=== PATIENT | female | born 1990 | race Caucasian/White ===

== ENCOUNTER → 2016-11-18 | Outpatient (CLI) | payer BC, MEDICAID ==
[2016-11-18 13:29] LABS: ABSOLUTE EOSINOPHILS # (AUTO) 0.3 10^3/uL (0.0-0.6); ABSOLUTE LYMPHOCYTES (AUTO) 1.9 10^3/uL (0.5-4.7); ABSOLUTE MONOCYTES (AUTO) 0.6 10^3/uL (0.1-1.4); ABSOLUTE NEUT (AUTO) 8.6 10^3/uL (1.7-8.2); BASOPHILS % (AUTO) 0.1 % (0-2); EOSINOPHILS % (AUTO) 2.5 % (0-6); HEMATOCRIT 40.1 % (36.0-47.0); HEMOGLOBIN 13.3 g/dL (12.0-15.5); HGB HCT DIFFERENCE -0.2; LYMPHOCYTES % (AUTO) 16.3 % (13-45); MEAN CORPUSCULAR HEMOGLOBIN 27.5 pg (27.0-33.4); MEAN CORPUSCULAR HGB CONC 33.2 g/dL (32.0-36.0); MEAN CORPUSCULAR VOLUME 83 fl (80-97); MONOCYTES % (AUTO) 5.5 % (3-13); RED BLOOD COUNT 4.85 10^6/uL (3.72-5.28); RED CELL DISTRIBUTION WIDTH 14.8 % (11.5-14.0); SEGMENTED NEUTROPHILS % (AUTO) 75.6 % (42-78); WHITE BLOOD COUNT 11.4 10^3/uL (4.0-10.5)
[2016-11-18 13:58] LABS: ALANINE AMINOTRANSFERASE 22 U/L (9-52); ALBUMIN 3.9 g/dL (3.5-5.0); ALKALINE PHOSPHATASE 100 U/L (38-126); ANION GAP 14 (5-19); ASPARTATE AMINO TRANSFERASE 19 U/L (14-36); BILIRUBIN,TOTAL 0.4 mg/dL (0.2-1.3); BLOOD UREA NITROGEN 16 mg/dL (7-20); CALCIUM 9.7 mg/dL (8.4-10.2); CARBON DIOXIDE 27 mmol/L (22-30); CHLORIDE 99 mmol/L (98-107); CHOLESTEROL 310.21 mg/dL (0-200); CREATININE RESULT 0.78 mg/dL (0.52-1.25); Direct HDL 66 mg/dL (>40); GLUCOSE 89 mg/dL (75-110); SODIUM 139.5 mmol/L (137-145); TOTAL PROTEIN 7.5 g/dL (6.3-8.2); TRIGLYCERIDES 197 mg/dL (<150)
[2016-11-18 14:09] LABS: DIRECT LDL 205 mg/dL (<100)
[2016-11-18 14:12] LABS: VLDL CHOLESTEROL 39.4 mg/dL (10-31)
== END ==
LOC: OD 12:11
PROVIDERS: ATTEND Nurse Practitioner Psychiatric/Mental Health
DX: F25.0 Schizoaffective disorder, bipolar type (principal); Z79.899 Other long term (current) drug therapy
CPT/HCPCS: 36415; 80053; 80061; 80156; 84443; 85025

== ENCOUNTER 2017-01-11 23:24 | Emergency (ER) | payer MEDICAID ==
[2017-01-12 01:11] LABS: ABSOLUTE EOSINOPHILS # (AUTO) 0.3 10^3/uL (0.0-0.6); ABSOLUTE LYMPHOCYTES (AUTO) 3.1 10^3/uL (0.5-4.7); ABSOLUTE MONOCYTES (AUTO) 0.7 10^3/uL (0.1-1.4); ABSOLUTE NEUT (AUTO) 7.5 10^3/uL (1.7-8.2); BASOPHILS % (AUTO) 0.2 % (0-2); EOSINOPHILS % (AUTO) 2.9 % (0-6); HEMATOCRIT 37.8 % (36.0-47.0); HEMOGLOBIN 12.6 g/dL (12.0-15.5); LYMPHOCYTES % (AUTO) 26.4 % (13-45); MEAN CORPUSCULAR HEMOGLOBIN 27.8 pg (27.0-33.4); MEAN CORPUSCULAR HGB CONC 33.4 g/dL (32.0-36.0); MEAN CORPUSCULAR VOLUME 83 fl (80-97); MONOCYTES % (AUTO) 5.7 % (3-13); RED BLOOD COUNT 4.54 10^6/uL (3.72-5.28); RED CELL DISTRIBUTION WIDTH 14.5 % (11.5-14.0); SEGMENTED NEUTROPHILS % (AUTO) 64.8 % (42-78); WHITE BLOOD COUNT 11.6 10^3/uL (4.0-10.5)
[2017-01-12 01:27] LABS: ANION GAP 10 (5-19); BLOOD UREA NITROGEN 15 mg/dL (7-20); CALCIUM 9.8 mg/dL (8.4-10.2); CARBON DIOXIDE 29 mmol/L (22-30); CHLORIDE 102 mmol/L (98-107); CREATININE RESULT 0.69 mg/dL (0.52-1.25); GLUCOSE 88 mg/dL (75-110); POTASSIUM 4.1 mmol/L (3.6-5.0); SODIUM 141.4 mmol/L (137-145)
[2017-01-12 01:32] LABS: URINE BARBITURATES SCREEN NEGATIVE; URINE METHADONE SCREEN NEGATIVE; URINE OPIATES LOW NEGATIVE; URINE PHENCYCLIDINE SCREEN NEGATIVE
[2017-01-12 03:37] LABS: APPEARANCE,URINE CLEAR; BILIRUBIN,URINE NEGATIVE (NEGATIVE); GLUCOSE, URINE NEGATIVE (NEGATIVE); KETONES,URINE NEGATIVE (NEGATIVE); LEUKOCYTE ESTERASE,URINE SMALL (NEGATIVE); NITRITE,URINE NEGATIVE (NEGATIVE); PROTEIN,URINE NEGATIVE (NEGATIVE); URINE SPECIFIC GRAVITY 1.024; UROBILINOGEN,URINE NEGATIVE mg/dL (<2.0)
--- NOTE | 2017-01-12 04:15 | ER Document Report ---
ED General - General Chief Complaint: Psych Problem Stated Complaint: PSYCH PROBLEM Notes: Patient is 26 year old female presents with complaints of wine to go back to residential. She has been living with her grandmother for last year. PERRLA today she got angry because someone told her to take her medications. She says that she takes medications; however, she was just mad because someone demanded her to take them. She has taken her medications. She initially was said that she would choke herself should he go back to grandmother's house. Now she is willing to go back. She she is followed by Dr. Gonzalez, psychiatrist. No other complaints at this time. TRAVEL OUTSIDE OF THE [place] IN LAST 30 DAYS: No - Related Data Allergies/Adverse Reactions: brompheniramine maleate [From Dimetapp] Adverse Reaction (Unknown, Verified 11/29 00:01) Hyperactivity dextromethorphan HBr [From Dimetapp] Adverse Reaction (Verified 01/12/17 00:01) Hyperactivity phenylpropanolamine HCl [From Dimetapp] Adverse Reaction (Verified 01/12/17 00: 01) Hyperactivity pseudoephedrine HCl [From Dimetapp] Adverse Reaction (Verified 01/12/17 00:01) Hyperactivity Past Medical History - Social History Smoking Status: Never Smoker Chew tobacco use (# tins/day): No Frequency of alcohol use: None Drug Abuse: None Family History: Arthritis, CAD, DM, Hyperlipidemia, Hypertension, Thyroid Disfunction Patient has suicidal ideation: No Patient has homicidal ideation: No - Past Medical History Cardiac Medical History: Reports: Hx Hypertension Pulmonary Medical History: Reports: Hx Asthma Neurological Medical History: Reports: Hx Migraine Endocrine Medical History: Reports: Hx Diabetes Mellitus Type 2, Hx Hypothyroidism Renal/ Medical History: Denies: Hx Peritoneal Dialysis GI Medical History: Reports: Hx Gastroesophageal Reflux Disease Musculoskeltal Medical History: Reports Hx Musculoskeletal Trauma Skin Medical History: Reports Hx Eczema Psychiatric Medical History: Reports: Hx Bipolar Disorder, Hx Depression, Hx Schizoaffective Disorder, Hx Schizophrenia Traumatic Medical History: Reports: Hx Fractures - left ankle,arm - Immunizations Immunizations up to date: No Hx Diphtheria, Pertussis, Tetanus Vaccination: No Review of Systems - Review of Systems Notes: My Normal Review Basic REVIEW OF SYSTEMS: CONSTITUTIONAL : Denies fever, chills, or sweats. Denies recent illness. MUSCULOSKELETAL: Denies neck or back pain or joint pain or swelling. SKIN: Denies rash or skin lesions. NEUROLOGICAL: Denies altered mental status or loss of consciousness. Denies headache. Denies weakness or paralysis or loss of use of either side. Denies problems with gait or speech. Denies sensory or motor loss. PSYCHIATRIC: Agitation ALL OTHER SYSTEMS REVIEWED AND NEGATIVE. Physical Exam - Vital signs Vitals: Temp Pulse Resp BP Pulse Ox 97.5 F 90 18 130/112 H 94 01/12/17 00:01 01/12/17 00:01 01/12/17 00:01 01/12/17 00:01 01/12/17 00:01 - Notes Notes: General Appearance: Well nourished, alert, cooperative, no acute distress, no obvious discomfort. Well-appearing. Vitals: reviewed, See vital signs table. Head: no swelling or tenderness to the head Eyes: PERRL, EOMI, Conjuctiva clear Mouth: No decreasd moisture Lungs: No wheezing, No rales, No rhonci, No accessory muscle use, good air exchange bilaterally. Heart: Normal rate, Regular rythm, No murmur, no rub Extremities: strength 5/5 in all extremities, good pulses in all extremities, no swelling or tenderness in the extremities, no edema. Skin: warm, dry, appropriate color, no rash Neuro: speech clear, oriented x 3, normal affect, responds appropriately to questions. Course - Vital Signs Vital signs: Temp Pulse Resp BP Pulse Ox 97.9 F 78 18 121/64 99 01/12/17 04:15 01/12/17 04:15 01/12/17 04:15 01/12/17 04:15 01/12/17 04:15 - Laboratory Result Diagrams: 01/12/17 00:45 01/12/17 00:45 Laboratory results interpreted by me: 01/12/17 01/12/17 01/12/17 00:45 00:45 00:45 WBC 11.6 H RDW 14.5 H Ur Leukocyte Esterase SMALL H Salicylates < 1.0 L Acetaminophen < 10 L - Transfer of Care Notes: 01/12/17 06:29 I did talk with the patient and family at length. Patient is calm and appropriate now. She is going to go back home with the grandmother. I informed her the best way for her to get into a residential would be to talk to her psychiatrist on Friday to discuss with him further options. She is agreeable to this. Patient will be discharged home. They're encouraged return to ER to have any further concerns. Dictation of this chart was performed using voice recognition software; therefore, there may be some unintended grammatical errors. Discharge - Discharge Clinical Impression: Agitation Condition: Good Disposition: HOME, SELF-CARE Additional Instructions: Please follow up with your doctor on Friday to discuss arranging for placement back in the residential if this is what you still want. Referrals: MICHAEL SCHULZ MD [Primary Care Provider] - Follow up as needed
[2017-01-12 04:24] VITALS: BP 121/64
--- NOTE | 2017-01-12 21:10 | EKG REPORT ---
SEVERITY:- NORMAL ECG - SINUS RHYTHM : Confirmed by: Yadira Au MD 12-Jan-2017 21:09:07
== END 2017-01-12 04:15 | disposition home or self-care (01) ==
LOC: ER 23:24
DX: R45.1 Restlessness and agitation (principal); I10 Essential (primary) hypertension; J45.909 Unspecified asthma, uncomplicated; E11.9 Type 2 diabetes mellitus without complications; Z79.899 Other long term (current) drug therapy
CPT/HCPCS: 36415; 80048; 80307; 81001; 84703; 85025; 93005; 93010; 99284

== ENCOUNTER → 2017-01-17 | Outpatient (CLI) | payer MEDICAID ==
[2017-01-17 11:50] LABS: ABSOLUTE EOSINOPHILS # (AUTO) 0.2 10^3/uL (0.0-0.6); ABSOLUTE LYMPHOCYTES (AUTO) 2.7 10^3/uL (0.5-4.7); ABSOLUTE MONOCYTES (AUTO) 0.6 10^3/uL (0.1-1.4); ABSOLUTE NEUT (AUTO) 6.1 10^3/uL (1.7-8.2); BASOPHILS % (AUTO) 0.3 % (0-2); EOSINOPHILS % (AUTO) 2.5 % (0-6); HEMATOCRIT 37.9 % (36.0-47.0); HEMOGLOBIN 12.7 g/dL (12.0-15.5); HGB HCT DIFFERENCE 0.2; LYMPHOCYTES % (AUTO) 28.1 % (13-45); MEAN CORPUSCULAR HGB CONC 33.6 g/dL (32.0-36.0); MEAN CORPUSCULAR VOLUME 83 fl (80-97); MONOCYTES % (AUTO) 6.1 % (3-13); RED BLOOD COUNT 4.56 10^6/uL (3.72-5.28); RED CELL DISTRIBUTION WIDTH 14.1 % (11.5-14.0); WHITE BLOOD COUNT 9.7 10^3/uL (4.0-10.5)
[2017-01-17 12:11] LABS: ALANINE AMINOTRANSFERASE 24 U/L (9-52); ALBUMIN 3.9 g/dL (3.5-5.0); ALKALINE PHOSPHATASE 98 U/L (38-126); ANION GAP 12 (5-19); ASPARTATE AMINO TRANSFERASE 17 U/L (14-36); BILIRUBIN,DIRECT 0.3 mg/dL (0.0-0.4); BILIRUBIN,TOTAL 0.4 mg/dL (0.2-1.3); BLOOD UREA NITROGEN 12 mg/dL (7-20); CALCIUM 9.2 mg/dL (8.4-10.2); CARBON DIOXIDE 29 mmol/L (22-30); CHLORIDE 100 mmol/L (98-107); CREATININE RESULT 0.64 mg/dL (0.52-1.25); GLUCOSE 82 mg/dL (75-110); POTASSIUM 4.1 mmol/L (3.6-5.0); SODIUM 140.9 mmol/L (137-145)
== END ==
LOC: OD 11:11
PROVIDERS: ATTEND Nurse Practitioner Psychiatric/Mental Health
DX: F25.0 Schizoaffective disorder, bipolar type (principal); Z79.899 Other long term (current) drug therapy
CPT/HCPCS: 36415; 80053; 80156; 85025

== ENCOUNTER 2017-01-23 23:27 | Emergency (ER) | payer MEDICAID ==
[2017-01-24 00:39] LABS: ABSOLUTE EOSINOPHILS # (AUTO) 0.2 10^3/uL (0.0-0.6); ABSOLUTE LYMPHOCYTES (AUTO) 2.8 10^3/uL (0.5-4.7); ABSOLUTE MONOCYTES (AUTO) 0.7 10^3/uL (0.1-1.4); BASOPHILS % (AUTO) 0.2 % (0-2); EOSINOPHILS % (AUTO) 1.7 % (0-6); HEMATOCRIT 40.3 % (36.0-47.0); HEMOGLOBIN 13.7 g/dL (12.0-15.5); HGB HCT DIFFERENCE 0.8; LYMPHOCYTES % (AUTO) 21.7 % (13-45); MEAN CORPUSCULAR HEMOGLOBIN 28.2 pg (27.0-33.4); MEAN CORPUSCULAR VOLUME 83 fl (80-97); MONOCYTES % (AUTO) 5.3 % (3-13); RED BLOOD COUNT 4.85 10^6/uL (3.72-5.28); RED CELL DISTRIBUTION WIDTH 14.3 % (11.5-14.0); SEGMENTED NEUTROPHILS % (AUTO) 71.1 % (42-78); WHITE BLOOD COUNT 12.7 10^3/uL (4.0-10.5)
[2017-01-24 00:46] LABS: APPEARANCE,URINE SLIGHTLY-CLOUDY; BILIRUBIN,URINE NEGATIVE (NEGATIVE); GLUCOSE, URINE NEGATIVE (NEGATIVE); KETONES,URINE NEGATIVE (NEGATIVE); LEUKOCYTE ESTERASE,URINE TRACE (NEGATIVE); NITRITE,URINE NEGATIVE (NEGATIVE); PROTEIN,URINE NEGATIVE (NEGATIVE); URINE SPECIFIC GRAVITY 1.015; UROBILINOGEN,URINE NEGATIVE mg/dL (<2.0)
[2017-01-24 00:54] LABS: ALANINE AMINOTRANSFERASE 24 U/L (9-52); ALBUMIN 4.5 g/dL (3.5-5.0); ALCOHOL < 10 mg/dL (NONE DETECTED); ALKALINE PHOSPHATASE 124 U/L (38-126); ANION GAP 13 (5-19); ASPARTATE AMINO TRANSFERASE 21 U/L (14-36); BILIRUBIN,DIRECT 0.2 mg/dL (0.0-0.4); BILIRUBIN,TOTAL 0.4 mg/dL (0.2-1.3); BLOOD UREA NITROGEN 14 mg/dL (7-20); CALCIUM 9.9 mg/dL (8.4-10.2); CARBON DIOXIDE 27 mmol/L (22-30); CHLORIDE 101 mmol/L (98-107); CREATININE RESULT 0.68 mg/dL (0.52-1.25); GLUCOSE 98 mg/dL (75-110); POTASSIUM 4.6 mmol/L (3.6-5.0); SODIUM 140.6 mmol/L (137-145); TOTAL PROTEIN 7.8 g/dL (6.3-8.2)
[2017-01-24 00:58] LABS: URINE BARBITURATES SCREEN NEGATIVE; URINE METHADONE SCREEN NEGATIVE; URINE OPIATES LOW NEGATIVE; URINE PHENCYCLIDINE SCREEN NEGATIVE
[2017-01-24] MEDS ORDERED: PERMETHRIN 1% LOTION 59 ML TP ONE ×4 (01:07→14:00)
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
[2017-01-24] MEDS ORDERED: METFORMIN HCL 500 MG TABLET PO ONE (02:00)
[2017-01-24] MEDS ORDERED: ESCITALOPRAM OXALATE PO SCH (04:00)
[2017-01-24] MEDS ORDERED: (PENDING PHARMACY ID) (Potassium Citrate [Potassium Citrate Er] 10 MEQ) PO SCH (04:00)
[2017-01-24] MEDS ORDERED: (PENDING PHARMACY ID) (Trazodone Hcl [Trazodone Hcl] 1 TAB) PO SCH (04:00)
--- NOTE | 2017-01-24 07:39 | EKG REPORT ---
SEVERITY:- NORMAL ECG - SINUS RHYTHM : Confirmed by: Jayden Michel MD 24-Jan-2017 07:37:50
[2017-01-24] MEDS ORDERED: METFORMIN HCL 500 MG TABLET PO SCH (08:00)
[2017-01-24] MEDS ORDERED: ACETAMINOPHEN 325 MG TABLET PO ONE (08:25)
[2017-01-24] MEDS ORDERED: HYDROCHLOROTHIAZIDE 25 MG TABLET PO SCH (10:00)
[2017-01-24] MEDS ORDERED: LEVOTHYROXINE SODIUM 0.1 MG TABLET PO SCH (10:00)
[2017-01-24] MEDS ORDERED: LANSOPRAZOLE 30 MG TAB.RAP.DR PO SCH (10:00)
[2017-01-24] MEDS ORDERED: BENZTROPINE MESYLATE 1 MG TABLET PO SCH (10:00)
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
[2017-01-24 12:43] VITALS: BP 113/67
[2017-01-24] MEDS ORDERED: PERMETHRIN 5% CREAM 60 GM TP PRN (13:33)
--- NOTE | 2017-01-24 13:33 | ER Document Report ---
ED Medical Screen (RME) - General Chief Complaint: Suicidal Ideation Stated Complaint: SUICIDAL IDEATION Notes: Progress: The patient is here for reported suicidal ideations however on assessment by psychiatry the patient did not have any suicidal or homicidal ideations. Patient stated goal was to go back to the correction that she was previously at. She indicates there is no other reason for her coming here today. She said it was a bad idea for her to move to her grandparents home. She says that they fight all the time. The patient has been stable in the emergency department without complaint. She is not suicidal or homicidal. She is not having any psychoses. She is comfortable and vital signs have been stable throughout. Patient will be discharged home to her guardians. Apparently the guardian family is working on a voluntary placement for her in correction. TRAVEL OUTSIDE OF THE [place] IN LAST 30 DAYS: No - Related Data Allergies/Adverse Reactions: brompheniramine maleate [From Dimetapp] Adverse Reaction (Unknown, Verified 11/29 00:01) Hyperactivity dextromethorphan HBr [From Dimetapp] Adverse Reaction (Verified 01/12/17 00:01) Hyperactivity phenylpropanolamine HCl [From Dimetapp] Adverse Reaction (Verified 01/12/17 00: 01) Hyperactivity pseudoephedrine HCl [From Dimetapp] Adverse Reaction (Verified 01/12/17 00:01) Hyperactivity Home Medications: Current Home Medications Hydrochlorothiazide 25 mg PO DAILY 01/24/17 [History] Hydroxyzine Pamoate [Vistaril 50 mg Capsule] 50 mg PO QHS 01/24/17 [History] Pantoprazole Sodium 40 mg PO BID 01/24/17 [History] Potassium Citrate [Potassium Citrate ER] 10 meq PO DAILY 01/24/17 [History] Past Medical History - Social History Frequency of alcohol use: None Drug Abuse: None - Past Medical History Cardiac Medical History: Reports: Hx Hypertension Pulmonary Medical History: Reports: Hx Asthma Neurological Medical History: Reports: Hx Migraine Endocrine Medical History: Reports: Hx Diabetes Mellitus Type 2, Hx Hypothyroidism Renal/ Medical History: Denies: Hx Peritoneal Dialysis GI Medical History: Reports: Hx Gastroesophageal Reflux Disease Musculoskeltal Medical History: Reports Hx Musculoskeletal Trauma Skin Medical History: Reports Hx Eczema Psychiatric Medical History: Reports: Hx Bipolar Disorder, Hx Depression, Hx Schizoaffective Disorder, Hx Schizophrenia Traumatic Medical History: Reports: Hx Fractures - left ankle,arm - Immunizations Immunizations up to date: No Hx Diphtheria, Pertussis, Tetanus Vaccination: No Physical Exam - Vital signs Vitals: Temp Pulse Resp BP Pulse Ox 98.3 F 93 18 130/80 H 98 01/23/17 23:35 01/23/17 23:35 01/23/17 23:35 01/23/17 23:35 01/23/17 23:35 Course - Vital Signs Vital signs: Temp Pulse Resp BP Pulse Ox 98.7 F 70 18 113/67 99 01/24/17 12:42 01/24/17 12:42 01/24/17 12:42 01/24/17 12:42 01/24/17 12:42 - Laboratory Result Diagrams: 01/24/17 00:13 01/24/17 00:13 Laboratory results interpreted by me: 01/24/17 01/24/17 01/24/17 00:13 00:13 00:13 WBC 12.7 H RDW 14.3 H Absolute Neutrophils 9.0 H Ur Leukocyte Esterase TRACE H Salicylates < 1.0 L Acetaminophen < 10 L Doctor's Discharge - Discharge Clinical Impression: Scabies Bipolar disorder, unspecified Qualifiers: Active/Remission status: remission status unspecified Qualified Code(s): F31.9 - Bipolar disorder, unspecified Condition: Good Disposition: HOME, SELF-CARE Additional Instructions: DEPRESSION: Your evaluation reveals that you have mental depression. While symptoms may be vague, they often include disturbance of sleep, fatigue, loss of appetite , and general loss of interest in life. While depression may be a side effect of drugs, or a reaction to a major change in your life, many cases have no known cause. If depression is acute, and related to a major loss in your life, you can expect it to clear completely with time. If you have been depressed a long time , are prone to repeated bouts of depression or low mood, or have been thinking of suicide, get help. Depression can be treated with anti-depressant medication and counselling. Long-term depression will often take a few weeks to clear, even with appropriate medication. Follow-up care is important. SUICIDAL IDEATION: Suicidal ideation is a common medical term for thoughts about suicide, which may be as detailed as a formulated plan, without the suicidal act itself. Although most people who undergo suicidal ideation do not commit suicide, some go on to make suicide attempts. The range of suicidal ideation varies greatly from fleeting to detailed planning, role playing, and unsuccessful attempts. While thoughts about suicide are common, most people do not carry out serious actions to commit suicide. Based upon your evaluation and discussion with you, we do not believe you are currently at risk to act upon your thoughts of suicide. You have agreed to return to the Emergency Department, at any time , if you feel inclined to act upon your suicidal thoughts. Scabies Your exam suggests the presence of scabies, which are microscopic parasites of the skin. These mites nia through the skin, causing severe itching. The mite can be spread to other persons by skin contact. All clothing, towels, and bedding should be washed in very hot water, set aside for a week, then washed again. You should apply scabies-killing lotion from the neck down, then wash it off after 12 hours. You may need medication for itching, as the itch persists for many days after the mites have been killed. All family members and close personal contacts should be examined. Repeat treatment may be necessary if the infestation is not eliminated with a single treatment. Call the doctor if you develop increasing swelling and redness, red streaks , tender lumps, fever, or drainage from a skin sore. FOLLOW-UP CARE: If you have been referred to your primary mental health provider, [facility]. Please call the physicians office for an appointment within the next two days. If you experience worsening or a significant change in your symptoms, notify the physician immediately or return to the Emergency Department at any time for re- evaluation. Referrals: [facility] [Outside] - Follow up in 3-5 days
[2017-01-24] MEDS ORDERED: HYDROXYZINE PAMOATE 50 MG CAPSULE PO SCH (22:00)
== END 2017-01-24 14:04 | disposition home or self-care (01) ==
LOC: ER 23:27
DX: R45.851 Suicidal ideations (principal); B86 Scabies; F31.9 Bipolar disorder, unspecified; I10 Essential (primary) hypertension; E11.9 Type 2 diabetes mellitus without complications; E03.9 Hypothyroidism, unspecified; K21.9 Gastro-esophageal reflux disease without esophagitis; T21.02XA Burn of unspecified degree of abdominal wall, initial encounter; X15.8XXA Contact with other hot household appliances, initial encounter; F79 Unspecified intellectual disabilities
CPT/HCPCS: 93005; 99285; 36415; 80307 ×4; 85025; 80053; 81001; 93010; J3490 ×6

== ENCOUNTER 2017-04-16 22:22 | Emergency (ER) | payer MEDICAID, OTHER ==
[2017-04-16] MEDS ORDERED: ONDANSETRON HCL INJ/PF 4 MG/2 ML SDV IV ONE (23:07)
[2017-04-16] MEDS ORDERED: LORAZEPAM INJ 2 MG/1 ML VIAL IV ONE (23:07)
[2017-04-16] MEDS ORDERED: NORMAL SALINE 1000 ML 1,000 ML IV ONE (23:07)
--- NOTE | 2017-04-16 23:08 | ER Document Report ---
ED GI/ - General Information source: Patient TRAVEL OUTSIDE OF THE [place] IN LAST 30 DAYS: No - HPI Patient complains to provider of: Abdominal pain <AVIVA MERRILL - Last Filed: 04/17/17 01:17> <HARRISON COURTNEY - Last Filed: 04/17/17 04:51> - General Chief Complaint: Anxiety Stated Complaint: POSSIBLE ANXIETY Time Seen by Provider: 04/16/17 22:42 Notes: Patient is a 26 year old female who presents to the ED with complaints of RLQ abdominal pain and a "bump on her abdomen. Patient states she has never had pain like this before. Patient states that her entire body hurts. Patient states that her abdominal pain began after eating and drinking. 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 Patient has taken 2 hydroxazene prior to arrival. Patients mother states that the patient has seizures with having CT scans but they are unsure if it caused by the contrast. No other concerns or complaints at this time. (AVIVA MERRILL) - Related Data Allergies/Adverse Reactions: brompheniramine maleate [From Dimetapp] Adverse Reaction (Unknown, Verified 11/29 00:01) Hyperactivity dextromethorphan HBr [From Dimetapp] Adverse Reaction (Verified 01/12/17 00:01) Hyperactivity phenylpropanolamine HCl [From Dimetapp] Adverse Reaction (Verified 01/12/17 00: 01) Hyperactivity pseudoephedrine HCl [From Dimetapp] Adverse Reaction (Verified 01/12/17 00:01) Hyperactivity Past Medical History - General Information source: Patient - Social History Smoking Status: Never Smoker Chew tobacco use (# tins/day): No Frequency of alcohol use: Rare Drug Abuse: None Family History: Arthritis, CAD, DM, Hyperlipidemia, Hypertension, Thyroid Disfunction Patient has suicidal ideation: No Patient has homicidal ideation: No - Past Medical History Cardiac Medical History: Reports: Hx Hypertension Pulmonary Medical History: Reports: Hx Asthma Neurological Medical History: Reports: Hx Migraine Endocrine Medical History: Reports: Hx Diabetes Mellitus Type 2, Hx Hypothyroidism Renal/ Medical History: Denies: Hx Peritoneal Dialysis GI Medical History: Reports: Hx Gastroesophageal Reflux Disease Musculoskeltal Medical History: Reports Hx Musculoskeletal Trauma Skin Medical History: Reports Hx Eczema Psychiatric Medical History: Reports: Hx Bipolar Disorder, Hx Depression, Hx Schizoaffective Disorder, Hx Schizophrenia Traumatic Medical History: Reports: Hx Fractures - left ankle,arm - Immunizations Immunizations up to date: No Hx Diphtheria, Pertussis, Tetanus Vaccination: No <GARFIELD,AVIVA - Last Filed: 04/17/17 01:17> Review of Systems - Review of Systems Constitutional: No symptoms reported EENT: No symptoms reported Cardiovascular: No symptoms reported Respiratory: No symptoms reported Gastrointestinal: See HPI, Abdominal pain Genitourinary: No symptoms reported Female Genitourinary: No symptoms reported Musculoskeletal: See HPI, Other - patient states her entire body hurts. Skin: No symptoms reported Hematologic/Lymphatic: No symptoms reported Neurological/Psychological: No symptoms reported <GARFIELDAVIVA - Last Filed: 04/17/17 01:17> Physical Exam - General General appearance: Appears well, Alert In distress: None - HEENT Head: Normocephalic, Atraumatic Eyes: Normal Extraocular movements intact: Yes Pupils: PERRL - Respiratory Respiratory status: No respiratory distress <AVIVA MERRILL - Last Filed: 04/17/17 01:17> Course - Laboratory Result Diagrams: 04/16/17 23:30 04/16/17 23:30 <AVIVA MERRILL - Last Filed: 04/17/17 01:17> - Laboratory Result Diagrams: 04/16/17 23:30 04/17/17 01:48 <HARRISON COURTNEY - Last Filed: 04/17/17 04:51> - Re-evaluation Re-evalutation: 04/17/17 01:18 Patient rechecked. Patient is sound asleep with no pain currently. (AVIVA MERRILL) 04/17/17 03:11 Patient with no acute findings on blood work or CT. No pain at this time. Patient had been given Ativan and has had no complaints since then. Stable for discharge. Follow-up with PMD. Return if any worsening or concerning symptoms. (HARRISON COURTNEY) - Vital Signs Vital signs: Temp Pulse Resp BP Pulse Ox 97.5 F 83 16 108/76 97 04/17/17 03:26 04/17/17 03:26 04/17/17 03:26 04/17/17 03:26 04/17/17 03:26 - Laboratory Laboratory results interpreted by me: 04/16/17 04/17/17 23:30 01:48 RDW 14.2 H Potassium 3.1 L Discharge <AVIVA MERRILL - Last Filed: 04/17/17 01:17> <HARRISON COURTNEY - Last Filed: 04/17/17 04:51> - Discharge Clinical Impression: Abdominal pain Qualifiers: Abdominal location: right lower quadrant Qualified Code(s): R10.31 - Right lower quadrant pain Condition: Stable Disposition: HOME, SELF-CARE Instructions: Anxiety ([facility]), Abdominal Pain ([facility]) Referrals: MAGNO BEJARANO NP [Primary Care Provider] - Follow up as needed Scribe Attestation: 04/17/17 04:51 I personally performed the services described in the documentation, reviewed and edited the documentation which was dictated to the scribe in my presence, and it accurately records my words and actions. (HARRISON COURTNEY) Scribe Documentation - Scribe Written by Guillerminaibe:: ludwig Murrieta, 04/16/2017, [id number] acting as scribe for :: Zuri <AVIVA MERRILL - Last Filed: 04/17/17 01:17>
[2017-04-16 23:49] LABS: ABSOLUTE BASOPHILS # (AUTO) 0.1 10^3/uL (0.0-0.2); ABSOLUTE EOSINOPHILS # (AUTO) 0.2 10^3/uL (0.0-0.6); ABSOLUTE LYMPHOCYTES (AUTO) 3.7 10^3/uL (0.5-4.7); ABSOLUTE MONOCYTES (AUTO) 0.8 10^3/uL (0.1-1.4); ABSOLUTE NEUT (AUTO) 5.4 10^3/uL (1.7-8.2); BASOPHILS % (AUTO) 0.6 % (0-2); EOSINOPHILS % (AUTO) 2.4 % (0-6); HEMATOCRIT 40.7 % (36.0-47.0); HEMOGLOBIN 13.3 g/dL (12.0-15.5); HGB HCT DIFFERENCE -0.8; LYMPHOCYTES % (AUTO) 36.6 % (13-45); MEAN CORPUSCULAR HEMOGLOBIN 27.7 pg (27.0-33.4); MEAN CORPUSCULAR HGB CONC 32.7 g/dL (32.0-36.0); MEAN CORPUSCULAR VOLUME 85 fl (80-97); MONOCYTES % (AUTO) 7.4 % (3-13); RED CELL DISTRIBUTION WIDTH 14.2 % (11.5-14.0); WHITE BLOOD COUNT 10.1 10^3/uL (4.0-10.5)
--- NOTE | 2017-04-17 00:20 | RADIOLOGY REPORT (SQ) ---
EXAM DESCRIPTION: CT ABD/PELVIS NO ORAL OR IV COMPLETED DATE/TIME: 04/17/2017 12:03 am REASON FOR STUDY: r abd pain, nuasea COMPARISON: 2.18.12 TECHNIQUE: CT scan of the abdomen and pelvis performed without intravenous or oral contrast. Images reviewed with lung, soft tissue, and bone windows. Reconstructed coronal and sagittal MPR images revi ewed. All images stored on PACS. All CT scanners at this facility use dose modulation, iterative reconstruction, and/or weight based d osing when appropriate to reduce radiation dose to as low as reasonably achievable (ALARA). [facility]: Dose Right [facility]: CareDose [facility]: Dose Right [facility]: Teradose 4D [facility]: Smart Solar3D RADIATION DOSE: Up-to-date CT equipment and radiation dose reduction techniques were employed. CTDIv ol: 26.2 mGy. DLP: 1610 mGy-cm.mGy. LIMITATIONS: Mild motion -streak artifact. FINDINGS: LOWER CHEST: No significant findings. No nodules or infiltrates. NON-CONTRASTED LIVER, SPLEEN, ADRENALS: Evaluation limited by lack of IV contrast. No identified sign ificant masses. PANCREAS: Moderate fat replaced pancreatic head. GALLBLADDER: No identified stones by CT criteria. No inflammatory changes to suggest cholecystitis. RIGHT KIDNEY AND URETER: No suspicious masses. Assessment limited by lack of IV contrast. No signif icant calcifications. No hydronephrosis or hydroureter. LEFT KIDNEY AND URETER: No suspicious masses. Assessment limited by lack of IV contrast. No signifi cant calcifications. No hydronephrosis or hydroureter. AORTA AND RETROPERITONEUM: No aneurysm. No retroperitoneal masses or adenopathy. BOWEL AND PERITONEAL CAVITY: No obvious masses or inflammatory changes. No free fluid. APPENDIX: No evidence of appendicitis. PELVIS, BLADDER, AND ABDOMINAL WALL:No abnormal masses. No free fluid. Bladder normal. BONES: No significant findings. OTHER: No other significant finding. IMPRESSION: No acute findings. TECHNICAL DOCUMENTATION: JOB ID: [id number] Quality ID # [id number]: Final reports with documentation of one or more dose reduction techniques (e.g., Au tomated exposure control, adjustment of the mA and/or kV according to patient size, use of iterative reconstruction technique) 2010 [employer] All Rights Reserved
[2017-04-17 02:13] LABS: ALANINE AMINOTRANSFERASE 26 U/L (9-52); ALBUMIN 3.7 g/dL (3.5-5.0); ALKALINE PHOSPHATASE 95 U/L (38-126); ANION GAP 11 (5-19); ASPARTATE AMINO TRANSFERASE 18 U/L (14-36); BILIRUBIN,DIRECT 0.3 mg/dL (0.0-0.4); BILIRUBIN,TOTAL 0.5 mg/dL (0.2-1.3); BLOOD UREA NITROGEN 14 mg/dL (7-20); CALCIUM 8.9 mg/dL (8.4-10.2); CARBON DIOXIDE 24 mmol/L (22-30); CHLORIDE 103 mmol/L (98-107); CREATININE RESULT 0.71 mg/dL (0.52-1.25); GLUCOSE 103 mg/dL (75-110); POTASSIUM 3.1 mmol/L (3.6-5.0); SODIUM 137.9 mmol/L (137-145); TOTAL PROTEIN 6.8 g/dL (6.3-8.2)
[2017-04-17 03:27] VITALS: BP 108/76
== END 2017-04-17 03:27 | disposition home or self-care (01) ==
LOC: ER 22:22
DX: R10.31 Right lower quadrant pain (principal); F41.9 Anxiety disorder, unspecified
CPT/HCPCS: 99284; 96361; 96374; 96375; 36415; 85025; 80053; 74176; J2060; J2405; J7030

== ENCOUNTER 2017-04-18 16:34 | Emergency (ER) | payer MEDICAID ==
[2017-04-18] MEDS ORDERED: NORMAL SALINE 1000 ML 1,000 ML IV ONE (16:40)
[2017-04-18] MEDS ORDERED: ONDANSETRON HCL INJ/PF 4 MG/2 ML SDV IV ONE (16:40)
--- NOTE | 2017-04-18 16:42 | ER Document Report ---
ED General - General Chief Complaint: Abdominal Pain Stated Complaint: ABDOMINAL PAIN Time Seen by Provider: 04/18/17 16:39 Mode of Arrival: Medic Information source: Patient Notes: Pt is a 26 year old schizophrenic patient who presents to the ER via EMS today for abdominal pain. She has been evaluated here two days ago and went to [facility] yesterday and was told she was constipated, they gave her dulcolax. Mom states the pain is still there, but has rotated to the right lower quadrant from the right upper quadrant since yesterday. Patient states she has dealt with this "for years." Her last bowel movement was yesterday and was "hard with a puff of air." She denies n/v/diarrhea. TRAVEL OUTSIDE OF THE [place] IN LAST 30 DAYS: No - Related Data Allergies/Adverse Reactions: brompheniramine maleate [From Dimetapp] Adverse Reaction (Unknown, Verified 11/29 00:01) Hyperactivity dextromethorphan HBr [From Dimetapp] Adverse Reaction (Verified 01/12/17 00:01) Hyperactivity phenylpropanolamine HCl [From Dimetapp] Adverse Reaction (Verified 01/12/17 00: 01) Hyperactivity pseudoephedrine HCl [From Dimetapp] Adverse Reaction (Verified 01/12/17 00:01) Hyperactivity Past Medical History - General Information source: Patient - Social History Smoking Status: Unknown if Ever Smoked Family History: Arthritis, CAD, DM, Hyperlipidemia, Hypertension, Thyroid Disfunction - Past Medical History Cardiac Medical History: Reports: Hx Hypertension Pulmonary Medical History: Reports: Hx Asthma Neurological Medical History: Reports: Hx Migraine Endocrine Medical History: Reports: Hx Diabetes Mellitus Type 2, Hx Hypothyroidism Renal/ Medical History: Denies: Hx Peritoneal Dialysis GI Medical History: Reports: Hx Gastroesophageal Reflux Disease Musculoskeltal Medical History: Reports Hx Musculoskeletal Trauma Skin Medical History: Reports Hx Eczema Psychiatric Medical History: Reports: Hx Bipolar Disorder, Hx Depression, Hx Schizoaffective Disorder, Hx Schizophrenia Traumatic Medical History: Reports: Hx Fractures - left ankle,arm - Immunizations Immunizations up to date: No Hx Diphtheria, Pertussis, Tetanus Vaccination: No Review of Systems - Review of Systems Constitutional: No symptoms reported EENT: No symptoms reported Cardiovascular: No symptoms reported Respiratory: No symptoms reported Gastrointestinal: See HPI Genitourinary: No symptoms reported Female Genitourinary: No symptoms reported Musculoskeletal: No symptoms reported Skin: No symptoms reported Hematologic/Lymphatic: No symptoms reported Neurological/Psychological: No symptoms reported Physical Exam - Vital signs Vitals: Temp Pulse Resp BP Pulse Ox 97.5 F 85 18 114/97 H 100 04/18/17 16:44 04/18/17 16:44 04/18/17 16:44 04/18/17 16:44 04/18/17 16:44 - Notes Notes: PHYSICAL EXAMINATION: GENERAL: morbidly obese, in no acute distress. HEAD: Atraumatic, normocephalic. EYES: Pupils equal round and reactive to light, extraocular movements intact, sclera anicteric, conjunctiva are normal. NECK: Normal range of motion, supple without lymphadenopathy LUNGS: CTAB and equal. No wheezes rales or rhonchi. HEART: Regular rate and rhythm without murmurs ABDOMEN: Soft, mild diffuse tenderness. No guarding, no rebound BACK: no vertebral tenderness, normal ROM GI/: no CVA tenderness EXTREMITIES: Normal range of motion, no pitting edema. No cyanosis. NEUROLOGICAL: Cranial nerves grossly intact. Normal sensory/motor exams. PSYCH: Normal mood, normal affect. SKIN: Warm, Dry, normal turgor, no rashes or lesions noted Course - Vital Signs Vital signs: Temp Pulse Resp BP Pulse Ox 97.5 F 85 18 114/97 H 100 04/18/17 16:44 04/18/17 16:44 04/18/17 16:44 04/18/17 16:44 04/18/17 16:44 - Laboratory Result Diagrams: 04/18/17 17:09 04/18/17 17:09 Laboratory results interpreted by me: 04/18/17 04/18/17 16:47 17:09 RDW 14.1 H Ur Leukocyte Esterase MODERATE H Discharge - Discharge Clinical Impression: Constipation Qualifiers: Constipation type: unspecified constipation type Qualified Code(s): K59.00 - Constipation, unspecified Condition: Stable Disposition: HOME, SELF-CARE Additional Instructions: Return immediately for any new or worsening symptoms. Follow up with primary care provider, call tomorrow to make followup appointment. Prescriptions: Polyethylene Glycol 3350 [Miralax] 527 gm PO BID #1 powder Sennosides [Senna] 8.6 mg PO BID #10 tablet
[2017-04-18] MEDS ORDERED: LORAZEPAM INJ 2 MG/1 ML VIAL IV ONE (16:56)
[2017-04-18 17:11] LABS: APPEARANCE,URINE CLOUDY; BILIRUBIN,URINE NEGATIVE (NEGATIVE); GLUCOSE, URINE NEGATIVE (NEGATIVE); KETONES,URINE NEGATIVE (NEGATIVE); LEUKOCYTE ESTERASE,URINE MODERATE (NEGATIVE); NITRITE,URINE NEGATIVE (NEGATIVE); PROTEIN,URINE NEGATIVE (NEGATIVE); URINE SPECIFIC GRAVITY 1.031; UROBILINOGEN,URINE NEGATIVE mg/dL (<2.0)
[2017-04-18 17:24] LABS: ABSOLUTE EOSINOPHILS # (AUTO) 0.3 10^3/uL (0.0-0.6); ABSOLUTE LYMPHOCYTES (AUTO) 2.6 10^3/uL (0.5-4.7); ABSOLUTE MONOCYTES (AUTO) 0.6 10^3/uL (0.1-1.4); ABSOLUTE NEUT (AUTO) 6.2 10^3/uL (1.7-8.2); BASOPHILS % (AUTO) 0.4 % (0-2); EOSINOPHILS % (AUTO) 2.7 % (0-6); HEMATOCRIT 40.8 % (36.0-47.0); HEMOGLOBIN 13.2 g/dL (12.0-15.5); HGB HCT DIFFERENCE -1.2; MEAN CORPUSCULAR HEMOGLOBIN 27.8 pg (27.0-33.4); MEAN CORPUSCULAR HGB CONC 32.4 g/dL (32.0-36.0); MEAN CORPUSCULAR VOLUME 86 fl (80-97); MONOCYTES % (AUTO) 6.7 % (3-13); RED BLOOD COUNT 4.75 10^6/uL (3.72-5.28); RED CELL DISTRIBUTION WIDTH 14.1 % (11.5-14.0); SEGMENTED NEUTROPHILS % (AUTO) 63.2 % (42-78); WHITE BLOOD COUNT 9.7 10^3/uL (4.0-10.5)
[2017-04-18 17:29] LABS: URINE OPIATES LOW NEGATIVE; URINE PHENCYCLIDINE SCREEN NEGATIVE
[2017-04-18 17:34] LABS: URINE BARBITURATES SCREEN NEGATIVE
[2017-04-18 17:35] LABS: URINE METHADONE SCREEN NEGATIVE
--- NOTE | 2017-04-18 17:35 | RADIOLOGY REPORT (SQ) ---
EXAM DESCRIPTION: KUB/ABDOMEN (SINGLE VIEW) COMPLETED DATE/TIME: 04/18/2017 5:22 pm REASON FOR STUDY: abd pain, constipation? COMPARISON: CT from 04/16/2017 NUMBER OF VIEWS: One view. TECHNIQUE: Supine radiographic image of the abdomen acquired. LIMITATIONS: None. FINDINGS: BOWEL GAS PATTERN: Normal bowel gas pattern. No dilated loops. Stable degree of fecal ret ention CALCIFICATIONS: No suspicious calcifications. SOFT TISSUES: No gross mass or suggestion of organomegaly. HARDWARE: None in the abdomen. BONES: No acute fracture. No worrisome bone lesions. OTHER: No other significant finding. IMPRESSION: NO RADIOGRAPHIC EVIDENCE FOR ACUTE ABDOMINAL DISEASE. STABLE DEGREE OF FECAL RETENTION WHEN COMPARED TO CT FROM 04/16/2017. TECHNICAL DOCUMENTATION: JOB ID: [id number] [employer]- All Rights Reserved
[2017-04-18] MEDS ORDERED: SENNOSIDES/DOCUSATE 8.6-50 MG 1 EACH TABLET PO ONE (17:38)
[2017-04-18 17:46] LABS: ALANINE AMINOTRANSFERASE 23 U/L (9-52); ALBUMIN 4.2 g/dL (3.5-5.0); ALKALINE PHOSPHATASE 92 U/L (38-126); ANION GAP 14 (5-19); ASPARTATE AMINO TRANSFERASE 21 U/L (14-36); BILIRUBIN,DIRECT 0.4 mg/dL (0.0-0.4); BILIRUBIN,TOTAL 0.4 mg/dL (0.2-1.3); BLOOD UREA NITROGEN 17 mg/dL (7-20); CARBON DIOXIDE 27 mmol/L (22-30); CHLORIDE 101 mmol/L (98-107); CREATININE RESULT 0.74 mg/dL (0.52-1.25); GLUCOSE 91 mg/dL (75-110); LIPASE 147.3 U/L (23-300); POTASSIUM 3.8 mmol/L (3.6-5.0); SODIUM 141.9 mmol/L (137-145)
[2017-04-18] MEDS ORDERED: POLYETHYLENE GLYCOL 3350 POWDER 17 GM/1 PACKET PO ONE (17:48)
[2017-04-18 18:56] VITALS: BP 120/75
== END 2017-04-18 19:28 | disposition home or self-care (01) ==
LOC: ER 16:34
DX: K59.00 Constipation, unspecified (principal); R10.9 Unspecified abdominal pain; E66.01 Morbid (severe) obesity due to excess calories; I10 Essential (primary) hypertension; E11.9 Type 2 diabetes mellitus without complications; E03.9 Hypothyroidism, unspecified
CPT/HCPCS: 36415; 99284; 96374; 96375; 83690; 85025; 80053; 81001; 80307; 74000; J3490; J2060; J2405; J7030

== ENCOUNTER 2017-05-02 21:19 | Emergency (ER) | payer BC, OTHER, MEDICAID ==
[2017-05-03] MEDS ORDERED: ACETAMINOPHEN 325 MG TABLET PO ONE (01:44)
[2017-05-03] MEDS ORDERED: ACETAMINOPHEN 325 MG TABLET ONE (01:49)
--- NOTE | 2017-05-03 02:27 | ER Document Report ---
ED General - General Chief Complaint: Anxiety Stated Complaint: ANXIETY Time Seen by Provider: 05/03/17 01:32 Information source: Patient - nurses spoke with mother earlier TRAVEL OUTSIDE OF THE [place] IN LAST 30 DAYS: No - HPI Onset: Just prior to arrival Onset/Duration: Gone Quality of pain: No pain Associated symptoms: None - Related Data Allergies/Adverse Reactions: brompheniramine maleate [From Dimetapp] Adverse Reaction (Unknown, Verified 11/29 00:01) Hyperactivity dextromethorphan HBr [From Dimetapp] Adverse Reaction (Verified 01/12/17 00:01) Hyperactivity phenylpropanolamine HCl [From Dimetapp] Adverse Reaction (Verified 01/12/17 00: 01) Hyperactivity pseudoephedrine HCl [From Dimetapp] Adverse Reaction (Verified 01/12/17 00:01) Hyperactivity Past Medical History - Social History Smoking Status: Never Smoker Chew tobacco use (# tins/day): No Frequency of alcohol use: None Drug Abuse: None Lives with: Family Family History: Arthritis, CAD, DM, Hyperlipidemia, Hypertension, Thyroid Disfunction Patient has suicidal ideation: No Patient has homicidal ideation: No - Past Medical History Cardiac Medical History: Reports: Hx Hypertension Pulmonary Medical History: Reports: Hx Asthma Neurological Medical History: Reports: Hx Migraine Endocrine Medical History: Reports: Hx Diabetes Mellitus Type 2, Hx Hypothyroidism Renal/ Medical History: Denies: Hx Peritoneal Dialysis GI Medical History: Reports: Hx Gastroesophageal Reflux Disease Musculoskeltal Medical History: Reports Hx Musculoskeletal Trauma Skin Medical History: Reports Hx Eczema Psychiatric Medical History: Reports: Hx Bipolar Disorder, Hx Depression, Hx Schizoaffective Disorder, Hx Schizophrenia Traumatic Medical History: Reports: Hx Fractures - left ankle,arm Surgical Hx: Negative - Immunizations Immunizations up to date: No Hx Diphtheria, Pertussis, Tetanus Vaccination: No Review of Systems - Review of Systems Constitutional: No symptoms reported EENT: No symptoms reported Cardiovascular: No symptoms reported Respiratory: No symptoms reported Gastrointestinal: No symptoms reported Genitourinary: No symptoms reported Musculoskeletal: No symptoms reported Skin: No symptoms reported Neurological/Psychological: No symptoms reported, Anxiety. denies: Confusion, Homicidal ideation - no suicidal ideation. history anxiety none currently Physical Exam - Vital signs Vitals: Pulse Resp BP Pulse Ox 68 22 H 122/78 100 05/03/17 00:30 05/03/17 00:30 05/03/17 00:30 05/03/17 00:30 - General General appearance: Appears well, Alert Notes: patient with constant movement of limbs while talking which she states is due to her medications she takes - HEENT Head: Normocephalic, Atraumatic Eyes: Normal Pupils: PERRL - Respiratory Respiratory status: No respiratory distress Chest status: Nontender Breath sounds: Normal Chest palpation: Normal - Cardiovascular Rhythm: Regular Heart sounds: Normal auscultation Murmur: No Course - Re-evaluation Re-evalutation: 05/03/17 10:46 With a history anxiety presents with anxiety. It is resolved by the time I had seen her she got into an argument with her grandfather. Patient is awake alert she has some akathisia from her medications. She is of sound mind and judgment denies being suicidal homicidal. Denies any medical complaints. He is in no distress and stable vital. Upon my plan to discharge her she stated she did not want to go home she said her grandfather make fun of her chest like staying with her mother and she like to go to a halfway. Earlier mom had come in and talked with 1 of the nurses and says he did not want to bring her home in 1 to send her to a halfway. At this point she wanted to stay here to be transferred to a halfway which I told her is not feasible that the lawn does not work that way that we had to make sure that there was legal transformation with your psychiatric team in terms of your mother being her guardian. She was discharged to home discussed outpatient follow-up for placement if so desired and discussed reasons for ED return to - Vital Signs Vital signs: Temp Pulse Resp BP Pulse Ox 68 22 H 122/78 100 05/03/17 00:30 05/03/17 00:30 05/03/17 00:30 05/03/17 00:30 Discharge - Discharge Clinical Impression: anxiety with history same Condition: Stable Disposition: HOME, SELF-CARE Instructions: Anxiety ([facility]) Additional Instructions: Anxiety The physician feels that some of your health problems are being caused by anxiety. Anxiety affects your health in many ways. Anxiety alone can cause palpitations, sweats, chest pains, abdominal pains, shortness of breath, and headaches. It contributes to ulcer disease, high blood pressure, irritable bowel syndrome, and has been shown to cause flare-ups of many other diseases. Anxiety is not a simple disorder to treat. If the anxiety is due to recent life stresses, you may simply need time to "work through" the changes. If the anxiety is due to an underlying unhappiness with yourself or due to psychiatric disturbance, professional help will be needed. Your physician can refer you for further help if needed. Anti-anxiety medication is occasionally given if the stress is acute or if you are having trouble sleeping. Chronic or frequent use of these medications is not a good idea because the body becomes reliant on it, preventing you from dealing with life's normal stresses. Referrals: MICHAEL SCHULZ MD [Primary Care Provider] - Follow up in 3-5 days (in 2- 3 days to discuss placement into a halfway if that is the desire. return to er sooner for increasing worsening or new symptoms)
[2017-05-03 02:57] VITALS: BP 122/78
== END 2017-05-03 02:56 | disposition home or self-care (01) ==
LOC: ER 21:19
DX: F41.9 Anxiety disorder, unspecified (principal); I10 Essential (primary) hypertension; E11.9 Type 2 diabetes mellitus without complications; E03.9 Hypothyroidism, unspecified; K21.9 Gastro-esophageal reflux disease without esophagitis
CPT/HCPCS: 99283

== ENCOUNTER 2017-05-31 22:49 | Emergency (ER) | payer BC, MEDICAID, OTHER ==
[2017-05-31] MEDS ORDERED: ACETAMINOPHEN 325 MG TABLET PO ONE (23:20)
--- NOTE | 2017-05-31 23:25 | ER Document Report ---
ED General - General Chief Complaint: Other Stated Complaint: HEADACHE Time Seen by Provider: 05/31/17 23:09 Notes: Patient is a 26-year-old female who presents with complaints of back pain and headache. Also an initial chief complaint on the chart it says that she wanted [facility] in a [facility]. She says her current guardians are her grandparents and she lives with her grandparents. She actually tells me that she is in the process of getting back into [facility] and that she has developed paperwork on Friday and will go there. She is okay with going back home to her grandparents house. She also has a rash on her hands and arms. She has had scabies in the past. She is unsure if as but she has again. She says her headache is gradual in onset and recurring is been ongoing for most her life. This is unchanged. No recent trauma or injuries. No focal weakness or numbness. Her back pain is in her upper back and she says she has had since she is a kid and is unchanged with no new injuries or trauma. She also complains that she chipped her toenail on something in the house. The very edge of the toenail broke off but the rest of the toenails been intact. She has no pain with walking. No other complaints at this time. TRAVEL OUTSIDE OF THE [place] IN LAST 30 DAYS: No - Related Data Allergies/Adverse Reactions: brompheniramine maleate [From Dimetapp] Adverse Reaction (Unknown, Verified 11/29 00:01) Hyperactivity dextromethorphan HBr [From Dimetapp] Adverse Reaction (Verified 01/12/17 00:01) Hyperactivity phenylpropanolamine HCl [From Dimetapp] Adverse Reaction (Verified 01/12/17 00: 01) Hyperactivity pseudoephedrine HCl [From Dimetapp] Adverse Reaction (Verified 01/12/17 00:01) Hyperactivity Past Medical History - Social History Smoking Status: Never Smoker Frequency of alcohol use: None Drug Abuse: None Family History: Arthritis, CAD, DM, Hyperlipidemia, Hypertension, Thyroid Disfunction Patient has suicidal ideation: No Patient has homicidal ideation: No - Past Medical History Cardiac Medical History: Reports: Hx Hypertension Pulmonary Medical History: Reports: Hx Asthma Neurological Medical History: Reports: Hx Migraine Endocrine Medical History: Reports: Hx Diabetes Mellitus Type 2, Hx Hypothyroidism Renal/ Medical History: Denies: Hx Peritoneal Dialysis GI Medical History: Reports: Hx Gastroesophageal Reflux Disease Musculoskeltal Medical History: Reports Hx Musculoskeletal Trauma Skin Medical History: Reports Hx Eczema Psychiatric Medical History: Reports: Hx Bipolar Disorder, Hx Depression, Hx Schizoaffective Disorder, Hx Schizophrenia Traumatic Medical History: Reports: Hx Fractures - left ankle,arm - Immunizations Immunizations up to date: No Hx Diphtheria, Pertussis, Tetanus Vaccination: No Review of Systems - Review of Systems Notes: My Normal Review Basic REVIEW OF SYSTEMS: CONSTITUTIONAL : Denies fever, chills, or sweats. Denies recent illness. EENT: Denies eye, ear, throat, or mouth pain or symptoms. Denies nasal or sinus congestion. RESPIRATORY: Denies cough, cold, or chest congestion. Denies shortness of breath, difficulty breathing, or wheezing. GASTROINTESTINAL: Denies abdominal pain. Denies nausea, vomiting, or diarrhea. Denies constipation. Last BM: gular periods. LMP: MUSCULOSKELETAL: Upper back pain SKIN: Rash on hands and arms. NEUROLOGICAL: Denies altered mental status or loss of consciousness. Intermittent headache. Denies weakness or paralysis or loss of use of either side. Denies problems with gait or speech. Denies sensory or motor loss. ALL OTHER SYSTEMS REVIEWED AND NEGATIVE. Physical Exam - Vital signs Vitals: Temp Pulse Resp BP Pulse Ox 97.9 F 99 16 132/99 H 98 05/31/17 22:59 05/31/17 22:59 05/31/17 22:59 05/31/17 22:59 05/31/17 22:59 - Notes Notes: General Appearance: Well nourished, alert, cooperative, no acute distress, no obvious discomfort. Vitals: reviewed, See vital signs table. Head: no swelling or tenderness to the head Eyes: PERRL, EOMI, Conjuctiva clearre Neck: Supple, no neck tendernes, Back: Very mild thoracic paraspinal musculature tenderness to palpation. No pain with range of motion or movement. Lungs: No wheezing, No rales, No rhonci, No accessory muscle use, good air exchange bilaterally. Heart: Normal rate, Regular rythm, No murmur, no rub Extremities: strength 5/5 in all extremities, good pulses in all extremities, no swelling or tenderness in the extremities, no edema. Skin: Patient has multiple small scabs and bite house that started on her hands. Some are near the web spaces. And may go up her arms. She has a few on torso as well. Neuro: speech clear, oriented x 3, normal affect, responds appropriately to questions. Cranial nerves II through XII are intact. Distal sensation intact. Course - Re-evaluation Re-evalutation: 05/31/17 23:43 Patient is well-appearing. Her rashes consistent with the that of scabies or possible bedbugs. I will place her on Elimite cream. Her headache back pain are chronic and she does not appear to be in any pain whatsoever. I will give her a small dose of Tylenol. No further workup needed at this time. Patient looks well and does feel safe for discharge home. Will not actually have her leave the ER until her guardian her family come to pick her up. Patient encouraged to continue to speak with her counselor or feel her paper for her [facility] assignment on Friday as she is already said that she is going to do. Patient encouraged to return to ER if she has worsening of her symptoms. Patient agrees with plan and will be discharged home. Dictation of this chart was performed using voice recognition software; therefore, there may be some unintended grammatical errors. - Vital Signs Vital signs: Temp Pulse Resp BP Pulse Ox 97.9 F 99 16 132/99 H 98 05/31/17 22:59 05/31/17 22:59 05/31/17 22:59 05/31/17 22:59 05/31/17 22:59 Discharge - Discharge Clinical Impression: Scabies Headache Qualifiers: Headache type: unspecified Headache chronicity pattern: chronic headache Intractability: not intractable Qualified Code(s): R51 - Headache Condition: Good Disposition: HOME, SELF-CARE Additional Instructions: Scabies Your exam suggests the presence of scabies, which are microscopic parasites of the skin. These mites nia through the skin, causing severe itching. The mite can be spread to other persons by skin contact. All clothing, towels, and bedding should be washed in very hot water, set aside for a week, then washed again. You should apply scabies-killing lotion from the neck down, then wash it off after 12 hours. You may need medication for itching, as the itch persists for many days after the mites have been killed. All family members and close personal contacts should be examined. Repeat treatment may be necessary if the infestation is not eliminated with a single treatment. Call the doctor if you develop increasing swelling and redness, red streaks , tender lumps, fever, or drainage from a skin sore. PLease return to the ER immediately if you have vomiting, fevers, or feel that your are worse. Please change all the sheets on your bed and wash them in hot water and have your bed treated by an line walker as your bug bites are either related to scabies or bed bugs. Prescriptions: Permethrin [Elimite] 60 gm TP ONCE #1 cream..g.
[2017-06-01 00:38] VITALS: BP 109/63
== END 2017-06-01 00:20 | disposition home or self-care (01) ==
LOC: ER 22:49
DX: R51 Headache (principal); B86 Scabies
CPT/HCPCS: 99283

== ENCOUNTER 2017-07-22 22:41 | Emergency (ER) | payer OTHER, MEDICAID ==
[2017-07-23] MEDS ORDERED: ACETAMINOPHEN 325 MG TABLET PO ONE (00:24)
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
[2017-07-23 00:54] VITALS: BP 130/68
== END 2017-07-23 00:32 ==
LOC: ER 22:41
DX: R68.84 Jaw pain (principal); Y04.0XXA Assault by unarmed brawl or fight, initial encounter
CPT/HCPCS: 99284

== ENCOUNTER 2017-08-04 02:51 | Emergency (ER) | payer BC, MEDICAID ==
[2017-08-04 03:06] VITALS: BP 104/83
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
[2017-08-04 04:57] LABS: APPEARANCE,URINE CLEAR; BILIRUBIN,URINE NEGATIVE (NEGATIVE); GLUCOSE, URINE NEGATIVE (NEGATIVE); KETONES,URINE NEGATIVE (NEGATIVE); LEUKOCYTE ESTERASE,URINE NEGATIVE (NEGATIVE); NITRITE,URINE NEGATIVE (NEGATIVE); PROTEIN,URINE NEGATIVE (NEGATIVE); URINE SPECIFIC GRAVITY 1.023; UROBILINOGEN,URINE NEGATIVE mg/dL (<2.0)
== END 2017-08-04 06:00 | disposition home or self-care (01) ==
LOC: ER 02:51
DX: R10.9 Unspecified abdominal pain (principal); R21 Rash and other nonspecific skin eruption; M79.674 Pain in right toe(s); M54.9 Dorsalgia, unspecified; I10 Essential (primary) hypertension; E11.9 Type 2 diabetes mellitus without complications; E03.9 Hypothyroidism, unspecified
CPT/HCPCS: 81001; 81025; 99283

== ENCOUNTER 2017-12-11 16:46 | Emergency (ER) | payer BC, MEDICAID ==
[2017-12-11 17:02] VITALS: BP 116/73
--- NOTE | 2017-12-11 18:03 | ER Document Report ---
ED General - General Chief Complaint: Abdominal Pain Stated Complaint: ABDOMINAL PAIN Time Seen by Provider: 12/11/17 17:30 Mode of Arrival: Ambulatory Information source: Patient Notes: 27-year-old female presents with complaints of nausea vomiting morning sickness. Patient believes she may be Patient notes she is intentionally ruining condoms to get herself by her boyfriend TRAVEL OUTSIDE OF THE [place] IN LAST 30 DAYS: No - HPI Onset: Just prior to arrival Onset/Duration: Sudden Quality of pain: Cramping Severity: Mild Pain Level: Denies Associated symptoms: Nausea, Vomiting Exacerbated by: Denies Relieved by: Denies Similar symptoms previously: No Recently seen / treated by doctor: No - Related Data Allergies/Adverse Reactions: brompheniramine maleate [From Dimetapp] Adverse Reaction (Unknown, Verified 10/30 16:53) Hyperactivity dextromethorphan HBr [From Dimetapp] Adverse Reaction (Verified 12/11/17 16:53) Hyperactivity phenylpropanolamine HCl [From Dimetapp] Adverse Reaction (Verified 12/11/17 16: 53) Hyperactivity pseudoephedrine HCl [From Dimetapp] Adverse Reaction (Verified 12/11/17 16:53) Hyperactivity Past Medical History - Social History Smoking Status: Never Smoker Cigarette use (# per day): No Chew tobacco use (# tins/day): No Smoking Education Provided: No Frequency of alcohol use: None Drug Abuse: None Family History: Arthritis, CAD, DM, Hyperlipidemia, Hypertension, Thyroid Disfunction Patient has suicidal ideation: No Patient has homicidal ideation: No - Past Medical History Cardiac Medical History: Reports: Hx Hypertension Pulmonary Medical History: Reports: Hx Asthma Neurological Medical History: Reports: Hx Migraine Endocrine Medical History: Reports: Hx Diabetes Mellitus Type 2, Hx Hypothyroidism Renal/ Medical History: Denies: Hx Peritoneal Dialysis GI Medical History: Reports: Hx Gastroesophageal Reflux Disease Musculoskeltal Medical History: Reports Hx Musculoskeletal Trauma Skin Medical History: Reports Hx Eczema Psychiatric Medical History: Reports: Hx Bipolar Disorder, Hx Depression, Hx Schizoaffective Disorder, Hx Schizophrenia Traumatic Medical History: Reports: Hx Fractures - left ankle,arm - Immunizations Immunizations up to date: No Hx Diphtheria, Pertussis, Tetanus Vaccination: No Review of Systems - Review of Systems Notes: REVIEW OF SYSTEMS: CONSTITUTIONAL : Denies fever, chills, or sweats. Denies recent illness. EENT: Denies eye, ear, throat, or mouth pain or symptoms. Denies nasal or sinus congestion or discharge. Denies throat, tongue, or mouth swelling or difficulty swallowing. CARDIOVASCULAR: Denies chest pain. Denies palpitations or racing or irregular heart beat. Denies ankle edema. RESPIRATORY: Denies cough, cold, or chest congestion. Denies shortness of breath, difficulty breathing, or wheezing. GASTROINTESTINAL: Admits to nausea GENITOURINARY: Denies difficulty urinating, painful urination, burning, frequency, blood in urine, or discharge. FEMALE GENITOURINARY: Denies vaginal bleeding, heavy or abnormal periods, irregular periods. Denies vaginal discharge or odor. MUSCULOSKELETAL: Denies back or neck pain or stiffness. Denies joint pain or swelling. SKIN: Denies rash, lesions or sores. HEMATOLOGIC : Denies easy bruising or bleeding. LYMPHATIC: Denies swollen, enlarged glands. NEUROLOGICAL: Denies confusion or altered mental status. Denies passing out or loss of consciousness. Denies dizziness or lightheadedness. Denies headache. Denies weakness or paralysis or loss of use of either side. Denies problems with gait or speech. Denies sensory loss, numbness, or tingling. Denies seizures. PSYCHIATRIC: Denies anxiety or stress. Denies depression, suicidal ideation, or homicidal ideation. ALL OTHER SYSTEMS REVIEWED AND NEGATIVE. PHYSICAL EXAMINATION: GENERAL: Obese female HEAD: Atraumatic, normocephalic. EYES: Pupils equal round and reactive to light, extraocular movements intact, conjunctiva are normal. ENT: Nares patent, oropharynx clear without exudates. Moist mucous membranes. NECK: Normal range of motion, supple without lymphadenopathy LUNGS: Breath sounds clear to auscultation bilaterally and equal. No wheezes rales or rhonchi. HEART: Regular rate and rhythm without murmurs ABDOMEN: Soft, nontender, nondistended abdomen. No guarding, no rebound. No masses appreciated. Female : deferred Musculoskeletal: Normal range of motion, no pitting or edema. No cyanosis. NEUROLOGICAL: Cranial nerves grossly intact. Normal speech, normal gait. Normal sensory, motor exams PSYCH: Normal mood, normal affect. SKIN: Warm, Dry, normal turgor, no rashes or lesions noted. Dictation was performed using [employer] recognition software Physical Exam - Vital signs Vitals: Temp Pulse Resp BP Pulse Ox 98.4 F 94 18 116/73 99 12/11/17 16:59 12/11/17 16:59 12/11/17 16:59 12/11/17 16:59 12/11/17 16:59 Course - Re-evaluation Re-evalutation: 12/11/17 18:02 pt gustavo she is , notes she is putting holes in condoms pt is otherwise well appearing, eating oreos Pt now is standing up walking around asking for osmeone to push her around in a wheelchair 12/11/17 18:32 i explained to patient should get agreement from boyfriend before having a child or find someone else patient states that she will just try harder next time She is not at this time I will discharge her home After performing a Medical Screening Examination, I estimate there is LOW risk for ACUTE APPENDICITIS, BOWEL OBSTRUCTION, ACUTE CHOLECYSTITIS, PERFORATED DIVERTICULITIS, INCARCERATED HERNIA, PANCREATITIS, PELVIC INFLAMMATORY DISEASE, PERFORATED ULCER, ECTOPIC , or TUBO-OVARIAN ABSCESS, thus I consider the discharge disposition reasonable. Also, there is no evidence or peritonitis , sepsis, or toxicity. I have reevaluated this patient multiple times and no significant life threatening changes are noted. The patient and I have discussed the diagnosis and risks, and we agree with discharging home with close follow-up with the understanding that symptoms and presentations can change. We also discussed returning to the Emergency Department immediately if new or worsening symptoms occur. We have discussed the symptoms which are most concerning (e.g., bloody stool, fever, changing or worsening pain, vomiting) that necessitate immediate return. - Vital Signs Vital signs: Temp Pulse Resp BP Pulse Ox 98.4 F 94 18 116/73 99 12/11/17 16:59 12/11/17 16:59 12/11/17 16:59 12/11/17 16:59 12/11/17 16:59 Discharge - Discharge Clinical Impression: Abdominal pain Qualifiers: Abdominal location: generalized Qualified Code(s): R10.84 - Generalized abdominal pain Nausea & vomiting Qualifiers: Vomiting type: unspecified Vomiting Intractability: non-intractable Qualified Code(s): R11.2 - Nausea with vomiting, unspecified Condition: Stable Disposition: HOME, SELF-CARE Instructions: Abdominal Pain ([facility]) Additional Instructions: Follow up with your physician tomorrow for further care or return to the ED IMMEDIATELY if symptoms worsen or new concerns occur. If you cannot afford to follow up with your primary care physician a list of low cost clinics have been provided at the end of your discharge papers as well.
[2017-12-11 18:05] LABS: APPEARANCE,URINE CLEAR; BILIRUBIN,URINE NEGATIVE (NEGATIVE); COLOR,URINE YELLOW; GLUCOSE, URINE NEGATIVE (NEGATIVE); KETONES,URINE NEGATIVE (NEGATIVE); LEUKOCYTE ESTERASE,URINE NEGATIVE (NEGATIVE); NITRITE,URINE NEGATIVE (NEGATIVE); PROTEIN,URINE NEGATIVE (NEGATIVE); URINE SPECIFIC GRAVITY 1.018; UROBILINOGEN,URINE NEGATIVE mg/dL (<2.0)
== END 2017-12-11 18:40 | disposition home or self-care (01) ==
LOC: ER 16:46
DX: R10.84 Generalized abdominal pain (principal); R11.2 Nausea with vomiting, unspecified; I10 Essential (primary) hypertension; J45.909 Unspecified asthma, uncomplicated; E11.9 Type 2 diabetes mellitus without complications; Z87.19 Personal history of other diseases of the digestive system
CPT/HCPCS: 81001; 81025; 99284

== ENCOUNTER 2017-12-26 20:26 | Emergency (ER) | payer BC, MEDICAID ==
[2017-12-26 20:34] VITALS: BP 126/79
[2017-12-26] MEDS ORDERED: ACETAMINOPHEN 325 MG TABLET PO ONE (21:21)
--- NOTE | 2017-12-26 21:24 | ER Document Report ---
ED Extremity Problem, Lower - General Chief Complaint: Foot Pain Stated Complaint: RIGHT FOOT PAIN Time Seen by Provider: 12/26/17 21:00 Mode of Arrival: Medic Information source: Patient Notes: 27-year-old female presents to ED for complaint of right foot pain started about 6:00. She states she went with a walk with a friend and when she got back she noticed that there was a bruise to this toe. She states her pain in her toe is been going on for years and years but she noticed a bruise and then when she was looking at the bruised the pain got much worse. Patient is bipolar living in a retirement. TRAVEL OUTSIDE OF THE [place] IN LAST 30 DAYS: No - HPI Patient complains to provider of: Pain, Swelling Location: Great Toe Occurred: This afternoon - About 6:00 PM Where: Other Onset/Duration: Gradual Quality of pain: Achy, Sharp Severity: Moderate Pain Level: 4 Context: Other - Not remember injuring it Recent injury: No Associated symptoms: Painful ambulation Exacerbated by: Movement, Walking Relieved by: Nothing - Related Data Allergies/Adverse Reactions: brompheniramine maleate [From Dimetapp] Adverse Reaction (Unknown, Verified 10/30 16:53) Hyperactivity dextromethorphan HBr [From Dimetapp] Adverse Reaction (Verified 12/11/17 16:53) Hyperactivity phenylpropanolamine HCl [From Dimetapp] Adverse Reaction (Verified 12/11/17 16: 53) Hyperactivity pseudoephedrine HCl [From Dimetapp] Adverse Reaction (Verified 12/11/17 16:53) Hyperactivity Past Medical History - General Information source: Patient - Social History Smoking Status: Never Smoker Cigarette use (# per day): No Chew tobacco use (# tins/day): No Smoking Education Provided: No Frequency of alcohol use: None - Date she drank alcohol today but none since 5 she was 15 before this Drug Abuse: None Lives with: Other - shelter Family History: Arthritis, CAD, DM, Hyperlipidemia, Hypertension, Thyroid Disfunction. denies: COPD, CVA, Malignancy - Past Medical History Cardiac Medical History: Reports: Hx Hypertension Pulmonary Medical History: Reports: Hx Asthma EENT Medical History: Reports: None Neurological Medical History: Reports: Hx Migraine Endocrine Medical History: Reports: Hx Diabetes Mellitus Type 2, Hx Hypothyroidism Renal/ Medical History: Reports: None Malignancy Medical History: Reports: None GI Medical History: Reports: Hx Gastroesophageal Reflux Disease Musculoskeltal Medical History: Reports Hx Musculoskeletal Trauma Skin Medical History: Reports Hx Eczema Psychiatric Medical History: Reports: Hx Bipolar Disorder, Hx Depression, Hx Schizoaffective Disorder, Hx Schizophrenia Traumatic Medical History: Reports: Hx Fractures - left ankle,arm Infectious Medical History: Reports: None Surgical Hx: Negative - Immunizations Immunizations up to date: No Hx Diphtheria, Pertussis, Tetanus Vaccination: No Review of Systems - Review of Systems Constitutional: No symptoms reported EENT: No symptoms reported Cardiovascular: No symptoms reported Respiratory: No symptoms reported Gastrointestinal: No symptoms reported Genitourinary: No symptoms reported Female Genitourinary: No symptoms reported Musculoskeletal: Other - Pain in right great toe Skin: No symptoms reported Hematologic/Lymphatic: No symptoms reported Neurological/Psychological: No symptoms reported Physical Exam - Vital signs Vitals: Temp Pulse Resp BP Pulse Ox 97.6 F 107 H 16 126/79 H 99 12/26/17 20:32 12/26/17 20:32 12/26/17 20:32 12/26/17 20:32 12/26/17 20:32 Interpretation: Normal - General General appearance: Appears well, Alert - HEENT Head: Normocephalic, Atraumatic Eyes: Normal Pupils: PERRL - Respiratory Respiratory status: No respiratory distress Chest status: Nontender Breath sounds: Normal Chest palpation: Normal - Cardiovascular Rhythm: Regular Heart sounds: Normal auscultation Murmur: No - Abdominal Inspection: Normal Distension: No distension Bowel sounds: Normal Tenderness: Nontender Organomegaly: No organomegaly - Back Back: Normal, Nontender - Extremities General upper extremity: Normal inspection, Nontender, Normal color, Normal ROM , Normal temperature General lower extremity: Normal color, Normal ROM, Normal temperature, Normal weight bearing. No: Wilian's sign Foot: Tender - Tenderness with some mild discoloration to the right great toe - Neurological Neuro grossly intact: Yes Cognition: Normal Orientation: AAOx4 [place] Coma Scale Eye Opening: Spontaneous Ariel Coma Scale Verbal: Oriented [place] Coma Scale Motor: Obeys Commands [place] Coma Scale Total: 15 Speech: Normal Motor strength normal: LUE, RUE, LLE, RLE Sensory: Normal - Psychological Associated symptoms: Normal affect, Normal mood - Skin Skin Temperature: Warm Skin Moisture: Dry Skin Color: Normal Course - Re-evaluation Re-evalutation: 12/26/17 23:05 X-rays discussed with patient. Patient was medicated with Tylenol. Patient was given exercises for foot also other treatments for her plantar fasciitis and heel spurs. Patient to follow-up with her primary doctor and either a chemical instrumentation officer and or a orthopedic. - Vital Signs Vital signs: Temp Pulse Resp BP Pulse Ox 97.6 F 107 H 16 126/79 H 99 12/26/17 20:32 12/26/17 20:32 12/26/17 20:32 12/26/17 20:32 12/26/17 20:32 - Diagnostic Test Radiology reviewed: Image reviewed, Reports reviewed Discharge - Discharge Clinical Impression: Pain of right great toe Heel spur Qualifiers: Laterality: right Qualified Code(s): M77.31 - Calcaneal spur, right foot Condition: Stable Disposition: HOME, SELF-CARE Instructions: Acetaminophen, Epsom Salt Soaks ([facility]), Exercises for the Foot Muscles ([facility]), Family Physicians / Practices, Plantar Fasciitis or Heel Spur ( [facility]) Forms: Elevated Blood Pressure
--- NOTE | 2017-12-26 22:12 | RADIOLOGY REPORT (SQ) ---
EXAM DESCRIPTION: FOOT RIGHT COMPLETE COMPLETED DATE/TIME: 12/26/2017 10:04 pm REASON FOR STUDY: Pain with a bruise COMPARISON: 08/13/2017 NUMBER OF VIEWS: Three views. TECHNIQUE: AP, lateral and oblique radiographic images acquired of the right foot. LIMITATIONS: None. FINDINGS: MINERALIZATION: Normal. BONES: No acute fracture or dislocation. No worrisome bone lesions. Mild plantar calcaneal spurring . JOINTS: No effusions. SOFT TISSUES: No soft tissue swelling. No foreign body. OTHER: No other significant finding. IMPRESSION: CALCANEAL SPURRING. NO RADIOGRAPHIC EVIDENCE OF ACUTE INJURY. TECHNICAL DOCUMENTATION: JOB ID: [id number] [employer]- All Rights Reserved Reading location - IP/workstation name: [email or web address]
== END 2017-12-26 23:05 | disposition home or self-care (01) ==
LOC: ER 20:26
DX: M77.31 Calcaneal spur, right foot (principal); M79.674 Pain in right toe(s); M79.671 Pain in right foot; F31.9 Bipolar disorder, unspecified; I10 Essential (primary) hypertension; J45.909 Unspecified asthma, uncomplicated; E11.9 Type 2 diabetes mellitus without complications; X58.XXXA Exposure to other specified factors, initial encounter; Y93.01 Activity, walking, marching and hiking
CPT/HCPCS: 99283

== ENCOUNTER 2018-02-16 09:47 | Emergency (ER) | payer BC, MEDICAID ==
[2018-02-16 09:56] VITALS: BP 109/50
--- NOTE | 2018-02-16 10:07 | ER Document Report ---
ED Extremity Problem, Lower - General Chief Complaint: Knee Pain Stated Complaint: RIGHT KNEE PAIN Time Seen by Provider: 02/16/18 09:57 Mode of Arrival: Ambulatory Information source: Patient TRAVEL OUTSIDE OF THE [place] IN LAST 30 DAYS: No - HPI Patient complains to provider of: Pain Notes: Patient is here with complaints of right knee and right wrist pain. The patient states that she has a history of arthritis and chronic pain in her wrist and her knee. She denies any recent falls or injuries. She denies any redness. She denies any swelling. She denies any numbness, tingling, weakness. Pain is worse with movement, better with rest. She denies any chest pain or shortness of breath. No nausea, vomiting, diarrhea. No rash. She denies any other complaints at this time. - Related Data Allergies/Adverse Reactions: brompheniramine maleate [From Dimetapp] Adverse Reaction (Unknown, Verified 04/29 10:02) Hyperactivity dextromethorphan HBr [From Dimetapp] Adverse Reaction (Verified 02/16/18 10:02) Hyperactivity phenylpropanolamine HCl [From Dimetapp] Adverse Reaction (Verified 02/16/18 10: 02) Hyperactivity pseudoephedrine HCl [From Dimetapp] Adverse Reaction (Verified 02/16/18 10:02) Hyperactivity Past Medical History - Social History Smoking Status: Never Smoker Chew tobacco use (# tins/day): No Frequency of alcohol use: Rare Drug Abuse: None Family History: Arthritis, CAD, DM, Hyperlipidemia, Hypertension, Thyroid Disfunction. denies: COPD, CVA, Malignancy Patient has suicidal ideation: No Patient has homicidal ideation: No - Past Medical History Cardiac Medical History: Reports: Hx Hypertension Pulmonary Medical History: Reports: Hx Asthma Neurological Medical History: Reports: Hx Migraine Endocrine Medical History: Reports: Hx Diabetes Mellitus Type 2, Hx Hypothyroidism Renal/ Medical History: Denies: Hx Peritoneal Dialysis GI Medical History: Reports: Hx Gastroesophageal Reflux Disease Musculoskeltal Medical History: Reports Hx Musculoskeletal Trauma Skin Medical History: Reports Hx Eczema Psychiatric Medical History: Reports: Hx Bipolar Disorder, Hx Depression, Hx Schizoaffective Disorder, Hx Schizophrenia Traumatic Medical History: Reports: Hx Fractures - left ankle,arm - Immunizations Immunizations up to date: No Hx Diphtheria, Pertussis, Tetanus Vaccination: No Review of Systems - Review of Systems -: Yes All other systems reviewed and negative Physical Exam - Vital signs Vitals: Temp Pulse Resp BP Pulse Ox 97.8 F 84 18 109/50 L 97 02/16/18 09:54 02/16/18 09:54 02/16/18 09:54 02/16/18 09:54 02/16/18 09:54 - Notes Notes: GENERAL: alert, cooperative, nontoxic, no distress. HEAD: normocephalic, atraumatic EYES: conjunctiva pink without discharge, no external redness or swelling. EARS: no external swelling, no external redness NOSE: atraumatic, no external swelling MOUTH/THROAT: mucous membranes moist and pink NECK: soft, supple, full range of motion, no meningismus. CHEST: no distress, lungs clear and equal throughout. No wheezing, rales, rhonchi. CARDIAC: regular rate and rhythm, no murmur, normal capillary refill, normal pulses. BACK: full range of motion, no CVA tenderness. EXTREMITIES: full range of motion of all extremities. No redness, no swelling. Mild tenderness to palpation of the right wrist and right knee. No ligament instability. Pulses normal. Normal cap refill and sensation. NEURO: alert and oriented 3, no focal deficits, full range of motion of all extremities. PYSCH: appropriate mood, affect. Patient is cooperative. SKIN: pink, warm, dry, no rash. Course - Re-evaluation Re-evalutation: 02/16/18 10:08 Patient is nontoxic appearing with stable vitals. Here with complaints of right knee and wrist pain. She states that she has arthritis in both of these joints and that this is a chronic pain. She has had no recent or new injuries. There is no redness, swelling, signs of infection. She is afebrile. She has no signs of injury or deformity. Patient had an Stephane wrap applied to her knee and her wrist for comfort. She will be discharged home with [facility]. Instructed to follow-up if not better in 1 week, sooner for worsening pain, fever, redness, numbness, tingling, weakness, any further concerns. The patient's emergency department workup and current diagnosis were explained to the patient and or family. Follow-up instructions were provided. Medications if prescribed were discussed. Instructions for when to return to the emergency department including specific worrisome symptoms were discussed with the patient and/or family. - Vital Signs Vital signs: Temp Pulse Resp BP Pulse Ox 97.8 F 84 18 109/50 L 97 02/16/18 09:54 02/16/18 09:54 02/16/18 09:54 02/16/18 09:54 02/16/18 09:54 Procedures - Immobilization Right wrist, right knee Pre-Proc Neuro Vasc Exam: Normal Immobilizer type: Stephane wrap Performed by: PCT Post-Proc Neuro Vasc Exam: Normal Alignment checked and good: Yes Discharge - Discharge Clinical Impression: Chronic pain Qualifiers: Chronic pain type: other chronic pain Qualified Code(s): G89.29 - Other chronic pain Condition: Stable Disposition: HOME, SELF-CARE Instructions: Arthritis ([facility]), Ice & Elevation ([facility]) Additional Instructions: Wear Stephane wrap as needed for pain. Rest, ice, elevate. Follow-up with your doctor if not better in the next week, sooner for worsening pain, fever, numbness, tingling, weakness, redness, any further concerns. Prescriptions: Naproxen [Naprosyn] 500 mg PO BID #20 tablet Referrals: [facility] [Provider Group] - Follow up as needed
== END 2018-02-16 10:14 | disposition home or self-care (01) ==
LOC: ER 09:47
DX: G89.29 Other chronic pain (principal); M25.561 Pain in right knee; M25.531 Pain in right wrist; M17.0 Bilateral primary osteoarthritis of knee; I10 Essential (primary) hypertension; J45.909 Unspecified asthma, uncomplicated; E11.9 Type 2 diabetes mellitus without complications
CPT/HCPCS: 99283

== ENCOUNTER 2018-02-25 10:38 | Emergency (ER) | payer BC, MEDICAID ==
[2018-02-25 11:00] VITALS: BP 114/77
--- NOTE | 2018-02-25 11:38 | ER Document Report ---
ED General - General Chief Complaint: Probable Seizure Stated Complaint: POSSIBLE SEIZURE Time Seen by Provider: 02/25/18 11:31 Mode of Arrival: Ambulatory Information source: Patient, Legal Guardian Notes: 27-year-old female presents from the dentist office with the complaint of hand shaking secondary to anxiety. Patient states that during her dental procedure she was gripping the side of her chair very tightly and began shaking which she reports is her normal reaction when she is anxious. Patient remained conscious throughout the entire event. She does live in a [place] and her legal guardian denies any seizure history or reported seizure activity at the dentist office. She was only administered lidocaine during her procedure. She remained awake during the handshaking and asked the dentist to stop the procedure. She has no physical complaints at this time. She is alert and oriented 4. She denies any drug use, changes in medications. TRAVEL OUTSIDE OF THE [place] IN LAST 30 DAYS: No - HPI Onset: Just prior to arrival Onset/Duration: Sudden Quality of pain: No pain Associated symptoms: None Exacerbated by: Denies Relieved by: Denies Similar symptoms previously: Yes Recently seen / treated by doctor: No - Related Data Allergies/Adverse Reactions: brompheniramine maleate [From Dimetapp] Adverse Reaction (Unknown, Verified 10:45) Hyperactivity dextromethorphan HBr [From Dimetapp] Adverse Reaction (Verified 02/25/18 10:45) Hyperactivity phenylpropanolamine HCl [From Dimetapp] Adverse Reaction (Verified 02/25/18 10: 45) Hyperactivity pseudoephedrine HCl [From Dimetapp] Adverse Reaction (Verified 02/25/18 10:45) Hyperactivity Past Medical History - General Information source: Patient, [facility] Records - Social History Smoking Status: Former Smoker Chew tobacco use (# tins/day): No Frequency of alcohol use: None Drug Abuse: None Lives with: Other - custodial Family History: Arthritis, CAD, DM, Hyperlipidemia, Hypertension, Thyroid Disfunction. denies: COPD, CVA, Malignancy Patient has suicidal ideation: No Patient has homicidal ideation: No - Past Medical History Cardiac Medical History: Reports: Hx Hypertension Pulmonary Medical History: Reports: Hx Asthma Neurological Medical History: Reports: Hx Migraine Endocrine Medical History: Reports: Hx Diabetes Mellitus Type 2, Hx Hypothyroidism Renal/ Medical History: Denies: Hx Peritoneal Dialysis GI Medical History: Reports: Hx Gastroesophageal Reflux Disease Musculoskeltal Medical History: Reports Hx Musculoskeletal Trauma Skin Medical History: Reports Hx Eczema Psychiatric Medical History: Reports: Hx Bipolar Disorder, Hx Depression, Hx Schizoaffective Disorder, Hx Schizophrenia Traumatic Medical History: Reports: Hx Fractures - left ankle,arm - Immunizations Immunizations up to date: No Hx Diphtheria, Pertussis, Tetanus Vaccination: No Review of Systems - Review of Systems Notes: REVIEW OF SYSTEMS: CONSTITUTIONAL : Denies fever, chills, or sweats. Denies recent illness. Denies weight loss, recent hospitalizations. EENT: Denies visula changes, eye pain. Denies nasal or sinus congestion or discharge. Denies sore throat, oral lesions, difficulty swallowing. CARDIOVASCULAR: Denies chest pain. Denies palpitations or racing or irregular heart beat. Denies lower extremity edema. RESPIRATORY: Denies cough, cold, or chest congestion. Denies shortness of breath, difficulty breathing, or wheezing. GASTROINTESTINAL: Denies abdominal pain or distention. Denies nausea, vomiting , or diarrhea. Denies blood in vomitus, stools, or per rectum. Denies black, tarry stools. Denies constipation. GENITOURINARY: Denies difficulty urinating, painful urination, burning, frequency, blood in urine, or vaginal discharge. MUSCULOSKELETAL: Denies back or neck pain or stiffness. Denies joint pain or swelling. SKIN: Denies rash, lesions or sores. HEMATOLOGIC : Denies easy bruising or bleeding. LYMPHATIC: Denies swollen, enlarged glands. NEUROLOGICAL: Denies confusion or altered mental status. Denies passing out or loss of consciousness. Denies dizziness or lightheadedness. Denies headache. Denies weakness or paralysis or loss of use of either side. Denies problems with gait or speech. Denies sensory loss, numbness, or tingling. Denies seizures. PSYCHIATRIC: Denies anxiety or stress. Denies depression, suicidal ideation, or homicidal ideation. Physical Exam - Vital signs Vitals: Temp Pulse Resp BP Pulse Ox 98.0 F 92 16 114/77 99 02/25/18 10:59 02/25/18 10:59 02/25/18 10:59 02/25/18 10:59 02/25/18 10:59 Interpretation: Normal. No: Hypertensive, Hypoxic, Febrile Notes: PHYSICAL EXAMINATION: GENERAL: Well-appearing, well-nourished and in no acute distress. HEAD: Atraumatic, normocephalic. EYES: Pupils equal round and reactive to light, extraocular movements intact, conjunctiva are normal. ENT: Nares patent, oropharynx clear without exudates. Moist mucous membranes. NECK: Normal range of motion, supple without lymphadenopathy LUNGS: Breath sounds clear to auscultation bilaterally and equal. No wheezes rales or rhonchi. HEART: Regular rate and rhythm without murmurs ABDOMEN: Soft, nontender, nondistended abdomen. No guarding, no rebound. No masses appreciated. Female : deferred Musculoskeletal: Normal range of motion, no pitting or edema. No cyanosis. NEUROLOGICAL: Cranial nerves grossly intact. Normal speech, normal gait. Normal sensory, motor exams PSYCH: Normal mood, normal affect. SKIN: Warm, Dry, normal turgor, no rashes or lesions noted. Course - Re-evaluation Re-evalutation: 02/25/18 11:36 19-year-old female with a history of schizophrenia, anxiety presents from the dentist office after having a typical anxiety attack per the patient. She did ask the dentist to stop the procedure which he did. Patient was seen by myself upon arrival. Vital signs were reviewed. Patient is afebrile, normotensive and not hypoxic. Patient does not appear toxic or dehydrated. They are in no acute distress. Previous medical records and nursing notes reviewed. Patient with normal neuro exam patient provided the opportunity to ask questions, and express concerns. Discharge instructions discussed. Patient is agreeable with discharge home. Return indications explained and discussed with the patient who displays understanding. Patient encouraged to return to the emergency department immediately with any concerns. 02/25/18 11:37 02/25/18 17:30 - Vital Signs Vital signs: Temp Pulse Resp BP Pulse Ox 98.0 F 92 16 114/77 99 02/25/18 10:59 02/25/18 10:59 02/25/18 10:59 02/25/18 10:59 02/25/18 10:59 - Diagnostic Test Radiology reviewed: Image reviewed Discharge - Discharge Clinical Impression: Anxiety reaction Condition: Good Disposition: HOME, SELF-CARE Instructions: Anxiety ([facility]) Additional Instructions: Follow up with your physician tomorrow for further care or return to the ED IMMEDIATELY if symptoms worsen or new concerns occur. If you cannot afford to follow up with your primary care physician a list of low cost clinics have been provided at the end of your discharge papers as well.
== END 2018-02-25 13:26 | disposition home or self-care (01) ==
LOC: ER 10:38
DX: F41.9 Anxiety disorder, unspecified (principal); Z87.891 Personal history of nicotine dependence; I10 Essential (primary) hypertension; J45.909 Unspecified asthma, uncomplicated; E11.9 Type 2 diabetes mellitus without complications
CPT/HCPCS: 82962; 99283

== ENCOUNTER 2018-03-04 14:14 | Emergency (ER) | payer BC, MEDICAID ==
[2018-03-04 14:27] VITALS: BP 123/71
--- NOTE | 2018-03-04 15:28 | ER Document Report ---
ED Extremity Problem, Lower - General Chief Complaint: Ankle Pain Stated Complaint: ABDOMINAL PAIN, ANKLE PAIN Time Seen by Provider: 03/04/18 15:16 Mode of Arrival: Ambulatory Information source: Patient Notes: 27-year-old female presented to ED for complaint of pain to her right ankle for several days. She states that [facility] when she almost fell injuring her right ankle. She states is painful with any movement or walking on her ankle. She also complains of lumps and bumps in her stomach that she is seeing the doctor multiple 4 and they have told her that there is nothing but "fat lumps "in her abdomen. No rubs noted at this time no redness no warmth no signs or symptoms of any kind of abscess or inflammation to the abdomen. TRAVEL OUTSIDE OF THE [place] IN LAST 30 DAYS: No - HPI Patient complains to provider of: Injury, Pain, Swelling Location: Ankle Occurred: Other - Several days ago Where: Public place Onset/Duration: Intermittent Quality of pain: Achy, Throbbing Severity: Moderate Pain Level: 4 Context: Other - States she was walking across the room and felt like she was going to fall due to pain in her knee causing her to injure her ankle Recent injury: No Associated symptoms: Painful ambulation Exacerbated by: Hanging down, Movement, Walking Relieved by: Nothing - Related Data Allergies/Adverse Reactions: brompheniramine maleate [From Dimetapp] Adverse Reaction (Unknown, Verified 14:16) Hyperactivity dextromethorphan HBr [From Dimetapp] Adverse Reaction (Verified 03/04/18 14:16) Hyperactivity phenylpropanolamine HCl [From Dimetapp] Adverse Reaction (Verified 03/04/18 14: 16) Hyperactivity pseudoephedrine HCl [From Dimetapp] Adverse Reaction (Verified 03/04/18 14:16) Hyperactivity Past Medical History - General Information source: Patient - Social History Smoking Status: Former Smoker Cigarette use (# per day): No Chew tobacco use (# tins/day): No Smoking Education Provided: No Frequency of alcohol use: Rare Drug Abuse: None Lives with: Other - retirement Family History: Arthritis, CAD, DM, Hyperlipidemia, Hypertension, Thyroid Disfunction. denies: COPD, CVA, Malignancy Patient has suicidal ideation: No Patient has homicidal ideation: No - Past Medical History Cardiac Medical History: Reports: Hx Hypertension Pulmonary Medical History: Reports: Hx Asthma EENT Medical History: Reports: None Neurological Medical History: Reports: Hx Migraine Endocrine Medical History: Reports: Hx Diabetes Mellitus Type 2, Hx Hypothyroidism Renal/ Medical History: Reports: None GI Medical History: Reports: Hx Gastroesophageal Reflux Disease Musculoskeltal Medical History: Reports Hx Musculoskeletal Trauma Skin Medical History: Reports Hx Eczema Psychiatric Medical History: Reports: Hx Bipolar Disorder, Hx Depression, Hx Schizoaffective Disorder, Hx Schizophrenia Traumatic Medical History: Reports: Hx Fractures - left ankle,arm Infectious Medical History: Reports: None Surgical Hx: Negative Past Surgical History: Reports: None - Immunizations Immunizations up to date: No Hx Diphtheria, Pertussis, Tetanus Vaccination: No Review of Systems - Review of Systems Constitutional: No symptoms reported EENT: No symptoms reported Cardiovascular: No symptoms reported Respiratory: No symptoms reported Gastrointestinal: No symptoms reported Genitourinary: No symptoms reported Female Genitourinary: No symptoms reported Musculoskeletal: Other - Pain right ankle Skin: No symptoms reported Hematologic/Lymphatic: No symptoms reported Neurological/Psychological: No symptoms reported -: Yes All other systems reviewed and negative Physical Exam - Vital signs Vitals: Temp Pulse Resp BP Pulse Ox 97.7 F 97 18 123/71 99 03/04/18 14:23 03/04/18 14:23 03/04/18 14:23 03/04/18 14:23 03/04/18 14:23 Interpretation: Normal - General General appearance: Appears well, Alert - HEENT Head: Normocephalic, Atraumatic Eyes: Normal Pupils: PERRL - Respiratory Respiratory status: No respiratory distress Chest status: Nontender Breath sounds: Normal Chest palpation: Normal - Cardiovascular Rhythm: Regular Heart sounds: Normal auscultation Murmur: No - Abdominal Inspection: Normal Distension: No distension Bowel sounds: Normal Tenderness: Nontender Organomegaly: No organomegaly - Back Back: Normal, Nontender - Extremities General upper extremity: Normal inspection, Nontender, Normal color, Normal ROM , Normal temperature General lower extremity: Normal inspection, Normal color, Normal temperature, Normal weight bearing. No: Wilian's sign Ankle: Tender, Limited ROM - Due to pain, Unable to bear weight. No: Abrasion, Deformity, Ecchymosis, Edema, Instability, Laceration, Positive Chavarria's test Foot: Tender, Metatarsal compress. pain. No: Abrasion, Deformity, Ecchymosis, Edema, Instability, Laceration, Nail injury, Navicular tenderness, No evidence of FB, Puncture wound, Tender 5th metatarsal - Neurological Neuro grossly intact: Yes Cognition: Normal Orientation: AAOx4 [place] Coma Scale Eye Opening: Spontaneous Ariel Coma Scale Verbal: Oriented Ariel Coma Scale Motor: Obeys Commands [place] Coma Scale Total: 15 Speech: Normal Motor strength normal: LUE, RUE, LLE, RLE Sensory: Normal - Psychological Associated symptoms: Normal affect, Normal mood - Skin Skin Temperature: Warm Skin Moisture: Dry Skin Color: Normal Course - Re-evaluation Re-evalutation: 03/04/18 21:17 X-ray with discussed with patient and written report given to patient to take to the long-term. Patient was treated with an Stephane wrap and given crutches. Patient will be in the waiting room for her ride to come from the long-term. Written instructions were sent with patient to the long-term. The patient is nontoxic appearing with stable vitals. They are afebrile. Ankle exam shows no deformities with no obvious ligament instability. There is a normal pulse and sensation distally. There is no redness or signs of infection. X-rays show no acute fracture per the radiologist. Patient will be placed in an Stephane wrap for comfort. Crutches will be offered and given if requested. Patient will be instructed to follow-up with not better in 1 week, sooner for increasing pain, fever, redness, numbness, tingling, weakness, any further concerns. Patient will be instructed to rest, ice, elevate their ankle. - Vital Signs Vital signs: Temp Pulse Resp BP Pulse Ox 97.7 F 97 18 123/71 99 03/04/18 14:23 03/04/18 14:23 03/04/18 14:23 03/04/18 14:23 03/04/18 14:23 - Diagnostic Test Radiology reviewed: Image reviewed, Reports reviewed Discharge - Discharge Clinical Impression: Right ankle pain Qualifiers: Chronicity: acute Qualified Code(s): M25.571 - Pain in right ankle and joints of right foot Condition: Stable Disposition: HOME, SELF-CARE Additional Instructions: You were here for ankle pain to the right ankle. You state you do not really know of any injury you were walking across the floor and almost fell when the pain started. I have placed an Stephane wrap on your ankle at this time. There is no signs or symptoms of any bony injury according to the x-ray. I will give you the name and number of an orthopedic and you will need to call and schedule a follow-up appointment if you continue to have pain in your ankle STEPHANE WRAP: A compression dressing (stephane wrap) has been placed. This helps hold the area still. It limits swelling and internal bleeding. The wrap should be comfortably snug -- not tight. You should feel a sense of pressure, but not severe pain under the wrap. Unless the physician tells you otherwise, you can adjust the wrap for comfort. If the wrap causes symptoms suggesting it's too tight -- uncomfortable pressure, swelling or discoloration beyond the wrap, numbness, or severe pain - - you must loosen the wrap. If these symptoms don't resolve promptly, return for re-evaluation. ICE & ELEVATION: Apply ice packs frequently against the painful area. Many different schedules are recommended, such as "20 minutes on, 20 minutes off" or "one hour ice, two hours rest." If you need to work, you may need to go longer between ice treatments. You should plan to have the area ice packed AT LEAST one- fourth of the time. The ice should be applied over the wrap, tape, or splint, or over a layer of cloth -- not directly against the skin. Some ice bags have a built-in cloth and can be put directly on the skin. Your injured part should be elevated as much as possible over the next 48 hours. Try to keep the injury above the level of the heart. Avoid use of the injured area. Elevation and rest will decrease the swelling. USE OF [id number]-[id number]-JNIKHCE IBUPROFEN: Ibuprofen (Advil, Nuprin, Medipren, Motrin IB) is a medication for fever and pain control. In addition, it has anti- inflammatory effects which may be beneficial, especially in the treatment of injuries. It's best to take ibuprofen with food. Persons with ulcer disease or allergy to aspirin should notify their physician of this before taking ibuprofen. Ibuprofen can be given every four to six hours, for a total of four doses daily. Age Pain or fever dose Antiinflammatory dose 6-8 yr 200 mg (1 tab) 200 mg (1 tab) 9-11 yr 200 mg (1 tab) 200-400 mg (1-2 tab) 11-14 yr 200-400 mg (1-2 tab) 400 mg (2 tab) 15-adult 400 mg (2 tab) 600 mg (3 tab) USE OF CRUTCHES: The doctor has recommended that you not bear weight at this time. You will need to use crutches. Adjust the crutches so the tops come to about two inches under the armpit while you are standing upright. Use your hands -- not your armpits -- to support your weight. To get into a chair, support yourself with one crutch on the injured side. Hold the chair with the other hand, then lower yourself while putting all your weight on the good leg. Going up stairs is `good leg up, step up, then bring up crutches and bad leg.' Down stairs is `bad leg and crutches down, then bring good leg down.' If you develop numbness or swelling in an arm or hand, you are using the crutches incorrectly. Return if you are having any problems with the crutches. FOLLOW-UP CARE: If you have been referred to a physician for follow-up care, call the physician s office for an appointment as you were instructed or within the next two days. If you experience worsening or a significant change in your symptoms, notify the physician immediately or return to the Emergency Department at any time for re-evaluation. Referrals: KASH MYERS MD [ACTIVE STAFF] - Follow up as needed
--- NOTE | 2018-03-04 16:13 | RADIOLOGY REPORT (SQ) ---
EXAM DESCRIPTION: ANKLE RIGHT COMPLETE COMPLETED DATE/TIME: 03/04/2018 4:05 pm REASON FOR STUDY: pain started when almost fell COMPARISON: None. NUMBER OF VIEWS: Three views. TECHNIQUE: AP, lateral, and oblique radiographic images acquired of the right ankle. LIMITATIONS: None. FINDINGS: MINERALIZATION: Normal. BONES: No acute fracture or dislocation. No worrisome bone lesions. JOINTS: No effusions. SOFT TISSUES: No soft tissue swelling. No foreign body. OTHER: No other significant finding. IMPRESSION: NEGATIVE STUDY OF THE RIGHT ANKLE. NO RADIOGRAPHIC EVIDENCE OF ACUTE INJURY. TECHNICAL DOCUMENTATION: JOB ID: [id number] [employer]- All Rights Reserved Reading location - IP/workstation name: [email or web address]
== END 2018-03-04 16:48 | disposition home or self-care (01) ==
LOC: ER 14:14
DX: M25.571 Pain in right ankle and joints of right foot (principal); M79.89 Other specified soft tissue disorders; R10.9 Unspecified abdominal pain; W19.XXXA Unspecified fall, initial encounter; Z87.891 Personal history of nicotine dependence; I10 Essential (primary) hypertension; J45.909 Unspecified asthma, uncomplicated; E11.9 Type 2 diabetes mellitus without complications
CPT/HCPCS: 99283

== ENCOUNTER 2018-04-20 20:05 | Emergency (ER) | payer BC, MEDICAID ==
--- NOTE | 2018-04-20 21:29 | ER Document Report ---
ED Medical Screen (RME) - General Chief Complaint: Abdominal Pain Stated Complaint: ABDOMINAL PAIN Time Seen by Provider: 04/20/18 21:13 TRAVEL OUTSIDE OF THE [place] IN LAST 30 DAYS: No - HPI Notes: 04/20/18 21:34 Patient is a 27-year-old female with a history of type 2 diabetes, hypertension , anxiety, hypothyroidism who presents to the ED complaining of epigastric pain , nausea/vomiting 4 that began after dinner this evening. Patient states that she ate burgers and ice cream thereafter. Patient states that she still has a dull pain in her epigastrium, but has improved since initial onset. Patient states that she has been using her medicines as directed. Her last episode of vomiting was when she was with EMS. Patient states that she is otherwise been urinating normally and having normal bowel movements. She has not had any vaginal bleeding, odor, or discharge. Pain does not radiate. Denies any headache, fever, URI, sore throat, chest pain, palpitations, syncope, cough, shortness of breath, wheeze, dyspnea, diarrhea, urinary retention, dysuria, hematuria, back pain, loss of control of bowel or bladder, numbness/tingling, muscle paralysis/weakness, or rash. I have treated and performed a rapid initial assessment of this patient. A comprehensive ED assessment and evaluation of the patient, analysis of test results and completion of medical decision making process will be conducted by additional ED providers. PHYSICAL EXAMINATION: GENERAL: Well-appearing, well-nourished and in no acute distress. A&Ox4. Answers questions appropriately. LUNGS: Breath sounds clear to auscultation bilaterally and equal. No wheezes rales or rhonchi. HEART: Regular rate and rhythm without murmurs, rubs, gallops. ABDOMEN: Soft, nondistended abdomen. No guarding, no rebound. No masses appreciated. Normal bowel sounds present. No CVA tenderness bilaterally. + mild epigastric tenderness (cannot elicit thorough abd exam w/o table, however). Extremities: No cyanosis, clubbing, or edema b/l. NEUROLOGICAL: Normal speech, normal gait. PSYCH: Normal mood, normal affect. - Related Data Allergies/Adverse Reactions: brompheniramine maleate [From Dimetapp] Adverse Reaction (Unknown, Verified 14:16) Hyperactivity dextromethorphan HBr [From Dimetapp] Adverse Reaction (Verified 03/04/18 14:16) Hyperactivity phenylpropanolamine HCl [From Dimetapp] Adverse Reaction (Verified 03/04/18 14: 16) Hyperactivity pseudoephedrine HCl [From Dimetapp] Adverse Reaction (Verified 03/04/18 14:16) Hyperactivity Past Medical History - Past Medical History Cardiac Medical History: Reports: Hx Hypertension Pulmonary Medical History: Reports: Hx Asthma Neurological Medical History: Reports: Hx Migraine Endocrine Medical History: Reports: Hx Diabetes Mellitus Type 2, Hx Hypothyroidism Renal/ Medical History: Denies: Hx Peritoneal Dialysis GI Medical History: Reports: Hx Gastroesophageal Reflux Disease Musculoskeltal Medical History: Reports Hx Musculoskeletal Trauma Skin Medical History: Reports Hx Eczema Psychiatric Medical History: Reports: Hx Bipolar Disorder, Hx Depression, Hx Schizoaffective Disorder, Hx Schizophrenia Traumatic Medical History: Reports: Hx Fractures - left ankle,arm - Immunizations Immunizations up to date: No Hx Diphtheria, Pertussis, Tetanus Vaccination: No Physical Exam - Vital signs Vitals: Temp Pulse Resp BP Pulse Ox 97.9 F 94 18 109/69 100 04/20/18 20:46 04/20/18 20:46 04/20/18 20:46 04/20/18 20:46 04/20/18 20:46 Course - Vital Signs Vital signs: Temp Pulse Resp BP Pulse Ox 97.9 F 94 18 109/69 100 04/20/18 20:46 04/20/18 20:46 04/20/18 20:46 04/20/18 20:46 04/20/18 20:46
[2018-04-20] MEDS ORDERED: ONDANSETRON 4 MG TAB.RAPDIS PO ONE (21:36)
[2018-04-20 21:39] LABS: ABSOLUTE BASOPHILS # (AUTO) 0.1 10^3/uL (0.0-0.2); ABSOLUTE EOSINOPHILS # (AUTO) 0.2 10^3/uL (0.0-0.6); ABSOLUTE LYMPHOCYTES (AUTO) 3.5 10^3/uL (0.5-4.7); BASOPHILS % (AUTO) 0.3 % (0-2); EOSINOPHILS % (AUTO) 1.2 % (0-6); HEMATOCRIT 39.2 % (36.0-47.0); LYMPHOCYTES % (AUTO) 22.1 % (13-45); MEAN CORPUSCULAR HGB CONC 33.3 g/dL (32.0-36.0); MEAN CORPUSCULAR VOLUME 81 fl (80-97); MONOCYTES % (AUTO) 6.3 % (3-13); PLATELET COUNT 353 10^3/uL (150-450); RED BLOOD COUNT 4.82 10^6/uL (3.72-5.28); RED CELL DISTRIBUTION WIDTH 15.2 % (11.5-14.0); SEGMENTED NEUTROPHILS % (AUTO) 70.1 % (42-78); TOTAL CELLS COUNTED % (AUTO) 100 %; WHITE BLOOD COUNT 15.7 10^3/uL (4.0-10.5)
[2018-04-20 21:46] LABS: APPEARANCE,URINE SLIGHTLY-CLOUDY; BILIRUBIN,URINE NEGATIVE (NEGATIVE); COLOR,URINE YELLOW; GLUCOSE, URINE NEGATIVE (NEGATIVE); KETONES,URINE NEGATIVE (NEGATIVE); LEUKOCYTE ESTERASE,URINE NEGATIVE (NEGATIVE); NITRITE,URINE NEGATIVE (NEGATIVE); PROTEIN,URINE NEGATIVE (NEGATIVE); URINE SPECIFIC GRAVITY 1.021; UROBILINOGEN,URINE NEGATIVE mg/dL (<2.0)
[2018-04-20 21:50] LABS: ALANINE AMINOTRANSFERASE 21 U/L (9-52); ALBUMIN 4.3 g/dL (3.5-5.0); ALKALINE PHOSPHATASE 106 U/L (38-126); ANION GAP 11 (5-19); ASPARTATE AMINO TRANSFERASE 19 U/L (14-36); BILIRUBIN,DIRECT 0.3 mg/dL (0.0-0.4); BILIRUBIN,TOTAL 0.3 mg/dL (0.2-1.3); BLOOD UREA NITROGEN 16 mg/dL (7-20); CALCIUM 9.2 mg/dL (8.4-10.2); CARBON DIOXIDE 28 mmol/L (22-30); CHLORIDE 104 mmol/L (98-107); GLUCOSE 80 mg/dL (75-110); LIPASE 193.5 U/L (23-300); POTASSIUM 4.2 mmol/L (3.6-5.0); SODIUM 142.9 mmol/L (137-145); TOTAL PROTEIN 7.7 g/dL (6.3-8.2)
--- NOTE | 2018-04-20 22:04 | RADIOLOGY REPORT (SQ) ---
EXAM DESCRIPTION: CHEST 2 VIEWS COMPLETED DATE/TIME: 04/20/2018 9:54 pm REASON FOR STUDY: epigastric pain COMPARISON: 10/12/2012 EXAM PARAMETERS: NUMBER OF VIEWS: two views TECHNIQUE: Digital Frontal and Lateral radiographic views of the chest acquired. RADIATION DOSE: NA LIMITATIONS: none FINDINGS: LUNGS AND PLEURA: No opacities, masses or pneumothorax. No pleural effusion. MEDIASTINUM AND HILAR STRUCTURES: No masses or contour abnormalities. HEART AND VASCULAR STRUCTURES: Heart normal size. No evidence for failure. BONES: No acute findings. HARDWARE: None in the chest. OTHER: No other significant finding. IMPRESSION: NO ACUTE RADIOGRAPHIC FINDING IN THE CHEST. TECHNICAL DOCUMENTATION: JOB ID: [id number] [employer] All Rights Reserved Reading location - IP/workstation name: [email or web address]
[2018-04-20] MEDS ORDERED: METOCLOPRAMIDE HCL ORAL SOLN 10 MG/10 ML UDCUP PO ONE (23:03)
[2018-04-20] MEDS ORDERED: MAG HYDROX/AL HYDROX/SIMETH SUSP 30 ML UDCUP PO ONE (23:03)
[2018-04-20] MEDS ORDERED: FAMOTIDINE 20 MG TABLET PO ONE (23:03)
[2018-04-20] MEDS ORDERED: LIDOCAINE 2% VISCOUS SOLN 20 ML UDCUP PO ONE (23:03)
--- NOTE | 2018-04-21 00:27 | ER Document Report ---
ED General - General Chief Complaint: Abdominal Pain Stated Complaint: ABDOMINAL PAIN Time Seen by Provider: 04/20/18 21:13 Notes: Patient is a 27 year old female with a past medical history of morbid obesity, diabetes, hypertension, hypothyroidism who presents with epigastric abdominal pain with associated nausea but denies vomiting to me although she did note vomiting in triage. Patient is initially sleeping very soundly and requires vigorous stimulation to wake when I do wake her she states that she feels fine and denies any complaints. Apparently earlier today after eating hamburgers and ice cream she developed epigastric abdominal pain but notes that that has since resolved. She is uncertain of whether or not she has had similar symptoms in the past. Nothing improves or worsens her symptoms when they were present. She denies any difficulty tolerating water here in the emergency department. She denies any dysuria, ongoing abdominal pain, shortness of breath , cough, fever or vaginal bleeding. TRAVEL OUTSIDE OF THE [place] IN LAST 30 DAYS: No - Related Data Allergies/Adverse Reactions: brompheniramine maleate [From Dimetapp] Adverse Reaction (Unknown, Verified 14:16) Hyperactivity dextromethorphan HBr [From Dimetapp] Adverse Reaction (Verified 03/04/18 14:16) Hyperactivity phenylpropanolamine HCl [From Dimetapp] Adverse Reaction (Verified 03/04/18 14: 16) Hyperactivity pseudoephedrine HCl [From Dimetapp] Adverse Reaction (Verified 03/04/18 14:16) Hyperactivity Past Medical History - General Information source: Patient - Social History Smoking Status: Never Smoker Frequency of alcohol use: None Drug Abuse: None Lives with: Other - Home Family History: Arthritis, CAD, DM, Hyperlipidemia, Hypertension, Thyroid Disfunction. denies: COPD, CVA, Malignancy - Past Medical History Cardiac Medical History: Reports: Hx Hypertension Pulmonary Medical History: Reports: Hx Asthma Neurological Medical History: Reports: Hx Migraine Endocrine Medical History: Reports: Hx Diabetes Mellitus Type 2, Hx Hypothyroidism Renal/ Medical History: Denies: Hx Peritoneal Dialysis GI Medical History: Reports: Hx Gastroesophageal Reflux Disease Musculoskeltal Medical History: Reports Hx Musculoskeletal Trauma Skin Medical History: Reports Hx Eczema Psychiatric Medical History: Reports: Hx Bipolar Disorder, Hx Depression, Hx Schizoaffective Disorder, Hx Schizophrenia Traumatic Medical History: Reports: Hx Fractures - left ankle,arm - Immunizations Immunizations up to date: No Hx Diphtheria, Pertussis, Tetanus Vaccination: No Review of Systems - Review of Systems Notes: Constitutional: Negative for fever. HENT: Negative for sore throat. Eyes: Negative for visual changes. Cardiovascular: Negative for chest pain. Respiratory: Negative for shortness of breath. Gastrointestinal: Positive for abdominal pain now resolved Genitourinary: Negative for dysuria. Musculoskeletal: Negative for back pain. Skin: Negative for rash. Neurological: Negative for headaches, weakness or numbness. 10 point ROS negative except as marked above and in HPI. Physical Exam - Vital signs Vitals: Temp Pulse Resp BP Pulse Ox 97.9 F 94 18 109/69 100 04/20/18 20:46 04/20/18 20:46 04/20/18 20:46 04/20/18 20:46 04/20/18 20:46 Interpretation: Normal Notes: PHYSICAL EXAMINATION: GENERAL: Well-appearing, well-nourished and in no acute distress. HEAD: Atraumatic, normocephalic. EYES: Pupils equal round and reactive to light, extraocular movements intact, sclera anicteric, conjunctiva are normal. ENT: nares patent, oropharynx clear without exudates. Moist mucous membranes. NECK: Normal range of motion, supple without lymphadenopathy LUNGS: Breath sounds clear to auscultation bilaterally and equal. No wheezes rales or rhonchi. HEART: Regular rate and rhythm without murmurs ABDOMEN: Soft, morbidly obese abdomen, nontender, normoactive bowel sounds. No guarding, no rebound. No masses appreciated. EXTREMITIES: Normal range of motion, no pitting or edema. No cyanosis. NEUROLOGICAL: No focal neurological deficits. Moves all extremities spontaneously and on command. PSYCH: Normal mood, normal affect. SKIN: Warm, Dry, normal turgor, no rashes or lesions noted. Course - Re-evaluation Re-evalutation: 04/21/18 00:26 Patient presents with epigastric abdominal pain with associated reflux symptoms most consistent with likely gastritis. Patient has no focal abdominal tenderness on examination. Lipase is normal. No LFT changes. Based on history and exam, I do not suspect ACS, pulmonary embolus, SBO, mesenteric ischemia, acute pancreatitis, biliary pathology, or an abdominal aortic dissection. Patient has had improvement of symptoms here with a GI cocktail. At this time will discharge with return precautions and follow-up recommendations. Verbal discharge instructions given a the bedside and opportunity for questions given. Medication warnings reviewed. Patient is in agreement with this plan and has verbalized understanding of return precautions and the need for primary care follow-up in the next 24-72 hours. - Vital Signs Vital signs: Temp Pulse Resp BP Pulse Ox 97.9 F 88 16 115/88 H 99 04/20/18 20:46 04/21/18 00:24 04/21/18 00:24 04/21/18 00:24 04/21/18 00:24 - Laboratory Result Diagrams: 04/20/18 20:50 04/20/18 20:50 Laboratory results interpreted by me: 04/20/18 20:50 WBC 15.7 H RDW 15.2 H Absolute Neutrophils 11.0 H Discharge - Discharge Clinical Impression: Upper abdominal pain, Nausea Condition: Good Disposition: HOME, SELF-CARE Additional Instructions: Your symptoms appear to be most consistent with stomach or upper intestinal irritation. Please begin taking famotidine 40 mg in the morning and 40 mg at night. This medicine can be purchased directly [id number]. You may also take medicine such as Pepto-Bismol or Tums to assist with your pain. Please return to emergency department immediately if you have worsening of your pain, shortness of breath, vomiting, become unable to exert yourself due to pain or difficulty breathing, you pass out, or have any pain that radiates into your arms, jaw, or back. Please also return if you have any additional symptoms that are concerning to you. As we have discussed, the most important thing is lifestyle changes. You need to avoid smoking, sodas, tea, coffee, alcohol, spicy foods, and acidic foods such as citrus fruits, tomato based products, berries, and most fruit juices.
[2018-04-21 00:39] VITALS: BP 115/88
== END 2018-04-21 01:15 | disposition home or self-care (01) ==
LOC: ER 20:05
DX: R10.10 Upper abdominal pain, unspecified (principal); R11.0 Nausea; R10.13 Epigastric pain; E66.01 Morbid (severe) obesity due to excess calories; E11.9 Type 2 diabetes mellitus without complications; I10 Essential (primary) hypertension; J45.909 Unspecified asthma, uncomplicated
CPT/HCPCS: 99284; 36415; 82962; 83690; 84703; 85025; 80053; 81001; 71046; S0119; J3490

== ENCOUNTER 2018-05-06 12:47 | Emergency (ER) | payer BC, MEDICAID ==
[2018-05-06 12:53] VITALS: BP 137/87
[2018-05-06] MEDS ORDERED: DIPHENHYDRAMINE HCL 50 MG CAPSULE PO ONE (13:08)
--- NOTE | 2018-05-06 13:14 | ER Document Report ---
HPI - HPI Patient complains to provider of: Ant bite Pain Level: 3 Context: Patient is a 27-year-old female presenting to the emergency department complaining of a red ant bite to her right little toe at 9:00 this morning. Complains of swelling to the bite and her throat feels a little swollen. Patient denies any swelling to her lips or tongue. No shortness of breath. No previous allergic reactions Associated Symptoms: None Exacerbated by: Denies Relieved by: Denies - ROS Systems Reviewed and Negative: Yes All other systems reviewed and negative - REPRODUCTIVE Reproductive: DENIES: : Past Medical History - General Information source: Patient - Social History Smoking Status: Never Smoker Frequency of alcohol use: None Drug Abuse: None Lives with: Family Family History: Arthritis, CAD, DM, Hyperlipidemia, Hypertension, Thyroid Disfunction. denies: COPD, CVA, Malignancy - Past Medical History Cardiac Medical History: Reports: Hx Hypertension Pulmonary Medical History: Reports: Hx Asthma Neurological Medical History: Reports: Hx Migraine Endocrine Medical History: Reports: Hx Diabetes Mellitus Type 2, Hx Hypothyroidism Renal/ Medical History: Denies: Hx Peritoneal Dialysis GI Medical History: Reports: Hx Gastroesophageal Reflux Disease Musculoskeletal Medical History: Reports Hx Musculoskeletal Trauma Skin Medical History: Reports Hx Eczema Psychiatric Medical History: Reports: Hx Bipolar Disorder, Hx Depression, Hx Schizoaffective Disorder, Hx Schizophrenia Traumatic Medical History: Reports: Hx Fractures - left ankle,arm - Immunizations Immunizations up to date: No Hx Diphtheria, Pertussis, Tetanus Vaccination: No Vertical Provider Document - CONSTITUTIONAL Agree With Documented VS: Yes Exam Limitations: No Limitations General Appearance: WD/WN, No Apparent Distress, Obese - INFECTION CONTROL TRAVEL OUTSIDE OF THE [place] IN LAST 30 DAYS: No - HEENT HEENT: Atraumatic, Normal ENT Exam, PERRLA. negative: Pharyngeal Erythema Notes: No angioedema, no airway compromise - NECK Neck: Normal Inspection, Supple - RESPIRATORY Respiratory: Breath Sounds Normal, No Respiratory Distress - CARDIOVASCULAR Cardiovascular: Regular Rate, Regular Rhythm - NEURO Level of Consciousness: Awake, Alert, Appropriate - DERM Integumentary: Warm, Dry, Rash - Focal tender, erythematous area to right lateral little toe. No pustule or vesicle, no lymphangitis Course - Re-evaluation Re-evalutation: 05/06/18 13:13 History and physical are consistent with a local reaction to an insect bite. There are no signs of anaphylactic reaction, no airway compromise, no angioedema , no shortness of breath. Home care, primary care follow-up and ED return precautions were discussed. Patient is agreeable with plan is stable for discharge - Vital Signs Vital signs: Temp Pulse Resp BP Pulse Ox 98.1 F 94 14 137/87 H 98 05/06/18 12:53 05/06/18 12:53 05/06/18 12:53 05/06/18 12:53 05/06/18 12:53 Discharge - Discharge Clinical Impression: Toe pain Qualifiers: Laterality: right Qualified Code(s): M79.674 - Pain in right toe(s) Insect bite Qualifiers: Encounter type: initial encounter Qualified Code(s): W57.XXXA - Bitten or stung by nonvenomous insect and other nonvenomous arthropods, initial encounter Disposition: HOME, SELF-CARE Instructions: Use of Diphenhydramine, Topical Steroid Cream or Ointment ([facility]), Ice & Elevation ([facility]) Additional Instructions: There are no signs of anaphylactic reaction today you may take 50 mg of Benadryl every 6 hours Apply [id number] 1% hydrocortisone cream to the ant bite Apply ice to the ant bite Follow-up with primary care as needed
== END 2018-05-06 13:18 | disposition home or self-care (01) ==
LOC: ER 12:47
DX: T63.421A Toxic effect of venom of ants, accidental (unintentional), initial encounter (principal); M79.674 Pain in right toe(s); I10 Essential (primary) hypertension; E11.9 Type 2 diabetes mellitus without complications; J45.909 Unspecified asthma, uncomplicated
CPT/HCPCS: 99281

== ENCOUNTER 2018-05-18 09:09 | Emergency (ER) | payer BC, MEDICAID ==
[2018-05-18 09:23] VITALS: BP 131/56
--- NOTE | 2018-05-18 09:27 | ER Document Report ---
HPI - HPI Patient complains to provider of: Right fifth toe injury [place]set: [place] Onset/Duration: Sudden Pain Level: 3 Context: 27-year-old female turned her right 5th toe under and notes bruise swollen and she cannot move it. Associated Symptoms: None Exacerbated by: Movement, Walking Relieved by: Denies Similar symptoms previously: No Recently seen / treated by doctor: No - ROS ROS below otherwise negative: Yes Systems Reviewed and Negative: Yes All other systems reviewed and negative Past Medical History - General Information source: Patient - Social History Smoking Status: Unknown if Ever Smoked Frequency of alcohol use: None Drug Abuse: None Lives with: Family Family History: Arthritis, CAD, DM, Hyperlipidemia, Hypertension, Thyroid Disfunction - Past Medical History Cardiac Medical History: Reports: Hx Hypertension Pulmonary Medical History: Reports: Hx Asthma Neurological Medical History: Reports: Hx Migraine Endocrine Medical History: Reports: Hx Diabetes Mellitus Type 2, Hx Hypothyroidism Renal/ Medical History: Denies: Hx Peritoneal Dialysis GI Medical History: Reports: Hx Gastroesophageal Reflux Disease Musculoskeletal Medical History: Reports Hx Musculoskeletal Trauma Skin Medical History: Reports Hx Eczema Psychiatric Medical History: Reports: Hx Bipolar Disorder, Hx Depression, Hx Schizoaffective Disorder, Hx Schizophrenia Traumatic Medical History: Reports: Hx Fractures - left ankle,arm - Immunizations Immunizations up to date: No Hx Diphtheria, Pertussis, Tetanus Vaccination: No Vertical Provider Document - CONSTITUTIONAL Agree With Documented VS: Yes Exam Limitations: No Limitations General Appearance: No Apparent Distress Notes: Morbidly obese - INFECTION CONTROL TRAVEL OUTSIDE OF THE [place] IN LAST 30 DAYS: No - MUSCULOSKELETAL/EXTREMETIES Musculoskeletal/Extremeties: MAEW, Tender, Edema, Eccymosis Notes: Bruising to the right fifth toe - NEURO Level of Consciousness: Alert Motor/Sensory: No Motor Deficit, No Sensory Deficit - DERM Integumentary: No Rash Course - Re-evaluation Re-evalutation: 05/18/18 10:43 prelim x-ray report is negative. Patient will call me back for the final. She states she cannot take Motrin so recommended that she take Tylenol for pain - Vital Signs Vital signs: Temp Pulse Resp BP Pulse Ox 97.8 F 88 16 131/56 H 98 05/18/18 09:16 05/18/18 09:16 05/18/18 09:16 05/18/18 09:16 08/06/18 09:16 Procedures - Immobilization Right Toe Time completed: 10:35 Pre-Proc Neuro Vasc Exam: Normal Immobilizer type: Post-op shoe, Other - Barry tape Performed by: PCT Post-Proc Neuro Vasc Exam: Normal Alignment checked and good: Yes Discharge - Discharge Clinical Impression: Toe contusion Condition: Good Disposition: HOME, SELF-CARE Instructions: Barry Taping (toes) ([facility]), Stubbed Toe ([facility]) Additional Instructions: See the installation helper for follow-up Barry tape the toes and use the postop shoe for a week Tylenol up to 4000 mg a day for pain Return to the emergency room any concerns Referrals: LILLI RICHEY DPM [ACTIVE STAFF] - Follow up as needed ZAIN ROSS DPM [ACTIVE STAFF] - Follow up as needed
--- NOTE | 2018-05-18 10:48 | RADIOLOGY REPORT (SQ) ---
EXAM DESCRIPTION: TOE RIGHT COMPLETED DATE/TIME: 05/18/2018 9:55 am REASON FOR STUDY: injury COMPARISON: None. NUMBER OF VIEWS: Two views TECHNIQUE: AP and lateral images acquired of the right fifth toe. LIMITATIONS: None. FINDINGS: MINERALIZATION: Normal. BONES: No acute fracture or dislocation. No worrisome bone lesions. JOINTS: No effusions. SOFT TISSUES: No soft tissue swelling. No foreign body. OTHER: No other significant finding. IMPRESSION: NEGATIVE STUDY OF THE RIGHT TOE. NO RADIOGRAPHIC EVIDENCE OF ACUTE INJURY. COMMENT: SITE OF TRAUMA/COMPLAINT MARKED/STAMP COMPLETED: Yes TECHNICAL DOCUMENTATION: JOB ID: [id number] [employer] All Rights Reserved Reading location - IP/workstation name: [email or web address]
== END 2018-05-18 10:43 | disposition home or self-care (01) ==
LOC: ER 09:09
DX: S90.121A Contusion of right lesser toe(s) without damage to nail, initial encounter (principal); X58.XXXA Exposure to other specified factors, initial encounter; I10 Essential (primary) hypertension; E11.9 Type 2 diabetes mellitus without complications; E03.9 Hypothyroidism, unspecified
CPT/HCPCS: 99283

== ENCOUNTER 2018-06-03 17:41 | Emergency (ER) | payer BC, MEDICAID ==
[2018-06-03] MEDS ORDERED: RINGERS SOLUTION,LACTATED 1,000 ML IV ONE (18:38)
[2018-06-03] MEDS ORDERED: ONDANSETRON 4 MG TAB.RAPDIS PO ONE (18:38)
--- NOTE | 2018-06-03 18:38 | ER Document Report ---
ED Medical Screen (RME) - General Chief Complaint: Chest Pain > 30 Stated Complaint: NAUSEA/CHEST PAIN Time Seen by Provider: 06/03/18 18:37 Mode of Arrival: Ambulatory Information source: Patient Notes: 27-year-old female with a history of bipolar affective disorder and schizophrenia, hypothyroidism who presents to the emergency room with nausea, vomiting, diarrhea, chest and abdominal pain for 2 days. Patient's other complaint is that she has a slanted bone in her big right toe and it has been bothering her. Patient denies any blood in the vomitus or the diarrhea. TRAVEL OUTSIDE OF THE [place] IN LAST 30 DAYS: No - Related Data Allergies/Adverse Reactions: brompheniramine maleate [From Dimetapp] Adverse Reaction (Unknown, Verified 17:46) Hyperactivity dextromethorphan HBr [From Dimetapp] Adverse Reaction (Verified 06/03/18 17:46) Hyperactivity phenylpropanolamine HCl [From Dimetapp] Adverse Reaction (Verified 06/03/18 17: 46) Hyperactivity pseudoephedrine HCl [From [employer]etapp] Adverse Reaction (Verified 06/03/18 17:46) Hyperactivity Past Medical History - Social History Chew tobacco use (# tins/day): No Frequency of alcohol use: None Drug Abuse: None - Past Medical History Cardiac Medical History: Reports: Hx Hypertension Pulmonary Medical History: Reports: Hx Asthma Neurological Medical History: Reports: Hx Migraine Endocrine Medical History: Reports: Hx Diabetes Mellitus Type 2, Hx Hypothyroidism Renal/ Medical History: Denies: Hx Peritoneal Dialysis GI Medical History: Reports: Hx Gastroesophageal Reflux Disease Musculoskeltal Medical History: Reports Hx Musculoskeletal Trauma Skin Medical History: Reports Hx Eczema Psychiatric Medical History: Reports: Hx Bipolar Disorder, Hx Depression, Hx Schizoaffective Disorder, Hx Schizophrenia Traumatic Medical History: Reports: Hx Fractures - left ankle,arm - Immunizations Immunizations up to date: No Hx Diphtheria, Pertussis, Tetanus Vaccination: No Physical Exam - Vital signs Vitals: Temp Pulse BP Pulse Ox 98.1 F 105 H 131/67 H 96 06/03/18 17:53 06/03/18 17:53 06/03/18 17:53 06/03/18 17:53 Course - Vital Signs Vital signs: Temp Pulse Resp BP Pulse Ox 98.1 F 105 H 131/67 H 96 06/03/18 17:53 06/03/18 17:53 06/03/18 17:53 06/03/18 17:53 Doctor's Discharge - Discharge Referrals: BULMARO COX [Primary Care Provider] - Follow up as needed
[2018-06-03] MEDS ORDERED: FAMOTIDINE INJ/PF 20 MG/2 ML SDV IV ONE (19:04)
[2018-06-03] MEDS ORDERED: KETOROLAC TROMETHAMINE INJ/PF 30 MG/1 ML SDV IV ONE (19:04)
--- NOTE | 2018-06-03 19:06 | ER Document Report ---
ED General - General Chief Complaint: Chest Pain > 30 Stated Complaint: NAUSEA/CHEST PAIN Time Seen by Provider: 06/03/18 18:37 Mode of Arrival: Ambulatory Information source: Patient, [facility] Records Notes: 27-year-old female with bipolar disorder, schizophrenia, hypothyroidism, migraine headaches, hypertension, type 2 diabetes presents with multiple complaints including chest pain, abdominal pain, nausea, vomiting, diarrhea. Patient states that her chest and abdominal pain started yesterday. She describes it as a generalized stabbing intermittent pain that does not radiate. Patient states that she has had multiple episodes of nonbloody diarrhea since yesterday as well. Patient does admit to one episode of vomiting. She denies sick contacts, fever, chills, shortness of breath. Patient denies dysuria, vaginal discharge. She states that she does not menstruate normally. She is currently sexually active but denies any vaginal discharge. TRAVEL OUTSIDE OF THE [place] IN LAST 30 DAYS: No - HPI Onset: Yesterday Onset/Duration: Gradual, Intermittent Quality of pain: Stabbing Severity: Mild Associated symptoms: Chest pain, Diarrhea, Nausea, Vomiting Exacerbated by: Food Relieved by: Denies Similar symptoms previously: Yes Recently seen / treated by doctor: No - Related Data Allergies/Adverse Reactions: brompheniramine maleate [From Dimetapp] Adverse Reaction (Unknown, Verified 17:46) Hyperactivity dextromethorphan HBr [From Dimetapp] Adverse Reaction (Verified 06/03/18 17:46) Hyperactivity phenylpropanolamine HCl [From Dimetapp] Adverse Reaction (Verified 06/03/18 17: 46) Hyperactivity pseudoephedrine HCl [From Dimetapp] Adverse Reaction (Verified 06/03/18 17:46) Hyperactivity Past Medical History - General Information source: Patient, [facility] Records - Social History Smoking Status: Never Smoker Chew tobacco use (# tins/day): No Frequency of alcohol use: None Drug Abuse: None Lives with: Family Family History: Arthritis, CAD, DM, Hyperlipidemia, Hypertension, Thyroid Disfunction Patient has suicidal ideation: No Patient has homicidal ideation: No - Past Medical History Cardiac Medical History: Reports: Hx Hypertension Pulmonary Medical History: Reports: Hx Asthma Neurological Medical History: Reports: Hx Migraine Endocrine Medical History: Reports: Hx Diabetes Mellitus Type 2, Hx Hypothyroidism Renal/ Medical History: Denies: Hx Peritoneal Dialysis GI Medical History: Reports: Hx Gastroesophageal Reflux Disease Musculoskeletal Medical History: Reports Hx Musculoskeletal Trauma Skin Medical History: Reports Hx Eczema Psychiatric Medical History: Reports: Hx Bipolar Disorder, Hx Depression, Hx Schizoaffective Disorder, Hx Schizophrenia Traumatic Medical History: Reports: Hx Fractures - left ankle,arm - Immunizations Immunizations up to date: No Hx Diphtheria, Pertussis, Tetanus Vaccination: No Review of Systems - Review of Systems Notes: REVIEW OF SYSTEMS: CONSTITUTIONAL : Denies fever, chills, or sweats. Denies recent illness. Denies weight loss, recent hospitalizations. EENT: Denies visual changes, eye pain. Denies nasal or sinus congestion or discharge. Denies sore throat, oral lesions, difficulty swallowing. CARDIOVASCULAR: Denies palpitations. Denies lower extremity edema. RESPIRATORY: Denies cough, cold, or chest congestion. Denies shortness of breath, wheezing. GASTROINTESTINAL: Denies abdominal distention. Denies blood in vomitus, stools , or per rectum. Denies black, tarry stools. Denies constipation. GENITOURINARY: Denies difficulty urinating, painful urination, frequency, blood in urine, or vaginal discharge. MUSCULOSKELETAL: Denies back or neck pain or stiffness. Denies joint pain or swelling. SKIN: Denies rash, lesions or sores. HEMATOLOGIC : Denies easy bruising or bleeding. LYMPHATIC: Denies swollen glands. NEUROLOGICAL: Denies confusion or altered mental status. Denies passing out or loss of consciousness. Denies dizziness or lightheadedness. Denies headache. Denies weakness or paralysis. Denies problems difficulty with ambulation, slurred speech. Denies sensory loss, numbness, or tingling. Denies seizures. PSYCHIATRIC: Denies anxiety or stress. Denies depression, suicidal ideation, or homicidal ideation. Denies visual or auditory hallucinations. Physical Exam - Vital signs Vitals: Temp Pulse BP Pulse Ox 98.1 F 105 H 131/67 H 96 06/03/18 17:53 06/03/18 17:53 06/03/18 17:53 06/03/18 17:53 - Notes Notes: PHYSICAL EXAMINATION: GENERAL: Well-appearing, well-nourished and in no acute distress. HEAD: Atraumatic, normocephalic. EYES: Pupils equal round and reactive to light, extraocular movements intact, conjunctiva are normal. ENT: Nares patent, oropharynx clear without exudates. Moist mucous membranes. NECK: Normal range of motion, supple without lymphadenopathy LUNGS: Breath sounds clear to auscultation bilaterally and equal. No wheezes rales or rhonchi. HEART: Regular rate and rhythm without murmurs ABDOMEN: Soft, nontender, nondistended abdomen. No guarding, no rebound. No masses appreciated. Female : deferred Musculoskeletal: Normal range of motion, no pitting or edema. No cyanosis. NEUROLOGICAL: Cranial nerves grossly intact. Normal speech, normal gait. Normal sensory, motor exams PSYCH: Normal mood, normal affect. SKIN: Warm, Dry, normal turgor, no rashes or lesions noted. Course - Re-evaluation Re-evalutation: Laboratory 06/03/18 06/03/18 06/03/18 18:50 18:50 18:50 WBC 11.2 H RBC 4.75 Hgb 12.5 Hct 37.9 MCV 80 MCH 26.4 L MCHC 33.1 RDW 15.9 H Plt Count 293 Seg Neutrophils % 63.5 Lymphocytes % 27.1 Monocytes % 7.0 Eosinophils % 1.9 Basophils % 0.5 Absolute Neutrophils 7.1 Absolute Lymphocytes 3.0 Absolute Monocytes 0.8 Absolute Eosinophils 0.2 Absolute Basophils 0.1 Sodium 140.9 Potassium 3.9 Chloride 104 Carbon Dioxide 22 Anion Gap 15 BUN 13 Creatinine 0.77 Est GFR ( Amer) > 60 Est GFR (Non-Af Amer) > 60 Glucose 87 Calcium 9.4 Total Bilirubin 0.3 Direct Bilirubin 0.3 Neonat Total Bilirubin Not Reportable Neonat Direct Bilirubin Not Reportable Neonat Indirect Bili Not Reportable AST 21 ALT 22 Alkaline Phosphatase 95 Troponin I < 0.012 Total Protein 7.5 Albumin 3.9 Lipase 168.6 Beta HCG, Quant < 2.39 Total Beta HCG NEGATIVE Urine Color Urine Appearance Urine pH Ur Specific [place] Urine Protein Urine Glucose (UA) Urine Ketones Urine Blood Urine Nitrite Urine Bilirubin Urine Urobilinogen Ur Leukocyte Esterase Urine WBC (Auto) Urine RBC (Auto) Squamous Epi Cells Auto Urine Mucus (Auto) Urine Ascorbic Acid 06/03/18 19:05 WBC RBC Hgb Hct MCV MCH MCHC RDW Plt Count Seg Neutrophils % Lymphocytes % Monocytes % Eosinophils % Basophils % Absolute Neutrophils Absolute Lymphocytes Absolute Monocytes Absolute Eosinophils Absolute Basophils Sodium Potassium Chloride Carbon Dioxide Anion Gap BUN Creatinine Est GFR ( Amer) Est GFR (Non-Af Amer) Glucose Calcium Total Bilirubin Direct Bilirubin Neonat Total Bilirubin Neonat Direct Bilirubin Neonat Indirect Bili AST ALT Alkaline Phosphatase Troponin I Total Protein Albumin Lipase Beta HCG, Quant Total Beta HCG Urine Color YELLOW Urine Appearance CLEAR Urine pH 5.0 Ur Specific [place] 1.020 Urine Protein NEGATIVE Urine Glucose (UA) NEGATIVE Urine Ketones NEGATIVE Urine Blood NEGATIVE Urine Nitrite NEGATIVE Urine Bilirubin NEGATIVE Urine Urobilinogen NEGATIVE Ur Leukocyte Esterase TRACE H Urine WBC (Auto) 3 Urine RBC (Auto) 1 Squamous Epi Cells Auto 3 Urine Mucus (Auto) RARE Urine Ascorbic Acid NEGATIVE 06/04/18 20:42 27-year-old female with bipolar disorder, schizophrenia, hypothyroidism, migraine headaches, hypertension, type 2 diabetes presents with multiple complaints including chest pain, abdominal pain, nausea, vomiting, diarrhea. Patient states that her chest and abdominal pain started yesterday. She describes it as a generalized stabbing intermittent pain that does not radiate. Patient states that she has had multiple episodes of nonbloody diarrhea since yesterday as well. Patient does admit to one episode of vomiting. Patient was seen by myself upon arrival. Vital signs were reviewed. Patient is afebrile, normotensive and not hypoxic. Patient does not appear toxic or dehydrated. They are in no acute distress. Previous medical records and nursing notes reviewed. Patient has a completely normal physical exam. She is talking with her manager social. Laboratory testing including being sleepy enzymes, urinalysis are within normal limits. Patient did receive IV fluids and Zofran during her ED course. I did discuss the normal findings with the patient and her manager social who both are declining any home-going medications. Patient provided the opportunity to ask questions, and express concerns. Discharge instructions discussed. Patient is agreeable with discharge home. Return indications explained and discussed with the patient who displays understanding. Patient encouraged to return to the emergency department immediately with any concerns. - Vital Signs Vital signs: Temp Pulse Resp BP Pulse Ox 97.5 F 86 16 110/66 98 06/03/18 20:10 06/03/18 21:30 06/03/18 21:30 06/03/18 21:30 06/03/18 21:30 - Laboratory Result Diagrams: 06/03/18 18:50 06/03/18 18:50 Laboratory results interpreted by me: 06/03/18 06/03/18 18:50 19:05 WBC 11.2 H MCH 26.4 L RDW 15.9 H Ur Leukocyte Esterase TRACE H - Diagnostic Test Radiology reviewed: Image reviewed, Reports reviewed - EKG Interpretation by Me EKG shows normal: Sinus rhythm Rate: Normal Rhythm: NSR When compared to previous EKG there are: Previous EKG unavailable Discharge - Discharge Clinical Impression: Viral illness, Nausea vomiting and diarrhea Abdominal pain Qualifiers: Abdominal location: generalized Qualified Code(s): R10.84 - Generalized abdominal pain Chest pain Qualifiers: Chest pain type: unspecified Qualified Code(s): R07.9 - Chest pain, unspecified Condition: Good Disposition: HOME, SELF-CARE Instructions: Abdominal Pain ([facility]), Antinausea Medication ([facility]), Diarrhea, Nonspecific ([facility]), Intravenous (IV) Fluids ([facility]), Viral Syndrome ([facility]), Vomiting ([facility]) Additional Instructions: Follow up with your physician tomorrow for further care or return to the ED IMMEDIATELY if symptoms worsen or new concerns occur. If you cannot afford to follow up with your primary care physician a list of low cost clinics have been provided at the end of your discharge papers as well. Referrals: BULMARO COX [NO LOCAL MD] - Follow up as needed
[2018-06-03 19:08] LABS: ABSOLUTE BASOPHILS # (AUTO) 0.1 10^3/uL (0.0-0.2); ABSOLUTE EOSINOPHILS # (AUTO) 0.2 10^3/uL (0.0-0.6); ABSOLUTE MONOCYTES (AUTO) 0.8 10^3/uL (0.1-1.4); ABSOLUTE NEUT (AUTO) 7.1 10^3/uL (1.7-8.2); BASOPHILS % (AUTO) 0.5 % (0-2); EOSINOPHILS % (AUTO) 1.9 % (0-6); HEMATOCRIT 37.9 % (36.0-47.0); HEMOGLOBIN 12.5 g/dL (12.0-15.5); LYMPHOCYTES % (AUTO) 27.1 % (13-45); MEAN CORPUSCULAR HEMOGLOBIN 26.4 pg (27.0-33.4); MEAN CORPUSCULAR HGB CONC 33.1 g/dL (32.0-36.0); MEAN CORPUSCULAR VOLUME 80 fl (80-97); PLATELET COUNT 293 10^3/uL (150-450); RED BLOOD COUNT 4.75 10^6/uL (3.72-5.28); RED CELL DISTRIBUTION WIDTH 15.9 % (11.5-14.0); SEGMENTED NEUTROPHILS % (AUTO) 63.5 % (42-78); TOTAL CELLS COUNTED % (AUTO) 100 %; WHITE BLOOD COUNT 11.2 10^3/uL (4.0-10.5)
--- NOTE | 2018-06-03 19:32 | RADIOLOGY REPORT (SQ) ---
EXAM DESCRIPTION: CHEST SINGLE VIEW COMPLETED DATE/TIME: 06/03/2018 7:15 pm REASON FOR STUDY: chest pain COMPARISON: 04/20/2018 EXAM PARAMETERS: NUMBER OF VIEWS: One view. TECHNIQUE: Single frontal radiographic view of the chest acquired. RADIATION DOSE: NA LIMITATIONS: None. FINDINGS: LUNGS AND PLEURA: No opacities, masses or pneumothorax. No pleural effusion. MEDIASTINUM AND HILAR STRUCTURES: No masses. Contour normal. HEART AND VASCULAR STRUCTURES: Heart normal in size. Normal vasculature. BONES: No acute findings. HARDWARE: None in the chest. OTHER: No other significant finding. IMPRESSION: NO ACUTE RADIOGRAPHIC FINDING IN THE CHEST. TECHNICAL DOCUMENTATION: JOB ID: [id number] [employer]- All Rights Reserved Reading location - IP/workstation name: [email or web address]
[2018-06-03 19:34] LABS: APPEARANCE,URINE CLEAR; BILIRUBIN,URINE NEGATIVE (NEGATIVE); COLOR,URINE YELLOW; GLUCOSE, URINE NEGATIVE (NEGATIVE); KETONES,URINE NEGATIVE (NEGATIVE); LEUKOCYTE ESTERASE,URINE TRACE (NEGATIVE); NITRITE,URINE NEGATIVE (NEGATIVE); PROTEIN,URINE NEGATIVE (NEGATIVE); UROBILINOGEN,URINE NEGATIVE mg/dL (<2.0)
[2018-06-03 19:35] LABS: ALANINE AMINOTRANSFERASE 22 U/L (9-52); ALBUMIN 3.9 g/dL (3.5-5.0); ALKALINE PHOSPHATASE 95 U/L (38-126); ANION GAP 15 (5-19); ASPARTATE AMINO TRANSFERASE 21 U/L (14-36); BILIRUBIN,DIRECT 0.3 mg/dL (0.0-0.4); BILIRUBIN,TOTAL 0.3 mg/dL (0.2-1.3); BLOOD UREA NITROGEN 13 mg/dL (7-20); CALCIUM 9.4 mg/dL (8.4-10.2); CARBON DIOXIDE 22 mmol/L (22-30); CHLORIDE 104 mmol/L (98-107); GLUCOSE 87 mg/dL (75-110); LIPASE 168.6 U/L (23-300); POTASSIUM 3.9 mmol/L (3.6-5.0); SODIUM 140.9 mmol/L (137-145); TOTAL PROTEIN 7.5 g/dL (6.3-8.2)
[2018-06-03 21:32] VITALS: BP 110/66
--- NOTE | 2018-06-03 22:12 | EKG REPORT ---
SEVERITY:- ABNORMAL ECG - SINUS RHYTHM NONSPECIFIC REPOL ABNORMALITY, INFERIOR LEADS : Confirmed by: Modesta Rivera 03-Jun-2018 22:11:31
== END 2018-06-03 21:32 | disposition home or self-care (01) ==
LOC: ER 17:41
DX: R07.9 Chest pain, unspecified (principal); R11.2 Nausea with vomiting, unspecified; R10.84 Generalized abdominal pain; B34.9 Viral infection, unspecified; R19.7 Diarrhea, unspecified
CPT/HCPCS: 93005; 99285; 96361; 96374; 96375; 36415; 82962; 84702; 83690; 85025; 80053; 81001; 84484; 71045; 93010; S0119; J1885; J7120; S0028

== ENCOUNTER 2018-06-16 20:38 | Emergency (ER) | payer BC, MEDICAID ==
[2018-06-16 21:13] VITALS: BP 122/80
[2018-06-17] MEDS ORDERED: KETOROLAC TROMETHAMINE 60 MG/2 ML SDV IM ONE (01:09)
--- NOTE | 2018-06-17 01:56 | RADIOLOGY REPORT (SQ) ---
EXAM DESCRIPTION: XR THORACIC SPINE 2 VIEWS COMPLETED DATE/TME: 06/17/2018 01:09 CLINICAL HISTORY: 27 years, Female, upper back pain COMPARISON: None. NUMBER OF VIEWS: Two TECHNIQUE: AP and lateral views of the thoracic spine LIMITATIONS: Motion artifact. FINDINGS: Motion artifact limits the evaluation particularly of the lateral projection. The upper thoracic spine is not well seen. There is normal alignment and lordosis. No acute fracture is noted. No displacement of the paraspinous stripe. IMPRESSION: No acute fracture is noted. The upper thoracic spine is poorly seen in the lateral view 2010 [employer]- All Rights Reserved
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
== END 2018-06-17 01:35 | disposition home or self-care (01) ==
LOC: ER 20:38
DX: M54.89 Other dorsalgia (principal); I10 Essential (primary) hypertension; J45.909 Unspecified asthma, uncomplicated; E11.9 Type 2 diabetes mellitus without complications
CPT/HCPCS: 72070; 99283

== ENCOUNTER 2018-08-07 22:34 | Emergency (ER) | payer BC ==
[2018-08-08 00:57] LABS: A TYPE INFLUENZA AG NEGATIVE (NEGATIVE); B INFLUENZA AG NEGATIVE (NEGATIVE)
[2018-08-08] MEDS ORDERED: ACETAMINOPHEN 325 MG TABLET PO ONE (01:05)
--- NOTE | 2018-08-08 01:08 | ER Document Report ---
ED General - General Chief Complaint: Congestion Stated Complaint: CHEST PAIN Time Seen by Provider: 08/08/18 00:55 Notes: Patient is a 27-year-old female who presents with complaint of body aches throughout. She is also had some cough and nasal congestion. Her throat has been little bit sore. She has not checked her temp at home. She came in by ambulance. They did do an EKG which did not show any ischemic changes, ST segment elevation, or ST segment depression. No vomiting. Nausea. No diarrhea. No other complaints at this time. TRAVEL OUTSIDE OF THE [place] IN LAST 30 DAYS: No - Related Data Allergies/Adverse Reactions: lemon Allergy (Verified 08/08/18 00:08) brompheniramine maleate [From Dimetapp] Adverse Reaction (Unknown, Verified 00:07) Hyperactivity dextromethorphan HBr [From Dimetapp] Adverse Reaction (Verified 08/08/18 00:07) Hyperactivity phenylpropanolamine HCl [From Dimetapp] Adverse Reaction (Verified 08/08/18 00: 07) Hyperactivity pseudoephedrine HCl [From Dimetapp] Adverse Reaction (Verified 08/08/18 00:07) Hyperactivity Past Medical History - Social History Smoking Status: Former Smoker Frequency of alcohol use: None Drug Abuse: None Family History: Arthritis, CAD, DM, Hyperlipidemia, Hypertension, Thyroid Disfunction Patient has suicidal ideation: No Patient has homicidal ideation: No - Past Medical History Cardiac Medical History: Reports: Hx Hypertension Pulmonary Medical History: Reports: Hx Asthma Neurological Medical History: Reports: Hx Migraine Endocrine Medical History: Reports: Hx Diabetes Mellitus Type 2, Hx Hypothyroidism Renal/ Medical History: Denies: Hx Peritoneal Dialysis GI Medical History: Reports: Hx Gastroesophageal Reflux Disease Musculoskeletal Medical History: Reports Hx Musculoskeletal Trauma Skin Medical History: Reports Hx Eczema Psychiatric Medical History: Reports: Hx Bipolar Disorder, Hx Depression, Hx Schizoaffective Disorder, Hx Schizophrenia Traumatic Medical History: Reports: Hx Fractures - left ankle,arm - Immunizations Immunizations up to date: No Hx Diphtheria, Pertussis, Tetanus Vaccination: No Review of Systems - Review of Systems Notes: My Normal Review Basic REVIEW OF SYSTEMS: CONSTITUTIONAL : Denies fever, chills, or sweats. EENT: Nasal congestion. sore throat CARDIOVASCULAR: Denies chest pain. RESPIRATORY: Denies cough, cold, or chest congestion. Denies shortness of breath, difficulty breathing, or wheezing. GASTROINTESTINAL: Some nausea. No vomiting. No diarrhea. GENITOURINARY: Denies difficulty urinating, painful urination, burning, frequency, or blood in urine. FEMALE GENITOURINARY: Denies vaginal bleeding, abnormal or irregular periods. LMP: MUSCULOSKELETAL: body aches SKIN: Denies rash or skin lesions. NEUROLOGICAL: Denies altered mental status or loss of consciousness. Denies headache. Denies weakness or paralysis or loss of use of either side. Denies problems with gait or speech. Denies sensory or motor loss. ALL OTHER SYSTEMS REVIEWED AND NEGATIVE. Physical Exam - Vital signs Vitals: Temp Pulse Resp BP Pulse Ox 97.9 F 98 22 H 106/62 98 08/07/18 22:51 08/07/18 22:51 08/07/18 22:51 08/07/18 22:51 08/07/18 22:51 - Notes Notes: General Appearance: Well nourished, alert, cooperative, no acute distress, no obvious discomfort. Well-appearing. Vitals: reviewed, See vital signs table. Head: no swelling or tenderness to the head Eyes: PERRL, EOMI, Conjuctiva clear Ears: Normal-appearing tympanic membranes bilaterally. Mouth: No decreasd moisture Throat: Very mild pharyngeal erythema without exudates and no tonsillar enlargement. Normal voice. Neck: Supple, no neck tenderness, Lungs: No wheezing, No rales, No rhonci, No accessory muscle use, good air exchange bilaterally. Heart: Normal rate, Regular rythm, No murmur, no rub Abdomen: Normal BS, soft, No rigidity, No abdominal tenderness, No guarding, no rebound, Extremities: strength 5/5 in all extremities, good pulses in all extremities, no swelling or tenderness in the extremities, no edema. Skin: warm, dry, appropriate color, no rash Neuro: speech clear, oriented x 3, normal affect, responds appropriately to questions. Course - Re-evaluation Re-evalutation: 08/08/18 01:26 Patient looks well. She is in no distress. She says she has had a lot of runny nose congestion; however, she is not really congested on exam. She has just very minimal erythema to her pharynx. She has no stridor. No difficulty breathing. No hoarseness of voice. She has been having some body aches. I did give her some Tylenol. She did have a flu swab that was ordered in triage. This is negative. I feel she is safe to be discharged home. I strongly encouraged her return to ER if she has difficulty breathing, fevers, or worsening of her symptoms. Patient agrees with plan will be discharged home. Dictation of this chart was performed using voice recognition software; therefore, there may be some unintended grammatical errors. - Vital Signs Vital signs: Temp Pulse Resp BP Pulse Ox 97.9 F 98 22 H 106/62 98 08/07/18 22:51 08/07/18 22:51 08/07/18 22:51 08/07/18 22:51 08/07/18 22:51 Discharge - Discharge Clinical Impression: Generalized body aches URI (upper respiratory infection) Qualifiers: URI type: unspecified URI Qualified Code(s): J06.9 - Acute upper respiratory infection, unspecified Condition: Good Disposition: HOME, SELF-CARE Additional Instructions: Please return to the ER immediately if you develop fevers, difficulty breathing , or feel that you are worsening. Please take Tylenol for your bodyaches. Referrals: MICHAEL SCHULZ MD [Primary Care Provider] - 08/10/18
[2018-08-08 01:37] VITALS: BP 109/57
== END 2018-08-08 01:36 | disposition home or self-care (01) ==
LOC: ER 22:34
DX: M79.10 Myalgia, unspecified site (principal); J06.9 Acute upper respiratory infection, unspecified; R07.9 Chest pain, unspecified; R09.81 Nasal congestion; I10 Essential (primary) hypertension; E11.9 Type 2 diabetes mellitus without complications; E03.9 Hypothyroidism, unspecified
CPT/HCPCS: 87804; 99284

== ENCOUNTER 2018-09-20 11:14 | Emergency (ER) | payer BC ==
[2018-09-20] MEDS ORDERED: BENZONATATE 100 MG CAPSULE PO ONE (11:41)
--- NOTE | 2018-09-20 11:45 | ER Document Report ---
HPI - HPI Patient complains to provider of: cough Time Seen by Provider: 09/20/18 11:32 Pain Level: 5 Context: Patient is a 19-year-old female presenting to the emergency department complaining of cough and congestion for the last 2 days. Patient is denying any fever. States she had one episode of posttussive vomiting this morning. States she coughed so hard this morning that she noticed a dark brown color sputum upon her coughing. Patient states she thought it was blood which is what presents her to the emergency room. Patient denies any shortness of breath, chest pain, nausea, diarrhea. Past medical history: Diabetes, hypertension, depression, hypothyroid Medications: Metformin, HCTZ, hydroxyzine, GERD, pantoprazole, paroxetine, Topamax, Synthroid, montelukast Allergies: Robitussin, lemon - CONSTITUTIONAL Constitutional: DENIES: Fever, Chills - EENT EENT: DENIES: Sore Throat, Ear Pain, Eye problems - NEURO Neurology: DENIES: Headache, Weakness, Vision blurred, Dizzinesss / Vertigo - RESPIRATORY Respiratory: REPORTS: Coughing - patient reports coughing up blood - GASTROINTESTINAL Gastrointestinal: DENIES: Abdominal Pain, Black / Bloody Stools - URINARY Urinary: DENIES: Dysuria, Urgency, Frequency - REPRODUCTIVE Reproductive: DENIES: :, Postmenopausal, Abnormal bleeding / discharge - MUSCULOSKELETAL Musculoskeletal: DENIES: Extremity pain Past Medical History - General Information source: Patient - Social History Smoking Status: Unknown if Ever Smoked Family History: Arthritis, CAD, DM, Hyperlipidemia, Hypertension, Thyroid Disfunction Patient has suicidal ideation: No Patient has homicidal ideation: No - Past Medical History Cardiac Medical History: Reports: Hx Hypertension Pulmonary Medical History: Reports: Hx Asthma Neurological Medical History: Reports: Hx Migraine Endocrine Medical History: Reports: Hx Diabetes Mellitus Type 2, Hx Hypothyroidism Renal/ Medical History: Denies: Hx Peritoneal Dialysis GI Medical History: Reports: Hx Gastroesophageal Reflux Disease Musculoskeletal Medical History: Reports Hx Musculoskeletal Trauma Skin Medical History: Reports Hx Eczema Psychiatric Medical History: Reports: Hx Bipolar Disorder, Hx Depression, Hx Schizoaffective Disorder, Hx Schizophrenia Traumatic Medical History: Reports: Hx Fractures - left ankle,arm - Immunizations Immunizations up to date: No Hx Diphtheria, Pertussis, Tetanus Vaccination: No Vertical Provider Document - CONSTITUTIONAL Agree With Documented VS: Yes Notes: GENERAL: Alert, interacts well. No acute distress. HEAD: Normocephalic, atraumatic. No frontal or maxillary sinus tenderness EYES: Pupils equal, round, and reactive to light. Extraocular movements intact. ENT: Oral mucosa moist, tongue midline. Nares patent , TM's intact nonerythematous, nonbulging. Pharynx within normal limits, no palatal petechiae or exudate noted tonsils +1 bilaterally NECK: Full range of motion. Supple. Trachea midline. No lymphadenopathy appreciated LUNGS: Clear to auscultation bilaterally, no wheezes, rales, or rhonchi. No respiratory distress. HEART: Regular rate and rhythm. No murmur ABDOMEN: Obese soft, non-tender. Non-distended. Bowel sounds present in all 4 quadrants. EXTREMITIES: Moves all 4 extremities spontaneously. No edema, normal radial and dorsalis pedis pulses bilaterally. No cyanosis. BACK: no cervical, thoracic, lumbar midline tenderness. No saddle anesthesia, normal distal neurovascular exam. NEUROLOGICAL: Alert and oriented x3. Normal speech. cranial nerves II through XII grossly intact PSYCH: Normal affect, normal mood. SKIN: Warm, dry, normal turgor. No rashes or lesions noted. - INFECTION CONTROL TRAVEL OUTSIDE OF THE [place] IN LAST 30 DAYS: No Course - Re-evaluation Re-evalutation: 09/20/18 11:44 Prior to finishing patient's HPI as I was writing down her medication list patient states "what kind of food you got here." I discussed with patient that the cafeteria was open if she would like to buy some food. Patient states she does not have any money and the last time she was here we gave her same regimen she is hungry. Discussed with her we be happy to give her crackers and water but unfortunately we cannot give her a food tray at this time. 09/20/18 12:31 Chest x-ray was negative for pneumonia, pneumothorax, rib fractures. Discussed with patient symptomatic relief of upper respiratory infection at home. Patient is afebrile non-tachycardic, stable for discharge. - Vital Signs Vital signs: Temp Pulse Resp BP Pulse Ox 97.9 F 100 18 133/77 H 98 09/20/18 11:30 09/20/18 11:30 09/20/18 11:30 09/20/18 11:30 09/20/18 11:30 Discharge - Discharge Clinical Impression: Upper respiratory infection Qualifiers: URI type: unspecified viral URI Qualified Code(s): J06.9 - Acute upper respiratory infection, unspecified Condition: Stable Disposition: HOME, SELF-CARE Instructions: Upper Respiratory Illness ([facility]), Viral Syndrome ([facility]) Prescriptions: Benzonatate [Tessalon Perles 100 mg Capsule] 100 mg PO Q8HP PRN #40 capsule PRN Reason: Mometasone Furoate [Nasonex] 1 spray NS Q12 #1 spray.pump Referrals: MICHAEL SCHULZ MD [Primary Care Provider] - Follow up as needed
--- NOTE | 2018-09-20 12:23 | RADIOLOGY REPORT (SQ) ---
EXAM DESCRIPTION: CHEST 2 VIEWS COMPLETED DATE/TIME: 09/20/2018 11:59 am REASON FOR STUDY: cough COMPARISON: 04/20/2018 EXAM PARAMETERS: NUMBER OF VIEWS: two views TECHNIQUE: Digital Frontal and Lateral radiographic views of the chest acquired. RADIATION DOSE: NA LIMITATIONS: none FINDINGS: LUNGS AND PLEURA: No opacities, masses or pneumothorax. No pleural effusion. MEDIASTINUM AND HILAR STRUCTURES: No masses or contour abnormalities. HEART AND VASCULAR STRUCTURES: Heart normal size. No evidence for failure. BONES: No acute findings. HARDWARE: None in the chest. OTHER: No other significant finding. IMPRESSION: NO ACUTE RADIOGRAPHIC FINDING IN THE CHEST. TECHNICAL DOCUMENTATION: JOB ID: [id number] [employer]- All Rights Reserved Reading location - IP/workstation name: [email or web address]
[2018-09-20 12:46] VITALS: BP 114/64
== END 2018-09-20 12:46 | disposition home or self-care (01) ==
LOC: ER 11:14
DX: J06.9 Acute upper respiratory infection, unspecified (principal); R05 Cough; R09.81 Nasal congestion; R11.10 Vomiting, unspecified; E11.9 Type 2 diabetes mellitus without complications; I10 Essential (primary) hypertension; Z79.899 Other long term (current) drug therapy; J45.909 Unspecified asthma, uncomplicated
CPT/HCPCS: 71046; 99283

== ENCOUNTER 2018-10-09 11:42 | Emergency (ER) | payer BC, MEDICAID ==
--- NOTE | 2018-10-09 12:31 | ER Document Report ---
ED Medical Screen (RME) - General Chief Complaint: Chest Pain Stated Complaint: CHEST PAIN Time Seen by Provider: 10/09/18 12:22 Notes: Patient is complaining of anterior chest pains, just slightly to the right of the breast bone about the mid level of the chest. She says occasionally goes through into the back. It has been going on for a year, and she is told her primary care, but has not had any resolution of the problem. She says the pain is been intermittent over this past year It is lasting longer today and that is why she is here in the emergency department. She has very little cough and no phlegm. She is a little bit short of breath. Recalls no unusual activity or injury. Denies any abdominal pains. Has not had any fevers. Patient lives in a [facility]. History of bipolar disorder and depression. She is a dgg-tvpncab-mgcqrvqeg diabetic. Hypertension. Hypothyroid. Does not smoke. TRAVEL OUTSIDE OF THE [place] IN LAST 30 DAYS: No - Related Data Allergies/Adverse Reactions: lemon Allergy (Verified 10/09/18 11:46) brompheniramine maleate [From Dimetapp] Adverse Reaction (Unknown, Verified 10/09/18 11:46) Hyperactivity dextromethorphan HBr [From Dimetapp] Adverse Reaction (Verified 10/09/18 11:46) Hyperactivity phenylpropanolamine HCl [From Dimetapp] Adverse Reaction (Verified 10/09/18 11:46) Hyperactivity pseudoephedrine HCl [From Dimetapp] Adverse Reaction (Verified 10/09/18 11:46) Hyperactivity Past Medical History - Social History Cigarette use (# per day): No Chew tobacco use (# tins/day): No Frequency of alcohol use: None Drug Abuse: None Family history: Reviewed & Not Pertinent - Past Medical History Cardiac Medical History: Reports: Hx Hypertension Pulmonary Medical History: Reports: Hx Asthma Neurological Medical History: Reports: Hx Migraine Endocrine Medical History: Reports: Hx Diabetes Mellitus Type 2, Hx Hypothyroidism GI Medical History: Reports: Hx Gastroesophageal Reflux Disease Musculoskeltal Medical History: Reports Hx Musculoskeletal Trauma Skin Medical History: Reports Hx Eczema Psychiatric Medical History: Reports: Hx Bipolar Disorder, Hx Depression, Hx Schizoaffective Disorder, Hx Schizophrenia Traumatic Medical History: Reports: Hx Fractures - left ankle,arm - Immunizations Immunizations up to date: No Hx Diphtheria, Pertussis, Tetanus Vaccination: No Review of Systems - Review of Systems Notes: REVIEW OF SYSTEMS: CONSTITUTIONAL : Denies fever. EENT: Denies eye, ear, nose or mouth or throat pain or other symptoms. CARDIOVASCULAR: See HPI. RESPIRATORY: See HPI. GASTROINTESTINAL: Denies abdominal pain or nausea, vomiting, or diarrhea. GENITOURINARY: Denies difficulty or painful urinating, urinary frequency, blood in urine. MUSCULOSKELETAL: Denies back or neck pain. Denies joint pain or swelling. SKIN: Denies rash or skin lesions. NEUROLOGICAL: Denies LOC or altered mental status. Denies headache. Denies sensory loss or motor deficits. Patient seems somewhat slow mentally and she does live in a [facility]. ALL OTHER SYSTEMS REVIEWED AND NEGATIVE. Physical Exam - Vital signs Vitals: Temp Pulse Resp BP Pulse Ox 97.7 F 104 H 18 132/81 H 98 10/09/18 11:55 10/09/18 11:55 10/09/18 11:55 10/09/18 11:55 10/09/18 11:55 Interpretation: Normal Notes: PHYSICAL EXAMINATION: GENERAL: Well-appearing, in no acute distress. Vital signs are all essentially normal. HEAD: Atraumatic, normocephalic. EYES: Pupils equal round and reactive to light, extraocular movements intact. ENT: oropharynx clear without exudates. Moist mucous membranes. NECK: Normal range of motion, supple. LUNGS: Breath sounds clear and equal bilaterally. Patient indicates is painful for me to press with the stethoscope in the region between her upper breasts. HEART: Regular rate and rhythm without murmurs. ABDOMEN: Soft, nontender. No guarding or rebound. No masses. BACK: No tenderness throughout entire back. EXTREMITIES: Normal range of motion without pain. Negative Homans bilaterally. NEUROLOGICAL: Normal speech, normal gait. Normal sensory, motor, and reflex exams. Awake, alert, and oriented x3. Cranial nerves normal. PSYCH: Normal mood, normal affect. SKIN: Warm, dry, no rashes. Course - Re-evaluation Re-evalutation: 10/09/18 21:01 Patient's entire workup is essentially normal. - Vital Signs Vital signs: Temp Pulse Resp BP Pulse Ox 97.7 F 96 18 116/64 99 10/09/18 11:55 10/09/18 14:33 10/09/18 14:33 10/09/18 14:33 10/09/18 14:33 - Laboratory Result Diagrams: 10/09/18 12:59 10/09/18 12:59 Laboratory results interpreted by me: 10/09/18 12:59 MCH 26.8 L RDW 15.3 H - Diagnostic Test Radiology results interpreted by me: 10/09/18 21:02 Chest x-ray is normal. - EKG Interpretation by Me EKG shows normal: Sinus rhythm Rate: Tachycardia - Rate of 101. Rhythm: NSR Doctor's Discharge - Discharge Clinical Impression: Chest wall pain, Non-cardiac chest pain Condition: Stable Disposition: HOME, SELF-CARE Additional Instructions: CHEST PAIN OF UNCLEAR CAUSE: The exact cause of your chest pain isn't clear. Fortunately, there is no evidence of a dangerous medical condition. Further testing may be required to find the source of the pain. Most often, we find that this pain is coming from the chest wall -- the muscles or rib joints in the chest. But chest pain can come from the lung and lung lining, the esophagus, the heart valves or heart lining, and even the stomach or gallbladder. Rest. Eat lightly until the pain is gone. We may prescribe medicine for pain and inflammation. You should call the physician immediately if the pain radiates to the shoulder, jaw or arms; if you start to run a fever or develop a cough; or if you develop shortness of breath, or other new or alarming symptoms. NORMAL EXAM AND WORKUP: At this time, your examination and workup show no significant abnormality. No significant abnormal physical findings were noted. All laboratory, EKG, and imaging (x-ray, CT scans, ultrasound) studies that were ordered show no significant abnormality. Although your examination and all studies that were ordered showed no significant abnormal finding, there are no examinations and no studies that are 100% accurate. There is always the possibility that some abnormality could exist and not be detected with physical examination or within the limits and capabilities of laboratory and other studies. You should return or follow up as you were instructed on your visit today for further evaluation if your symptoms do not resolve. CHEST WALL PAIN: Your chest pain may be coming from the chest wall. This is often caused by straining the muscles or joints in the chest during physical activity, direct trauma, coughing, or vigorous vomiting. Persons with arthritis are especially prone to this type of pain, due to inflammation of the cartilage joints near the breast bone. Occasionally, no cause can be found. Rest from strenuous physical activity. This kind of chest pain is usually made worse by movement of the chest. Depending on the symptoms, we may prescribe medicine for pain, muscle relaxation, and antiinflammatory effects. If the pain is new, and seems to be due to muscle strain, cold packs can help. Otherwise, apply gentle warmth to the painful area for 15 minutes every hour or two. You should call contact the doctor immediately if things change. Further evaluation is needed if you develop a fever or cough, if the nature of the pain changes, or if you become short of breath. USE OF ACETAMINOPHEN (Tylenol): Acetaminophen may be taken for pain relief or fever control. It's much safer than aspirin, offering a wider range of "safe" dosages. It is safe during . Some brand names are Tylenol, Panadol, Datril, Anacin 3, Tempra, and Liquiprin. Acetaminophen can be repeated every four hours. The following are maximum recommended dosages: WEIGHT Dose Drops Elixir Chewable(80mg) (LBS.) drprs=droppers tsp=teaspoon >89 pounds or adults 650 mg to 900 mg Acetaminophen can be repeated every four hours. Maximum dose not to exceed 4000 mg a day. These maximum recommended dosages are slightly higher than the dosages written on the product container, but these dosages are very safe and below the toxic dosage for acetaminophen. FOLLOW-UP CARE: If you have been referred to a physician for follow-up care, call the physicians office for an appointment as you were instructed or within the next two days. If you experience worsening or a significant change in your symptoms, notify the physician immediately or return to the Emergency Department at any time for re-evaluation. Referrals: MICHAEL SCHULZ MD [Primary Care Provider] - Follow up as needed
--- NOTE | 2018-10-09 13:07 | RADIOLOGY REPORT (SQ) ---
EXAM DESCRIPTION: CHEST 2 VIEWS COMPLETED DATE/TIME: 10/09/2018 12:51 pm REASON FOR STUDY: Chest pain COMPARISON: None. EXAM PARAMETERS: NUMBER OF VIEWS: two views TECHNIQUE: Digital Frontal and Lateral radiographic views of the chest acquired. RADIATION DOSE: NA LIMITATIONS: none FINDINGS: LUNGS AND PLEURA: No opacities, masses or pneumothorax. No pleural effusion. MEDIASTINUM AND HILAR STRUCTURES: No masses or contour abnormalities. HEART AND VASCULAR STRUCTURES: Heart normal size. No evidence for failure. BONES: No acute findings. HARDWARE: None in the chest. OTHER: No other significant finding. IMPRESSION: NO ACUTE RADIOGRAPHIC FINDING IN THE CHEST. TECHNICAL DOCUMENTATION: JOB ID: [id number] [employer]- All Rights Reserved Reading location - IP/workstation name: [email or web address]
[2018-10-09 13:18] LABS: ABSOLUTE EOSINOPHILS # (AUTO) 0.3 10^3/uL (0.0-0.6); ABSOLUTE LYMPHOCYTES (AUTO) 2.5 10^3/uL (0.5-4.7); ABSOLUTE MONOCYTES (AUTO) 0.7 10^3/uL (0.1-1.4); ABSOLUTE NEUT (AUTO) 5.9 10^3/uL (1.7-8.2); BASOPHILS % (AUTO) 0.4 % (0-2); EOSINOPHILS % (AUTO) 2.9 % (0-6); HEMATOCRIT 39.7 % (36.0-47.0); HEMOGLOBIN 13.4 g/dL (12.0-15.5); LYMPHOCYTES % (AUTO) 26.7 % (13-45); MEAN CORPUSCULAR HEMOGLOBIN 26.8 pg (27.0-33.4); MEAN CORPUSCULAR HGB CONC 33.7 g/dL (32.0-36.0); MEAN CORPUSCULAR VOLUME 80 fl (80-97); MONOCYTES % (AUTO) 7.4 % (3-13); PLATELET COUNT 319 10^3/uL (150-450); RED CELL DISTRIBUTION WIDTH 15.3 % (11.5-14.0); SEGMENTED NEUTROPHILS % (AUTO) 62.6 % (42-78); TOTAL CELLS COUNTED % (AUTO) 100 %; WHITE BLOOD COUNT 9.4 10^3/uL (4.0-10.5)
[2018-10-09 13:29] LABS: ALANINE AMINOTRANSFERASE 12 U/L (9-52); ALBUMIN 4.1 g/dL (3.5-5.0); ALKALINE PHOSPHATASE 98 U/L (38-126); ANION GAP 10 (5-19); ASPARTATE AMINO TRANSFERASE 21 U/L (14-36); BILIRUBIN,DIRECT 0.2 mg/dL (0.0-0.4); BILIRUBIN,TOTAL 0.3 mg/dL (0.2-1.3); BLOOD UREA NITROGEN 15 mg/dL (7-20); CALCIUM 9.8 mg/dL (8.4-10.2); CARBON DIOXIDE 25 mmol/L (22-30); CHLORIDE 105 mmol/L (98-107); GLUCOSE 90 mg/dL (75-110); POTASSIUM 3.8 mmol/L (3.6-5.0); SODIUM 139.8 mmol/L (137-145); TOTAL PROTEIN 7.5 g/dL (6.3-8.2)
[2018-10-09 13:56] LABS: CREATINE KINASE MB 0.33 ng/mL (<4.55)
[2018-10-09 13:57] LABS: TROPONIN I < 0.012 ng/mL
[2018-10-09 14:37] VITALS: BP 116/64
[2018-10-09] MEDS ORDERED: ACETAMINOPHEN 325 MG TABLET PO ONE (14:44)
--- NOTE | 2018-10-09 14:54 | EKG REPORT ---
SEVERITY:- OTHERWISE NORMAL ECG - SINUS TACHYCARDIA : Confirmed by: Modesta Rivera 09-Oct-2018 14:53:52
== END 2018-10-09 14:37 | disposition home or self-care (01) ==
LOC: ER 11:42
DX: R07.89 Other chest pain (principal); I10 Essential (primary) hypertension; E11.9 Type 2 diabetes mellitus without complications; E03.9 Hypothyroidism, unspecified
CPT/HCPCS: 93005; 99285; 36415; 82553; 85025; 80053; 84484; 71046; 93010; J3490

== ENCOUNTER 2018-10-15 18:54 | Emergency (ER) | payer MEDICAID ==
[2018-10-15 20:46] LABS: ABSOLUTE BASOPHILS # (AUTO) 0.1 10^3/uL (0.0-0.2); ABSOLUTE EOSINOPHILS # (AUTO) 0.3 10^3/uL (0.0-0.6); ABSOLUTE LYMPHOCYTES (AUTO) 3.2 10^3/uL (0.5-4.7); ABSOLUTE MONOCYTES (AUTO) 0.8 10^3/uL (0.1-1.4); ABSOLUTE NEUT (AUTO) 7.4 10^3/uL (1.7-8.2); BASOPHILS % (AUTO) 0.5 % (0-2); EOSINOPHILS % (AUTO) 2.2 % (0-6); HEMATOCRIT 37.5 % (36.0-47.0); HEMOGLOBIN 12.7 g/dL (12.0-15.5); LYMPHOCYTES % (AUTO) 27.1 % (13-45); MEAN CORPUSCULAR HEMOGLOBIN 26.3 pg (27.0-33.4); MEAN CORPUSCULAR HGB CONC 33.8 g/dL (32.0-36.0); MEAN CORPUSCULAR VOLUME 78 fl (80-97); MONOCYTES % (AUTO) 6.9 % (3-13); PLATELET COUNT 277 10^3/uL (150-450); RED BLOOD COUNT 4.81 10^6/uL (3.72-5.28); RED CELL DISTRIBUTION WIDTH 14.8 % (11.5-14.0); SEGMENTED NEUTROPHILS % (AUTO) 63.3 % (42-78); TOTAL CELLS COUNTED % (AUTO) 100 %; WHITE BLOOD COUNT 11.7 10^3/uL (4.0-10.5)
[2018-10-15 20:58] LABS: ALANINE AMINOTRANSFERASE 12 U/L (9-52); ALBUMIN 3.9 g/dL (3.5-5.0); ALKALINE PHOSPHATASE 115 U/L (38-126); ANION GAP 10 (5-19); ASPARTATE AMINO TRANSFERASE 19 U/L (14-36); BILIRUBIN,DIRECT 0.2 mg/dL (0.0-0.4); BILIRUBIN,TOTAL 0.2 mg/dL (0.2-1.3); BLOOD UREA NITROGEN 12 mg/dL (7-20); CALCIUM 9.2 mg/dL (8.4-10.2); CARBON DIOXIDE 27 mmol/L (22-30); CHLORIDE 98 mmol/L (98-107); GLUCOSE 100 mg/dL (75-110); POTASSIUM 3.4 mmol/L (3.6-5.0); SODIUM 134.5 mmol/L (137-145); TOTAL PROTEIN 7.2 g/dL (6.3-8.2)
[2018-10-15 21:00] LABS: ACETAMINOPHEN < 10 ug/mL (10-30); ALCOHOL < 10 mg/dL (NONE DETECTED); SALICYLATE < 1.0 mg/dL (2.0-20.0)
--- NOTE | 2018-10-15 21:10 | ER Document Report ---
ED General - General Chief Complaint: Psych Problem Stated Complaint: PSYCH EVAL Time Seen by Provider: 10/15/18 20:06 Notes: Patient is a 28-year-old female with a past medical history of multiple psychiatric comorbidities, presents with complaints of wanting to harm psychiatric workers at her psychiatric providers clinic. Patient relates a rambling history regarding what she felt was an attempt to take away her care worker at the facility today prompting her to become very agitated. States that when she returned to her prison she began screaming, pushing over chairs and apparently requested to come to the hospital. She states "I want to commit myself". She is very specific about what hospital she would like to go to. She denies any specific intent to kill anybody but does state that she wants to hurt the people at the facility. She denies having any clear ability to do so at this time. She denies any suicidal ideation. States that she has been taking all medications as prescribed. Denies any acute medical concerns. TRAVEL OUTSIDE OF THE [place] IN LAST 30 DAYS: No - Related Data Allergies/Adverse Reactions: lemon Allergy (Verified 10/15/18 18:55) brompheniramine maleate [From Dimetapp] Adverse Reaction (Unknown, Verified 10/15/18 18:55) Hyperactivity dextromethorphan HBr [From Dimetapp] Adverse Reaction (Verified 10/15/18 18:55) Hyperactivity phenylpropanolamine HCl [From Dimetapp] Adverse Reaction (Verified 10/15/18 18:55) Hyperactivity pseudoephedrine HCl [From Dimetapp] Adverse Reaction (Verified 10/15/18 18:55) Hyperactivity Past Medical History - General Information source: Patient - Social History Smoking Status: Never Smoker Frequency of alcohol use: None Drug Abuse: None Lives with: Other - care home Family History: Arthritis, CAD, DM, Hyperlipidemia, Hypertension, Thyroid Disfunction Patient has suicidal ideation: No Patient has homicidal ideation: Yes - Past Medical History Cardiac Medical History: Reports: Hx Hypertension Pulmonary Medical History: Reports: Hx Asthma Neurological Medical History: Reports: Hx Migraine Endocrine Medical History: Reports: Hx Diabetes Mellitus Type 2, Hx Hypothyroidism Renal/ Medical History: Denies: Hx Peritoneal Dialysis GI Medical History: Reports: Hx Gastroesophageal Reflux Disease Musculoskeletal Medical History: Reports Hx Musculoskeletal Trauma Skin Medical History: Reports Hx Eczema Psychiatric Medical History: Reports: Hx Bipolar Disorder, Hx Depression, Hx Schizoaffective Disorder, Hx Schizophrenia Traumatic Medical History: Reports: Hx Fractures - left ankle,arm - Immunizations Immunizations up to date: No Hx Diphtheria, Pertussis, Tetanus Vaccination: No Review of Systems - Review of Systems Notes: Constitutional: Negative for fever. HENT: Negative for sore throat. Eyes: Negative for visual changes. Cardiovascular: Negative for chest pain. Respiratory: Negative for shortness of breath. Gastrointestinal: Negative for abdominal pain, vomiting or diarrhea. Genitourinary: Negative for dysuria. Musculoskeletal: Negative for back pain. Skin: Negative for rash. Neurological: Negative for headaches, weakness or numbness. 10 point ROS negative except as marked above and in HPI. Physical Exam - Vital signs Vitals: Temp Pulse Resp BP Pulse Ox 98.1 F 99 18 125/92 H 99 10/15/18 19:08 10/15/18 19:08 10/15/18 19:08 10/15/18 19:08 10/15/18 19:08 Interpretation: Normal Notes: PHYSICAL EXAMINATION: GENERAL: Well-appearing, well-nourished and in no acute distress. HEAD: Atraumatic, normocephalic. EYES: Pupils equal round and reactive to light, extraocular movements intact, sclera anicteric, conjunctiva are normal. ENT: nares patent, oropharynx clear without exudates. Moist mucous membranes. NECK: Normal range of motion, supple without lymphadenopathy LUNGS: Breath sounds clear to auscultation bilaterally and equal. No wheezes rales or rhonchi. HEART: Regular rate and rhythm without murmurs ABDOMEN: Soft, nontender, normoactive bowel sounds. No guarding, no rebound. No masses appreciated. EXTREMITIES: Normal range of motion, no pitting or edema. No cyanosis. NEUROLOGICAL: No focal neurological deficits. Moves all extremities spontan eously and on command. PSYCH: Normal mood, normal affect. SKIN: Warm, Dry, normal turgor, no rashes or lesions noted. Course - Re-evaluation Re-evalutation: 10/15/18 21:08 Patient presents with thoughts of wanting to harm individuals at her psychiatric facility, states that she had a crisis earlier today, is telling me the various things that she did to express her anger. The patient denies specific plans, means or intentions to harm these individuals. She seems to very much so want to be hospitalized, concern for possible component of secondary gain as the patient is calm, cooperative, no acute concerned that she is actively intending to harm anybody at this point. She would like to remain here in the emergency department and discussed with behavioral health services in the morning. She is specifically requesting hospitalization at [place]. Medical screening exam and labs otherwise unremarkable. She is cleared for evaluation and disposition by behavioral health in the morning. - Vital Signs Vital signs: Temp Pulse Resp BP Pulse Ox 98.1 F 99 18 125/92 H 99 10/15/18 19:08 10/15/18 19:08 10/15/18 19:08 10/15/18 19:08 10/15/18 19:08 - Laboratory Result Diagrams: 10/15/18 20:25 10/15/18 20:25 Laboratory results interpreted by me: 10/15/18 10/15/18 10/15/18 20:25 20:25 21:00 WBC 11.7 H MCV 78 L MCH 26.3 L RDW 14.8 H Sodium 134.5 L Potassium 3.4 L Urine Protein 30 H Urine Urobilinogen 4.0 H Ur Leukocyte Esterase SMALL H Salicylates < 1.0 L Acetaminophen < 10 L Discharge - Discharge Clinical Impression: Homicidal ideations, Agitation Referrals: MICHAEL SCHULZ MD [Primary Care Provider] - Follow up as needed
[2018-10-15 21:28] LABS: APPEARANCE,URINE SLIGHTLY-CLOUDY; BILIRUBIN,URINE NEGATIVE (NEGATIVE); COLOR,URINE YELLOW; GLUCOSE, URINE NEGATIVE (NEGATIVE); KETONES,URINE NEGATIVE (NEGATIVE); LEUKOCYTE ESTERASE,URINE SMALL (NEGATIVE); NITRITE,URINE NEGATIVE (NEGATIVE); PROTEIN,URINE 30 mg/dL (NEGATIVE); URINE SPECIFIC GRAVITY 1.025
[2018-10-15 21:43] LABS: URINE AMPHETAMINES SCREEN NEGATIVE; URINE BARBITURATES SCREEN NEGATIVE; URINE BENZODIAZEPINES SCREEN NEGATIVE; URINE COCAINE SCREEN NEGATIVE; URINE MARIJUANA (THC) SCREEN NEGATIVE; URINE METHADONE SCREEN NEGATIVE; URINE PHENCYCLIDINE SCREEN NEGATIVE
--- NOTE | 2018-10-16 10:27 | ER Document Report ---
Doctor's Note Notes: 10/16/18 10:24 Rounds: Patient being evaluated for agitation and homicidal ideation. I just saw this patient here in this emergency department a week ago for some other complaint. She is here very frequently with a variety of complaints. Lab studies are all essentially normal except for a white count of 11,700 and a pot assium of 3.4. Vital signs are all essentially normal. Patient appears to be medically stable for transfer or discharge. Tami Moreno MD
[2018-10-16 14:23] VITALS: BP 136/86
--- NOTE | 2018-10-18 12:44 | EKG REPORT ---
SEVERITY:- BORDERLINE ECG - SINUS RHYTHM BORDERLINE T ABNORMALITIES, ANT-LAT LEADS BASELINE ARTIFACT : Confirmed by: Yadira Au MD 18-Oct-2018 12:43:59
== END 2018-10-16 14:23 | disposition home or self-care (01) ==
LOC: ER 18:54
DX: R45.850 Homicidal ideations (principal); R45.1 Restlessness and agitation; I10 Essential (primary) hypertension; E11.9 Type 2 diabetes mellitus without complications; E03.9 Hypothyroidism, unspecified
CPT/HCPCS: 36415; 80053; 80307; 81001; 84703; 85025; 93005; 93010; 99284

== ENCOUNTER 2018-11-04 11:13 | Emergency (ER) | payer MEDICAID ==
--- NOTE | 2018-11-04 11:35 | ER Document Report ---
ED Medical Screen (RME) - General Chief Complaint: Abdominal Pain Stated Complaint: ABDOMINAL PAIN Time Seen by Provider: 11/04/18 11:29 Primary Care Provider: MICHAEL SCHULZ MD [Primary Care Provider] - Follow up as needed Notes: 28-year-old female patient complains of 2-3 or more day history of epigastric abdominal pain with nausea. Saw her primary care provider yesterday who "wanted to get an ultrasound". She denies prior gallbladder ultrasound, however one was done here almost 8 years ago. I have greeted and performed a rapid initial assessment of this patient. A comprehensive ED assessment and evaluation of the patient, analysis of test results and completion of the medical decision making process will be conducted by additional ED providers. TRAVEL OUTSIDE OF THE [place] IN LAST 30 DAYS: No - Related Data Allergies/Adverse Reactions: lemon Allergy (Verified 11/04/18 11:14) brompheniramine maleate [From Dimetapp] Adverse Reaction (Unknown, Verified 11/04/18 11:14) Hyperactivity dextromethorphan HBr [From Dimetapp] Adverse Reaction (Verified 11/04/18 11:14) Hyperactivity phenylpropanolamine HCl [From Dimetapp] Adverse Reaction (Verified 11/04/18 11:14) Hyperactivity pseudoephedrine HCl [From Dimetapp] Adverse Reaction (Verified 11/04/18 11:14) Hyperactivity Past Medical History - Social History Family history: Reviewed & Not Pertinent - Past Medical History Cardiac Medical History: Reports: Hx Hypertension Pulmonary Medical History: Reports: Hx Asthma Neurological Medical History: Reports: Hx Migraine Endocrine Medical History: Reports: Hx Diabetes Mellitus Type 2, Hx Hypothyroidism Renal/ Medical History: Denies: Hx Peritoneal Dialysis GI Medical History: Reports: Hx Gastroesophageal Reflux Disease Musculoskeltal Medical History: Reports Hx Musculoskeletal Trauma Skin Medical History: Reports Hx Eczema Psychiatric Medical History: Reports: Hx Bipolar Disorder, Hx Depression, Hx Schizoaffective Disorder, Hx Schizophrenia Traumatic Medical History: Reports: Hx Fractures - left ankle,arm - Immunizations Immunizations up to date: No Hx Diphtheria, Pertussis, Tetanus Vaccination: No Physical Exam - Vital signs Vitals: Temp Pulse Resp BP Pulse Ox 97.5 F 85 18 132/86 H 96 11/04/18 11:18 11/04/18 11:18 11/04/18 11:18 11/04/18 11:18 11/04/18 11:18 Course - Vital Signs Vital signs: Temp Pulse Resp BP Pulse Ox 97.5 F 85 18 132/86 H 96 11/04/18 11:18 11/04/18 11:18 11/04/18 11:18 11/04/18 11:18 11/04/18 11:18 Doctor's Discharge - Discharge Referrals: MICHAEL SCHULZ MD [Primary Care Provider] - Follow up as needed
[2018-11-04 12:03] LABS: ABSOLUTE EOSINOPHILS # (AUTO) 0.2 10^3/uL (0.0-0.6); ABSOLUTE LYMPHOCYTES (AUTO) 2.3 10^3/uL (0.5-4.7); ABSOLUTE MONOCYTES (AUTO) 0.5 10^3/uL (0.1-1.4); ABSOLUTE NEUT (AUTO) 5.7 10^3/uL (1.7-8.2); BASOPHILS % (AUTO) 0.4 % (0-2); EOSINOPHILS % (AUTO) 2.5 % (0-6); HEMATOCRIT 38.2 % (36.0-47.0); HEMOGLOBIN 12.7 g/dL (12.0-15.5); LYMPHOCYTES % (AUTO) 26.5 % (13-45); MEAN CORPUSCULAR HEMOGLOBIN 26.2 pg (27.0-33.4); MEAN CORPUSCULAR HGB CONC 33.3 g/dL (32.0-36.0); MEAN CORPUSCULAR VOLUME 79 fl (80-97); MONOCYTES % (AUTO) 5.6 % (3-13); PLATELET COUNT 321 10^3/uL (150-450); RED BLOOD COUNT 4.85 10^6/uL (3.72-5.28); RED CELL DISTRIBUTION WIDTH 14.7 % (11.5-14.0); TOTAL CELLS COUNTED % (AUTO) 100 %; WHITE BLOOD COUNT 8.8 10^3/uL (4.0-10.5)
[2018-11-04 12:12] LABS: APPEARANCE,URINE SLIGHTLY-CLOUDY; BILIRUBIN,URINE NEGATIVE (NEGATIVE); COLOR,URINE YELLOW; GLUCOSE, URINE NEGATIVE (NEGATIVE); KETONES,URINE NEGATIVE (NEGATIVE); LEUKOCYTE ESTERASE,URINE MODERATE (NEGATIVE); NITRITE,URINE NEGATIVE (NEGATIVE); PROTEIN,URINE NEGATIVE (NEGATIVE); URINE SPECIFIC GRAVITY 1.025; UROBILINOGEN,URINE NEGATIVE mg/dL (<2.0)
[2018-11-04 12:20] LABS: ALANINE AMINOTRANSFERASE 16 U/L (9-52); ALBUMIN 4.3 g/dL (3.5-5.0); ALKALINE PHOSPHATASE 97 U/L (38-126); ANION GAP 8 (5-19); ASPARTATE AMINO TRANSFERASE 24 U/L (14-36); BILIRUBIN,DIRECT 0.3 mg/dL (0.0-0.4); BILIRUBIN,TOTAL 0.3 mg/dL (0.2-1.3); BLOOD UREA NITROGEN 14 mg/dL (7-20); CALCIUM 9.5 mg/dL (8.4-10.2); CARBON DIOXIDE 30 mmol/L (22-30); CHLORIDE 100 mmol/L (98-107); GLUCOSE 93 mg/dL (75-110); LIPASE 92.7 U/L (23-300); POTASSIUM 4.3 mmol/L (3.6-5.0); SODIUM 138.3 mmol/L (137-145); TOTAL PROTEIN 7.4 g/dL (6.3-8.2)
[2018-11-04] MEDS ORDERED: LIDOCAINE 2% VISCOUS SOLN 20 ML UDCUP PO ONE (12:57)
[2018-11-04] MEDS ORDERED: METOCLOPRAMIDE HCL ORAL SOLN 10 MG/10 ML UDCUP PO ONE (12:57)
[2018-11-04] MEDS ORDERED: MAG HYDROX/AL HYDROX/SIMETH SUSP 30 ML UDCUP PO ONE (12:57)
--- NOTE | 2018-11-04 13:25 | RADIOLOGY REPORT (SQ) ---
EXAM DESCRIPTION: U/S ABDOMEN LIMITED W/O DOP COMPLETED DATE/TIME: 11/04/2018 1:02 pm REASON FOR STUDY: Epigastric abdominal pain COMPARISON: 04/12/2011. TECHNIQUE: Dynamic and static grayscale images acquired of the abdomen and recorded on PACS. Additio nal selected color Doppler and spectral images recorded. Note: Exam does not meet criteria for a complete doppler/duplex scan LIMITATIONS: Study limited due to acoustical interference from fat or from air in the bowel. FINDINGS: PANCREAS: Secured. LIVER: The visualized. Echotexture is coarse with increased echogenicity consistent with fatty infil tration. LIVER VASCULATURE: Normal directional flow of the main portal vein and hepatic veins. GALLBLADDER: No stones. Normal wall thickness. No pericholecystic fluid. ULTRASOUND-DETECTED HANEY'S SIGN: Negative. INTRAHEPATIC DUCTS AND COMMON DUCT: CBD and intrahepatic ducts normal caliber. No filling defects. INFERIOR VENA CAVA: Normal flow. AORTA: No aneurysm. The distal abdominal aorta is obscured. RIGHT KIDNEY: Normal size. Normal echogenicity. No solid or suspicious masses. No hydronephrosis. No calcifications. PERITONEAL AND PLEURAL SPACES: No ascites or effusions. OTHER: No other significant finding. IMPRESSION: LIMITED STUDY. FATTY INFILTRATION OF THE LIVER. NO OTHER SIGNIFICANT FINDING IN THE VIS UALIZED ABDOMEN. TECHNICAL DOCUMENTATION: JOB ID: [id number] [employer]- All Rights Reserved Reading location - IP/workstation name: [email or web address]
--- NOTE | 2018-11-04 13:25 | ER Document Report ---
ED General - General Chief Complaint: Abdominal Pain Stated Complaint: ABDOMINAL PAIN Time Seen by Provider: 11/04/18 11:29 Primary Care Provider: MICHAEL SCHULZ MD [Primary Care Provider] - Follow up as needed TRAVEL OUTSIDE OF THE [place] IN LAST 30 DAYS: No - HPI Notes: Patient is a 28-year-old female with a history of mental health disorders who presents to the emergency department complaining of mid to upper abdominal pain over the last 2-3 weeks. Patient states that the pain is sometimes intermittent, but usually constant and is described as an ache. The pain does not radiate. Patient is unaware of food increases or worsens her symptoms. Patient states that she is still able to urinate without any difficulties. She has bowel movements every 1-2 days, and states that they are hard and small. She has not had any vaginal discharge, odor, or bleeding. She has no other concerns or complaints at this time. She was seen by her primary care doctor recently who suggested maybe getting an ultrasound of her gallbladder to further evaluate. Denies any headache, fever, neck pain, URI, sore throat, chest pain, palpitations, syncope, cough, shortness of breath, wheeze, dyspnea, nausea/vomiting/diarrhea, urinary retention, dysuria, hematuria, back pain, or rash. - Related Data Allergies/Adverse Reactions: lemon Allergy (Verified 11/04/18 11:14) brompheniramine maleate [From Dimetapp] Adverse Reaction (Unknown, Verified 11/04/18 11:14) Hyperactivity dextromethorphan HBr [From Dimetapp] Adverse Reaction (Verified 11/04/18 11:14) Hyperactivity phenylpropanolamine HCl [From Dimetapp] Adverse Reaction (Verified 11/04/18 11:14) Hyperactivity pseudoephedrine HCl [From Dimetapp] Adverse Reaction (Verified 11/04/18 11:14) Hyperactivity Past Medical History - Social History Smoking Status: Former Smoker Family History: Arthritis, CAD, DM, Hyperlipidemia, Hypertension, Thyroid Disfunction Patient has suicidal ideation: No Patient has homicidal ideation: No - Past Medical History Cardiac Medical History: Reports: Hx Hypertension Pulmonary Medical History: Reports: Hx Asthma Neurological Medical History: Reports: Hx Migraine Endocrine Medical History: Reports: Hx Diabetes Mellitus Type 2, Hx Hypothyroidism Renal/ Medical History: Denies: Hx Peritoneal Dialysis GI Medical History: Reports: Hx Gastroesophageal Reflux Disease Musculoskeletal Medical History: Reports Hx Musculoskeletal Trauma Skin Medical History: Reports Hx Eczema Psychiatric Medical History: Reports: Hx Bipolar Disorder, Hx Depression, Hx Schizoaffective Disorder, Hx Schizophrenia Traumatic Medical History: Reports: Hx Fractures - left ankle,arm - Immunizations Immunizations up to date: No Hx Diphtheria, Pertussis, Tetanus Vaccination: No Review of Systems - Review of Systems -: Yes All other systems reviewed and negative Physical Exam - Vital signs Vitals: Temp Pulse Resp BP Pulse Ox 97.5 F 85 18 132/86 H 96 11/04/18 11:18 11/04/18 11:18 11/04/18 11:18 11/04/18 11:18 11/04/18 11:18 - Notes Notes: PHYSICAL EXAMINATION: GENERAL: Well-appearing, well-nourished and in no acute distress. HEAD: Atraumatic, normocephalic. EYES: Pupils equal round and reactive to light, extraocular movements intact, sclera anicteric, conjunctiva are normal. ENT: Nares patent and without discharge. oropharynx clear without exudates. No tonsilar hypertrophy or erythema. Moist mucous membranes. NECK: Normal range of motion, supple without lymphadenopathy LUNGS: Breath sounds clear to auscultation bilaterally and equal. No wheezes rales or rhonchi. HEART: Regular rate and rhythm without murmurs, rubs, gallops. ABDOMEN: Soft, nondistended abdomen. No guarding, no rebound. No masses appreciated. Normal bowel sounds present. No CVA tenderness bilaterally. generalized mild tenderness. magallon neg. No tenderness at [place]. Musculoskeletal: FROM to passive/active. Strength 5+/5. Extremities: No cyanosis, clubbing, or edema b/l. Peripheral pulses 2+. Capillary refill less than 3 seconds. NEUROLOGICAL: Normal speech, normal gait. PSYCH: Normal mood, normal affect. SKIN: Warm, Dry, normal turgor, no rashes or lesions noted. Course - Re-evaluation Re-evalutation: 11/04/18 13:42 Patient is an afebrile, well-hydrated, 28-year-old female who presents emergency department with generalized-mid abdominal pain, patient unspecified, and constipation. I do suspect that her constipation could be playing a role in her symptoms. Vitals are acceptable without significant tachycardia, tachypnea, or hypoxia. PE is otherwise unremarkable. Patient is nontoxic-appearing and is tolerating p.o. without difficulty. CBC, CMP, lipase, urinalysis, hCG, right upper quadrant ultrasound was also unremarkable for acute pathology. See KUB x- ray. No further labs or imaging warranted at this time. Low suspicion/risk for acute appendicitis, bowel obstruction, acute cholecystitis, acute cholangitis, perforated diverticulitis, incarcerated hernia, pancreatitis, perforated ulcer, peritonitis, sepsis, pelvic inflammatory disease, ectopic , tubo- ovarian abscess, ovarian torsion, or other systemic emergent condition at this time. Patient is aware that her condition can change from initial presentation and she needs to monitor symptoms closely and seek medical attention if any acute changes. I will send her home with a prescription for magnesium citrate. Conservative measures otherwise for symptoms. Recheck with your PCM in 3-5 days. Consider consult with a croze cutter. Return to the ED with any worsening/concerning symptoms otherwise as reviewed in discharge. Patient is in agreement. - Vital Signs Vital signs: Temp Pulse Resp BP Pulse Ox 97.5 F 85 18 132/86 H 96 11/04/18 11:18 11/04/18 11:18 11/04/18 11:18 11/04/18 11:18 11/04/18 11:18 - Laboratory Result Diagrams: 11/04/18 11:44 11/04/18 11:44 Laboratory results interpreted by me: 11/04/18 11/04/18 11:44 11:44 MCV 79 L MCH 26.2 L RDW 14.7 H Ur Leukocyte Esterase MODERATE H Discharge - Discharge Clinical Impression: Abdominal pain Qualifiers: Abdominal location: generalized Qualified Code(s): R10.84 - Generalized abdominal pain Constipation Qualifiers: Constipation type: unspecified constipation type Qualified Code(s): K59.00 - Constipation, unspecified Condition: Stable Disposition: HOME, SELF-CARE Instructions: Abdominal Pain ([facility]), Constipation ([facility]) Additional Instructions: Maintain adequate fluid and food intake Healthy diet/exercise Magnesium Citrate as directed tylenol if needed Monitor for any worsening symptoms Make sure you are staying hydrated enough to urinate and have normal BM's Recheck with your PCM in 3-5 days Consider consult with Gastroenterology for ongoing/worsening symptoms Return to the ED with any worsening symptoms and/or development of fever, headache, chest pain, palpitations, syncope, shortness of breath, trouble breathing, abdominal pain, n/v/d, blood in stool/urine, weakness, or other worsening symptoms that are concerning to you. Prescriptions: Magnesium Citrate [Citrate of Magnesia 296 ml Bottle] 296 ml PO ONCE PRN #1 bottle PRN Reason: Forms: Elevated Blood Pressure Referrals: MICHAEL SCHULZ MD [Primary Care Provider] - Follow up as needed ELIZABETH MCCRACKEN MD [ACTIVE STAFF] - Follow up as needed
--- NOTE | 2018-11-04 13:45 | RADIOLOGY REPORT (SQ) ---
EXAM DESCRIPTION: KUB/ABDOMEN (SINGLE VIEW) COMPLETED DATE/TIME: 11/04/2018 1:29 pm REASON FOR STUDY: abd pain, possible constipation COMPARISON: 04/18/2017. NUMBER OF VIEWS: One view. TECHNIQUE: Supine radiographic image of the abdomen acquired. LIMITATIONS: None. FINDINGS: BOWEL GAS PATTERN: Normal bowel gas pattern. No dilated loops. Prominent stool in the asc ending and transverse colon CALCIFICATIONS: No suspicious calcifications. SOFT TISSUES: No gross mass or suggestion of organomegaly. HARDWARE: None in the abdomen. BONES: No acute fracture. No worrisome bone lesions. OTHER: No other significant finding. IMPRESSION: NO RADIOGRAPHIC EVIDENCE FOR ACUTE ABDOMINAL DISEASE. PROMINENT STOOL IN THE ASCENDING AND TRANSVERSE COLON, POSSIBLE CONSTIPATION. TECHNICAL DOCUMENTATION: JOB ID: [id number] [employer]- All Rights Reserved Reading location - IP/workstation name: [email or web address]
[2018-11-04 14:28] VITALS: BP 110/55
== END 2018-11-04 14:28 | disposition home or self-care (01) ==
LOC: ER 11:13
DX: K59.00 Constipation, unspecified (principal); I10 Essential (primary) hypertension; J45.909 Unspecified asthma, uncomplicated; E11.9 Type 2 diabetes mellitus without complications; Z91.018 Allergy to other foods; Z87.891 Personal history of nicotine dependence
CPT/HCPCS: 99284; 36415; 83690; 84703; 85025; 80053; 81001; 74018; 76705; J3490 ×3

== ENCOUNTER 2018-11-15 21:22 | Emergency (ER) | payer MEDICAID ==
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
[2018-11-15 22:29] LABS: APPEARANCE,URINE SLIGHTLY-CLOUDY; BILIRUBIN,URINE NEGATIVE (NEGATIVE); COLOR,URINE YELLOW; GLUCOSE, URINE NEGATIVE (NEGATIVE); KETONES,URINE NEGATIVE (NEGATIVE); LEUKOCYTE ESTERASE,URINE SMALL (NEGATIVE); NITRITE,URINE NEGATIVE (NEGATIVE); PROTEIN,URINE NEGATIVE (NEGATIVE); URINE SPECIFIC GRAVITY 1.017; UROBILINOGEN,URINE NEGATIVE mg/dL (<2.0)
[2018-11-15 22:44] LABS: URINE AMPHETAMINES SCREEN NEGATIVE; URINE BARBITURATES SCREEN NEGATIVE; URINE BENZODIAZEPINES SCREEN NEGATIVE; URINE COCAINE SCREEN NEGATIVE; URINE MARIJUANA (THC) SCREEN NEGATIVE; URINE METHADONE SCREEN NEGATIVE; URINE PHENCYCLIDINE SCREEN NEGATIVE
[2018-11-15 22:57] LABS: ABSOLUTE BASOPHILS # (AUTO) 0.1 10^3/uL (0.0-0.2); ABSOLUTE EOSINOPHILS # (AUTO) 0.3 10^3/uL (0.0-0.6); ABSOLUTE LYMPHOCYTES (AUTO) 3.6 10^3/uL (0.5-4.7); ABSOLUTE MONOCYTES (AUTO) 0.8 10^3/uL (0.1-1.4); ABSOLUTE NEUT (AUTO) 6.2 10^3/uL (1.7-8.2); BASOPHILS % (AUTO) 0.7 % (0-2); EOSINOPHILS % (AUTO) 2.9 % (0-6); HEMATOCRIT 35.3 % (36.0-47.0); HEMOGLOBIN 11.7 g/dL (12.0-15.5); LYMPHOCYTES % (AUTO) 32.5 % (13-45); MEAN CORPUSCULAR HEMOGLOBIN 26.3 pg (27.0-33.4); MEAN CORPUSCULAR HGB CONC 33.2 g/dL (32.0-36.0); MEAN CORPUSCULAR VOLUME 79 fl (80-97); MONOCYTES % (AUTO) 7.2 % (3-13); PLATELET COUNT 277 10^3/uL (150-450); RED BLOOD COUNT 4.46 10^6/uL (3.72-5.28); RED CELL DISTRIBUTION WIDTH 15.1 % (11.5-14.0); SEGMENTED NEUTROPHILS % (AUTO) 56.7 % (42-78); TOTAL CELLS COUNTED % (AUTO) 100 %
[2018-11-15 23:13] LABS: ACETAMINOPHEN < 10 ug/mL (10-30); ALANINE AMINOTRANSFERASE 22 U/L (9-52); ALBUMIN 3.6 g/dL (3.5-5.0); ALCOHOL < 10 mg/dL (NONE DETECTED); ALKALINE PHOSPHATASE 77 U/L (38-126); ANION GAP 8 (5-19); ASPARTATE AMINO TRANSFERASE 16 U/L (14-36); BILIRUBIN,DIRECT 0.1 mg/dL (0.0-0.4); BILIRUBIN,TOTAL 0.2 mg/dL (0.2-1.3); BLOOD UREA NITROGEN 12 mg/dL (7-20); CALCIUM 9.2 mg/dL (8.4-10.2); CARBON DIOXIDE 27 mmol/L (22-30); CHLORIDE 105 mmol/L (98-107); GLUCOSE 96 mg/dL (75-110); SALICYLATE < 1.0 mg/dL (2.0-20.0); SODIUM 139.7 mmol/L (137-145); TOTAL PROTEIN 6.2 g/dL (6.3-8.2)
--- NOTE | 2018-11-16 06:11 | EKG REPORT ---
SEVERITY:- NORMAL ECG - SINUS RHYTHM : Confirmed by: Jayden Michel MD 16-Nov-2018 06:11:27
--- NOTE | 2018-11-16 09:27 | PSYCHOLOGICAL NOTE ---
Psych Note - Psych Note Date seen by psych provider: 11/16/18 Time seen by psych provider: 15:00 Psych Note: Reason for consult: [facility] Contact Permissions: Mr. Mrs. Kay, legal guardians [phone], Bonnie Harmon [phone], Patient is a 28 yo female presenting to the ED voluntarily by EMS from her [facility] with complaints of SOB and "seeing things". Chart review shows that patient has is diagnosed with IDD and bipolar disorder and has an extensive hx of presenting to the ED with medical and mental health complaints e.g. 13x in 2018. Patient was seen for psychiatric concerns in 06/2016 and 01/2017 for SI after having conflict with her grandfather and legal guardian, Mr. Kay and requested to go to [facility]. Patient today reports she is "mad at Ms. Nicole because she didn't believe me". She can't remember about what reporting "memory loss". She denies currently being angry and HI, denies SI, and denies AV/H which chart note documents that she was complaining of seeing green blolbs. Patient does not appear to be in any distress from internal stimuli or perceptual disturbances as she is eating breakfast and engaging in the evaluation calmly and cooperatively and making good eye contact. She discloses that she knows Ms. Nicole cares about her and is ready to talk with her. Mr. Kay reports of patient "when she gets upset with somebody she goes to the hospital". If patient is calm and ready to return to the [facility], she may. He cautions that patient quickly builds tolerance to her medications (within 6-8 months) and to check with Ms. Nicole about her behaviors and medication. Patient can become aggressive and paranoid, per report. Bonnie Harmon explains that patient ate chili yesterday and immediately afterwards wanted buttery popcorn. She was cautioned that this combination causes her to get chest congestion. Patient ate the popcorn and developed congestion and difficulty breathing so called 911. Ms. Nicole intercepted prior to patient calling EMS questioning the necessity of the call. She reports patient was not upset with her when she left with EMS. Regarding medications, patient had adjustments made in October, was seen by her doctor last Friday with plan to adjust her medications this week. Patient is alert and oriented to person, place, and circumstance. She was unable to say what day it was so was informed. Mood is "better/just okay" and patient denies being angry. She has mood congruent affect. Patient denies SI, HI, and AV/H, does not appear to be responding to internal stimuli aeb had good eye contact and concentration and answers were appropriate, and no delusions were noted. Conversational speech was WNL for rate, tone, and prosody. Eye contact was well maintained. Thought processes were linear, organized, and rational. Intellectual abilities were estimated within the below average range. Attention/concentration was WNL while, insight, judgment, and impulse control were poor. 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 Chicas are as follows: No medication recommendations at this time. Patient is psychiatrically clear from acute psychiatric services as there is no risk of harm to self or others aeb patient denies SI, HI, and AV/H, does not appear to be responding to internal stimuli, and no delusions were noted. Patient is a 28 yo female with IDD and Bipolar Disorder who chronically presents to the ED (13x in 2018) with medical or mental health complaints when there are interpersonal conflicts in her life. Yesterday, she ate popcorn after chili which is known to congest her, called 911 for SOB, and then became angry at her [facility] lending [facility] when confronted. Behavioral health spoke with Mr. Jimenez gomes, legal guardian, and Bonnie Harmon, [facility] lending officer and plan is for patient to return to [facility] today. Patient received psychoeducation about purpose and goal of psychiatric hospitalization which she requested and verbalized agreement with the plan to return to [facility] and has no complaints or concerns at this time. Patient is recommended to follow up with her regularly scheduled psychiatric appointment at [facility] this week. Consulted Dr. Pugh in the care and treatment of this patient and ED physician who is in agreement with disposition and recommendation. You have been evaluated and assessed at [facility] Emergency Department by both the medical and behavioral health teams after presenting for and are now deemed appropriate for discharge. While in the ED, you received an initial medical screening, lab work, EKG, medications, direct staff observation, clinical evaluation, physician assessment, and outpatient resources. You were cleared from both services and record review revealed a history of You are encouraged to develop coping skills Resources were provided to you for when these situations arise. You are also encouraged to to follow up with your outpatient mental health provider and maintain compliance with your prescribed medication.
[2018-11-16 09:41] VITALS: BP 112/78
== END 2018-11-16 09:45 | disposition home or self-care (01) ==
LOC: ER 21:22
DX: R44.1 Visual hallucinations (principal); R06.00 Dyspnea, unspecified; R06.02 Shortness of breath
CPT/HCPCS: 36415; 80053; 80307; 81001; 84703; 85025; 93005; 93010; 99285

== ENCOUNTER 2018-12-02 16:01 | Emergency (ER) | payer MEDICAID ==
[2018-12-02 16:15] VITALS: BP 125/72
[2018-12-02] MEDS ORDERED: KETOROLAC TROMETHAMINE 60 MG/2 ML SDV IM ONE (18:59)
--- NOTE | 2018-12-02 19:01 | ER Document Report ---
ED General - General Chief Complaint: Pain All Over Stated Complaint: BODY ACHES Time Seen by Provider: 12/02/18 18:55 Primary Care Provider: MICHAEL CSHULZ MD [Primary Care Provider] - Follow up tomorrow Mode of Arrival: Ambulatory Information source: Patient, [facility] Records Notes: 28-year-old female with hypertension, migraine headaches, type 2 diabetes, schiz ophrenia [facility] from her [facility] with complaint of "my whole body hurts". Patient states that she has pain in every part of her body. She states that it is stabbing sharp pain. Patient denies headache, visual changes, nausea, vomiting, ear pain, sore throat, cough, shortness of breath, pain with urination, increased urinary frequency, diarrhea, hematuria, recent illness. Patient is well-known to the department and has been seen multiple times for similar symptoms. TRAVEL OUTSIDE OF THE [place] IN LAST 30 DAYS: No - HPI Onset: This morning Onset/Duration: Sudden Quality of pain: Stabbing Associated symptoms: Body/muscle aches. denies: Chest pain, Chills, Nonproductive cough, Productive cough, Diarrhea, Earache, Fever, Headache, Hurts to breath, Nausea, Vomiting, Rhinnorhea, Shortness of breath, Sweating, Weakness Exacerbated by: Denies Relieved by: Denies Similar symptoms previously: Yes Recently seen / treated by doctor: Yes - Related Data Allergies/Adverse Reactions: lemon Allergy (Verified 12/02/18 16:04) brompheniramine maleate [From Dimetapp] Adverse Reaction (Unknown, Verified 12/02/18 16:04) Hyperactivity dextromethorphan HBr [From Dimetapp] Adverse Reaction (Verified 12/02/18 16:04) Hyperactivity phenylpropanolamine HCl [From Dimetapp] Adverse Reaction (Verified 12/02/18 16:04) Hyperactivity pseudoephedrine HCl [From Dimetapp] Adverse Reaction (Verified 12/02/18 16:04) Hyperactivity Past Medical History - General Information source: Patient, [facility] Records - Social History Smoking Status: Never Smoker Frequency of alcohol use: None Drug Abuse: None Lives with: Other - assisted Family History: Arthritis, CAD, DM, Hyperlipidemia, Hypertension, Thyroid Disfunction - Past Medical History Cardiac Medical History: Reports: Hx Hypertension Pulmonary Medical History: Reports: Hx Asthma Neurological Medical History: Reports: Hx Migraine Endocrine Medical History: Reports: Hx Diabetes Mellitus Type 2, Hx Hypothyroidism Renal/ Medical History: Denies: Hx Peritoneal Dialysis GI Medical History: Reports: Hx Gastroesophageal Reflux Disease Musculoskeletal Medical History: Reports Hx Musculoskeletal Trauma Skin Medical History: Reports Hx Eczema Psychiatric Medical History: Reports: Hx Bipolar Disorder, Hx Depression, Hx Schizoaffective Disorder, Hx Schizophrenia Traumatic Medical History: Reports: Hx Fractures - left ankle,arm - Immunizations Immunizations up to date: No Hx Diphtheria, Pertussis, Tetanus Vaccination: No Review of Systems - Review of Systems Constitutional: denies: Fever, Weakness, Recent illness EENT: denies: Eye discharge, Sinus pressure Cardiovascular: denies: Chest pain, Lightheaded Respiratory: denies: Cough, Short of breath Gastrointestinal: denies: Diarrhea, Nausea, Vomiting, Poor appetite, Poor fluid intake Genitourinary: denies: Dysuria Female Genitourinary: No symptoms reported Musculoskeletal: Muscle pain Skin: denies: Rash Hematologic/Lymphatic: No symptoms reported Neurological/Psychological: denies: Headaches -: Yes All other systems reviewed and negative Physical Exam - Vital signs Vitals: Temp Pulse Resp BP Pulse Ox 98.0 F 90 16 125/72 96 12/02/18 16:14 12/02/18 16:14 12/02/18 16:14 12/02/18 16:14 12/02/18 16:14 - Notes Notes: PHYSICAL EXAMINATION: GENERAL: Well-appearing, well-nourished and in no acute distress. HEAD: Atraumatic, normocephalic. EYES: Pupils equal round and reactive to light, extraocular movements intact, conjunctiva are normal. ENT: Nares patent, oropharynx clear without exudates. Moist mucous membranes. NECK: Normal range of motion, supple without lymphadenopathy LUNGS: Breath sounds clear to auscultation bilaterally and equal. No wheezes rales or rhonchi. HEART: Regular rate and rhythm without murmurs ABDOMEN: Soft, nontender, nondistended abdomen. No guarding, no rebound. No masses appreciated. Female : deferred Musculoskeletal: Normal range of motion, no pitting or edema. No cyanosis. NEUROLOGICAL: Cranial nerves grossly intact. Normal speech, normal gait. Normal sensory, motor exams PSYCH: Normal mood, normal affect. SKIN: Warm, Dry, normal turgor, no rashes or lesions noted. Course - Re-evaluation Re-evalutation: 12/02/18 20:00 Laboratory 12/02/18 12/02/18 12/02/18 19:02 19:20 19:22 POC Glucose 81 Urine Color YELLOW Urine Appearance SLIGHTLY-CLOUDY Urine pH 5.0 Ur Specific [place] 1.009 Urine Protein NEGATIVE Urine Glucose (UA) NEGATIVE Urine Ketones NEGATIVE Urine Blood NEGATIVE Urine Nitrite NEGATIVE Urine Bilirubin NEGATIVE Urine Urobilinogen NEGATIVE Ur Leukocyte Esterase TRACE H Urine WBC (Auto) 7 Urine RBC (Auto) 1 Urine Bacteria (Auto) TRACE Squamous Epi Cells Auto 4 Urine Mucus (Auto) RARE Urine Ascorbic Acid NEGATIVE Urine HCG, Qual NEGATIVE Influenza A (Rapid) NEGATIVE Influenza B (Rapid) NEGATIVE Temp Pulse Resp BP Pulse Ox 98.0 F 90 16 125/72 96 12/02/18 16:14 12/02/18 16:14 12/02/18 16:14 12/02/18 16:14 12/02/18 16:14 12/02/18 20:01 28-year-old female with hypertension, migraine headaches, type 2 diabetes, schizophrenia presents from her [facility] with complaint of "my whole body hurts". Patient states that she has pain in every part of her body. She states that it is stabbing sharp pain. Patient denies headache, visual changes, nausea, vomiting, ear pain, sore throat, cough, shortness of breath, pain with urination, increased urinary frequency, diarrhea, hematuria, recent illness. Vital signs reviewed and within normal limits. Patient does not appear toxic or dehydrated. She is in no acute distress. Patient was given Toradol for her body aches. Influenza testing is negative. Urinalysis does not show evidence of infection. HCG negative. Patient did report improvement of her pain after receiving Toradol. Patient was evaluated and treated as appropriate for the patient's presenting symptoms and complaint, with consideration of any critical or life threatening conditions that may be associated with their obtained history and exam as noted above. All results were discussed with patient . Patient provided the opportunity to ask questions, and express concerns. Patient was educated on treatments based on their presumed diagnosis as noted above. At this time we will discharge the patient with return precautions and follow-up recommendations. Verbal discharge instructions given a the bedside. Medication warnings reviewed. Patient is in agreement with this plan and has verbalized understanding of return precautions. After careful consideration I feel that that patient can be safely discharged from the emergency department, they were advised to followup with a primary care physician in 2-3 days. Dictation on this chart was performed using voice recognition software and may result in unintended grammatical, spelling, syntax or errors. - Vital Signs Vital signs: Temp Pulse Resp BP Pulse Ox 98.0 F 90 16 125/72 96 12/02/18 16:14 12/02/18 16:14 12/02/18 16:14 12/02/18 16:14 12/02/18 16:14 - Laboratory Laboratory results interpreted by me: 12/02/18 19:02 Ur Leukocyte Esterase TRACE H Discharge - Discharge Clinical Impression: Generalized body aches Condition: Good Disposition: HOME, SELF-CARE Instructions: Myalagia (Muscle Pain) ([facility]) Additional Instructions: Your flu testing was negative. You do not have the flu. You have no evidence of a urinary tract infection. Your sugar was within normal limits. Your vital signs are normal. Please take Tylenol and Motrin as needed for pain. Prescriptions: Ibuprofen [Motrin 600 Mg Tablet] 600 mg PO TID #15 tablet Referrals: MICHAEL SCHULZ MD [Primary Care Provider] - Follow up tomorrow
[2018-12-02 19:32] LABS: APPEARANCE,URINE SLIGHTLY-CLOUDY; BILIRUBIN,URINE NEGATIVE (NEGATIVE); COLOR,URINE YELLOW; GLUCOSE, URINE NEGATIVE (NEGATIVE); KETONES,URINE NEGATIVE (NEGATIVE); LEUKOCYTE ESTERASE,URINE TRACE (NEGATIVE); NITRITE,URINE NEGATIVE (NEGATIVE); PROTEIN,URINE NEGATIVE (NEGATIVE); URINE SPECIFIC GRAVITY 1.009; UROBILINOGEN,URINE NEGATIVE mg/dL (<2.0)
[2018-12-02 19:52] LABS: A TYPE INFLUENZA AG NEGATIVE (NEGATIVE); B INFLUENZA AG NEGATIVE (NEGATIVE)
== END 2018-12-02 20:38 | disposition home or self-care (01) ==
LOC: ER 16:01
DX: M79.10 Myalgia, unspecified site (principal); I10 Essential (primary) hypertension; J45.909 Unspecified asthma, uncomplicated; E11.9 Type 2 diabetes mellitus without complications; Z91.018 Allergy to other foods
CPT/HCPCS: 99283; 96372; 82962; 81025; 81001; 87804; J1885

== ENCOUNTER 2018-12-22 15:46 | Emergency (ER) | payer MEDICAID ==
[2018-12-22 16:00] VITALS: BP 120/79
[2018-12-22] MEDS ORDERED: ONDANSETRON 4 MG TAB.RAPDIS PO ONE (17:22)
[2018-12-22] MEDS ORDERED: IBUPROFEN 600 MG TABLET PO ONE (17:22)
--- NOTE | 2018-12-22 17:25 | ER Document Report ---
ED General - General Chief Complaint: Abdominal Pain Stated Complaint: ABDOMINAL PAIN, HEADACHE,NAUSEA Time Seen by Provider: 12/22/18 17:21 Primary Care Provider: MICHAEL SCHULZ MD [Primary Care Provider] - Follow up as needed Mode of Arrival: Wheelchair Information source: Patient Notes: 28-year-old female with bipolar disorder, schizophrenia who is well-known to the department presents with complaint of nausea and seeing a bug on her arm. Patient states that when she came home from her provider she was very upset and became nauseated because the provider was mean to her. She states that she saw a bug crawling on her skin and believes that it crawled into her skin. Patient denies any fever, chills, chest pain, shortness of breath, abdominal pain. Patient denies suicidal ideation, homicidal ideation, visual and auditory hallucinations. Patient also reports that she struck her head on a car door. She denies loss of consciousness but is complaining of a mild aching headache. TRAVEL OUTSIDE OF THE [place] IN LAST 30 DAYS: No - HPI Onset: Other Onset/Duration: Intermittent Quality of pain: Achy Severity: Mild Associated symptoms: Nausea. denies: Chest pain, Diarrhea, Fever, Vomiting, Shortness of breath, Weakness Exacerbated by: Denies Relieved by: Denies Similar symptoms previously: Yes Recently seen / treated by doctor: Yes - Related Data Allergies/Adverse Reactions: lemon Allergy (Verified 12/22/18 17:12) brompheniramine maleate [From Dimetapp] Adverse Reaction (Unknown, Verified 12/22/18 17:12) Hyperactivity dextromethorphan HBr [From Dimetapp] Adverse Reaction (Verified 12/22/18 17:12) Hyperactivity phenylpropanolamine HCl [From Dimetapp] Adverse Reaction (Verified 12/22/18 17:12) Hyperactivity pseudoephedrine HCl [From Dimetapp] Adverse Reaction (Verified 12/22/18 17:12) Hyperactivity Past Medical History - General Information source: Patient, [facility] Records - Social History Smoking Status: Never Smoker Frequency of alcohol use: None Drug Abuse: None Lives with: Other - correction Family History: Arthritis, CAD, DM, Hyperlipidemia, Hypertension, Thyroid Disfunction - Past Medical History Cardiac Medical History: Reports: Hx Hypertension Pulmonary Medical History: Reports: Hx Asthma Neurological Medical History: Reports: Hx Migraine Endocrine Medical History: Reports: Hx Diabetes Mellitus Type 2, Hx Hypothyroidism Renal/ Medical History: Denies: Hx Peritoneal Dialysis GI Medical History: Reports: Hx Gastroesophageal Reflux Disease Musculoskeletal Medical History: Reports Hx Musculoskeletal Trauma Skin Medical History: Reports Hx Eczema Psychiatric Medical History: Reports: Hx Bipolar Disorder, Hx Depression, Hx Schizoaffective Disorder, Hx Schizophrenia Traumatic Medical History: Reports: Hx Fractures - left ankle,arm - Immunizations Immunizations up to date: No Hx Diphtheria, Pertussis, Tetanus Vaccination: No Review of Systems - Review of Systems Constitutional: denies: Weakness, Recent illness EENT: denies: Blurred vision Cardiovascular: denies: Chest pain, Palpitations, Dizziness, Lightheaded Respiratory: denies: Cough, Short of breath Gastrointestinal: Nausea. denies: Abdominal pain, Vomiting Genitourinary: denies: Dysuria Female Genitourinary: No symptoms reported Musculoskeletal: denies: Back pain, Muscle stiffness Skin: denies: Rash Hematologic/Lymphatic: No symptoms reported Neurological/Psychological: Headaches. denies: Confusion, Hallucinations, Weakness, Lost consciousness, Suicidal ideation -: Yes All other systems reviewed and negative Physical Exam - Vital signs Vitals: Temp Pulse Resp BP Pulse Ox 98.2 F 97 16 120/79 98 12/22/18 15:56 12/22/18 15:56 12/22/18 15:56 12/22/18 15:56 12/22/18 15:56 - Notes Notes: PHYSICAL EXAMINATION: GENERAL: Well-appearing, well-nourished and in no acute distress. HEAD: Atraumatic, normocephalic. EYES: Pupils equal round and reactive to light, extraocular movements intact, conjunctiva are normal. ENT: Nares patent, oropharynx clear without exudates. Moist mucous membranes. NECK: Normal range of motion, supple without lymphadenopathy LUNGS: Breath sounds clear to auscultation bilaterally and equal. No wheezes rales or rhonchi. HEART: Regular rate and rhythm without murmurs ABDOMEN: Soft, nontender, nondistended abdomen. No guarding, no rebound. No masses appreciated. Female : deferred Musculoskeletal: Normal range of motion, no pitting or edema. No cyanosis. NEUROLOGICAL: Cranial nerves grossly intact. Normal speech, normal gait. Normal sensory, motor exams PSYCH: Normal mood, normal affect. SKIN: Warm, Dry, normal turgor, no rashes or lesions noted. Course - Re-evaluation Re-evalutation: Temp Pulse Resp BP Pulse Ox 98.2 F 97 16 120/79 98 12/22/18 15:56 12/22/18 15:56 12/22/18 15:56 12/22/18 15:56 12/22/18 15:56 12/22/18 18:22 28-year-old female with bipolar disorder, schizophrenia who is well-known to the department presents with complaint of nausea and seeing a bug on her arm. Patient states that when she came home from her provider she was very upset and became nauseated because the provider was mean to her. She states that she saw a bug crawling on her skin and believes that it crawled into her skin. Patient denies any fever, chills, chest pain, shortness of breath, abdominal pain. Patient denies suicidal ideation, homicidal ideation, visual and auditory hallucinations. Patient also reports that she struck her head on a car door. She denies loss of consciousness but is complaining of a mild aching headache. Vital signs reviewed and within normal limits. Patient has no obvious head trauma, rash. Patient is alert and oriented x4, comfortable in appearance, has had no active vomiting during her ED course. Patient was given Motrin and Zofran and discharged home in stable condition. Prior to reevaluation patient is requesting to charge home. Patient was discharged home in stable condition. Dictation on this chart was performed using voice recognition software and may result in unintended grammatical, spelling, syntax or errors. 12/25/18 19:06 - Vital Signs Vital signs: Temp Pulse Resp BP Pulse Ox 98.2 F 97 16 120/79 98 12/22/18 15:56 12/22/18 15:56 12/22/18 15:56 12/22/18 15:56 12/22/18 15:56 Discharge - Discharge Clinical Impression: Nausea, Reported bug on skin Head contusion Qualifiers: Encounter type: initial encounter Contusion of head detail: unspecified part of head Qualified Code(s): S00.93XA - Contusion of unspecified part of head, initial encounter Condition: Good Disposition: HOME, SELF-CARE Instructions: Head Injury Precautions ([facility]), Nausea or Vomiting, Nonspecific ([facility]) Referrals: MICHAEL SCHULZ MD [Primary Care Provider] - Follow up as needed
== END 2018-12-22 19:02 | disposition home or self-care (01) ==
LOC: ER 15:46
DX: R11.0 Nausea (principal); S00.93XA Contusion of unspecified part of head, initial encounter; R51 Headache; W22.8XXA Striking against or struck by other objects, initial encounter; I10 Essential (primary) hypertension; J45.909 Unspecified asthma, uncomplicated; E11.9 Type 2 diabetes mellitus without complications; Z91.018 Allergy to other foods
CPT/HCPCS: 99283; S0119; J3490

== ENCOUNTER 2018-12-30 09:01 | Emergency (ER) | payer MEDICAID ==
[2018-12-30 10:02] LABS: APPEARANCE,URINE CLOUDY; BILIRUBIN,URINE NEGATIVE (NEGATIVE); COLOR,URINE YELLOW; GLUCOSE, URINE NEGATIVE (NEGATIVE); KETONES,URINE NEGATIVE (NEGATIVE); LEUKOCYTE ESTERASE,URINE NEGATIVE (NEGATIVE); NITRITE,URINE NEGATIVE (NEGATIVE); PROTEIN,URINE NEGATIVE (NEGATIVE); URINE SPECIFIC GRAVITY 1.027; UROBILINOGEN,URINE NEGATIVE mg/dL (<2.0)
--- NOTE | 2018-12-30 10:50 | ER Document Report ---
ED General - General Chief Complaint: Abdominal Pain Stated Complaint: ABDOMINAL PAIN Time Seen by Provider: 12/30/18 09:32 Primary Care Provider: MICHAEL SCHULZ MD [Primary Care Provider] - Follow up as needed TRAVEL OUTSIDE OF THE [place] IN LAST 30 DAYS: No - HPI Notes: Patient presents emergency department for evaluation of abdominal pain. She states she has had this lower abdominal pain nightly for 1 year. She denies any fevers or chills. No nausea or vomiting. No dysuria or hematuria. No vaginal discharge. No external genital lesions. She states the pain comes back every night. She feels a pressure on the skin of her abdomen as well with it. Patient also states that she feels as if she is thirsty all the time and cannot get enough to drink. - Related Data Allergies/Adverse Reactions: lemon Allergy (Verified 12/30/18 09:03) brompheniramine maleate [From Dimetapp] Adverse Reaction (Unknown, Verified 12/12 09:03) Hyperactivity dextromethorphan HBr [From Dimetapp] Adverse Reaction (Verified 12/30/18 09:03) Hyperactivity phenylpropanolamine HCl [From Dimetapp] Adverse Reaction (Verified 12/30/18 09 :03) Hyperactivity pseudoephedrine HCl [From Dimetapp] Adverse Reaction (Verified 12/30/18 09:03) Hyperactivity Past Medical History - General Information source: Patient - Social History Smoking Status: Never Smoker Family History: Arthritis, CAD, DM, Hyperlipidemia, Hypertension, Thyroid Disfunction Patient has suicidal ideation: No Patient has homicidal ideation: No - Past Medical History Cardiac Medical History: Reports: Hx Hypertension Pulmonary Medical History: Reports: Hx Asthma Neurological Medical History: Reports: Hx Migraine Endocrine Medical History: Reports: Hx Diabetes Mellitus Type 2, Hx Hypothyroidism Renal/ Medical History: Denies: Hx Peritoneal Dialysis GI Medical History: Reports: Hx Gastroesophageal Reflux Disease Musculoskeletal Medical History: Reports Hx Musculoskeletal Trauma Skin Medical History: Reports Hx Eczema Psychiatric Medical History: Reports: Hx Bipolar Disorder, Hx Depression, Hx Schizoaffective Disorder, Hx Schizophrenia Traumatic Medical History: Reports: Hx Fractures - left ankle,arm - Immunizations Immunizations up to date: No Hx Diphtheria, Pertussis, Tetanus Vaccination: No Review of Systems - Review of Systems Constitutional: No symptoms reported EENT: No symptoms reported Cardiovascular: No symptoms reported Respiratory: No symptoms reported Gastrointestinal: See HPI Genitourinary: No symptoms reported Female Genitourinary: No symptoms reported Musculoskeletal: No symptoms reported Skin: No symptoms reported Neurological/Psychological: No symptoms reported Physical Exam - Vital signs Vitals: Temp Pulse Resp BP Pulse Ox 98.4 F 101 H 20 135/85 H 98 12/30/18 09:08 12/30/18 09:08 12/30/18 09:08 12/30/18 09:08 12/30/18 09:08 - Notes Notes: Vital signs reviewed, please refer to chart. Patient is an obese white female, appears her stated age, no acute distress. Normocephalic, atraumatic. Pupils equal round, reactive to light. Neck is supple without meningismus. Heart is regular rate and rhythm. Lungs are clear to auscultation bilaterally. Abdomen is soft, nontender, normoactive bowel sounds throughout. She has striae over the upper and lower abdomen. Extremities without cyanosis, clubbing. Peripheral pulses are equal. Skin is warm and dry. Patient is awake, alert, neurological exam is nonfocal. Course - Re-evaluation Re-evalutation: 12/30/18 10:49 Patient presents emergency department for evaluation of abdominal pain. She has had this pain intermittently for over a year. Her exam here is entirely unremarkable. Due to her polydipsia I did order a [id number] glucose which is found to be within normal limits. Urinalysis revealed no signs of bleeding or infection. I strongly encourage the patient to follow-up with her primary care physician regarding this ongoing issue. Certainly it could require further testing, beyond what I am capable of here in the emergency department. The patient actually asked to be discharged, states she is hungry. This is reassuring as well. She is to return to the ED with worsening or new concerning symptoms. - Vital Signs Vital signs: Temp Pulse Resp BP Pulse Ox 98.4 F 101 H 20 135/85 H 98 12/30/18 09:08 12/30/18 09:08 12/30/18 09:08 12/30/18 09:08 12/30/18 09:08 Discharge - Discharge Clinical Impression: Lower abdominal pain Condition: Stable Disposition: HOME, SELF-CARE Instructions: Abdominal Pain ([facility]) Additional Instructions: Follow-up with your doctor in 1-2 weeks and seek out further evaluation of this abdominal pain. Return to the emergency department with worsening or new concerning symptoms of any sort. Referrals: MICHAEL SCHULZ MD [Primary Care Provider] - Follow up as needed
[2018-12-30 10:59] VITALS: BP 132/88
== END 2018-12-30 10:57 | disposition home or self-care (01) ==
LOC: ER 09:01
DX: R10.30 Lower abdominal pain, unspecified (principal); E11.9 Type 2 diabetes mellitus without complications; R63.1 Polydipsia; E66.9 Obesity, unspecified; I10 Essential (primary) hypertension; J45.909 Unspecified asthma, uncomplicated; Z91.018 Allergy to other foods
CPT/HCPCS: 81001; 81025; 82962; 99284

== ENCOUNTER 2019-01-19 10:33 | Emergency (ER) | payer MEDICAID ==
--- NOTE | 2019-01-19 10:55 | ER Document Report ---
ED Medical Screen (RME) - General Chief Complaint: Abdominal Pain Stated Complaint: ABDOMINAL PAIN Time Seen by Provider: 01/19/19 10:51 Primary Care Provider: MICHAEL SCHULZ MD [Primary Care Provider] - Follow up as needed Mode of Arrival: Ambulatory Information source: Patient Notes: Patient presents emergency department with complaints of abdominal pain for the past 2 years. Reports hurting more this morning. Reports vomiting this morning.. Reports history of diarrhea. Patient has large abdomen, difficult to assess in pit. I have greeted and performed a rapid initial assessment of this patient. A comprehensive ED assessment and evaluation of the patient, analysis of test results and completion of the medical decision making process will be conducted by additional ED providers. TRAVEL OUTSIDE OF THE [place] IN LAST 30 DAYS: No - Related Data Allergies/Adverse Reactions: lemon Allergy (Verified 01/19/19 10:39) brompheniramine maleate [From Dimetapp] Adverse Reaction (Unknown, Verified 01/19/19 10:39) Hyperactivity dextromethorphan HBr [From Dimetapp] Adverse Reaction (Verified 01/19/19 10:39) Hyperactivity phenylpropanolamine HCl [From Dimetapp] Adverse Reaction (Verified 01/19/19 10:39) Hyperactivity pseudoephedrine HCl [From Dimetapp] Adverse Reaction (Verified 01/19/19 10:39) Hyperactivity Past Medical History - Social History Chew tobacco use (# tins/day): No Frequency of alcohol use: None Drug Abuse: None Family history: Reviewed & Not Pertinent - Past Medical History Cardiac Medical History: Reports: Hx Hypertension Pulmonary Medical History: Reports: Hx Asthma Neurological Medical History: Reports: Hx Migraine Endocrine Medical History: Reports: Hx Diabetes Mellitus Type 2, Hx Hypothyroidism Renal/ Medical History: Denies: Hx Peritoneal Dialysis GI Medical History: Reports: Hx Gastroesophageal Reflux Disease Musculoskeltal Medical History: Reports Hx Musculoskeletal Trauma Skin Medical History: Reports Hx Eczema Psychiatric Medical History: Reports: Hx Bipolar Disorder, Hx Depression, Hx Schizoaffective Disorder, Hx Schizophrenia Traumatic Medical History: Reports: Hx Fractures - left ankle,arm - Immunizations Immunizations up to date: No Hx Diphtheria, Pertussis, Tetanus Vaccination: No Physical Exam - Vital signs Vitals: Temp Pulse Resp BP Pulse Ox 97.9 F 107 H 20 133/73 H 97 01/19/19 10:47 01/19/19 10:47 01/19/19 10:47 01/19/19 10:47 01/19/19 10:47 Course - Vital Signs Vital signs: Temp Pulse Resp BP Pulse Ox 97.9 F 107 H 20 133/73 H 97 01/19/19 10:47 01/19/19 10:47 01/19/19 10:47 01/19/19 10:47 01/19/19 10:47 Doctor's Discharge - Discharge Referrals: MICHAEL SCHULZ MD [Primary Care Provider] - Follow up as needed
[2019-01-19 11:15] LABS: ABSOLUTE EOSINOPHILS # (AUTO) 0.2 10^3/uL (0.0-0.6); ABSOLUTE LYMPHOCYTES (AUTO) 2.1 10^3/uL (0.5-4.7); ABSOLUTE MONOCYTES (AUTO) 0.4 10^3/uL (0.1-1.4); ABSOLUTE NEUT (AUTO) 5.7 10^3/uL (1.7-8.2); BASOPHILS % (AUTO) 0.4 % (0-2); EOSINOPHILS % (AUTO) 2.5 % (0-6); HEMATOCRIT 37.5 % (36.0-47.0); HEMOGLOBIN 12.4 g/dL (12.0-15.5); LYMPHOCYTES % (AUTO) 24.9 % (13-45); MEAN CORPUSCULAR HEMOGLOBIN 26.3 pg (27.0-33.4); MEAN CORPUSCULAR VOLUME 80 fl (80-97); MONOCYTES % (AUTO) 4.9 % (3-13); PLATELET COUNT 299 10^3/uL (150-450); RED CELL DISTRIBUTION WIDTH 15.3 % (11.5-14.0); SEGMENTED NEUTROPHILS % (AUTO) 67.3 % (42-78); TOTAL CELLS COUNTED % (AUTO) 100 %; WHITE BLOOD COUNT 8.5 10^3/uL (4.0-10.5)
[2019-01-19 11:33] LABS: ALANINE AMINOTRANSFERASE 16 U/L (9-52); ALBUMIN 3.7 g/dL (3.5-5.0); ALKALINE PHOSPHATASE 85 U/L (38-126); ANION GAP 10 (5-19); ASPARTATE AMINO TRANSFERASE 20 U/L (14-36); BILIRUBIN,DIRECT 0.4 mg/dL (0.0-0.4); BILIRUBIN,TOTAL 0.4 mg/dL (0.2-1.3); BLOOD UREA NITROGEN 11 mg/dL (7-20); CALCIUM 9.6 mg/dL (8.4-10.2); CARBON DIOXIDE 27 mmol/L (22-30); CHLORIDE 101 mmol/L (98-107); GLUCOSE 143 mg/dL (75-110); SODIUM 138.3 mmol/L (137-145); TOTAL PROTEIN 6.9 g/dL (6.3-8.2)
--- NOTE | 2019-01-19 11:38 | ER Document Report ---
ED General - General Chief Complaint: Abdominal Pain Stated Complaint: ABDOMINAL PAIN Time Seen by Provider: 01/19/19 10:51 Primary Care Provider: MICHAEL SCHULZ MD [Primary Care Provider] - Follow up in 3-5 days Mode of Arrival: Ambulatory Notes: Patient is a 28-year-old female that presents to the emergency department for chief complaint of abdominal pain. Patient reports having generalized abdominal pain on and off for the past year. She states that the cramping pain, describes it as across most of her abdomen. Not one side or the other or upper or lower. It can come and go at different points. She denies having any vomiting, but states she has had some nausea. She has not discussed this with any other physicians. Although she does have a primary care doctor. She denies having any chest pain, shortness of breath, difficulty breathing, fevers, chills, night sweats, dysuria or hematuria. She is not sure if she is . Past Medical History: Bipolar disorder, diabetes, hypothyroidism Past Surgical History: Tympanostomy tubes Social History: Denies tobacco, alcohol or drug use. Family History: Reviewed and noncontributory for presenting illness Allergies: Reviewed, see documented allergy list. REVIEW OF SYSTEMS: Other than noted above, the 12 point review of systems was reviewed with the patient and were negative, all pertinent findings are included in the HPI. PHYSICAL EXAMINATION: Vital signs reviewed, nursing noted reviewed. GENERAL: Morbidly obese female, no acute distress HEAD: Atraumatic, normocephalic. EYES: Eyes appear normal, extraocular movements intact, sclera anicteric, conjunctiva are normal. ENT: nares patent, oropharynx clear without exudates. Moist mucous membranes. NECK: Normal range of motion, supple without lymphadenopathy LUNGS: Breath sounds clear to auscultation bilaterally and equal. No wheezes rales or rhonchi. HEART: Regular rate and rhythm without murmurs ABDOMEN: Soft, mild diffuse tenderness to palpation to the abdomen, normoactive bowel sounds. No rebound, guarding, or rigidity. No masses appreciated. EXTREMITIES: Nontender, good range of motion, no pitting or edema. NEUROLOGICAL: No focal neurological deficits. Moves all extremities spontaneously Motor and sensory grossly intact on exam. PSYCH: Normal mood, normal affect. SKIN: Warm, Dry, normal turgor, no rashes or lesions noted on exposed skin TRAVEL OUTSIDE OF THE [place] IN LAST 30 DAYS: No - Related Data Allergies/Adverse Reactions: lemon Allergy (Verified 01/19/19 10:39) brompheniramine maleate [From Dimetapp] Adverse Reaction (Unknown, Verified 01/19/19 10:39) Hyperactivity dextromethorphan HBr [From Dimetapp] Adverse Reaction (Verified 01/19/19 10:39) Hyperactivity phenylpropanolamine HCl [From Dimetapp] Adverse Reaction (Verified 01/19/19 10:3 9) Hyperactivity pseudoephedrine HCl [From Dimetapp] Adverse Reaction (Verified 01/19/19 10:39) Hyperactivity Past Medical History - General Information source: Patient - Social History Smoking Status: Never Smoker Chew tobacco use (# tins/day): No Frequency of alcohol use: None Drug Abuse: None Family History: Arthritis, CAD, DM, Hyperlipidemia, Hypertension, Thyroid Disfunction Patient has suicidal ideation: No Patient has homicidal ideation: No - Past Medical History Cardiac Medical History: Reports: Hx Hypertension Pulmonary Medical History: Reports: Hx Asthma Neurological Medical History: Reports: Hx Migraine Endocrine Medical History: Reports: Hx Diabetes Mellitus Type 2, Hx Hypothyroidism Renal/ Medical History: Denies: Hx Peritoneal Dialysis GI Medical History: Reports: Hx Gastroesophageal Reflux Disease Musculoskeletal Medical History: Reports Hx Musculoskeletal Trauma Skin Medical History: Reports Hx Eczema Psychiatric Medical History: Reports: Hx Bipolar Disorder, Hx Depression, Hx Schizoaffective Disorder, Hx Schizophrenia Traumatic Medical History: Reports: Hx Fractures - left ankle,arm - Immunizations Immunizations up to date: No Hx Diphtheria, Pertussis, Tetanus Vaccination: No Physical Exam - Vital signs Vitals: Temp Pulse Resp BP Pulse Ox 97.9 F 107 H 20 133/73 H 97 01/19/19 10:47 01/19/19 10:47 01/19/19 10:47 01/19/19 10:47 01/19/19 10:47 Course - Re-evaluation Re-evalutation: Patient seen and examined vital signs reviewed. Laboratory data and/or imaging were ordered as appropriate for the patient's presenting symptoms and complaint, with consideration of any critical or life threatening conditions that may be associated with their obtained history and exam as noted above. Patient was treated with IM Bentyl Results were reviewed when available and demonstrated unremarkable blood work, KUB demonstrated moderate stool burden, after I reviewed it, but no obstructive pattern, negative hCG testing. The patient was re-evaluated and was improved and stable Evaluation was most consistent with nonspecific abdominal pain, likely constipation related, advised senna and Colace, as the patient already has MiraLAX at home which I advised using as well, and she is also given a prescription for Bentyl. Results were discussed with the patient at this point, after careful consideration I feel that that patient can be discharged from the emergency department, the patient was educated treatments and reasons to return to the emergency department based on their presumed diagnosis as noted above, they were advised to followup with a primary care physician in 2-3 days. Patient was agreeable to plan of care. *Note is created using voice recognition software and may contain spelling, syntax or grammatical errors. Laboratory 01/19/19 01/19/19 01/19/19 10:30 10:30 10:30 WBC 8.5 RBC 4.70 Hgb 12.4 Hct 37.5 MCV 80 MCH 26.3 L MCHC 33.0 RDW 15.3 H Plt Count 299 Seg Neutrophils % 67.3 Lymphocytes % 24.9 Monocytes % 4.9 Eosinophils % 2.5 Basophils % 0.4 Absolute Neutrophils 5.7 Absolute Lymphocytes 2.1 Absolute Monocytes 0.4 Absolute Eosinophils 0.2 Absolute Basophils 0.0 Sodium 138.3 Potassium 4.0 Chloride 101 Carbon Dioxide 27 Anion Gap 10 BUN 11 Creatinine 0.65 Est GFR ( Amer) > 60 Est GFR (Non-Af Amer) > 60 Glucose 143 H Calcium 9.6 Total Bilirubin 0.4 Direct Bilirubin 0.4 Neonat Total Bilirubin Not Reportable Neonat Direct Bilirubin Not Reportable Neonat Indirect Bili Not Reportable AST 20 ALT 16 Alkaline Phosphatase 85 Total Protein 6.9 Albumin 3.7 Lipase Urine Color YELLOW Urine Appearance SLIGHTLY-CLOUDY Urine pH 5.0 Ur Specific [place] 1.018 Urine Protein NEGATIVE Urine Glucose (UA) NEGATIVE Urine Ketones NEGATIVE Urine Blood NEGATIVE Urine Nitrite NEGATIVE Urine Bilirubin NEGATIVE Urine Urobilinogen NEGATIVE Ur Leukocyte Esterase TRACE H Urine WBC (Auto) 2 Urine RBC (Auto) 0 Urine Bacteria (Auto) TRACE Squamous Epi Cells Auto 3 Urine Mucus (Auto) RARE Urine Ascorbic Acid NEGATIVE Urine HCG, Qual NEGATIVE 01/19/19 10:30 WBC RBC Hgb Hct MCV MCH MCHC RDW Plt Count Seg Neutrophils % Lymphocytes % Monocytes % Eosinophils % Basophils % Absolute Neutrophils Absolute Lymphocytes Absolute Monocytes Absolute Eosinophils Absolute Basophils Sodium Potassium Chloride Carbon Dioxide Anion Gap BUN Creatinine Est GFR ( Amer) Est GFR (Non-Af Amer) Glucose Calcium Total Bilirubin Direct Bilirubin Neonat Total Bilirubin Neonat Direct Bilirubin Neonat Indirect Bili AST ALT Alkaline Phosphatase Total Protein Albumin Lipase 86.7 Urine Color Urine Appearance Urine pH Ur Specific [place] Urine Protein Urine Glucose (UA) Urine Ketones Urine Blood Urine Nitrite Urine Bilirubin Urine Urobilinogen Ur Leukocyte Esterase Urine WBC (Auto) Urine RBC (Auto) Urine Bacteria (Auto) Squamous Epi Cells Auto Urine Mucus (Auto) Urine Ascorbic Acid Urine HCG, Qual KUB X-Ray 01/19/19 12:26 IMPRESSION: NO RADIOGRAPHIC EVIDENCE FOR ACUTE ABDOMINAL DISEASE. - Vital Signs Vital signs: Temp Pulse Resp BP Pulse Ox 97.7 F 94 20 146/78 H 98 01/19/19 13:24 01/19/19 13:24 01/19/19 13:24 01/19/19 13:24 01/19/19 13:24 - Laboratory Result Diagrams: 01/19/19 10:30 01/19/19 10:30 Laboratory results interpreted by me: 01/19/19 01/19/19 01/19/19 10:30 10:30 10:30 MCH 26.3 L RDW 15.3 H Glucose 143 H Ur Leukocyte Esterase TRACE H Discharge - Discharge Clinical Impression: Abdominal pain Qualifiers: Abdominal location: generalized Qualified Code(s): R10.84 - Generalized abdominal pain Constipation Qualifiers: Constipation type: unspecified constipation type Qualified Code(s): K59.00 - Constipation, unspecified Condition: Stable Disposition: HOME, SELF-CARE Instructions: Abdominal Pain ([facility]), Constipation ([facility]) Additional Instructions: Please return to the emergency department if you have any worsening, or concern of your symptoms. Please return to the emergency department if you develop chest pain, difficulty breathing, severe abdominal pain, or ongoing vomiting. Please follow-up with your primary care physician in 2-3 days and any other recommended physicians. If prescribed, take all medications as directed. If you have any questions or concerns do not hesitate to return the emergency department for evaluation. Prescriptions: Dicyclomine HCl [Bentyl 20 mg Tablet] 20 mg PO Q6H PRN #30 tablet PRN Reason: Abdominal Cramping Sennosides/Docusate 8.6-50 mg [Senna Plus Tablet] 1 tab PO BID #30 tab Referrals: MICHAEL SCHULZ MD [Primary Care Provider] - Follow up in 3-5 days
[2019-01-19 11:42] LABS: APPEARANCE,URINE SLIGHTLY-CLOUDY; BILIRUBIN,URINE NEGATIVE (NEGATIVE); COLOR,URINE YELLOW; GLUCOSE, URINE NEGATIVE (NEGATIVE); KETONES,URINE NEGATIVE (NEGATIVE); LEUKOCYTE ESTERASE,URINE TRACE (NEGATIVE); NITRITE,URINE NEGATIVE (NEGATIVE); PROTEIN,URINE NEGATIVE (NEGATIVE); URINE SPECIFIC GRAVITY 1.018; UROBILINOGEN,URINE NEGATIVE mg/dL (<2.0)
[2019-01-19] MEDS ORDERED: DICYCLOMINE HCL INJ 20 MG/2 ML AMPULE IM ONE (12:27)
--- NOTE | 2019-01-19 13:08 | RADIOLOGY REPORT (SQ) ---
EXAM DESCRIPTION: KUB/ABDOMEN (SINGLE VIEW) COMPLETED DATE/TIME: 01/19/2019 1:00 pm REASON FOR STUDY: abdominal pain COMPARISON: 11/04/2018 NUMBER OF VIEWS: One view. TECHNIQUE: Supine radiographic image of the abdomen acquired. LIMITATIONS: None. FINDINGS: BOWEL GAS PATTERN: Normal bowel gas pattern. No dilated loops. CALCIFICATIONS: No suspicious calcifications. SOFT TISSUES: No gross mass or suggestion of organomegaly. HARDWARE: None in the abdomen. BONES: No acute fracture. No worrisome bone lesions. OTHER: No other significant finding. IMPRESSION: NO RADIOGRAPHIC EVIDENCE FOR ACUTE ABDOMINAL DISEASE. TECHNICAL DOCUMENTATION: JOB ID: [id number] [employer]- All Rights Reserved Reading location - IP/workstation name: [email or web address]
[2019-01-19 13:28] VITALS: BP 146/78
== END 2019-01-19 13:28 | disposition home or self-care (01) ==
LOC: ER 10:33
DX: R10.84 Generalized abdominal pain (principal); K59.00 Constipation, unspecified; I10 Essential (primary) hypertension; E11.9 Type 2 diabetes mellitus without complications; E03.9 Hypothyroidism, unspecified; K21.9 Gastro-esophageal reflux disease without esophagitis
CPT/HCPCS: 99284; 96372; 36415; 83690; 85025; 81025; 80053; 81001; 74018; J0500

== ENCOUNTER 2019-03-12 15:00 | Emergency (ER) | payer MEDICAID ==
--- NOTE | 2019-03-12 17:17 | RADIOLOGY REPORT (SQ) ---
EXAM DESCRIPTION: TOE RIGHT COMPLETED DATE/TIME: 03/12/2019 5:06 pm REASON FOR STUDY: right toe pain COMPARISON: None. NUMBER OF VIEWS: Three views. TECHNIQUE: AP, lateral, and oblique images acquired of the right first toe. LIMITATIONS: None. FINDINGS: MINERALIZATION: Normal. BONES: No acute fracture or dislocation. No worrisome bone lesions. JOINTS: No effusions. SOFT TISSUES: No soft tissue swelling. No foreign body. OTHER: No other significant finding. IMPRESSION: 1. No acute osseous findings. COMMENT: SITE OF TRAUMA/COMPLAINT MARKED/STAMP COMPLETED: YES. TECHNICAL DOCUMENTATION: JOB ID: [id number] [employer]- All Rights Reserved Reading location - IP/workstation name: [email or web address]
--- NOTE | 2019-03-12 17:44 | ER Document Report ---
HPI - HPI Time Seen by Provider: 03/12/19 16:11 Pain Level: 1 Context: Patient is a 28-year-old female who presents emergency department with complaints of right great toe pain. She states that [place] the [place] and she had stepped and had rolled her right great toe under her foot. She states that she went to the foot doctor and she is supposed to have surgery. Patient does have a dental health history. She is currently taking her regular medications. She states that she took some acetaminophen prior to coming here to the emergency department. She is able to move her toe. Patient states that the physiologist diagnosed her with a fracture and she is supposed to have surgery. - ROS Systems Reviewed and Negative: Yes All other systems reviewed and negative - REPRODUCTIVE Reproductive: DENIES: : - MUSCULOSKELETAL Musculoskeletal: REPORTS: Extremity pain - right big toe - DERM Skin Color: Normal Skin Problems: None Past Medical History - General Information source: Patient - Social History Smoking Status: Unknown if Ever Smoked Family History: Arthritis, CAD, DM, Hyperlipidemia, Hypertension, Thyroid Disfunction Patient has suicidal ideation: No Patient has homicidal ideation: No - Past Medical History Cardiac Medical History: Reports: Hx Hypertension Pulmonary Medical History: Reports: Hx Asthma Neurological Medical History: Reports: Hx Migraine Endocrine Medical History: Reports: Hx Diabetes Mellitus Type 2, Hx Hypothyroidism Renal/ Medical History: Denies: Hx Peritoneal Dialysis GI Medical History: Reports: Hx Gastroesophageal Reflux Disease Musculoskeletal Medical History: Reports Hx Musculoskeletal Trauma Skin Medical History: Reports Hx Eczema Psychiatric Medical History: Reports: Hx Bipolar Disorder, Hx Depression, Hx Schizoaffective Disorder, Hx Schizophrenia Traumatic Medical History: Reports: Hx Fractures - left ankle,arm - Immunizations Immunizations up to date: No Hx Diphtheria, Pertussis, Tetanus Vaccination: No Vertical Provider Document - CONSTITUTIONAL Agree With Documented VS: Yes Exam Limitations: No Limitations General Appearance: No Apparent Distress - INFECTION CONTROL TRAVEL OUTSIDE OF THE [place] IN LAST 30 DAYS: No - HEENT HEENT: Atraumatic, Normocephalic, PERRLA - NECK Neck: Normal Inspection - RESPIRATORY Respiratory: Breath Sounds Normal, No Respiratory Distress - CARDIOVASCULAR Cardiovascular: Regular Rate, Regular Rhythm Pulses: Normal: Radial, Posterior tibial, Dorsalis pedis - MUSCULOSKELETAL/EXTREMETIES Musculoskeletal/Extremeties: FROM, Tender - Right great toe, No Edema. negative: Eccymosis - NEURO Level of Consciousness: Awake, Alert, Appropriate - DERM Integumentary: Warm, Dry, No Rash Course - Re-evaluation Re-evalutation: 03/12/19 17:48 Patient's toe x-ray is negative for any acute fracture at this time. I have a very low suspicion for tenosynovitis. Her foot and toe are not red, nor is there cellulitis noted. I suspect the patient may have toe pain related to her mental health issues. She states that she has not used crutches and has been walking on her foot. She will be provided crutches here in the emergency department to keep off it and she will follow-up with podiatry. She is in agreement with this plan. Verbal discharge instructions were given to the patient. They verbalized understanding. They are stable for discharge. 03/12/19 18:14 Unfortunately the patient does not meet the weight requirement for crutches and she will be written a prescription for a walker at this time. She will continue to follow-up with orthopedics and primary care provider. - Vital Signs Vital signs: Temp Pulse Resp BP Pulse Ox 97.7 F 117 H 16 128/80 H 99 03/12/19 15:14 03/12/19 15:14 03/12/19 15:14 03/12/19 15:14 03/12/19 15:14 Discharge - Discharge Clinical Impression: Pain of right great toe Condition: Stable Disposition: HOME, SELF-CARE Additional Instructions: You are seen today in the emergency department for right great toe pain. Your x-ray shows that there is no fracture at this time. You have been provided crutches. Please use the crutches to keep you off your foot. You are also being provided a postop boot. Make sure you wear to protect your foot. Please do not wear sandals, as you may hit your toe on hard objects. Please follow-up with podiatry or your primary care provider in regards to this visit. Referrals: MICHAEL SCHULZ MD [Primary Care Provider] - Follow up as needed LANE RICHEY MD [NO LOCAL MD] - Follow up as needed
[2019-03-12 18:42] VITALS: BP 129/89
== END 2019-03-12 18:42 | disposition home or self-care (01) ==
LOC: ER 15:00
DX: M79.674 Pain in right toe(s) (principal); I10 Essential (primary) hypertension; J45.909 Unspecified asthma, uncomplicated; E11.9 Type 2 diabetes mellitus without complications
CPT/HCPCS: 99283

== ENCOUNTER 2019-03-15 15:41 | Emergency (ER) | payer MEDICAID ==
--- NOTE | 2019-03-15 15:59 | ER Document Report ---
ED Medical Screen (RME) - General Chief Complaint: Psych Problem Stated Complaint: PSYCH EVAL Time Seen by Provider: 03/15/19 15:58 Primary Care Provider: MICHAEL SCHULZ MD [Primary Care Provider] - Follow up as needed Mode of Arrival: Ambulatory Information source: Patient Notes: Patient presents today with complaints that she feels like hitting somebody. P kodi reports history of bipolar schizophrenia really not taking her medications. Also reports she really has not seen a mental health worker in over a year. She reports she has just reached her limits today. Lives in a half-way in [place] and wants to go to [facility]. Denies homicidal suicidal ideations. Patient is calm answers all questions appropriately. I have greeted and performed a rapid initial assessment of this patient. A comprehensive ED assessment and evaluation of the patient, analysis of test results and completion of the medical decision making process will be conducted by additional ED providers. Dictation of this chart was performed using voice recognition software; therefore, there may be some unintended grammatical errors. TRAVEL OUTSIDE OF THE [place] IN LAST 30 DAYS: No - Related Data Allergies/Adverse Reactions: lemon Allergy (Verified 03/15/19 15:42) brompheniramine maleate [From Dimetapp] Adverse Reaction (Unknown, Verified 03/15/19 15:42) Hyperactivity dextromethorphan HBr [From Dimetapp] Adverse Reaction (Verified 03/15/19 15:42) Hyperactivity phenylpropanolamine HCl [From Dimetapp] Adverse Reaction (Verified 03/15/19 15:42) Hyperactivity pseudoephedrine HCl [From Dimetapp] Adverse Reaction (Verified 03/15/19 15:42) Hyperactivity Past Medical History - Social History Family history: Reviewed & Not Pertinent - Past Medical History Cardiac Medical History: Reports: Hx Hypertension Pulmonary Medical History: Reports: Hx Asthma Neurological Medical History: Reports: Hx Migraine Endocrine Medical History: Reports: Hx Diabetes Mellitus Type 2, Hx Hypothyroidism Renal/ Medical History: Denies: Hx Peritoneal Dialysis GI Medical History: Reports: Hx Gastroesophageal Reflux Disease Musculoskeltal Medical History: Reports Hx Musculoskeletal Trauma Skin Medical History: Reports Hx Eczema Psychiatric Medical History: Reports: Hx Bipolar Disorder, Hx Depression, Hx Schizoaffective Disorder, Hx Schizophrenia Traumatic Medical History: Reports: Hx Fractures - left ankle,arm - Immunizations Immunizations up to date: No Hx Diphtheria, Pertussis, Tetanus Vaccination: No Physical Exam - Vital signs Vitals: Temp Pulse Resp BP Pulse Ox 97.7 F 101 H 16 134/71 H 97 03/15/19 15:50 03/15/19 15:50 03/15/19 15:50 03/15/19 15:50 03/15/19 15:50 Course - Vital Signs Vital signs: Temp Pulse Resp BP Pulse Ox 97.7 F 101 H 16 134/71 H 97 03/15/19 15:50 03/15/19 15:50 03/15/19 15:50 03/15/19 15:50 03/15/19 15:50 Doctor's Discharge - Discharge Referrals: MICHAEL SCHULZ MD [Primary Care Provider] - Follow up as needed
[2019-03-15 16:50] LABS: ABSOLUTE BASOPHILS # (AUTO) 0.1 10^3/uL (0.0-0.2); ABSOLUTE EOSINOPHILS # (AUTO) 0.2 10^3/uL (0.0-0.6); ABSOLUTE LYMPHOCYTES (AUTO) 2.6 10^3/uL (0.5-4.7); ABSOLUTE MONOCYTES (AUTO) 0.6 10^3/uL (0.1-1.4); ABSOLUTE NEUT (AUTO) 7.7 10^3/uL (1.7-8.2); BASOPHILS % (AUTO) 0.8 % (0-2); EOSINOPHILS % (AUTO) 2.2 % (0-6); HEMATOCRIT 37.9 % (36.0-47.0); HEMOGLOBIN 12.2 g/dL (12.0-15.5); LYMPHOCYTES % (AUTO) 23.4 % (13-45); MEAN CORPUSCULAR HEMOGLOBIN 25.5 pg (27.0-33.4); MEAN CORPUSCULAR HGB CONC 32.3 g/dL (32.0-36.0); MEAN CORPUSCULAR VOLUME 79 fl (80-97); MONOCYTES % (AUTO) 5.6 % (3-13); PLATELET COUNT 314 10^3/uL (150-450); RED BLOOD COUNT 4.79 10^6/uL (3.72-5.28); RED CELL DISTRIBUTION WIDTH 15.5 % (11.5-14.0); TOTAL CELLS COUNTED % (AUTO) 100 %; WHITE BLOOD COUNT 11.3 10^3/uL (4.0-10.5)
[2019-03-15 17:09] LABS: ALANINE AMINOTRANSFERASE 21 U/L (9-52); ALBUMIN 4.1 g/dL (3.5-5.0); ALKALINE PHOSPHATASE 100 U/L (38-126); ANION GAP 11 (5-19); ASPARTATE AMINO TRANSFERASE 26 U/L (14-36); BILIRUBIN,DIRECT 0.2 mg/dL (0.0-0.4); BILIRUBIN,TOTAL 0.3 mg/dL (0.2-1.3); BLOOD UREA NITROGEN 14 mg/dL (7-20); CALCIUM 9.5 mg/dL (8.4-10.2); CARBON DIOXIDE 30 mmol/L (22-30); CHLORIDE 98 mmol/L (98-107); GLUCOSE 99 mg/dL (75-110); POTASSIUM 4.2 mmol/L (3.6-5.0); SODIUM 138.9 mmol/L (137-145); TOTAL PROTEIN 7.4 g/dL (6.3-8.2)
[2019-03-15 17:16] LABS: ACETAMINOPHEN < 10 ug/mL (10-30); ALCOHOL < 10 mg/dL (NONE DETECTED); SALICYLATE < 1.0 mg/dL (2.0-20.0)
[2019-03-15 17:19] LABS: APPEARANCE,URINE SLIGHTLY-CLOUDY; BILIRUBIN,URINE NEGATIVE (NEGATIVE); COLOR,URINE YELLOW; GLUCOSE, URINE NEGATIVE (NEGATIVE); KETONES,URINE NEGATIVE (NEGATIVE); LEUKOCYTE ESTERASE,URINE NEGATIVE (NEGATIVE); NITRITE,URINE NEGATIVE (NEGATIVE); PROTEIN,URINE NEGATIVE (NEGATIVE); URINE SPECIFIC GRAVITY 1.014; UROBILINOGEN,URINE NEGATIVE mg/dL (<2.0)
[2019-03-15 17:32] LABS: URINE AMPHETAMINES SCREEN NEGATIVE; URINE BARBITURATES SCREEN NEGATIVE; URINE BENZODIAZEPINES SCREEN NEGATIVE; URINE COCAINE SCREEN NEGATIVE; URINE MARIJUANA (THC) SCREEN NEGATIVE; URINE METHADONE SCREEN NEGATIVE; URINE PHENCYCLIDINE SCREEN NEGATIVE
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
--- NOTE | 2019-03-15 19:26 | EKG REPORT ---
SEVERITY:- NORMAL ECG - SINUS RHYTHM : Confirmed by: Jayden Michel MD 15-Mar-2019 19:25:04
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
[2019-03-16 11:19] VITALS: BP 139/66
== END 2019-03-16 12:00 | disposition home or self-care (01) ==
LOC: ER 15:41
DX: F31.9 Bipolar disorder, unspecified (principal); R45.4 Irritability and anger; I10 Essential (primary) hypertension; J45.909 Unspecified asthma, uncomplicated; Z91.018 Allergy to other foods; Z87.891 Personal history of nicotine dependence
CPT/HCPCS: 36415; 80053; 80307; 81001; 84703; 85025; 93005; 93010; 99285

== ENCOUNTER 2019-03-25 15:34 | Emergency (ER) | payer MEDICAID, OTHER ==
[2019-03-25] MEDS ORDERED: NORMAL SALINE 1000 ML 1,000 ML IV ONE (15:59)
--- NOTE | 2019-03-25 16:01 | ER Document Report ---
ED Medical Screen (RME) - General Chief Complaint: Vaginal Pain Stated Complaint: BLADDER PAIN Time Seen by Provider: 03/25/19 15:59 Primary Care Provider: MICHAEL SCHULZ MD [Primary Care Provider] - Follow up as needed Mode of Arrival: Ambulatory Information source: Patient Notes: 28-year-old female presented to ED for complaint of pelvic cramping vaginal pain abdominal cramping and having to "push to urinate of her bladder "for the last 2 days. She states she was having some vaginal bleeding but that stopped earlier today. She states she has a history of diabetes type 2 and EMS picked her up from the [facility] eating a cake shake. Patient is alert oriented respirations regular and unlabored speaking in full sentences. She does have a pulse of 115-117. I have greeted and performed a rapid initial assessment of this patient. A comprehensive ED assessment and evaluation of the patient, analysis of test results and completion of medical decision making process will be conducted by an additional ED providers. Dictation of this chart was performed using voice recognition software; therefore, there may be some unintended grammatical errors. TRAVEL OUTSIDE OF THE [place] IN LAST 30 DAYS: No - Related Data Allergies/Adverse Reactions: lemon Allergy (Verified 03/25/19 15:36) brompheniramine maleate [From Dimetapp] Adverse Reaction (Unknown, Verified 03/25/19 15:36) Hyperactivity dextromethorphan HBr [From Dimetapp] Adverse Reaction (Verified 03/25/19 15:36) Hyperactivity phenylpropanolamine HCl [From Dimetapp] Adverse Reaction (Verified 03/25/19 15:36) Hyperactivity pseudoephedrine HCl [From Dimetapp] Adverse Reaction (Verified 03/25/19 15:36) Hyperactivity Past Medical History - Social History Frequency of alcohol use: None Drug Abuse: None Family history: Reviewed & Not Pertinent - Past Medical History Cardiac Medical History: Reports: Hx Hypertension Pulmonary Medical History: Reports: Hx Asthma Neurological Medical History: Reports: Hx Migraine Endocrine Medical History: Reports: Hx Diabetes Mellitus Type 2, Hx Hypothyro idism Renal/ Medical History: Denies: Hx Peritoneal Dialysis GI Medical History: Reports: Hx Gastroesophageal Reflux Disease Musculoskeltal Medical History: Reports Hx Musculoskeletal Trauma Skin Medical History: Reports Hx Eczema Psychiatric Medical History: Reports: Hx Bipolar Disorder, Hx Depression, Hx Schizoaffective Disorder, Hx Schizophrenia Traumatic Medical History: Reports: Hx Fractures - left ankle,arm - Immunizations Immunizations up to date: No Hx Diphtheria, Pertussis, Tetanus Vaccination: No Physical Exam - Vital signs Vitals: Temp Pulse Resp BP Pulse Ox 97.5 F 115 H 16 136/72 H 97 03/25/19 15:38 03/25/19 15:38 03/25/19 15:38 03/25/19 15:38 03/25/19 15:38 Course - Vital Signs Vital signs: Temp Pulse Resp BP Pulse Ox 97.5 F 115 H 16 136/72 H 97 03/25/19 15:38 03/25/19 15:38 03/25/19 15:38 03/25/19 15:38 03/25/19 15:38 Doctor's Discharge - Discharge Referrals: MICHAEL SCHULZ MD [Primary Care Provider] - Follow up as needed
[2019-03-25 16:26] LABS: ABSOLUTE BASOPHILS # (AUTO) 0.1 10^3/uL (0.0-0.2); ABSOLUTE EOSINOPHILS # (AUTO) 0.3 10^3/uL (0.0-0.6); ABSOLUTE LYMPHOCYTES (AUTO) 2.6 10^3/uL (0.5-4.7); ABSOLUTE MONOCYTES (AUTO) 0.7 10^3/uL (0.1-1.4); BASOPHILS % (AUTO) 0.6 % (0-2); EOSINOPHILS % (AUTO) 2.5 % (0-6); HEMATOCRIT 38.7 % (36.0-47.0); HEMOGLOBIN 12.7 g/dL (12.0-15.5); LYMPHOCYTES % (AUTO) 22.5 % (13-45); MEAN CORPUSCULAR HEMOGLOBIN 25.8 pg (27.0-33.4); MEAN CORPUSCULAR HGB CONC 32.9 g/dL (32.0-36.0); MEAN CORPUSCULAR VOLUME 78 fl (80-97); MONOCYTES % (AUTO) 6.1 % (3-13); PLATELET COUNT 300 10^3/uL (150-450); RED BLOOD COUNT 4.94 10^6/uL (3.72-5.28); RED CELL DISTRIBUTION WIDTH 15.4 % (11.5-14.0); SEGMENTED NEUTROPHILS % (AUTO) 68.3 % (42-78); TOTAL CELLS COUNTED % (AUTO) 100 %; WHITE BLOOD COUNT 11.7 10^3/uL (4.0-10.5)
[2019-03-25 16:32] LABS: APPEARANCE,URINE SLIGHTLY-CLOUDY; BILIRUBIN,URINE NEGATIVE (NEGATIVE); COLOR,URINE YELLOW; GLUCOSE, URINE NEGATIVE (NEGATIVE); KETONES,URINE NEGATIVE (NEGATIVE); LEUKOCYTE ESTERASE,URINE NEGATIVE (NEGATIVE); NITRITE,URINE NEGATIVE (NEGATIVE); PROTEIN,URINE NEGATIVE (NEGATIVE); URINE SPECIFIC GRAVITY 1.029; UROBILINOGEN,URINE NEGATIVE mg/dL (<2.0)
[2019-03-25 16:43] LABS: ALANINE AMINOTRANSFERASE 23 U/L (9-52); ALBUMIN 4.2 g/dL (3.5-5.0); ALKALINE PHOSPHATASE 99 U/L (38-126); ANION GAP 10 (5-19); ASPARTATE AMINO TRANSFERASE 25 U/L (14-36); BILIRUBIN,DIRECT 0.2 mg/dL (0.0-0.4); BILIRUBIN,TOTAL 0.2 mg/dL (0.2-1.3); BLOOD UREA NITROGEN 16 mg/dL (7-20); CALCIUM 9.7 mg/dL (8.4-10.2); CARBON DIOXIDE 30 mmol/L (22-30); CHLORIDE 99 mmol/L (98-107); GLUCOSE 130 mg/dL (75-110); POTASSIUM 4.1 mmol/L (3.6-5.0); SODIUM 139.2 mmol/L (137-145); TOTAL PROTEIN 7.7 g/dL (6.3-8.2)
[2019-03-25 16:49] LABS: URINE AMPHETAMINES SCREEN NEGATIVE; URINE BARBITURATES SCREEN NEGATIVE; URINE BENZODIAZEPINES SCREEN NEGATIVE; URINE COCAINE SCREEN NEGATIVE; URINE MARIJUANA (THC) SCREEN NEGATIVE; URINE METHADONE SCREEN NEGATIVE; URINE PHENCYCLIDINE SCREEN NEGATIVE
--- NOTE | 2019-03-25 18:16 | ER Document Report ---
ED GI/ - General Chief Complaint: Vaginal Pain Stated Complaint: BLADDER PAIN Time Seen by Provider: 03/25/19 15:59 Primary Care Provider: MICHAEL SCHULZ MD [Primary Care Provider] - Follow up as needed Mode of Arrival: Ambulatory Information source: Patient Notes: Patient presents complaining of lower pelvic cramping with spotting for the past 2 days. Patient complains of difficulty voiding although has been able to void twice today without problems. Patient does complain of sore throat as well. TRAVEL OUTSIDE OF THE [place] IN LAST 30 DAYS: No - HPI Patient complains to provider of: Vaginal bleeding, Other - Vaginal spotting Timing/Duration: Gradual Quality of pain: Cramping Pain Level: 2 Location: Pelvis, Vaginal Vaginal bleeding (Compared to normal period): Spotting Associated symptoms: Urinary hesitancy. denies: Nausea, Vomiting Exacerbated by: Denies Relieved by: Denies Similar symptoms previously: No Recently seen / treated by doctor: No - Related Data Allergies/Adverse Reactions: lemon Allergy (Verified 03/25/19 15:36) brompheniramine maleate [From Dimetapp] Adverse Reaction (Unknown, Verified 03/25/19 15:36) Hyperactivity dextromethorphan HBr [From Dimetapp] Adverse Reaction (Verified 03/25/19 15:36) Hyperactivity phenylpropanolamine HCl [From Dimetapp] Adverse Reaction (Verified 03/25/19 15:36) Hyperactivity pseudoephedrine HCl [From Dimetapp] Adverse Reaction (Verified 03/25/19 15:36) Hyperactivity Past Medical History - General Information source: Patient - Social History Smoking Status: Never Smoker Frequency of alcohol use: None Drug Abuse: None Occupation: None Lives with: Other - [facility] Family History: Arthritis, CAD, DM, Hyperlipidemia, Hypertension, Thyroid Disfunction Patient has suicidal ideation: No Patient has homicidal ideation: No - Past Medical History Cardiac Medical History: Reports: Hx Hypertension Pulmonary Medical History: Reports: Hx Asthma Neurological Medical History: Reports: Hx Migraine Endocrine Medical History: Reports: Hx Diabetes Mellitus Type 2, Hx Hypothyroidism Renal/ Medical History: Denies: Hx Peritoneal Dialysis GI Medical History: Reports: Hx Gastroesophageal Reflux Disease Musculoskeletal Medical History: Reports Hx Musculoskeletal Trauma Skin Medical History: Reports Hx Eczema Psychiatric Medical History: Reports: Hx Bipolar Disorder, Hx Depression, Hx Schizoaffective Disorder, Hx Schizophrenia Traumatic Medical History: Reports: Hx Fractures - left ankle,arm Surgical Hx: Negative - Immunizations Immunizations up to date: No Hx Diphtheria, Pertussis, Tetanus Vaccination: No Review of Systems - Review of Systems Constitutional: No symptoms reported. denies: Fever EENT: Throat pain Cardiovascular: No symptoms reported. denies: Chest pain Respiratory: No symptoms reported. denies: Cough, Short of breath Gastrointestinal: Abdominal pain. denies: Vomiting Genitourinary: Other Female Genitourinary: No symptoms reported Musculoskeletal: No symptoms reported Skin: No symptoms reported Hematologic/Lymphatic: No symptoms reported Neurological/Psychological: No symptoms reported Physical Exam - Vital signs Vitals: Temp Pulse Resp BP Pulse Ox 97.5 F 115 H 16 136/72 H 97 03/25/19 15:38 03/25/19 15:38 03/25/19 15:38 03/25/19 15:38 03/25/19 15:38 - General General appearance: Appears well, Alert In distress: None - HEENT Head: Normocephalic, Atraumatic Eyes: Normal Conjunctiva: Normal Extraocular movements intact: Yes Nasal: Normal Mouth/Lips: Normal Mucous membranes: Dry Pharynx: Normal. No: Erythema, Peritonsillar abscess, Tonsillar hypertrophy Neck: Normal, Supple. No: Lymphadenopathy, Meningismus - Respiratory Respiratory status: No respiratory distress Chest status: Nontender Breath sounds: Normal. No: Rales, Rhonchi, Stridor, Wheezing Chest palpation: Normal - Cardiovascular Rhythm: Tachycardia Heart sounds: S1 appreciated, S2 appreciated Murmur: No - Abdominal Inspection: Morbidly Obese Distension: No distension Bowel sounds: Normal Tenderness: Nontender - Back Back: Normal, Nontender - Extremities General upper extremity: Normal inspection, Normal strength General lower extremity: Normal inspection, Normal strength - Neurological Neuro grossly intact: Yes Cognition: Normal Ariel Coma Scale Eye Opening: Spontaneous Ariel Coma Scale Verbal: Oriented [place] Coma Scale Motor: Obeys Commands Ariel Coma Scale Total: 15 - Psychological Associated symptoms: Normal affect, Normal mood - Skin Skin Temperature: Warm Skin Moisture: Dry Skin Color: Normal Course - Re-evaluation Re-evalutation: 03/25/19 18:16 Patient states she has had difficulty voiding although was able to void without problems while here in the emergency department. Patient states that she has had some spotting as well. Patient offered pelvic examination, but declines. Patient prefers to self swab at this time. 03/25/19 20:08 Patient's wet prep positive for yeast as well as BV. We will treat symptomatically at this time. Patient has been able to void here without difficulty. No concern for UTI at this time. - Vital Signs Vital signs: Temp Pulse Resp BP Pulse Ox 97.7 F 98 20 130/70 H 99 03/25/19 20:25 03/25/19 20:25 03/25/19 20:25 03/25/19 20:25 03/25/19 20:25 - Laboratory Result Diagrams: 03/25/19 16:12 03/25/19 16:12 Laboratory results interpreted by me: 03/25/19 03/25/19 03/25/19 16:12 16:12 16:12 WBC 11.7 H MCV 78 L MCH 25.8 L RDW 15.4 H Glucose 130 H Urine Ascorbic Acid 20 H 03/25/19 20:08 Labs- Entire Visit 03/25/19 03/25/19 03/25/19 16:12 16:12 16:12 WBC 11.7 H RBC 4.94 Hgb 12.7 Hct 38.7 MCV 78 L MCH 25.8 L MCHC 32.9 RDW 15.4 H Plt Count 300 Seg Neutrophils % 68.3 Lymphocytes % 22.5 Monocytes % 6.1 Eosinophils % 2.5 Basophils % 0.6 Absolute Neutrophils 8.0 Absolute Lymphocytes 2.6 Absolute Monocytes 0.7 Absolute Eosinophils 0.3 Absolute Basophils 0.1 Sodium 139.2 Potassium 4.1 Chloride 99 Carbon Dioxide 30 Anion Gap 10 BUN 16 Creatinine 0.66 Est GFR ( Amer) > 60 Est GFR (Non-Af Amer) > 60 Glucose 130 H Calcium 9.7 Total Bilirubin 0.2 Direct Bilirubin 0.2 Neonat Total Bilirubin Not Reportable Neonat Direct Bilirubin Not Reportable Neonat Indirect Bili Not Reportable AST 25 ALT 23 Alkaline Phosphatase 99 Total Protein 7.7 Albumin 4.2 Serum HCG, Qual NEGATIVE Urine Color Urine Appearance Urine pH Ur Specific [place] Urine Protein Urine Glucose (UA) Urine Ketones Urine Blood Urine Nitrite Urine Bilirubin Urine Urobilinogen Ur Leukocyte Esterase Urine WBC (Auto) Urine RBC (Auto) Urine Bacteria (Auto) Squamous Epi Cells Auto Urine Mucus (Auto) Urine Ascorbic Acid Epi Cells (Wet Prep) Bacteria (Wet Prep) Trichomonas (Wet Prep) Vaginal WBC Vaginal Yeast Urine Opiates Screen Urine Methadone Screen Ur Barbiturates Screen Ur Phencyclidine Scrn Ur Amphetamines Screen U Benzodiazepines Scrn Urine Cocaine Screen U Marijuana (THC) Screen Group A Strep Rapid 03/25/19 03/25/19 03/25/19 16:12 16:12 18:40 WBC RBC Hgb Hct MCV MCH MCHC RDW Plt Count Seg Neutrophils % Lymphocytes % Monocytes % Eosinophils % Basophils % Absolute Neutrophils Absolute Lymphocytes Absolute Monocytes Absolute Eosinophils Absolute Basophils Sodium Potassium Chloride Carbon Dioxide Anion Gap BUN Creatinine Est GFR ( Amer) Est GFR (Non-Af Amer) Glucose Calcium Total Bilirubin Direct Bilirubin Neonat Total Bilirubin Neonat Direct Bilirubin Neonat Indirect Bili AST ALT Alkaline Phosphatase Total Protein Albumin Serum HCG, Qual Urine Color YELLOW Urine Appearance SLIGHTLY-CLOUDY Urine pH 5.0 Ur Specific [place] 1.029 Urine Protein NEGATIVE Urine Glucose (UA) NEGATIVE Urine Ketones NEGATIVE Urine Blood NEGATIVE Urine Nitrite NEGATIVE Urine Bilirubin NEGATIVE Urine Urobilinogen NEGATIVE Ur Leukocyte Esterase NEGATIVE Urine WBC (Auto) 1 Urine RBC (Auto) 1 Urine Bacteria (Auto) TRACE Squamous Epi Cells Auto 5 Urine Mucus (Auto) FEW Urine Ascorbic Acid 20 H Epi Cells (Wet Prep) Bacteria (Wet Prep) Trichomonas (Wet Prep) Vaginal WBC Vaginal Yeast Urine Opiates Screen NEGATIVE Urine Methadone Screen NEGATIVE Ur Barbiturates Screen NEGATIVE Ur Phencyclidine Scrn NEGATIVE Ur Amphetamines Screen NEGATIVE U Benzodiazepines Scrn NEGATIVE Urine Cocaine Screen NEGATIVE U Marijuana (THC) Screen NEGATIVE Group A Strep Rapid NEGATIVE 03/25/19 18:40 WBC RBC Hgb Hct MCV MCH MCHC RDW Plt Count Seg Neutrophils % Lymphocytes % Monocytes % Eosinophils % Basophils % Absolute Neutrophils Absolute Lymphocytes Absolute Monocytes Absolute Eosinophils Absolute Basophils Sodium Potassium Chloride Carbon Dioxide Anion Gap BUN Creatinine Est GFR ( Amer) Est GFR (Non-Af Amer) Glucose Calcium Total Bilirubin Direct Bilirubin Neonat Total Bilirubin Neonat Direct Bilirubin Neonat Indirect Bili AST ALT Alkaline Phosphatase Total Protein Albumin Serum HCG, Qual Urine Color Urine Appearance Urine pH Ur Specific [place] Urine Protein Urine Glucose (UA) Urine Ketones Urine Blood Urine Nitrite Urine Bilirubin Urine Urobilinogen Ur Leukocyte Esterase Urine WBC (Auto) Urine RBC (Auto) Urine Bacteria (Auto) Squamous Epi Cells Auto Urine Mucus (Auto) Urine Ascorbic Acid Epi Cells (Wet Prep) 3+ EPITHELIALS SEEN Bacteria (Wet Prep) 4+ BACTERIA SEEN Trichomonas (Wet Prep) NO TRICHOMONAS SEEN Vaginal WBC 1+ WBCS SEEN Vaginal Yeast YEAST SEEN Urine Opiates Screen Urine Methadone Screen Ur Barbiturates Screen Ur Phencyclidine Scrn Ur Amphetamines Screen U Benzodiazepines Scrn Urine Cocaine Screen U Marijuana (THC) Screen Group A Strep Rapid Discharge - Discharge Clinical Impression: Yeast vaginitis, Bacterial vaginosis Condition: Stable Disposition: HOME, SELF-CARE Instructions: Metronidazole ([facility]), Vaginal Yeast Infection ([facility]), Vaginosis, Bacterial ([facility]) Additional Instructions: Return immediately for any new or worsening symptoms Followup with your primary care provider, call tomorrow to make a followup appointment Prescriptions: Metronidazole [Flagyl 500 mg Tablet] 500 mg PO BID #14 tablet Referrals: MICHAEL SCHULZ MD [Primary Care Provider] - Follow up as needed
[2019-03-25 19:05] LABS: BACTERIA (WET MOUNT) 4+ BACTERIA SEEN; EPITHELIALS (WET MOUNT) 3+ EPITHELIALS SEEN; T.VAGINALIS (WET MOUNT) NO TRICHOMONAS SEEN; WBCS (WET MOUNT) 1+ WBCS SEEN; YEAST (WET MOUNT) YEAST SEEN
[2019-03-25] MEDS ORDERED: FLUCONAZOLE 100 MG TABLET PO ONE (20:08)
[2019-03-25] MEDS ORDERED: CEFTRIAXONE INJ 250 MG VIAL IV ONE (20:12)
[2019-03-25] MEDS ORDERED: AZITHROMYCIN 250 MG TABLET PO ONE (20:12)
[2019-03-25 20:29] VITALS: BP 130/70
[2019-03-25 20:52] LABS: CHLAM PCR NOT DETECTED (NOT DETECT); GON PCR NOT DETECTED (NOT DETECT)
== END 2019-03-25 20:30 | disposition home or self-care (01) ==
LOC: ER 15:34
DX: N76.0 Acute vaginitis (principal); B96.89 Other specified bacterial agents as the cause of diseases classified elsewhere; B37.3 Candidiasis of vulva and vagina; R10.2 Pelvic and perineal pain; R33.9 Retention of urine, unspecified; J02.9 Acute pharyngitis, unspecified; I10 Essential (primary) hypertension; J45.909 Unspecified asthma, uncomplicated; E11.9 Type 2 diabetes mellitus without complications
CPT/HCPCS: 99283; 36415; 87070; 87086; 87210; 87880; 84703; 85025; 80053; 81001; 80307; 87491; 87591; Q0144; J7030; J0696; J3490

== ENCOUNTER 2019-04-08 15:39 | Emergency (ER) | payer MEDICAID ==
--- NOTE | 2019-04-08 18:17 | ER Document Report ---
ED GI/ - General Chief Complaint: Diarrhea Stated Complaint: DIARRHEA Time Seen by Provider: 04/08/19 18:11 Primary Care Provider: MICHAEL SCHULZ MD [Primary Care Provider] - Follow up as needed Mode of Arrival: Ambulatory Information source: Patient Notes: 28-year-old female presented to ED for complaint of worms in her poop. 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 Patient is alert oriented respirations regular and unlabored walking with a even steady gait. She is in no acute distress. TRAVEL OUTSIDE OF THE [place] IN LAST 30 DAYS: No - HPI Patient complains to provider of: Diarrhea, Other Onset: This morning Timing/Duration: Intermittent Quality of pain: No pain Severity at maximum: Mild Severity in ED: None Pain Level: Denies Vaginal bleeding (Compared to normal period): None Associated symptoms: Diarrhea, Other Exacerbated by: Denies Relieved by: Denies Similar symptoms previously: Yes Recently seen / treated by doctor: No - Related Data Allergies/Adverse Reactions: lemon Allergy (Verified 04/08/19 15:41) brompheniramine maleate [From Dimetapp] Adverse Reaction (Unknown, Verified 04/08/19 15:41) Hyperactivity dextromethorphan HBr [From Dimetapp] Adverse Reaction (Verified 04/08/19 15:41) Hyperactivity phenylpropanolamine HCl [From Dimetapp] Adverse Reaction (Verified 04/08/19 15:41) Hyperactivity pseudoephedrine HCl [From Dimetapp] Adverse Reaction (Verified 04/08/19 15:41) Hyperactivity Past Medical History - General Information source: Patient - Social History Smoking Status: Never Smoker Chew tobacco use (# tins/day): No Frequency of alcohol use: None Drug Abuse: None Lives with: Other - long term Family History: Arthritis, CAD, DM, Hyperlipidemia, Hypertension, Thyroid Disfunction Patient has suicidal ideation: No Patient has homicidal ideation: No - Past Medical History Cardiac Medical History: Reports: Hx Hypertension Pulmonary Medical History: Reports: Hx Asthma EENT Medical History: Reports: None Neurological Medical History: Reports: Hx Migraine Endocrine Medical History: Reports: Hx Diabetes Mellitus Type 2, Hx Hypo thyroidism Renal/ Medical History: Reports: None Malignancy Medical History: Reports: None GI Medical History: Reports: Hx Gastroesophageal Reflux Disease Musculoskeletal Medical History: Reports Hx Musculoskeletal Trauma Skin Medical History: Reports Hx Eczema Psychiatric Medical History: Reports: Hx Bipolar Disorder, Hx Depression, Hx Schizoaffective Disorder, Hx Schizophrenia Traumatic Medical History: Reports: Hx Fractures - left ankle,arm Surgical Hx: Negative Past Surgical History: Reports: None - Immunizations Immunizations up to date: No Hx Diphtheria, Pertussis, Tetanus Vaccination: No Review of Systems - Review of Systems Constitutional: No symptoms reported EENT: No symptoms reported Cardiovascular: No symptoms reported Respiratory: No symptoms reported Gastrointestinal: Diarrhea, Other - Pinworms Genitourinary: No symptoms reported Female Genitourinary: No symptoms reported Musculoskeletal: No symptoms reported Skin: No symptoms reported Hematologic/Lymphatic: No symptoms reported Neurological/Psychological: No symptoms reported Physical Exam - Vital signs Vitals: Temp Pulse Resp BP Pulse Ox 98.2 F 107 H 16 138/79 H 97 04/08/19 15:54 04/08/19 15:54 04/08/19 15:54 04/08/19 15:54 04/08/19 15:54 Interpretation: Normal - General General appearance: Appears well, Alert - HEENT Head: Normocephalic, Atraumatic Eyes: Normal Pupils: PERRL - Respiratory Respiratory status: No respiratory distress Chest status: Nontender Breath sounds: Normal Chest palpation: Normal - Cardiovascular Rhythm: Regular Heart sounds: Normal auscultation Murmur: No - Abdominal Inspection: Normal Distension: No distension Bowel sounds: Normal Tenderness: Nontender. No: Tender Organomegaly: No organomegaly - Back Back: Normal, Nontender - Extremities General upper extremity: Normal inspection, Nontender, Normal color, Normal ROM, Normal temperature General lower extremity: Normal inspection, Nontender, Normal color, Normal ROM, Normal temperature, Normal weight bearing. No: Wilian's sign - Neurological Neuro grossly intact: Yes Cognition: Normal Orientation: AAOx4 [place] Coma Scale Eye Opening: Spontaneous Ariel Coma Scale Verbal: Oriented Ariel Coma Scale Motor: Obeys Commands Ariel Coma Scale Total: 15 Speech: Normal Motor strength normal: LUE, RUE, LLE, RLE Sensory: Normal - Psychological Associated symptoms: Normal affect, Normal mood - Skin Skin Temperature: Warm Skin Moisture: Dry Skin Color: Normal Location of irregularity: Extremities - Very tiny small open scratch to the left great toe the patient had any clean apply bacitracin and a Band-Aid. There is no signs of infection she hit her toe on something. Course - Re-evaluation Re-evalutation: 04/08/19 19:57 Patient has had no stools since she has been in the emergency room. Her urine was negative for any types of infection. Since she states she did see worms in her stool I have given her a prescription for the mebendazole for pinworms. She has been given instructions concerning treatment for diarrhea increase fluid in take and to follow-up with her primary doctor. Patient was able to verbalize understanding and agreement with treatment plan and patient was discharged home. - Vital Signs Vital signs: Temp Pulse Resp BP Pulse Ox 98.2 F 107 H 16 138/79 H 97 04/08/19 15:54 04/08/19 15:54 04/08/19 15:54 04/08/19 15:54 04/08/19 15:54 - Laboratory Laboratory results interpreted by me: 04/08/19 18:32 Ur Leukocyte Esterase TRACE H Discharge - Discharge Clinical Impression: Pinworms Diarrhea Qualifiers: Diarrhea type: unspecified type Qualified Code(s): R19.7 - Diarrhea, unspecified Condition: Stable Disposition: HOME, SELF-CARE Instructions: Intestinal Parasites - Pinworms ([facility]) Additional Instructions: Diarrhea Diarrhea means frequent, watery stools. There are many causes. Any problem that keeps the intestinal tract from absorbing water from the stool can lead to diarrhea. A sudden new diarrhea problem is usually caused by a virus, food sensitivity, toxic bacteria, or drugs. In this case, we expect the problem to go away soon. Testing is done only if you seem seriously ill from the diarrhea. If you have chronic diarrhea, or diarrhea that keeps coming back, we need to find out why. Chronic diarrhea can be due to inflammation of the bowels such as Crohn's disease or ulcerative colitis, food sensitivity such as intolerance to lactose or wheat protein, irritable bowel syndrome, and other problems. If your diarrhea is a significant problem but it's not clear why you have it, we'll refer you to a specialist for further testing. During an episode of diarrhea, drink small amounts (two to six ounces) of clear liquids (soft drinks, sport drinks, herb teas, broth, etc). Take fluids frequently to prevent dehydration. It's usually not a problem to take mild anti- diarrhea medication such as Kaopectate or Pepto-Bismol. As the diarrhea eases, advance to small amounts of bland food (mashed potato, toast) for 24 hours. Call the physician if blood appears in your vomit or stool, if vomiting lasts longer than 24 hours, if the abdominal pain worsens or becomes localized to one area, if you develop high fever, or if you become lightheaded and weak. FOLLOW-UP CARE: If you have been referred to a physician for follow-up care, call the physicians office for an appointment as you were instructed or within the next two days. If you experience worsening or a significant change in your symptoms, notify the physician immediately or return to the Emergency Department at any time for re-evaluation. Prescriptions: Mebendazole [Emverm] 100 mg PO ONCE PRN #1 tab.chew PRN Reason: Forms: Elevated Blood Pressure Referrals: MICHAEL SCHULZ MD [Primary Care Provider] - Follow up in 3-5 days
[2019-04-08 19:02] LABS: APPEARANCE,URINE CLOUDY; BILIRUBIN,URINE NEGATIVE (NEGATIVE); COLOR,URINE YELLOW; GLUCOSE, URINE NEGATIVE (NEGATIVE); KETONES,URINE NEGATIVE (NEGATIVE); LEUKOCYTE ESTERASE,URINE TRACE (NEGATIVE); NITRITE,URINE NEGATIVE (NEGATIVE); PROTEIN,URINE NEGATIVE (NEGATIVE); URINE SPECIFIC GRAVITY 1.025; UROBILINOGEN,URINE NEGATIVE mg/dL (<2.0)
[2019-04-08 20:24] VITALS: BP 124/82
== END 2019-04-08 19:59 | disposition home or self-care (01) ==
LOC: ER 15:39
DX: B80 Enterobiasis (principal); R19.7 Diarrhea, unspecified; S90.412A Abrasion, left great toe, initial encounter; X58.XXXA Exposure to other specified factors, initial encounter; I10 Essential (primary) hypertension; J45.909 Unspecified asthma, uncomplicated; E11.9 Type 2 diabetes mellitus without complications; Z91.018 Allergy to other foods
CPT/HCPCS: 81001; 81025; 99284

== ENCOUNTER 2019-04-12 09:30 | Emergency (ER) | payer MEDICAID ==
[2019-04-12] MEDS ORDERED: IBUPROFEN 800 MG TABLET PO ONE (09:59)
--- NOTE | 2019-04-12 10:33 | ER Document Report ---
HPI - HPI Patient complains to provider of: left foot ankle pain Time Seen by Provider: 04/12/19 09:55 Onset: Yesterday Pain Level: 3 Context: Patient presents emergency department with left foot pain. Reports she tripped over a laundry basket last night. She complains of pain with walking. No past medical history of injury to the foot. Associated Symptoms: None Exacerbated by: Movement Relieved by: Denies Similar symptoms previously: No Recently seen / treated by doctor: No - REPRODUCTIVE Reproductive: DENIES: : - MUSCULOSKELETAL Musculoskeletal: REPORTS: Extremity pain - left foot Past Medical History - General Information source: Patient Last Menstrual Period: na - Social History Smoking Status: Never Smoker Cigarette use (# per day): No Frequency of alcohol use: None Drug Abuse: None Lives with: Other - [facility] Family History: Arthritis, CAD, DM, Hyperlipidemia, Hypertension, Thyroid Disfunction Patient has suicidal ideation: No Patient has homicidal ideation: No - Past Medical History Cardiac Medical History: Reports: Hx Hypertension Pulmonary Medical History: Reports: Hx Asthma Neurological Medical History: Reports: Hx Migraine Endocrine Medical History: Reports: Hx Diabetes Mellitus Type 2, Hx Hypothyroidism Renal/ Medical History: Denies: Hx Peritoneal Dialysis GI Medical History: Reports: Hx Gastroesophageal Reflux Disease Musculoskeletal Medical History: Reports Hx Musculoskeletal Trauma Skin Medical History: Reports Hx Eczema Psychiatric Medical History: Reports: Hx Bipolar Disorder, Hx Depression, Hx Schizoaffective Disorder, Hx Schizophrenia Traumatic Medical History: Reports: Hx Fractures - left ankle,arm - Immunizations Immunizations up to date: No Hx Diphtheria, Pertussis, Tetanus Vaccination: No Vertical Provider Document - CONSTITUTIONAL Agree With Documented VS: Yes Exam Limitations: No Limitations General Appearance: WD/WN - INFECTION CONTROL TRAVEL OUTSIDE OF THE [place] IN LAST 30 DAYS: No - HEENT HEENT: Atraumatic - NECK Neck: Supple - RESPIRATORY Respiratory: No Respiratory Distress - MUSCULOSKELETAL/EXTREMETIES Musculoskeletal/Extremeties: MAEW, FROM, Tender - Complains of left lateral foot pain no obvious deformity no swelling no erythema no warmth good cap refill good pedal pulse - NEURO Level of Consciousness: Awake, Alert - DERM Integumentary: Warm, Dry Adult Front & Back Diagram: 1 - Patient complains of pain with palpation Course - Re-evaluation Re-evalutation: 04/12/19 14:09 And has fractured fifth metatarsal. She was given a copy of the picture of the x-ray. She was also instructed on splint x-ray crutches and importance of follow-up with orthopedics. She verbalized understanding. Dictation of this chart was performed using voice recognition software; therefore, there may be some unintended grammatical errors. - Vital Signs Vital signs: Temp Pulse Resp BP Pulse Ox 98.0 F 103 H 16 125/77 98 04/12/19 09:38 04/12/19 09:38 04/12/19 09:38 04/12/19 09:38 04/12/19 09:38 - Diagnostic Test Radiology reviewed: Image reviewed, Reports reviewed - EXAM DESCRIPTION: FOOT LEFT COMPLETE COMPLETED DATE/TIME: 04/12/2019 10:25 am REASON FOR STUDY: tripped, pain COMPARISON: None. NUMBER OF VIEWS: Three views. TECHNIQUE: AP, lateral and oblique radiographic images acquired of the left foot. LIMITATIONS: None. FINDINGS: MINERALIZATION: Normal. BONES: Nondisplaced oblique fracture of the 5th metatarsal diaphysis. JOINTS: No effusions. SOFT TISSUES: No soft tissue swelling. No foreign body. OTHER: No other significant finding. IMPRESSION: 5th metatarsal fracture. Procedures - Immobilization Left Foot Immobilizer type: Posterior ankle Performed by: PCT Post-Proc Neuro Vasc Exam: Unchanged from pre-exam Discharge - Discharge Clinical Impression: Left foot pain Fracture of 5th metatarsal Qualifiers: Encounter type: initial encounter Fracture type: closed Fracture alignment: nondisplaced Laterality: left Qualified Code(s): S92.355A - Nondisplaced fracture of fifth metatarsal bone, left foot, initial encounter for closed fracture Condition: Stable Disposition: HOME, SELF-CARE Instructions: Stephane Wrap ([facility]), Foot Fracture ([facility]), Use of [id number] Ibuprofen ([facility]), Ice & Elevation ([facility]) Additional Instructions: *You have been evaluated for an foot injury. Fifth metatarsal fracture *Rest/Ice/Elevate your foot *Maintain the splint *Use your crutches *Follow up with orthopedics within one week *Take ibuprofen as indicated for pain *Return to ED for worsening condition, changes, needs Referrals: MICHAEL SCHULZ MD [Primary Care Provider] - Follow up in 3-5 days [facility] [Provider Group] - Follow up in 3-5 days
--- NOTE | 2019-04-12 10:39 | RADIOLOGY REPORT (SQ) ---
EXAM DESCRIPTION: FOOT LEFT COMPLETE COMPLETED DATE/TIME: 04/12/2019 10:25 am REASON FOR STUDY: tripped, pain COMPARISON: None. NUMBER OF VIEWS: Three views. TECHNIQUE: AP, lateral and oblique radiographic images acquired of the left foot. LIMITATIONS: None. FINDINGS: MINERALIZATION: Normal. BONES: Nondisplaced oblique fracture of the 5th metatarsal diaphysis. JOINTS: No effusions. SOFT TISSUES: No soft tissue swelling. No foreign body. OTHER: No other significant finding. IMPRESSION: 5th metatarsal fracture. TECHNICAL DOCUMENTATION: JOB ID: [id number] [employer]- All Rights Reserved Reading location - IP/workstation name: [email or web address]
[2019-04-12 11:15] VITALS: BP 119/78
== END 2019-04-12 11:10 | disposition home or self-care (01) ==
LOC: ER 09:30
DX: S92.355A Nondisplaced fracture of fifth metatarsal bone, left foot, initial encounter for closed fracture (principal); M25.572 Pain in left ankle and joints of left foot; W01.0XXA Fall on same level from slipping, tripping and stumbling without subsequent striking against object, initial encounter; I10 Essential (primary) hypertension
CPT/HCPCS: 99283; 73630; 29515; J3490

== ENCOUNTER 2019-05-24 18:46 | Emergency (ER) | payer MEDICAID ==
[2019-05-24] MEDS ORDERED: IBUPROFEN 800 MG TABLET PO ONE (22:09)
--- NOTE | 2019-05-24 22:15 | ER Document Report ---
ED Extremity Problem, Lower - General Chief Complaint: Toe Injury Stated Complaint: TOE PAIN Time Seen by Provider: 05/24/19 21:55 Primary Care Provider: MICHAEL SCHULZ MD [Primary Care Provider] - Follow up as needed Mode of Arrival: Wheelchair Information source: Patient Notes: 28-year-old female presented to ED for continued pain to her right foot. She st ates she injured her foot in April and came to the emergency room had an x-ray. The x-ray did showed a 5th metatarsal fracture at that time.. She states she followed up with podiatry and they told her she may need surgery. She was supposed to return to the doctor with her grandmother as she lives in a intermediate. She states she has not followed up with the medical appliance maker but she tripped today and is reinjured this foot. She came to the emergency room because the pain was worse now than it was before. Patient is alert oriented respirations regular and unlabored speaking in full sentences. TRAVEL OUTSIDE OF THE [place] IN LAST 30 DAYS: No - HPI Location: Foot - Left Occurred: Other - Reinjured this afternoon Where: Indoors - Lives in a intermediate Onset/Duration: Persistent Quality of pain: Sharp Severity: Severe Pain Level: 5 Context: Other - trippped Recent injury: Yes Associated symptoms: Painful ambulation Exacerbated by: Movement, Walking Relieved by: Elevation, Ice - Related Data Allergies/Adverse Reactions: lemon Allergy (Verified 04/12/19 10:10) brompheniramine maleate [From Dimetapp] Adverse Reaction (Unknown, Verified 04/12/19 10:10) Hyperactivity dextromethorphan HBr [From Dimetapp] Adverse Reaction (Verified 04/12/19 10:10) Hyperactivity phenylpropanolamine HCl [From Dimetapp] Adverse Reaction (Verified 04/12/19 10:10) Hyperactivity pseudoephedrine HCl [From Dimetapp] Adverse Reaction (Verified 04/12/19 10:10) Hyperactivity Past Medical History - General Information source: Patient - Social History Smoking Status: Never Smoker Chew tobacco use (# tins/day): No Frequency of alcohol use: None Drug Abuse: None Lives with: Other - intermediate Family History: Arthritis, CAD, DM, Hyperlipidemia, Hypertension, Thyroid Disfunction Patient has suicidal ideation: No Patient has homicidal ideation: No - Past Medical History Cardiac Medical History: Reports: Hx Hypertension Pulmonary Medical History: Reports: Hx Asthma EENT Medical History: Reports: None Neurological Medical History: Reports: Hx Migraine Endocrine Medical History: Reports: Hx Diabetes Mellitus Type 2, Hx Hypothyroidism Renal/ Medical History: Reports: None Malignancy Medical History: Reports: None GI Medical History: Reports: Hx Gastroesophageal Reflux Disease Musculoskeletal Medical History: Reports Hx Musculoskeletal Trauma Skin Medical History: Reports Hx Eczema Psychiatric Medical History: Reports: Hx Bipolar Disorder, Hx Depression, Hx Schizoaffective Disorder, Hx Schizophrenia Traumatic Medical History: Reports: Hx Fractures - left ankle,arm Infectious Medical History: Reports: None - Immunizations Immunizations up to date: No Hx Diphtheria, Pertussis, Tetanus Vaccination: No Review of Systems - Review of Systems Constitutional: No symptoms reported EENT: No symptoms reported Cardiovascular: No symptoms reported Respiratory: No symptoms reported Gastrointestinal: No symptoms reported Genitourinary: No symptoms reported Female Genitourinary: No symptoms reported Musculoskeletal: Other - Right great toe pain x-ray he wheelchair in the room Skin: No symptoms reported Hematologic/Lymphatic: No symptoms reported Neurological/Psychological: No symptoms reported -: Yes All other systems reviewed and negative - The toe pain Physical Exam - Vital signs Vitals: Temp Pulse Resp BP Pulse Ox 97.7 F 111 H 20 131/78 H 98 05/24/19 19:51 05/24/19 19:51 05/24/19 19:51 05/24/19 19:51 05/24/19 19:51 Interpretation: Normal - General General appearance: Appears well, Alert - HEENT Head: Normocephalic, Atraumatic Eyes: Normal Pupils: PERRL - Respiratory Respiratory status: No respiratory distress Chest status: Nontender Breath sounds: Normal Chest palpation: Normal - Cardiovascular Rhythm: Regular Heart sounds: Normal auscultation Murmur: No - Abdominal Inspection: Normal Distension: No distension Bowel sounds: Normal Tenderness: Nontender Organomegaly: No organomegaly - Back Back: Normal, Nontender - Extremities General upper extremity: Normal inspection, Nontender, Normal color, Normal ROM, Normal temperature General lower extremity: Normal color, Normal ROM, Normal temperature, Normal weight bearing. No: Wilian's sign Foot: Tender - right great toe - Neurological Neuro grossly intact: Yes Cognition: Normal Orientation: AAOx4 [place] Coma Scale Eye Opening: Spontaneous [place] Coma Scale Verbal: Oriented Ariel Coma Scale Motor: Obeys Commands Ariel Coma Scale Total: 15 Speech: Normal Motor strength normal: LUE, RUE, LLE, RLE Sensory: Normal - Psychological Associated symptoms: Normal affect, Normal mood - Skin Skin Temperature: Warm Skin Moisture: Dry Skin Color: Normal Course - Vital Signs Vital signs: Temp Pulse Resp BP Pulse Ox 97.7 F 86 18 121/89 H 98 05/25/19 02:03 05/25/19 02:03 05/25/19 02:03 05/25/19 02:03 05/25/19 02:03 - Diagnostic Test Radiology reviewed: Image reviewed, Reports reviewed Discharge - Discharge Clinical Impression: Contusion of right great toe without damage to nail Qualifiers: Encounter type: initial encounter Qualified Code(s): S90.111A - Contusion of right great toe without damage to nail, initial encounter Condition: Stable Disposition: HOME, SELF-CARE Additional Instructions: CONTUSION: Your injury has resulted in a contusion -- a crushing of the deep tissues. No injury to important structures was detected during the physician's exam. Contusions vary in the amount of pain they cause, and in the length of time required for healing. Typically, the area will become bruised, and will remain painful to touch for two or three weeks. However, most patients are back to working and playing within a few days. After the initial period of rest and cold-packs, your symptoms (together with the doctor's recommendations) will determine how rapidly you can get back t o full activity. Usually this means "do what feels okay, but don't do things that hurt." If re-examination was recommended, it's important to follow up as instructed. Call the doctor or return any time if pain increases, if swelling becomes severe, if you develop numbness or weakness in an injured extremity, or if any other alarming symptoms occur. USE OF TYLENOL (ACETAMINOPHEN): Acetaminophen may be taken for pain relief or fever control. It's much safer than aspirin, offering a wider range of "safe" dosages. It is safe during . Some brand names are Tylenol, Panadol, Datril, Anacin 3, Tempra, and Liquiprin. Acetaminophen can be repeated every four hours. The following are maximum recommended dosages: WEIGHT Dose Drops Elixir Chewable(80mg) (LBS.) drprs=droppers tsp=teaspoon 6 40 mg 0.4 ml (1/2) 6-11 80 mg 0.8 ml (full) tsp 1 tab 12-16 120 mg 1 1/2 drprs 3/4 tsp 1 1/2 tabs 17-23 160 mg 2 drprs 1 tsp 2 tabs 24-30 240 mg 3 drprs 1 1/2 tsp 3 tabs 30-35 320 mg 2 tsp 4 tabs 36-41 360 mg 2 1/4 tsp 4 1/2 tabs 42-47 400 mg 2 1/2 tsp 5 tabs 48-53 480 mg 3 tsp 6 tabs 54-59 520 mg 3 1/4 tsp 6 1/2 tabs 60-64 560 mg 3 1/2 tsp 7 tabs 65-70 600 mg 3 3/4 tsp 7 1/2 tabs 71-76 640 mg 4 tsp 8 tabs 77-82 720 mg 4 1/2 tsp 9 tabs 83-88 800 mg 5 tsp 10 tabs >89 pounds or adults 650 mg to 900 mg Acetaminophen can be repeated every four hours. Maximum dose not to exceed 4000 mg a day. These maximum recommended dosages are slightly higher than the dosages written on the product container, but these dosages are very safe and below the toxic dosage for acetaminophen. ICE & ELEVATION: Apply ice packs frequently against the painful area. Many different schedules are recommended, such as "20 minutes on, 20 minutes off" or "one hour ice, two hours rest." If you need to work, you may need to go longer between ice treatments. You should plan to have the area ice packed AT LEAST one-fourth of the time. The ice should be applied over the wrap, tape, or splint, or over a layer of cloth -- not directly against the skin. Some ice bags have a built-in cloth and can be put directly on the skin. Your injured part should be elevated as much as possible over the next 48 hours. Try to keep the injury above the level of the heart. Avoid use of the injured area. Elevation and rest will decrease the swelling. USE OF [id number] IBUPROFEN: Ibuprofen (Advil, Nuprin, Medipren, Motrin IB) is a medication for fever and pain control. In addition, it has anti- inflammatory effects which may be beneficial, especially in the treatment of injuries. It's best to take ibuprofen with food. Persons with ulcer disease or allergy to aspirin should notify their physician of this before taking ibuprofen. Ibuprofen can be given every four to six hours, for a total of four doses daily. Age Pain or fever dose Antiinflammatory dose 6-8 yr 200 mg (1 tab) 200 mg (1 tab) 9-11 yr 200 mg (1 tab) 200-400 mg (1-2 tab) 11-14 yr 200-400 mg (1-2 tab) 400 mg (2 tab) 15-adult 400 mg (2 tab) 600 mg (3 tab) FOLLOW-UP CARE: If you have been referred to a physician for follow-up care, call the physicians office for an appointment as you were instructed or within the next two days. If you experience worsening or a significant change in your symptoms, notify the physician immediately or return to the Emergency Department at any time for re-evaluation. Forms: Elevated Blood Pressure Referrals: MICHAEL SCHULZ MD [Primary Care Provider] - Follow up as needed
--- NOTE | 2019-05-24 23:12 | RADIOLOGY REPORT (SQ) ---
EXAM DESCRIPTION: XR RIGHT TOES 2 OR MORE VIEWS COMPLETED DATE/TME: 05/24/2019 22:13 CLINICAL HISTORY: 28 years, Female, pain to right great toe following trauma COMPARISON: None. NUMBER OF VIEWS: TECHNIQUE: LIMITATIONS: None. FINDINGS: No fracture or dislocation. Mineralization of bone appears normal. IMPRESSION: No fracture or dislocation. copyright 2010 [employer]- All Rights Reserved
[2019-05-25 02:05] VITALS: BP 121/89
== END 2019-05-25 02:10 | disposition home or self-care (01) ==
LOC: ER 18:46
DX: S90.111A Contusion of right great toe without damage to nail, initial encounter (principal); M79.671 Pain in right foot; W18.40XA Slipping, tripping and stumbling without falling, unspecified, initial encounter; I10 Essential (primary) hypertension; J45.909 Unspecified asthma, uncomplicated; E11.9 Type 2 diabetes mellitus without complications; Z87.81 Personal history of (healed) traumatic fracture
CPT/HCPCS: 73660; J3490; 99283

== ENCOUNTER 2019-06-09 18:38 | Emergency (ER) | payer MEDICAID ==
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
[2019-06-09 19:55] LABS: APPEARANCE,URINE CLOUDY; BILIRUBIN,URINE NEGATIVE (NEGATIVE); COLOR,URINE AMBER; GLUCOSE, URINE NEGATIVE (NEGATIVE); KETONES,URINE NEGATIVE (NEGATIVE); LEUKOCYTE ESTERASE,URINE SMALL (NEGATIVE); NITRITE,URINE NEGATIVE (NEGATIVE); PROTEIN,URINE 100 mg/dL (NEGATIVE); URINE SPECIFIC GRAVITY 1.028; UROBILINOGEN,URINE NEGATIVE mg/dL (<2.0)
[2019-06-09 20:14] LABS: URINE AMPHETAMINES SCREEN NEGATIVE; URINE BARBITURATES SCREEN NEGATIVE; URINE BENZODIAZEPINES SCREEN NEGATIVE; URINE COCAINE SCREEN NEGATIVE; URINE MARIJUANA (THC) SCREEN NEGATIVE; URINE METHADONE SCREEN NEGATIVE; URINE PHENCYCLIDINE SCREEN NEGATIVE
[2019-06-09 20:16] LABS: ABSOLUTE EOSINOPHILS # (AUTO) 0.2 10^3/uL (0.0-0.6); ABSOLUTE MONOCYTES (AUTO) 0.7 10^3/uL (0.1-1.4); ABSOLUTE NEUT (AUTO) 6.8 10^3/uL (1.7-8.2); BASOPHILS % (AUTO) 0.4 % (0-2); EOSINOPHILS % (AUTO) 1.9 % (0-6); HEMATOCRIT 36.4 % (36.0-47.0); HEMOGLOBIN 12.2 g/dL (12.0-15.5); LYMPHOCYTES % (AUTO) 28.2 % (13-45); MEAN CORPUSCULAR HEMOGLOBIN 26.5 pg (27.0-33.4); MEAN CORPUSCULAR HGB CONC 33.7 g/dL (32.0-36.0); MEAN CORPUSCULAR VOLUME 79 fl (80-97); MONOCYTES % (AUTO) 6.2 % (3-13); PLATELET COUNT 282 10^3/uL (150-450); RED BLOOD COUNT 4.62 10^6/uL (3.72-5.28); RED CELL DISTRIBUTION WIDTH 15.6 % (11.5-14.0); SEGMENTED NEUTROPHILS % (AUTO) 63.3 % (42-78); TOTAL CELLS COUNTED % (AUTO) 100 %; WHITE BLOOD COUNT 10.7 10^3/uL (4.0-10.5)
[2019-06-09 20:42] LABS: ALBUMIN 3.9 g/dL (3.5-5.0); ALKALINE PHOSPHATASE 83 U/L (38-126); ANION GAP 10 (5-19); ASPARTATE AMINO TRANSFERASE 25 U/L (14-36); BILIRUBIN,DIRECT 0.2 mg/dL (0.0-0.4); BILIRUBIN,TOTAL 0.3 mg/dL (0.2-1.3); BLOOD UREA NITROGEN 14 mg/dL (7-20); CALCIUM 9.3 mg/dL (8.4-10.2); CARBON DIOXIDE 29 mmol/L (22-30); CHLORIDE 99 mmol/L (98-107); GLUCOSE 88 mg/dL (75-110); POTASSIUM 3.7 mmol/L (3.6-5.0); TOTAL PROTEIN 6.9 g/dL (6.3-8.2)
[2019-06-09 20:44] LABS: ACETAMINOPHEN < 10 ug/mL (10-30); ALCOHOL < 10 mg/dL (NONE DETECTED); SALICYLATE < 1.0 mg/dL (2.0-20.0)
--- NOTE | 2019-06-10 07:30 | EKG REPORT ---
SEVERITY:- NORMAL ECG - SINUS RHYTHM : Confirmed by: Jayden Michel MD 10-Jun-2019 07:29:19
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
--- NOTE | 2019-06-10 15:53 | ER Document Report ---
Doctor's Note Notes: 06/10/19 15:50 Rounds: Chart reviewed and patient interviewed. Patient is well-known to this physician in this facility. She is known to be of developmental delay. Also has bipolar disorder. She is sleeping when I entered the room. Did awaken enough to say she felt fine. Vital signs are all essentially normal. Lab s tudies were essentially normal. Patient appears to be medically stable for transfer or discharge. Carlton Moreno MD
[2019-06-10 16:16] VITALS: BP 135/86
== END 2019-06-10 16:16 | disposition home or self-care (01) ==
LOC: ER 18:38
DX: R45.851 Suicidal ideations (principal); F41.9 Anxiety disorder, unspecified; R45.4 Irritability and anger; R62.50 Unspecified lack of expected normal physiological development in childhood; Z79.899 Other long term (current) drug therapy; F31.9 Bipolar disorder, unspecified; I10 Essential (primary) hypertension; J45.909 Unspecified asthma, uncomplicated; E11.9 Type 2 diabetes mellitus without complications
CPT/HCPCS: 36415; 80053; 80307; 81001; 85025; 93005; 93010; 99285

== ENCOUNTER 2019-06-23 09:32 | Emergency (ER) | payer MEDICAID ==
--- NOTE | 2019-06-23 11:00 | ER Document Report ---
ED Medical Screen (RME) - General Chief Complaint: Abdominal Pain Stated Complaint: STOMACH PAIN,FOOT PAIN Time Seen by Provider: 06/23/19 10:54 Mode of Arrival: Ambulatory Information source: Patient Notes: 28-year-old female presents emergency department with complaints of abdominal pain after she eats a big meal for the past 3 months. She also complains of vaginal bleeding for the past 6 weeks since she had sex and she is worried she is . Complains of nausea denies vomiting diarrhea. I have greeted and performed a rapid initial assessment of this patient. A comprehensive ED assessment and evaluation of the patient, analysis of test results and completion of the medical decision making process will be conducted by additional ED providers. Dictation of this chart was performed using voice recognition software; therefore, there may be some unintended grammatical errors. TRAVEL OUTSIDE OF THE [place] IN LAST 30 DAYS: No - Related Data Allergies/Adverse Reactions: lemon Allergy (Verified 06/23/19 09:39) brompheniramine maleate [From Dimetapp] Adverse Reaction (Unknown, Verified 06/23/19 09:39) Hyperactivity dextromethorphan HBr [From Dimetapp] Adverse Reaction (Verified 06/23/19 09:39) Hyperactivity phenylpropanolamine HCl [From Dimetapp] Adverse Reaction (Verified 06/23/19 09:39) Hyperactivity pseudoephedrine HCl [From Dimetapp] Adverse Reaction (Verified 06/23/19 09:39) Hyperactivity Past Medical History - Social History Family history: Reviewed & Not Pertinent - Past Medical History Cardiac Medical History: Reports: Hx Hypertension Pulmonary Medical History: Reports: Hx Asthma Neurological Medical History: Reports: Hx Migraine Endocrine Medical History: Reports: Hx Diabetes Mellitus Type 2, Hx Hypo thyroidism Renal/ Medical History: Denies: Hx Peritoneal Dialysis GI Medical History: Reports: Hx Gastroesophageal Reflux Disease Musculoskeltal Medical History: Reports Hx Musculoskeletal Trauma Skin Medical History: Reports Hx Eczema Psychiatric Medical History: Reports: Hx Bipolar Disorder, Hx Depression, Hx Schizoaffective Disorder, Hx Schizophrenia Traumatic Medical History: Reports: Hx Fractures - left ankle,arm - Immunizations Immunizations up to date: No Hx Diphtheria, Pertussis, Tetanus Vaccination: No Physical Exam - Vital signs Vitals: Temp Pulse Resp BP Pulse Ox 97.7 F 90 18 142/83 H 96 06/23/19 09:40 06/23/19 09:40 06/23/19 09:40 06/23/19 09:40 06/23/19 09:40 Course - Vital Signs Vital signs: Temp Pulse Resp BP Pulse Ox 97.7 F 90 18 142/83 H 96 06/23/19 09:40 06/23/19 09:40 06/23/19 09:40 06/23/19 09:40 06/23/19 09:40 - Laboratory Result Diagrams: 06/23/19 10:49 06/23/19 10:49
[2019-06-23 11:02] LABS: ABSOLUTE EOSINOPHILS # (AUTO) 0.2 10^3/uL (0.0-0.6); ABSOLUTE LYMPHOCYTES (AUTO) 1.9 10^3/uL (0.5-4.7); ABSOLUTE MONOCYTES (AUTO) 0.6 10^3/uL (0.1-1.4); ABSOLUTE NEUT (AUTO) 7.4 10^3/uL (1.7-8.2); BASOPHILS % (AUTO) 0.2 % (0-2); EOSINOPHILS % (AUTO) 1.9 % (0-6); HEMATOCRIT 37.5 % (36.0-47.0); HEMOGLOBIN 12.5 g/dL (12.0-15.5); MEAN CORPUSCULAR HEMOGLOBIN 26.3 pg (27.0-33.4); MEAN CORPUSCULAR HGB CONC 33.4 g/dL (32.0-36.0); MEAN CORPUSCULAR VOLUME 79 fl (80-97); MONOCYTES % (AUTO) 5.6 % (3-13); PLATELET COUNT 288 10^3/uL (150-450); RED BLOOD COUNT 4.75 10^6/uL (3.72-5.28); RED CELL DISTRIBUTION WIDTH 15.7 % (11.5-14.0); SEGMENTED NEUTROPHILS % (AUTO) 73.3 % (42-78); TOTAL CELLS COUNTED % (AUTO) 100 %; WHITE BLOOD COUNT 10.1 10^3/uL (4.0-10.5)
[2019-06-23 11:25] LABS: ALBUMIN 3.9 g/dL (3.5-5.0); ALKALINE PHOSPHATASE 99 U/L (38-126); ANION GAP 8 (5-19); ASPARTATE AMINO TRANSFERASE 27 U/L (14-36); BILIRUBIN,DIRECT 0.2 mg/dL (0.0-0.4); BILIRUBIN,TOTAL 0.3 mg/dL (0.2-1.3); BLOOD UREA NITROGEN 14 mg/dL (7-20); CALCIUM 9.4 mg/dL (8.4-10.2); CARBON DIOXIDE 31 mmol/L (22-30); CHLORIDE 99 mmol/L (98-107); GLUCOSE 105 mg/dL (75-110); POTASSIUM 3.5 mmol/L (3.6-5.0)
[2019-06-23 11:37] LABS: APPEARANCE,URINE CLOUDY; BILIRUBIN,URINE NEGATIVE (NEGATIVE); COLOR,URINE YELLOW; GLUCOSE, URINE NEGATIVE (NEGATIVE); KETONES,URINE NEGATIVE (NEGATIVE); LEUKOCYTE ESTERASE,URINE MODERATE (NEGATIVE); NITRITE,URINE NEGATIVE (NEGATIVE); PROTEIN,URINE 30 mg/dL (NEGATIVE); URINE SPECIFIC GRAVITY 1.019; UROBILINOGEN,URINE NEGATIVE mg/dL (<2.0)
--- NOTE | 2019-06-23 13:08 | ER Document Report ---
ED General - General Chief Complaint: Abdominal Pain Stated Complaint: STOMACH PAIN,FOOT PAIN Time Seen by Provider: 06/23/19 10:54 Mode of Arrival: Ambulatory Notes: MICK NOTE: 28-year-old female presents emergency department with complaints of abdominal pain after she eats a big meal for the past 3 months. She also complains of vaginal bleeding for the past 6 weeks since she had sex and she is worried she is . Complains of nausea denies vomiting diarrhea. My HPI: Upon initial assessment by myself patient is sleeping soundly, easily arousable with verbal stimuli. Patient states she no longer has any abdominal pain. Patient is wishing to be discharged from the hospital. States she has an appointment with [facility] on the of this month in regards to her vaginal bleeding. I have offered the patient a pelvic exam and she wishes to decline. Patient voices no vaginal discharge prior to the bleeding. States she has gone through 1 pad a day over the last few weeks. Patient's denying any dysuria or previous vaginal discharge. Patient states she does live at a half-way she is on sure of what medication she takes on a daily basis. Patient is in the emergency department by herself. Patient is conscious alert and oriented x4 in no acute distress. TRAVEL OUTSIDE OF THE [place] IN LAST 30 DAYS: No - Related Data Allergies/Adverse Reactions: lemon Allergy (Verified 06/23/19 09:39) brompheniramine maleate [From Dimetapp] Adverse Reaction (Unknown, Verified 06/23/19 09:39) Hyperactivity dextromethorphan HBr [From Dimetapp] Adverse Reaction (Verified 06/23/19 09:39) Hyperactivity phenylpropanolamine HCl [From Dimetapp] Adverse Reaction (Verified 06/23/19 09:39) Hyperactivity pseudoephedrine HCl [From Dimetapp] Adverse Reaction (Verified 06/23/19 09:39) Hyperactivity Past Medical History - General Information source: Patient - Social History Smoking Status: Unknown if Ever Smoked Family History: Arthritis, CAD, DM, Hyperlipidemia, Hypertension, Thyroid Disfunction Patient has suicidal ideation: No Patient has homicidal ideation: No - Past Medical History Cardiac Medical History: Reports: Hx Hypertension Pulmonary Medical History: Reports: Hx Asthma Neurological Medical History: Reports: Hx Migraine Endocrine Medical History: Reports: Hx Diabetes Mellitus Type 2, Hx Hypothyroidism Renal/ Medical History: Denies: Hx Peritoneal Dialysis GI Medical History: Reports: Hx Gastroesophageal Reflux Disease Musculoskeletal Medical History: Reports Hx Musculoskeletal Trauma Skin Medical History: Reports Hx Eczema Psychiatric Medical History: Reports: Hx Bipolar Disorder, Hx Depression, Hx Schizoaffective Disorder, Hx Schizophrenia Traumatic Medical History: Reports: Hx Fractures - left ankle,arm - Immunizations Immunizations up to date: No Hx Diphtheria, Pertussis, Tetanus Vaccination: No Review of Systems - Review of Systems Constitutional: denies: Fever EENT: No symptoms reported Cardiovascular: No symptoms reported Respiratory: No symptoms reported Gastrointestinal: See HPI Genitourinary: See HPI Female Genitourinary: See HPI Musculoskeletal: No symptoms reported Skin: No symptoms reported Hematologic/Lymphatic: No symptoms reported Neurological/Psychological: No symptoms reported Physical Exam - Vital signs Vitals: Temp Pulse Resp BP Pulse Ox 97.7 F 90 18 142/83 H 96 06/23/19 09:40 06/23/19 09:40 06/23/19 09:40 06/23/19 09:40 06/23/19 09:40 - Notes Notes: GENERAL: Alert, interacts well. No acute distress. HEAD: Normocephalic, atraumatic. EYES: Pupils equal, round, and reactive to light. Extraocular movements intact. ENT: Oral mucosa moist, tongue midline. NECK: Full range of motion. Supple. Trachea midline. LUNGS: Clear to auscultation bilaterally, no wheezes, rales, or rhonchi. No respiratory distress. HEART: Regular rate and rhythm. No murmur ABDOMEN: Morbidly obese, soft, non-tender. Non-distended. Bowel sounds present in all 4 quadrants. EXTREMITIES: Moves all 4 extremities spontaneously. No edema, normal radial and dorsalis pedis pulses bilaterally. No cyanosis. BACK: no cervical, thoracic, lumbar midline tenderness. No saddle anesthesia, normal distal neurovascular exam. No CVA tenderness noted bilaterally. NEUROLOGICAL: Alert and oriented x3. Normal speech. cranial nerves II through XII grossly intact. PSYCH: Normal affect, normal mood. SKIN: Warm, dry, normal turgor. No rashes or lesions noted. Course - Re-evaluation Re-evalutation: 06/23/19 13:05 Laboratory 06/23/19 06/23/19 06/23/19 10:49 10:49 10:49 WBC 10.1 RBC 4.75 Hgb 12.5 Hct 37.5 MCV 79 L MCH 26.3 L MCHC 33.4 RDW 15.7 H Plt Count 288 Lymph % (Auto) 19.0 Dade % (Auto) 5.6 Eos % (Auto) 1.9 Baso % (Auto) 0.2 Absolute Neuts (auto) 7.4 Absolute Lymphs (auto) 1.9 Absolute Monos (auto) 0.6 Absolute Eos (auto) 0.2 Absolute Basos (auto) 0.0 Seg Neutrophils % 73.3 Sodium 138.4 Potassium 3.5 L Chloride 99 Carbon Dioxide 31 H Anion Gap 8 BUN 14 Creatinine 0.69 Est GFR ( Amer) > 60 Est GFR (MDRD) Non-Af > 60 Glucose 105 POC Glucose Calcium 9.4 Total Bilirubin 0.3 Direct Bilirubin 0.2 Neonat Total Bilirubin Not Reportable Neonat Direct Bilirubin Not Reportable Neonat Indirect Bili Not Reportable AST 27 ALT 16 Alkaline Phosphatase 99 Total Protein 7.0 Albumin 3.9 Lipase 98.9 Urine Color Urine Appearance Urine pH Ur Specific [place] Urine Protein Urine Glucose (UA) Urine Ketones Urine Blood Urine Nitrite Urine Bilirubin Urine Urobilinogen Ur Leukocyte Esterase Urine WBC (Auto) Urine RBC (Auto) U Hyaline Cast (Auto) Urine Bacteria (Auto) Squamous Epi Cells Auto Urine Mucus (Auto) Urine Ascorbic Acid Urine HCG, Qual NEGATIVE 06/23/19 06/23/19 10:49 12:44 WBC RBC Hgb Hct MCV MCH MCHC RDW Plt Count Lymph % (Auto) Dade % (Auto) Eos % (Auto) Baso % (Auto) Absolute Neuts (auto) Absolute Lymphs (auto) Absolute Monos (auto) Absolute Eos (auto) Absolute Basos (auto) Seg Neutrophils % Sodium Potassium Chloride Carbon Dioxide Anion Gap BUN Creatinine Est GFR ( Amer) Est GFR (MDRD) Non-Af Glucose POC Glucose 96 Calcium Total Bilirubin Direct Bilirubin Neonat Total Bilirubin Neonat Direct Bilirubin Neonat Indirect Bili AST ALT Alkaline Phosphatase Total Protein Albumin Lipase Urine Color YELLOW Urine Appearance CLOUDY Urine pH 6.0 Ur Specific [place] 1.019 Urine Protein 30 H Urine Glucose (UA) NEGATIVE Urine Ketones NEGATIVE Urine Blood LARGE H Urine Nitrite NEGATIVE Urine Bilirubin NEGATIVE Urine Urobilinogen NEGATIVE Ur Leukocyte Esterase MODERATE H Urine WBC (Auto) 62 Urine RBC (Auto) 4 U Hyaline Cast (Auto) 1 Urine Bacteria (Auto) TRACE Squamous Epi Cells Auto 22 Urine Mucus (Auto) RARE Urine Ascorbic Acid NEGATIVE Urine HCG, Qual Patient's labs show no signs of anemia. Again patient has refused pelvic exam in the emergency room. States she does have an appointment with an [facility] on the of this month. Patient is not tachycardic, not hypotensive, states she is only going through 1 pad a day. Patient's urine does show signs of infection although 22 squamous epithelial cells noted. Sent for culture. Will initially treat with Keflex. Awaiting cultures. Abdominal exam performed by myself reveals no pain in all 4 quadrants. At this time will discharge with return precautions and follow-up recommendations. Verbal discharge instructions given a the bedside and opportunity for questions given. Medication warnings reviewed. Patient is in agreement with this plan and has verbalized understanding of return precautions and the need for primary care follow-up in the next 24-72 hours. This medical record was dictated with voice recognizing software. There may be grammatical, syntax errors that are unintended. - Vital Signs Vital signs: Temp Pulse Resp BP Pulse Ox 97.7 F 90 18 142/83 H 96 06/23/19 09:40 06/23/19 09:40 06/23/19 09:40 06/23/19 09:40 06/23/19 09:40 - Laboratory Result Diagrams: 06/23/19 10:49 06/23/19 10:49 Laboratory results interpreted by me: 06/23/19 06/23/19 06/23/19 10:49 10:49 10:49 MCV 79 L MCH 26.3 L RDW 15.7 H Potassium 3.5 L Carbon Dioxide 31 H Urine Protein 30 H Urine Blood LARGE H Ur Leukocyte Esterase MODERATE H Discharge - Discharge Clinical Impression: Vaginal bleeding Abdominal pain Qualifiers: Abdominal location: generalized Qualified Code(s): R10.84 - Generalized abdominal pain Urinary tract infection Qualifiers: Urinary tract infection type: acute cystitis Hematuria presence: with hematuria Qualified Code(s): N30.01 - Acute cystitis with hematuria Condition: Stable Disposition: HOME, SELF-CARE Instructions: Urinary Tract Infection ([facility]), Cephalexin ([facility]), Vaginal Bleeding ([facility]), Abdominal Pain ([facility]) Additional Instructions: As we discussed you have been seen and treated in the emergency department for your abdominal pain, vaginal bleeding, urinary tract infection. Please take medications as prescribed. Please also make sure you follow-up with your [facility] for your complaint of vaginal bleeding. Should you have continued excessive vaginal bleeding, feel lightheaded, dizzy, weak, short of breath or return of your abdominal pain, return to the emergency room. Prescriptions: Cephalexin Monohydrate [Keflex 500 mg Capsule] 500 mg PO BID 7 Days #14 capsule
[2019-06-23 13:51] VITALS: BP 129/74
== END 2019-06-23 13:50 | disposition home or self-care (01) ==
LOC: ER 09:32
DX: N30.01 Acute cystitis with hematuria (principal); N93.9 Abnormal uterine and vaginal bleeding, unspecified; R10.84 Generalized abdominal pain; R11.0 Nausea; I10 Essential (primary) hypertension; J45.909 Unspecified asthma, uncomplicated; E11.9 Type 2 diabetes mellitus without complications
CPT/HCPCS: 36415; 80053; 81001; 81025; 82962; 83690; 85025; 87086

== ENCOUNTER → 2019-07-01 | Outpatient (CLI) | payer MEDICAID ==
[2019-07-01 09:21] LABS: ABSOLUTE EOSINOPHILS # (AUTO) 0.2 10^3/uL (0.0-0.6); ABSOLUTE LYMPHOCYTES (AUTO) 2.3 10^3/uL (0.5-4.7); ABSOLUTE MONOCYTES (AUTO) 0.6 10^3/uL (0.1-1.4); ABSOLUTE NEUT (AUTO) 5.4 10^3/uL (1.7-8.2); BASOPHILS % (AUTO) 0.4 % (0-2); EOSINOPHILS % (AUTO) 2.8 % (0-6); LYMPHOCYTES % (AUTO) 27.1 % (13-45); MEAN CORPUSCULAR HEMOGLOBIN 25.7 pg (27.0-33.4); MEAN CORPUSCULAR HGB CONC 32.5 g/dL (32.0-36.0); MEAN CORPUSCULAR VOLUME 79 fl (80-97); MONOCYTES % (AUTO) 6.5 % (3-13); PLATELET COUNT 283 10^3/uL (150-450); RED BLOOD COUNT 4.67 10^6/uL (3.72-5.28); RED CELL DISTRIBUTION WIDTH 15.9 % (11.5-14.0); SEGMENTED NEUTROPHILS % (AUTO) 63.2 % (42-78); TOTAL CELLS COUNTED % (AUTO) 100 %; WHITE BLOOD COUNT 8.5 10^3/uL (4.0-10.5)
[2019-07-01 09:47] LABS: ALBUMIN 3.8 g/dL (3.5-5.0); ALKALINE PHOSPHATASE 85 U/L (38-126); ANION GAP 6 (5-19); ASPARTATE AMINO TRANSFERASE 31 U/L (14-36); BILIRUBIN,DIRECT 0.1 mg/dL (0.0-0.4); BILIRUBIN,TOTAL 0.3 mg/dL (0.2-1.3); BLOOD UREA NITROGEN 12 mg/dL (7-20); CALCIUM 9.2 mg/dL (8.4-10.2); CARBON DIOXIDE 33 mmol/L (22-30); CHLORIDE 100 mmol/L (98-107); CHOLESTEROL 212.27 mg/dL (0-200); GLUCOSE 117 mg/dL (75-110); POTASSIUM 4.5 mmol/L (3.6-5.0); TOTAL PROTEIN 6.8 g/dL (6.3-8.2); TRIGLYCERIDES 413 mg/dL (<150)
[2019-07-01 09:58] LABS: DIRECT LDL 119 mg/dL (<100)
== END ==
LOC: OD 08:18
PROVIDERS: ATTEND Nurse Practitioner Psychiatric/Mental Health
DX: F25.0 Schizoaffective disorder, bipolar type (principal); Z79.899 Other long term (current) drug therapy
CPT/HCPCS: 36415; 80053; 80061; 83036; 84443; 85025

== ENCOUNTER 2019-08-05 10:53 | Emergency (ER) | payer MEDICAID ==
[2019-08-05 11:31] LABS: ABSOLUTE EOSINOPHILS # (AUTO) 0.2 10^3/uL (0.0-0.6); ABSOLUTE LYMPHOCYTES (AUTO) 2.3 10^3/uL (0.5-4.7); ABSOLUTE MONOCYTES (AUTO) 0.6 10^3/uL (0.1-1.4); ABSOLUTE NEUT (AUTO) 7.9 10^3/uL (1.7-8.2); APPEARANCE,URINE SLIGHTLY-CLOUDY; BASOPHILS % (AUTO) 0.2 % (0-2); BILIRUBIN,URINE NEGATIVE (NEGATIVE); COLOR,URINE YELLOW; EOSINOPHILS % (AUTO) 2.2 % (0-6); GLUCOSE, URINE NEGATIVE (NEGATIVE); HEMATOCRIT 38.9 % (36.0-47.0); HEMOGLOBIN 12.6 g/dL (12.0-15.5); KETONES,URINE NEGATIVE (NEGATIVE); LEUKOCYTE ESTERASE,URINE MODERATE (NEGATIVE); LYMPHOCYTES % (AUTO) 20.8 % (13-45); MEAN CORPUSCULAR HEMOGLOBIN 25.8 pg (27.0-33.4); MEAN CORPUSCULAR HGB CONC 32.4 g/dL (32.0-36.0); MEAN CORPUSCULAR VOLUME 80 fl (80-97); MONOCYTES % (AUTO) 5.4 % (3-13); NITRITE,URINE NEGATIVE (NEGATIVE); PLATELET COUNT 302 10^3/uL (150-450); PROTEIN,URINE NEGATIVE (NEGATIVE); RED BLOOD COUNT 4.88 10^6/uL (3.72-5.28); RED CELL DISTRIBUTION WIDTH 15.7 % (11.5-14.0); SEGMENTED NEUTROPHILS % (AUTO) 71.4 % (42-78); TOTAL CELLS COUNTED % (AUTO) 100 %; URINE SPECIFIC GRAVITY 1.014; UROBILINOGEN,URINE NEGATIVE mg/dL (<2.0); WHITE BLOOD COUNT 11.1 10^3/uL (4.0-10.5)
[2019-08-05 11:57] LABS: ALBUMIN 4.1 g/dL (3.5-5.0); ALKALINE PHOSPHATASE 87 U/L (38-126); ANION GAP 9 (5-19); ASPARTATE AMINO TRANSFERASE 25 U/L (14-36); BILIRUBIN,DIRECT 0.1 mg/dL (0.0-0.4); BILIRUBIN,TOTAL 0.2 mg/dL (0.2-1.3); BLOOD UREA NITROGEN 15 mg/dL (7-20); CALCIUM 9.5 mg/dL (8.4-10.2); CARBON DIOXIDE 30 mmol/L (22-30); CHLORIDE 102 mmol/L (98-107); GLUCOSE 116 mg/dL (75-110); POTASSIUM 3.9 mmol/L (3.6-5.0); TOTAL PROTEIN 7.5 g/dL (6.3-8.2)
[2019-08-05] MEDS ORDERED: KETOROLAC TROMETHAMINE INJ/PF 30 MG/1 ML SDV IV ONE (14:12)
--- NOTE | 2019-08-05 14:21 | ER Document Report ---
ED GI/ - General Chief Complaint: Abdominal Pain Stated Complaint: ABDOMINAL PAIN Time Seen by Provider: 08/05/19 14:06 Primary Care Provider: MICHAEL SCHULZ MD [Primary Care Provider] - Follow up as needed Mode of Arrival: Medic Information source: Patient TRAVEL OUTSIDE OF THE [place] IN LAST 30 DAYS: No - HPI Patient complains to provider of: Abdominal pain - pt. states she has had diffuse abdominal pain for the past 2-3 days. She denies having any thing like this in the past. Denies N/V/D - Related Data Allergies/Adverse Reactions: lemon Allergy (Verified 06/23/19 09:39) brompheniramine maleate [From Dimetapp] Adverse Reaction (Unknown, Verified 06/23/19 09:39) Hyperactivity dextromethorphan HBr [From Dimetapp] Adverse Reaction (Verified 06/23/19 09:39) Hyperactivity phenylpropanolamine HCl [From Dimetapp] Adverse Reaction (Verified 06/23/19 09:39) Hyperactivity pseudoephedrine HCl [From Dimetapp] Adverse Reaction (Verified 06/23/19 09:39) Hyperactivity Past Medical History - General Information source: Patient - Social History Smoking Status: Unknown if Ever Smoked Family History: Arthritis, CAD, DM, Hyperlipidemia, Hypertension, Thyroid Disfunction Patient has suicidal ideation: No Patient has homicidal ideation: No - Past Medical History Cardiac Medical History: Reports: Hx Hypertension Pulmonary Medical History: Reports: Hx Asthma Neurological Medical History: Reports: Hx Migraine Endocrine Medical History: Reports: Hx Diabetes Mellitus Type 2, Hx Hypothyroidism Renal/ Medical History: Denies: Hx Peritoneal Dialysis GI Medical History: Reports: Hx Gastroesophageal Reflux Disease Musculoskeletal Medical History: Reports Hx Musculoskeletal Trauma Skin Medical History: Reports Hx Eczema Psychiatric Medical History: Reports: Hx Bipolar Disorder, Hx Depression, Hx Schizoaffective Disorder, Hx Schizophrenia Traumatic Medical History: Reports: Hx Fractures - left ankle,arm - Immunizations Immunizations up to date: No Hx Diphtheria, Pertussis, Tetanus Vaccination: No Review of Systems - Review of Systems Constitutional: No symptoms reported EENT: No symptoms reported Cardiovascular: No symptoms reported Respiratory: No symptoms reported Gastrointestinal: See HPI, Abdominal pain Musculoskeletal: No symptoms reported Neurological/Psychological: No symptoms reported -: Yes All other systems reviewed and negative Physical Exam - Vital signs Vitals: Temp Pulse Resp BP 97.7 F 79 16 121/92 H 08/05/19 11:04 08/05/19 11:04 08/05/19 11:04 08/05/19 11:04 - General General appearance: Appears well In distress: None - pt. is morbidly obese - HEENT Pharynx: Normal Neck: Normal - Respiratory Respiratory status: No respiratory distress Breath sounds: Normal - Cardiovascular Rhythm: Regular Heart sounds: Normal auscultation Murmur: No - Abdominal Inspection: Morbidly Obese Distension: No distension Bowel sounds: Normal Tenderness: Tender - there is min-mod TTP diffusely without peritoneal signs. BS+ - Back Back: Normal - Extremities General upper extremity: Normal inspection General lower extremity: Normal inspection - Neurological Neuro grossly intact: Yes Cognition: Normal Orientation: AAOx4 Course - Re-evaluation Re-evalutation: 08/05/19 16:31 pt' s exam unchanged from priors -- expressed desire to go home - Vital Signs Vital signs: Temp Pulse Resp BP Pulse Ox 97.7 F 79 16 121/92 H 08/05/19 11:04 08/05/19 11:04 08/05/19 11:04 08/05/19 11:04 - Laboratory Result Diagrams: 08/05/19 11:00 08/05/19 11:00 Laboratory results interpreted by me: 08/05/19 08/05/19 08/05/19 11:00 11:00 11:00 WBC 11.1 H MCH 25.8 L RDW 15.7 H Glucose 116 H Urine Blood LARGE H Ur Leukocyte Esterase MODERATE H - Diagnostic Test Radiology reviewed: Reports reviewed - ct abd/pelvis- neg Discharge - Discharge Clinical Impression: Abdominal pain Qualifiers: Abdominal location: generalized Qualified Code(s): R10.84 - Generalized abdominal pain UTI (urinary tract infection) Qualifiers: Urinary tract infection type: acute cystitis Hematuria presence: without hematuria Qualified Code(s): N30.00 - Acute cystitis without hematuria Condition: Stable Disposition: HOME, SELF-CARE Instructions: Abdominal Pain ([facility]), Trimethoprim-Sulfa ([facility]), Urinary Tract Infection ([facility]) Additional Instructions: rest, increase fluid, take meds as prescribed, return if worse Prescriptions: Sulfamethoxazole/Trimethoprim [Bactrim Ds Tablet] 1 each PO BID #10 tablet Referrals: MICHAEL SCHULZ MD [Primary Care Provider] - Follow up as needed
[2019-08-05 16:49] VITALS: BP 97/56
--- NOTE | 2019-08-05 17:41 | RADIOLOGY REPORT (SQ) ---
EXAM DESCRIPTION: CT ABD/PELVIS WITH IV ONLY COMPLETED DATE/TIME: 08/05/2019 2:59 pm REASON FOR STUDY: abd pain COMPARISON: None. TECHNIQUE: CT scan of the abdomen and pelvis performed using helical scanning technique with dynamic intravenous contrast injection. No oral contrast. Images reviewed with lung, soft tissue, and bone windows. Reconstructed coronal and sagittal MPR images reviewed. Delayed images for evaluation of the urinary system also acquired. All images stored on PACS. All CT scanners at this facility use dose modulation, iterative reconstruction, and/or weight based d osing when appropriate to reduce radiation dose to as low as reasonably achievable (ALARA). [facility]: Dose Right [facility]: CareDose [facility]: Dose Right [facility]: Teradose 4D [facility]: MetaModix CONTRAST TYPE AND DOSE: 100 mL Omnipaque 350- low osmolar. RENAL FUNCTION: BUN 15 creatinine 0.72 RADIATION DOSE: . LIMITATIONS: None. FINDINGS: LOWER CHEST: No significant findings. No nodules or infiltrates. LIVER: Normal size. No masses. No dilated ducts. SPLEEN: Normal size. No focal lesions. PANCREAS: There is a slightly ill-defined low-density area in the head of the pancreas. See image 37 series 3. See image 43 series 601. See image 65 series 602. This measures about 3 x 2 x 5 cm. GALLBLADDER: No identified stones by CT criteria. No inflammatory changes to suggest cholecystitis. ADRENAL GLANDS: No significant masses or asymmetry. RIGHT KIDNEY AND URETER: No solid masses. No significant calcifications. No hydronephrosis or hyd roureter. LEFT KIDNEY AND URETER: No solid masses. No significant calcifications. No hydronephrosis or hydr oureter. AORTA AND VESSELS: No aneurysm. No dissection. Renal arteries, SMA, celiac without stenosis. RETROPERITONEUM: No retroperitoneal adenopathy, hemorrhage or masses. BOWEL AND PERITONEAL CAVITY: No masses or inflammatory changes. No free fluid or peritoneal masses. APPENDIX: Normal. PELVIS: No mass. No free fluid. Normal bladder. ABDOMINAL WALL: No masses. No hernias. BONES: No significant or acute findings. OTHER: No other significant finding. IMPRESSION: 1. There is a 3 x 2 x 5 cm ill-defined low-density area in the head of the pancreas. T his may represent fatty infiltration. Malignancy seems less likely. Consider MRI without with contr ast using pancreatic protocol. 2. No other significant findings in the abdomen or pelvis. TECHNICAL DOCUMENTATION: JOB ID: [id number] Quality ID # [id number]: Final reports with documentation of one or more dose reduction techniques (e.g., Au tomated exposure control, adjustment of the mA and/or kV according to patient size, use of iterative reconstruction technique) 2010 [employer]- All Rights Reserved Reading location - IP/workstation name: [email or web address]
== END 2019-08-05 16:50 | disposition home or self-care (01) ==
LOC: ER 10:53
DX: N30.00 Acute cystitis without hematuria (principal); R10.817 Generalized abdominal tenderness; R10.84 Generalized abdominal pain; E66.01 Morbid (severe) obesity due to excess calories; I10 Essential (primary) hypertension; J45.909 Unspecified asthma, uncomplicated; E11.9 Type 2 diabetes mellitus without complications; Z91.018 Allergy to other foods
CPT/HCPCS: 36415; 83690; 85025; 81025; 80053; 81001; 74177; J1885; 96374; 99284

== ENCOUNTER 2019-10-12 05:28 | Day surgery (SDC) | payer BC, MEDICAID ==
[2019-10-04 12:35] LABS: HEMATOCRIT 37.9 % (36.0-47.0); HEMOGLOBIN 12.5 g/dL (12.0-15.5); MEAN CORPUSCULAR HEMOGLOBIN 26.1 pg (27.0-33.4); MEAN CORPUSCULAR HGB CONC 32.9 g/dL (32.0-36.0); MEAN CORPUSCULAR VOLUME 79 fl (80-97); PLATELET COUNT 291 10^3/uL (150-450); RED BLOOD COUNT 4.78 10^6/uL (3.72-5.28); RED CELL DISTRIBUTION WIDTH 15.1 % (11.5-14.0); WHITE BLOOD COUNT 7.5 10^3/uL (4.0-10.5)
[2019-10-04 12:57] LABS: ANION GAP 9 (5-19); BLOOD UREA NITROGEN 14 mg/dL (7-20); CALCIUM 9.2 mg/dL (8.4-10.2); CARBON DIOXIDE 32 mmol/L (22-30); CHLORIDE 101 mmol/L (98-107); GLUCOSE 103 mg/dL (75-110); POTASSIUM 4.7 mmol/L (3.6-5.0)
[~2019-10-12 05:28] MED LIST: LACTATED RINGERS 1000 ML IV PRN; LIDOCAINE 0.5% INJ-PF (5 MG/ML) 50 ML SDV SUBCUT PRN
[2019-10-12] MEDS ORDERED: DEXAMETHASONE SOD PHOSPHATE INJ 4 MG/1 ML VIAL ONE (06:25)
[2019-10-12] MEDS ORDERED: FENTANYL CITRATE INJ/PF 100 MCG/2 ML AMPUL ONE (06:25)
[2019-10-12] MEDS ORDERED: MIDAZOLAM 2 MG/2 ML INJ ONE (06:25)
[2019-10-12] MEDS ORDERED: ONDANSETRON HCL INJ/PF 4 MG/2 ML SDV ONE (06:25)
[2019-10-12] MEDS ORDERED: PROPOFOL INJ 200 MG/20 ML VIAL IV ONE (06:26)
[2019-10-12] MEDS ORDERED: LIDOCAINE 0.5% INJ-PF (5 MG/ML) 50 ML SDV ONE (06:26)
[2019-10-12 06:41] LABS: POTASSIUM 3.9 mmol/L (3.6-5.0)
[2019-10-12] MEDS ORDERED: LIDOCAINE 1%/EPINEPHRINE INJ 20 ML VIAL ONE (07:16)
[2019-10-12] MEDS ORDERED: PROMETHAZINE HCL INJ 25 MG/1 ML VIAL IV PRN (07:37)
[2019-10-12] MEDS ORDERED: FENTANYL CITRATE INJ/PF 100 MCG/2 ML AMPUL IV PRN ×3 (07:37)
[2019-10-12] MEDS ORDERED: ONDANSETRON HCL INJ/PF 4 MG/2 ML SDV IV PRN ×2 (07:37→08:37)
[2019-10-12] MEDS ORDERED: MEPERIDINE HCL/PF INJ 25 MG/1 ML DISP.SYRIN IV PRN (07:37)
[2019-10-12] MEDS ORDERED: IBUPROFEN 800 MG TABLET PO PRN (08:39)
[2019-10-12] MEDS ORDERED: OXYCODONE-ACETAMINOPHEN 5-325 MG TABLET PO PRN ×2 (08:39)
[2019-10-12] MEDS ORDERED: HYDROMORPHONE HCL INJ/PF 2 MG/ML AMPULE IV PRN (08:39)
[2019-10-12] MEDS ORDERED: RINGERS SOLUTION,LACTATED 1,000 ML IV PRN (08:40)
[2019-10-12 09:53] VITALS: BP 110/73
--- NOTE | 2019-10-12 22:15 | Operative Report ---
Operative Report DATE OF SURGERY: 10/12/19 PREOPERATIVE DIAGNOSIS: Interuterine polyp, Dysfunctional Uterine Bleeding, Men orrhagia POSTOPERATIVE DIAGNOSIS: EMMETT - possible component of intrauterine septum OPERATION: EUA, Paracervical Block, Hysteroscopy, Myosure, D&C SURGEON: PATY WEINER ANESTHESIA: GA TISSUE REMOVED OR ALTERED: possible intrauteirne polyp, EMC COMPLICATIONS: none ESTIMATED BLOOD LOSS: 5ml INTRAOPERATIVE FINDINGS: Small anteverted uterus with exam limited by body habitus, no ovarian masses. On hysteroscopy very thickened endometrium with likely thin uterine septum extending from the fundus to posterior uterine body. PROCEDURE: Anesthesia: [Princess BARR< Prashanth [employer]willi[employer] FOUNDER / CEO] IVF: [50ml] UOP: 350ml Indications: [29yo disabled young lady with with significant dysfunctional uterine bleeding and possible intrauterine polyp on US in the office. The risks, benefits, and alternatives were reviewed with the patient and her family and they desired to proceed with planned procedure. ] Procedure: The patient was taken to the Operating Room where general anesthesia was obtained without difficulty. She was prepped and draped in the normal sterile fashion in the dorsal lithotomy position. Exam under anesthesia was performed and noted above. A speculum was placed in the vagina. The anterior cervix was grasped with a single-tooth tenaculum and the uterus sounded to 8 cm after paracervical block was performed with 8 mL of 1% lidocaine with epinephrine. Sequential dilators were then used to dilate the cervix to accommodate the Myosure hysteroscope. The hysteroscope was then gently advanced into the uterine cavity in the usual fashion with visualization of the endometrial polyp/septum as noted above. The Myosure device was then advanced through the hysteroscope and used to easily remove the endometrial polyp/septum (more consistent with septum) noted within intrauterine cavity. The Myosure device was then removed and the hysteroscope removed now cavity is normal in appearance with concavity as with normal appearance after distension of the uterus with fluid on hysteroscopy. At this time gentle curettage was performed until a gritty texture was noted. All instruments were removed from the patient's cervix and vagina. Silver nitrate was applied to the tenaculum site for hemostasis. Sponge lap needle and instrument counts are correct 2. No perioperative antibiotics were given as is not indicated for this procedure. The patient tolerated the procedure well and was taken to the recovery area awake and in stable condition.
== END 2019-10-12 09:45 | disposition home or self-care (01) ==
LOC: OROUT 05:28
PROVIDERS: ATTEND Student in an Organized Health Care Education/Training Program
DX: N84.0 Polyp of corpus uteri (principal); N93.9 Abnormal uterine and vaginal bleeding, unspecified; I10 Essential (primary) hypertension; E11.9 Type 2 diabetes mellitus without complications; Z79.899 Other long term (current) drug therapy; E66.9 Obesity, unspecified; E03.9 Hypothyroidism, unspecified; J45.909 Unspecified asthma, uncomplicated; G40.909 Epilepsy, unspecified, not intractable, without status epilepticus; Z68.43 Body mass index [BMI] 50.0-59.9, adult
CPT/HCPCS: 36415 ×2; 82947; 84132; 84703; 85027; 80048; 88305 ×2; 00952; 58558; J2250; J1100; J3010; J3490 ×2; J2405; J2704; 952

== ENCOUNTER 2019-10-26 16:59 | Emergency (ER) | payer BC, MEDICAID ==
--- NOTE | 2019-10-26 19:08 | ER Document Report ---
ED General - General Chief Complaint: Psych Problem Stated Complaint: PSYCH/SUICIDAL IDEATION Time Seen by Provider: 10/26/19 18:33 Primary Care Provider: MICHAEL SCHULZ MD [Primary Care Provider] - Follow up as needed Mode of Arrival: Ambulatory Information source: Patient TRAVEL OUTSIDE OF THE [place] IN LAST 30 DAYS: No - HPI Onset: Other - over the last 5 days Onset/Duration: Gradual Quality of pain: No pain Severity: Mild Pain Level: Denies Associated symptoms: Other - depression, Suicidal, Homicidal Exacerbated by: Other - seeing the male at her pen[facility] who she wants to hurt Similar symptoms previously: Yes Recently seen / treated by doctor: Yes - patient has been seen in this ER several times for similar issues Notes: 29 year old female with a history of Schizophrenia, Bipolar, Depression, DM, HTN, Hypothyroidism, Asthma Migraines here for thoughts of wanting to harm herself (she has no plan) and thoughts of wanting to choke a male in her penitentiary. The patient was apparently supposed to have an outpatient psych bed ready for her but it wasnt happening fast enough for her liking so she came to the ER. The patient has no medical complaints at this time. - Related Data Allergies/Adverse Reactions: lemon Allergy (Verified 10/12/19 06:04) brompheniramine maleate [From Dimetapp] Adverse Reaction (Unknown, Verified 10/12/19 06:04) Hyperactivity dextromethorphan HBr [From Dimetapp] Adverse Reaction (Verified 10/12/19 06:04) Hyperactivity phenylpropanolamine HCl [From Dimetapp] Adverse Reaction (Verified 10/12/19 06:04) Hyperactivity pseudoephedrine HCl [From Dimetapp] Adverse Reaction (Verified 10/12/19 06:04) Hyperactivity Past Medical History - General Information source: Patient - Social History Smoking Status: Never Smoker Frequency of alcohol use: None Drug Abuse: None Family History: Arthritis, CAD, DM, Hyperlipidemia, Hypertension, Thyroid Disfunction Patient has suicidal ideation: Yes Patient has homicidal ideation: No - Past Medical History Cardiac Medical History: Reports: Hx Hypertension Denies: Hx Coronary Artery Disease, Hx Heart Attack Pulmonary Medical History: Reports: Hx Asthma - MILD Denies: Hx Bronchitis, Hx COPD, Hx Pneumonia Neurological Medical History: Reports: Hx Migraine, Hx Seizures - ? SZ, BEING TESTED CURRENTLY. Denies: Hx Cerebrovascular Accident Endocrine Medical History: Reports: Hx Diabetes Mellitus Type 2, Hx Hypothyroidism Renal/ Medical History: Denies: Hx Peritoneal Dialysis GI Medical History: Reports: Hx Gastroesophageal Reflux Disease Musculoskeletal Medical History: Reports Hx Arthritis - AMIRA KNEES, RIGHT FOOT, Reports Hx Musculoskeletal Trauma Skin Medical History: Reports Hx Eczema Psychiatric Medical History: Reports: Hx Bipolar Disorder, Hx Depression, Hx Schizoaffective Disorder, Hx Schizophrenia Traumatic Medical History: Reports: Hx Fractures - left ankle,arm - Immunizations Immunizations up to date: No Hx Diphtheria, Pertussis, Tetanus Vaccination: Yes Review of Systems - Review of Systems Constitutional: No symptoms reported Cardiovascular: No symptoms reported Respiratory: No symptoms reported Neurological/Psychological: Homicidal ideation, Suicidal ideation Physical Exam - Vital signs Vitals: Temp Pulse Resp BP Pulse Ox 97.6 F 88 20 138/72 H 97 10/26/19 17:15 10/26/19 17:15 10/26/19 17:15 10/26/19 17:15 10/26/19 17:15 - Notes Notes: GENERAL: Well-appearing, well-nourished and in no acute distress. Obese. HEAD: Atraumatic, normocephalic. EYES: Pupils equal round and reactive to light, extraocular movements intact, sclera anicteric, conjunctiva are normal. ENT: TMs normal, nares patent, oropharynx clear without exudates. Moist mucous membranes. NECK: Normal range of motion, supple without lymphadenopathy or JVD. LUNGS: Breath sounds clear to auscultation bilaterally and equal. No wheezes rales or rhonchi. HEART: Regular rate and rhythm without murmurs, rubs or gallops. ABDOMEN: Soft, nontender, normoactive bowel sounds. No guarding, no rebound. No masses appreciated. EXTREMITIES: Normal range of motion, no pitting or edema. No clubbing or cyanosis. NEUROLOGICAL: Cranial nerves II through XII grossly intact. Normal speech, normal gait. PSYCH: Normal mood, normal affect. Patient endorsing SI without a plan. Patient says she would like to choke a male in her penitentiary. SKIN: Warm, Dry, normal turgor, no rashes or lesions noted. Course - Re-evaluation Re-evalutation: 10/26/19 19:14 The patient is endorsing SI and passive HI. She looks well in the ER and is apparently a frequent flyer. The patient apparently came to the ER since her psych placement was not happening fast enough for her. Labs were ordered by nursing prior to me seeing the patient. I dont expect any lab abnormalities or acute medical issues which could be making the patient feel the way she is feeling. Will have mental health help with disposition now that the patient is in the ER. 10/26/19 22:52 The patient is medically cleared at this time. The patient is not under IVC at this time but she apparently has a bed available at another psych facility. Will attempt to get the patient to this facility but anticipate transportation i ssues. Apparently the patient could not be taken by Police/Janitor Supervisor unless IVC papers are filled out. That said, the Police/Janitor Supervisor said it wouldnt matter if the IVC paperwork was done since there is no one to transport the patient until tomorrow anyway. The patient is not a flight risk and seems to enjoy being in the ER. Patient signed out to oncoming ER doctor at my shift change. Patient remains medically cleared at this time. - Vital Signs Vital signs: Temp Pulse Resp BP Pulse Ox 97.6 F 88 20 138/72 H 97 10/26/19 17:15 10/26/19 17:15 10/26/19 17:15 10/26/19 17:15 10/26/19 17:15 - Laboratory Result Diagrams: 10/26/19 18:55 10/26/19 18:55 Laboratory results interpreted by me: 10/26/19 10/26/19 18:55 18:55 WBC 11.6 H Hgb 11.5 L Hct 35.0 L MCV 79 L MCH 25.7 L RDW 15.4 H Salicylates < 1.0 L Acetaminophen < 10 L Discharge - Discharge Clinical Impression: Suicidal ideation, Homicidal ideation Condition: Stable Disposition: PSYCH HOSP/UNIT Referrals: MICHAEL SCHULZ MD [Primary Care Provider] - Follow up as needed
[2019-10-26 19:10] LABS: ABSOLUTE BASOPHILS # (AUTO) 0.1 10^3/uL (0.0-0.2); ABSOLUTE EOSINOPHILS # (AUTO) 0.3 10^3/uL (0.0-0.6); ABSOLUTE MONOCYTES (AUTO) 0.8 10^3/uL (0.1-1.4); ABSOLUTE NEUT (AUTO) 7.5 10^3/uL (1.7-8.2); BASOPHILS % (AUTO) 0.6 % (0-2); EOSINOPHILS % (AUTO) 2.2 % (0-6); HEMOGLOBIN 11.5 g/dL (12.0-15.5); LYMPHOCYTES % (AUTO) 26.2 % (13-45); MEAN CORPUSCULAR HEMOGLOBIN 25.7 pg (27.0-33.4); MEAN CORPUSCULAR HGB CONC 32.8 g/dL (32.0-36.0); MEAN CORPUSCULAR VOLUME 79 fl (80-97); MONOCYTES % (AUTO) 6.8 % (3-13); PLATELET COUNT 283 10^3/uL (150-450); RED BLOOD COUNT 4.45 10^6/uL (3.72-5.28); RED CELL DISTRIBUTION WIDTH 15.4 % (11.5-14.0); SEGMENTED NEUTROPHILS % (AUTO) 64.2 % (42-78); TOTAL CELLS COUNTED % (AUTO) 100 %; WHITE BLOOD COUNT 11.6 10^3/uL (4.0-10.5)
[2019-10-26 19:27] LABS: ALBUMIN 3.6 g/dL (3.5-5.0); ALKALINE PHOSPHATASE 85 U/L (38-126); ANION GAP 10 (5-19); ASPARTATE AMINO TRANSFERASE 19 U/L (14-36); BILIRUBIN,DIRECT 0.3 mg/dL (0.0-0.4); BILIRUBIN,TOTAL 0.3 mg/dL (0.2-1.3); BLOOD UREA NITROGEN 18 mg/dL (7-20); CALCIUM 9.1 mg/dL (8.4-10.2); CARBON DIOXIDE 28 mmol/L (22-30); CHLORIDE 99 mmol/L (98-107); GLUCOSE 101 mg/dL (75-110)
[2019-10-26 19:34] LABS: ACETAMINOPHEN < 10 ug/mL (10-30); ALCOHOL < 10 mg/dL (NONE DETECTED); SALICYLATE < 1.0 mg/dL (2.0-20.0)
[2019-10-26 19:45] LABS: APPEARANCE,URINE CLEAR; BILIRUBIN,URINE NEGATIVE (NEGATIVE); COLOR,URINE YELLOW; GLUCOSE, URINE NEGATIVE (NEGATIVE); KETONES,URINE NEGATIVE (NEGATIVE); LEUKOCYTE ESTERASE,URINE NEGATIVE (NEGATIVE); NITRITE,URINE NEGATIVE (NEGATIVE); PROTEIN,URINE NEGATIVE (NEGATIVE); URINE SPECIFIC GRAVITY 1.023; UROBILINOGEN,URINE NEGATIVE mg/dL (<2.0)
[2019-10-26 19:51] LABS: URINE AMPHETAMINES SCREEN NEGATIVE; URINE BARBITURATES SCREEN NEGATIVE; URINE BENZODIAZEPINES SCREEN NEGATIVE; URINE COCAINE SCREEN NEGATIVE; URINE MARIJUANA (THC) SCREEN NEGATIVE; URINE METHADONE SCREEN NEGATIVE; URINE PHENCYCLIDINE SCREEN NEGATIVE
--- NOTE | 2019-10-26 21:27 | EKG REPORT ---
SEVERITY:- NORMAL ECG - SINUS RHYTHM : Confirmed by: Yadira Au MD 26-Oct-2019 21:26:30
--- NOTE | 2019-10-27 11:19 | PSYCHOLOGICAL NOTE ---
Psych Note - Psych Note Date seen by psych provider: 10/27/19 Time seen by psych provider: 08:15 Psych Note: Reason for Consult: behavioral Consent Permissions: Bonnie Harmon, [employer] Patient reports she has a bed waiting for her. She states she is still really mad at one the other people in the care home. Patient is alert and orientated to person place time and circumstance however she only limitedly engages with clinician. This is very typical of this patient. Patient denies remembering psychoeducation provided previously on the importance of using positive coping skills rather than using inpatient psychiatric treatment as a way to cope. Patient has a long history of using inpatient psychiatric treatment and emergency services as a maladaptive form of coping to escape from situation. 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 This patient is well-known to clinician and department. Patient has history similar etiology i.e. using a hospital as a coping mechanism. Patient does not meet IVC criteria per [place] GS 122C. Clinician spoke with Bonnie Harmon, she confirms the patient has a voluntary bed at [place] and understands [facility] is unable to provided transportation. Patient is recommended to follow up with her regularly scheduled psychiatric appointments at [facility]. Dr. Pugh was consulted and the care management of this patient; attending physicians in agreement with recommendations and disposition.
[2019-10-27 11:59] VITALS: BP 106/65
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
== END 2019-10-27 12:10 | disposition home or self-care (01) ==
LOC: ER 16:59
DX: R45.851 Suicidal ideations (principal); R45.850 Homicidal ideations; F91.9 Conduct disorder, unspecified; I10 Essential (primary) hypertension; E11.9 Type 2 diabetes mellitus without complications; J45.909 Unspecified asthma, uncomplicated; Z91.018 Allergy to other foods
CPT/HCPCS: 36415; 80053; 80307; 81001; 85025; 93005; 93010; 99285

== ENCOUNTER 2019-12-01 11:04 | Emergency (ER) | payer BC, MEDICAID ==
[2019-12-01 11:51] VITALS: BP 149/65
[2019-12-01] MEDS ORDERED: DICYCLOMINE HCL INJ 20 MG/2 ML AMPULE IM ONE (12:10)
[2019-12-01] MEDS ORDERED: ONDANSETRON 4 MG TAB.RAPDIS PO ONE ×2 (12:10→16:12)
--- NOTE | 2019-12-01 12:11 | ER Document Report ---
ED Medical Screen (RME) - General Chief Complaint: Abdominal Pain Stated Complaint: ABDOMINAL PAIN Time Seen by Provider: 12/01/19 12:08 Primary Care Provider: MICHAEL SCHULZ MD [Primary Care Provider] - Follow up as needed Notes: 29-year-old female presents with upper abdominal pain since yesterday with nausea/vomiting/diarrhea. Patient denies any fever. Abdomen soft tenderness diffusely especially to epigastric area. I have greeted and performed a rapid initial assessment of this patient. A comprehensive ED assessment and evaluation of the patient, analysis of test results and completion of the medical decision making process with be conducted by additional ED providers. TRAVEL OUTSIDE OF THE [place] IN LAST 30 DAYS: No - Related Data Allergies/Adverse Reactions: lemon Allergy (Verified 12/01/19 12:03) brompheniramine maleate [From Dimetapp] Adverse Reaction (Unknown, Verified 12/01/19 12:03) Hyperactivity dextromethorphan HBr [From Dimetapp] Adverse Reaction (Verified 12/01/19 12:03) Hyperactivity phenylpropanolamine HCl [From Dimetapp] Adverse Reaction (Verified 12/01/19 12:03) Hyperactivity pseudoephedrine HCl [From Dimetapp] Adverse Reaction (Verified 12/01/19 12:03) Hyperactivity Past Medical History - Social History Frequency of alcohol use: Rare Drug Abuse: None Family history: Reviewed & Not Pertinent - Past Medical History Cardiac Medical History: Reports: Hx Hypertension Denies: Hx Coronary Artery Disease, Hx Heart Attack Pulmonary Medical History: Reports: Hx Asthma - MILD Denies: Hx Bronchitis, Hx COPD, Hx Pneumonia Neurological Medical History: Reports: Hx Migraine, Hx Seizures - ? SZ, BEING TESTED CURRENTLY. Denies: Hx Cerebrovascular Accident Endocrine Medical History: Reports: Hx Diabetes Mellitus Type 2, Hx Hypothyroidism Renal/ Medical History: Denies: Hx Peritoneal Dialysis GI Medical History: Reports: Hx Gastroesophageal Reflux Disease Musculoskeltal Medical History: Reports Hx Arthritis - AMIRA KNEES, RIGHT FOOT, Reports Hx Musculoskeletal Trauma Skin Medical History: Reports Hx Eczema Psychiatric Medical History: Reports: Hx Bipolar Disorder, Hx Depression, Hx Schizoaffective Disorder, Hx Schizophrenia Traumatic Medical History: Reports: Hx Fractures - left ankle,arm - Immunizations Immunizations up to date: No Hx Diphtheria, Pertussis, Tetanus Vaccination: Yes Physical Exam - Vital signs Vitals: Temp Pulse Resp BP Pulse Ox 97.9 F 84 16 149/65 H 98 12/01/19 11:50 12/01/19 11:50 12/01/19 11:50 12/01/19 11:50 12/01/19 11:50 Course - Vital Signs Vital signs: Temp Pulse Resp BP Pulse Ox 97.9 F 84 16 149/65 H 98 12/01/19 11:50 12/01/19 11:50 12/01/19 11:50 12/01/19 11:50 12/01/19 11:50 Doctor's Discharge - Discharge Referrals: MICHAEL SCHULZ MD [Primary Care Provider] - Follow up as needed
[2019-12-01 14:01] LABS: ABSOLUTE EOSINOPHILS # (AUTO) 0.1 10^3/uL (0.0-0.6); ABSOLUTE LYMPHOCYTES (AUTO) 2.5 10^3/uL (0.5-4.7); ABSOLUTE MONOCYTES (AUTO) 0.6 10^3/uL (0.1-1.4); ABSOLUTE NEUT (AUTO) 7.4 10^3/uL (1.7-8.2); BASOPHILS % (AUTO) 0.3 % (0-2); HEMATOCRIT 37.3 % (36.0-47.0); HEMOGLOBIN 12.3 g/dL (12.0-15.5); LYMPHOCYTES % (AUTO) 23.3 % (13-45); MEAN CORPUSCULAR HEMOGLOBIN 26.5 pg (27.0-33.4); MEAN CORPUSCULAR VOLUME 80 fl (80-97); MONOCYTES % (AUTO) 5.8 % (3-13); PLATELET COUNT 299 10^3/uL (150-450); RED BLOOD COUNT 4.64 10^6/uL (3.72-5.28); RED CELL DISTRIBUTION WIDTH 16.8 % (11.5-14.0); SEGMENTED NEUTROPHILS % (AUTO) 69.6 % (42-78); TOTAL CELLS COUNTED % (AUTO) 100 %; WHITE BLOOD COUNT 10.6 10^3/uL (4.0-10.5)
[2019-12-01 14:08] LABS: APPEARANCE,URINE SLIGHTLY-CLOUDY; BILIRUBIN,URINE NEGATIVE (NEGATIVE); COLOR,URINE YELLOW; GLUCOSE, URINE NEGATIVE (NEGATIVE); KETONES,URINE NEGATIVE (NEGATIVE); PROTEIN,URINE NEGATIVE (NEGATIVE); UROBILINOGEN,URINE NEGATIVE mg/dL (<2.0)
[2019-12-01 14:17] LABS: ALBUMIN 3.8 g/dL (3.5-5.0); ALKALINE PHOSPHATASE 78 U/L (38-126); ANION GAP 7 (5-19); ASPARTATE AMINO TRANSFERASE 19 U/L (14-36); BILIRUBIN,DIRECT 0.3 mg/dL (0.0-0.4); BILIRUBIN,TOTAL 0.4 mg/dL (0.2-1.3); BLOOD UREA NITROGEN 16 mg/dL (7-20); CALCIUM 9.1 mg/dL (8.4-10.2); CARBON DIOXIDE 29 mmol/L (22-30); CHLORIDE 101 mmol/L (98-107); GLUCOSE 84 mg/dL (75-110); POTASSIUM 4.6 mmol/L (3.6-5.0); TOTAL PROTEIN 7.3 g/dL (6.3-8.2)
--- NOTE | 2019-12-01 16:13 | ER Document Report ---
ED GI/ - General Chief Complaint: Abdominal Pain Stated Complaint: ABDOMINAL PAIN Time Seen by Provider: 12/01/19 12:08 Primary Care Provider: MICHAEL SCHULZ MD [Primary Care Provider] - Follow up as needed Notes: Patient is a 29-year-old female who presents to the emergency department with a chief complaint of nausea, vomiting, and diarrhea. She has had her symptoms since yesterday. Patient states that she has generalized abdominal pain. Patient has past medical history of schizoaffective disorder, constipation, hypertension, diabetes, GERD. TRAVEL OUTSIDE OF THE [place] IN LAST 30 DAYS: No - Related Data Allergies/Adverse Reactions: lemon Allergy (Verified 12/01/19 12:03) brompheniramine maleate [From Dimetapp] Adverse Reaction (Unknown, Verified 12/01/19 12:03) Hyperactivity dextromethorphan HBr [From Dimetapp] Adverse Reaction (Verified 12/01/19 12:03) Hyperactivity phenylpropanolamine HCl [From Dimetapp] Adverse Reaction (Verified 12/01/19 12:03) Hyperactivity pseudoephedrine HCl [From Dimetapp] Adverse Reaction (Verified 12/01/19 12:03) Hyperactivity Past Medical History - Social History Smoking Status: Former Smoker Frequency of alcohol use: Rare Drug Abuse: None Family History: Arthritis, CAD, DM, Hyperlipidemia, Hypertension, Thyroid Disfunction Patient has suicidal ideation: No Patient has homicidal ideation: No - Past Medical History Cardiac Medical History: Reports: Hx Hypertension Denies: Hx Coronary Artery Disease, Hx Heart Attack Pulmonary Medical History: Reports: Hx Asthma - MILD Denies: Hx Bronchitis, Hx COPD, Hx Pneumonia Neurological Medical History: Reports: Hx Migraine, Hx Seizures - ? SZ, BEING TESTED CURRENTLY. Denies: Hx Cerebrovascular Accident Endocrine Medical History: Reports: Hx Diabetes Mellitus Type 2, Hx Hypothyroidism Renal/ Medical History: Denies: Hx Peritoneal Dialysis GI Medical History: Reports: Hx Gastroesophageal Reflux Disease Musculoskeletal Medical History: Reports Hx Arthritis - AMIRA KNEES, RIGHT FOOT, Reports Hx Musculoskeletal Trauma Skin Medical History: Reports Hx Eczema Psychiatric Medical History: Reports: Hx Bipolar Disorder, Hx Depression, Hx Schizoaffective Disorder, Hx Schizophrenia Traumatic Medical History: Reports: Hx Fractures - left ankle,arm - Immunizations Immunizations up to date: No Hx Diphtheria, Pertussis, Tetanus Vaccination: Yes Review of Systems - Review of Systems Notes: REVIEW OF SYSTEMS: CONSTITUTIONAL : Denies recent illness. Denies recent unintentional weight loss. Denies fever, chills, or sweats. EENT: Denies eye, ear, throat, or mouth pain, discharge, or symptoms. Denies nasal or sinus congestion. CARDIOVASCULAR: Denies chest pain. RESPIRATORY: Denies shortness of breath, cough, congestion, difficulty breathi ng, or wheezing. GASTROINTESTINAL: See HPI. GENITOURINARY: Denies difficulty urinating, burning, blood in urine, urgency or frequency. MUSCULOSKELETAL: Denies neck and back pain. Denies joint pain or swelling. SKIN: Denies rash, itchiness, or lesions HEMATOLOGIC : Denies easy bruising or bleeding. LYMPHATIC: Denies swollen, painful, enlarged glands. NEUROLOGICAL: Denies no numbness or tingling denies weakness. Denies headache. Denies altered mental status. Denies alteration in speech. PSYCHIATRIC: Denies stress, anxiety, alteration in sleep patterns, or depression. All other systems reviewed and negative. Physical Exam - Vital signs Vitals: Temp Pulse Resp BP Pulse Ox 97.9 F 84 16 149/65 H 98 12/01/19 11:50 12/01/19 11:50 12/01/19 11:50 12/01/19 11:50 12/01/19 11:50 - Notes Notes: PHYSICAL EXAMINATION: GENERAL: Appears well, morbidly obese, no acute distress. HEAD: Normocephalic, atraumatic. EYES: PERRL, conjunctiva normal, all extraocular movements intact, sclera nonicteric ENT: Moist mucous membranes. NECK: Supple, no noticeable swelling, redness, rash. Normal range of motion. LUNGS: Equal breath sounds bilaterally and clear to auscultation. No wheezes rales or rhonchi. CARDIOVASCULAR: S1-S2, regular rate, regular rhythm. Radial pulses 2+, normal. ABDOMEN: Normoactive bowel sounds. Soft, mildly tender left upper quadrant, no guarding, no rebound tenderness, and no masses palpated. EXTREMITIES: Normal strength and range of motion, no pitting or edema. No cyanosis. NEUROLOGICAL: Moves all extremities upon command. Strength 5/5 in all extremities. PSYCH: Normal mood, normal affect. SKIN: Warm, dry. No rash, lesions, ulcerations noted. Normal skin turgor. Course - Re-evaluation Re-evalutation: 12/01/19 16:14 Hematology shows a leukocytosis of 10,600. This is most likely due to the patient vomiting. No anemia noted. Chemistries are unremarkable with normal liver function tests and normal lipase. hCG is negative. Patient has trace leukocytes in her urine, but I have a low suspicion for urinary tract infection. Patient denies any dysuria. Patient will be also tested for the flu, as the patient had lives in a shelter and has had sick contacts. Patient will also be p.o. challenged. 12/01/19 17:12 Patient was able to tolerate p.o. fluids. She states that her stomach is still little bit uncomfortable. We will give her Pepcid and Carafate to try to help with her symptoms. 12/01/19 17:45 States that she feels much better. She is requesting to leave. We will send her with a prescription for Zofran. She will follow-up with her primary care provider. Follow-up precautions were given. Verbal discharge instructions were given to the patient. They verbalized understanding. They are stable for discharge. - Vital Signs Vital signs: Temp Pulse Resp BP Pulse Ox 98.2 F 84 16 149/65 H 98 12/01/19 16:36 12/01/19 11:50 12/01/19 11:50 12/01/19 11:50 12/01/19 11:50 - Laboratory Result Diagrams: 12/01/19 13:27 12/01/19 13:27 Laboratory results interpreted by me: 12/01/19 12/01/19 13:22 13:27 WBC 10.6 H MCH 26.5 L RDW 16.8 H Leukocyte Esterase Rfl TRACE H Discharge - Discharge Clinical Impression: Gastroenteritis Nausea and vomiting Qualifiers: Vomiting type: unspecified Vomiting Intractability: unspecified Qualified Code(s): R11.2 - Nausea with vomiting, unspecified Diarrhea Qualifiers: Diarrhea type: unspecified type Qualified Code(s): R19.7 - Diarrhea, unspecified Condition: Stable Disposition: HOME, SELF-CARE Instructions: Gastroenteritis (adult) ([facility]) Additional Instructions: Your symptoms are likely due to a viral illness and should resolve in the next several days. You can take [id number] loperamide also known as Imodium as needed for diarrhea per box instructions. Continue to stay hydrated with plenty of solution such as Gatorade or Pedialyte. You are being prescribed Zofran to take as needed for nausea and vomiting. Please return if you develop severe abdominal pain, pass out, become unable to tolerate any oral fluids for 12 more hours, or any other symptoms that are concerning to you. Prescriptions: Ondansetron [Zofran Odt 4 mg Tablet] 1 - 2 tab PO Q4H PRN #20 tab.rapdis PRN Reason: For Nausea/Vomiting Referrals: MICHAEL SCHULZ MD [Primary Care Provider] - Follow up as needed
[2019-12-01 17:05] LABS: A TYPE INFLUENZA AG NEGATIVE (NEGATIVE); B INFLUENZA AG NEGATIVE (NEGATIVE)
[2019-12-01] MEDS ORDERED: FAMOTIDINE 20 MG TABLET PO ONE (17:07)
[2019-12-01] MEDS ORDERED: SUCRALFATE 1 GM TABLET PO ONE (17:07)
== END 2019-12-01 17:55 | disposition home or self-care (01) ==
LOC: ER 11:04
DX: K52.9 Noninfective gastroenteritis and colitis, unspecified (principal); R11.2 Nausea with vomiting, unspecified; R10.84 Generalized abdominal pain; R10.812 Left upper quadrant abdominal tenderness; D72.829 Elevated white blood cell count, unspecified; I10 Essential (primary) hypertension; E11.9 Type 2 diabetes mellitus without complications; J45.909 Unspecified asthma, uncomplicated; Z87.891 Personal history of nicotine dependence; Z91.018 Allergy to other foods
CPT/HCPCS: 36415; 83690; 84703; 85025; 80053; 81001; 87804; J0500; S0119; 96372; 99284

== ENCOUNTER 2020-01-25 20:00 | Emergency (ER) | payer BC, MEDICAID ==
--- NOTE | 2020-01-25 21:52 | ER Document Report ---
ED General - General Chief Complaint: Foot Pain Stated Complaint: COLD SWEATS/FEVER Time Seen by Provider: 01/25/20 20:59 Primary Care Provider: MICHAEL SCHULZ MD [Primary Care Provider] - Follow up as needed TRAVEL OUTSIDE OF THE [place] IN LAST 30 DAYS: No - HPI Notes: 29-year-old female history of anxiety, schizoaffective disorder, diabetes, hypertension, GERD, unknown thyroid disorder presents with episode of transient shortness of breath, anxiety, feeling of "being cold and hot" that occurred at 6 PM on day of presentation lasted for few minutes and then resolved without intervention. Episode occurred at rest. Now patient feels like she is at her baseline. Patient says she has panic attacks but says that feeling of being hot and cold was different than her usual panic attack which prompted her to come to ED for evaluation. Patient says that the focal area of swelling on the dorsum of her left foot that she mentioned in triage was in afterthought and that it has been present for several months and is not bothering her. Patient denies any chest pain, cardiac history (medical records says CAD but patient denies), exertional symptoms, DVT/PE/hypercoagulability history in self or family, recent immobilization, cancer history, generalized lower extremity edema other than at site of midfoot injury stable for months, calf pain, syncope, trauma, measured fever, urinary symptoms, GI symptoms. - Related Data Allergies/Adverse Reactions: lemon Allergy (Verified 12/01/19 12:03) brompheniramine maleate [From Dimetapp] Adverse Reaction (Unknown, Verified 12/01/19 12:03) Hyperactivity dextromethorphan HBr [From Dimetapp] Adverse Reaction (Verified 12/01/19 12:03) Hyperactivity phenylpropanolamine HCl [From Dimetapp] Adverse Reaction (Verified 12/01/19 12:03) Hyperactivity pseudoephedrine HCl [From Dimetapp] Adverse Reaction (Verified 12/01/19 12:03) Hyperactivity Past Medical History - General Information source: Patient - Social History Smoking Status: Never Smoker Frequency of alcohol use: Rare Family History: Arthritis, CAD, DM, Hyperlipidemia, Hypertension, Thyroid Disfunction Patient has suicidal ideation: No Patient has homicidal ideation: No - Past Medical History Cardiac Medical History: Reports: Hx Hypertension Denies: Hx Coronary Artery Disease, Hx Heart Attack Pulmonary Medical History: Reports: Hx Asthma - MILD Denies: Hx Bronchitis, Hx COPD, Hx Pneumonia Neurological Medical History: Reports: Hx Migraine, Hx Seizures - ? SZ, BEING TESTED CURRENTLY. Denies: Hx Cerebrovascular Accident Endocrine Medical History: Reports: Hx Diabetes Mellitus Type 2, Hx Hypothyroidism Renal/ Medical History: Denies: Hx Peritoneal Dialysis GI Medical History: Reports: Hx Gastroesophageal Reflux Disease Musculoskeletal Medical History: Reports Hx Arthritis - AMIRA KNEES, RIGHT FOOT, Reports Hx Musculoskeletal Trauma Skin Medical History: Reports Hx Eczema Psychiatric Medical History: Reports: Hx Bipolar Disorder, Hx Depression, Hx Schizoaffective Disorder, Hx Schizophrenia Traumatic Medical History: Reports: Hx Fractures - left ankle,arm - Immunizations Immunizations up to date: No Hx Diphtheria, Pertussis, Tetanus Vaccination: Yes Review of Systems - Review of Systems Notes: REVIEW OF SYSTEMS: CONSTITUTIONAL : +chills, +sweat EENT: Denies recent cold/sinus symptoms, denies throat pain CARDIOVASCULAR: Denies chest pain, JORGE RESPIRATORY: Denies cough, +shortness of breath. GASTROINTESTINAL: Denies abdominal pain, nausea/vomiting. GENITOURINARY: Denies difficulty urinating, painful urination. FEMALE GENITOURINARY: Denies abnormal vaginal bleeding, vaginal discharge. MUSCULOSKELETAL: Denies neck pain, back pain. SKIN: Denies rash or skin lesions. HEMATOLOGIC : Denies easy bruising or bleeding. LYMPHATIC: Denies swollen, enlarged glands. NEUROLOGICAL: Denies headache, denies change in gait. PSYCHIATRIC: Denies SI/HI, depression. Physical Exam - Vital signs Vitals: Temp Pulse Resp BP Pulse Ox 97.5 F 121 H 20 145/95 H 98 01/25/20 20:09 01/25/20 20:09 01/25/20 20:09 01/25/20 20:09 01/25/20 20:09 - Notes Notes: PHYSICAL EXAMINATION: GENERAL: Well-appearing, well-nourished, obese young adult lying in stretcher with no visible signs of discomfort HEAD: Atraumatic, normocephalic. EYES: Pupils equal round and appropriate constriction, sclera anicteric, conjunctiva are normal. ENT: nares patent, moist mucous membranes. NECK: Normal range of motion, supple without lymphadenopathy LUNGS: Breath sounds clear to auscultation bilaterally and equal. No wheezes rales or rhonchi. HEART: Regular rhythm, mildly tachycardic without murmurs ABDOMEN: Soft, nontender, no guarding, no masses, no CVAT EXTREMITIES: Normal range of motion at all articulations, localized ~5x8cm area of mild swelling mild hyperemia over dorsolateral left midfoot, no abnormal warmth, no discharge, no fluctuance, distal cap refill <1s, dp pulses 2+ b/l, NEUROLOGICAL: Awake, alert, conversing appropriately, moves all extremities spontaneously. PSYCH: Normal mood, normal affect. SKIN: Warm, Dry, normal turgor, no rashes or lesions noted. Course - Re-evaluation Re-evalutation: 01/25/20 21:52 As of yet unable to evaluate patient as patient not in ED room. Charge nurse says that unable to bring patients back because insufficient nursing staff. 01/25/20 23:43 Patient with transient episode of shortness of breath and subjective temperature change that resolved without intervention approximately 2 hours prior to arrival in the ED. Will rule out PE, ACS, DKA, symptomatic anemia, . Wells score 1.5, will obtain d-dimer to rule out PE and obtain CTA if d-dimer positive. Given episode happened 6 hours prior to nursing blood draw, 1 tropo alcides sufficient to rule out ACS unlikely discharge from ED according to heart score. Will continue to monitor. 01/26/20 00:45 Patient's initial tachycardia resolved, current rate on monitor 83. No emergent findings on work-up. Patient has left foot fifth metatarsal diaphyseal fracture that is several months old, so no indication for nonweightbearing recommendation at this time, will DC to follow-up with surgeon who is performing surgery on right toe injury. Patient given extensive return precautions which she demonstrated understanding of, ready for discharge with PCP and Ortho follow-up. - Vital Signs Vital signs: Temp Pulse Resp BP Pulse Ox 97.5 F 121 H 15 100/64 99 01/25/20 20:09 01/25/20 20:09 01/26/20 00:01 01/26/20 00:01 01/26/20 00:01 - Laboratory Result Diagrams: 01/25/20 23:40 01/25/20 23:40 Laboratory results interpreted by me: 01/25/20 01/25/20 01/25/20 23:40 23:40 23:40 RDW 15.7 H Sodium 134.7 L Glucose 112 H TSH 5.92 H - EKG Interpretation by Me Additional EKG results interpreted by me: 01/25/20 23:46 Normal sinus rhythm, heart rate 81, QTc 446, no significant ST elevations or depressions, no significant T wave abnormalities Discharge - Discharge Clinical Impression: Dizziness Condition: Good Disposition: HOME, SELF-CARE Additional Instructions: Foot Fracture You have a fracture in one of the small bones of the foot. Some foot fractures are very serious, while others are no more serious than a sprain. This fracture should heal well, but requires protection for proper healing. Initially, you should elevate and ice pack the foot, and bear no weight on it. Usually, a cast or a walking boot will be required. Some milder foot fractures can be managed with temporary rest, then a firm shoe. Your physician has determined the seriousness of your foot fracture and has outlined the treatment plan for you. You should follow up as instructed to insure that the fracture heals without complications. Call the doctor or return at once if pain or swelling becomes severe, if a re-injury occurs, or if any part of the foot becomes numb. Return to ED immediately if you have chest pain, trouble breathing, fainting, follow-up with your primary doctor and orthopedic surgeon within 1 week. Referrals: MICHAEL SCHULZ MD [Primary Care Provider] - Follow up as needed
--- NOTE | 2020-01-25 21:53 | RADIOLOGY REPORT (SQ) ---
EXAM DESCRIPTION: Three views of the left foot CLINICAL HISTORY: 29 years Female, injury with bone tenderness COMPARISON: None. FINDINGS: Diffuse soft tissue swelling is identified. There is minimal spurring of the navicular at the mid foot. There is a small heel spur. Old fracture of the fifth metatarsal is identified which has bony bridging and is healed. No acute fracture is seen. No erosions or periostitis. IMPRESSION: Soft tissue swelling. No acute fracture.
[2020-01-25] MEDS ORDERED: NORMAL SALINE 1000 ML 1,000 ML IV ONE (22:54)
--- NOTE | 2020-01-25 23:36 | RADIOLOGY REPORT (SQ) ---
EXAM DESCRIPTION: XR CHEST 2 VIEWS COMPLETED DATE/TME: 01/25/2020 11:24 PM CLINICAL HISTORY: sob COMPARISON: None FINDINGS: Cardiac silhouette is within normal limits. There is no focal parenchymal or pleural disease. There is no acute osseous process visualized. IMPRESSION: No evidence of acute cardiopulmonary disease.
[2020-01-25 23:55] LABS: ABSOLUTE EOSINOPHILS # (AUTO) 0.2 10^3/uL (0.0-0.6); ABSOLUTE LYMPHOCYTES (AUTO) 2.9 10^3/uL (0.5-4.7); ABSOLUTE MONOCYTES (AUTO) 0.6 10^3/uL (0.1-1.4); BASOPHILS % (AUTO) 0.4 % (0-2); EOSINOPHILS % (AUTO) 1.9 % (0-6); HEMATOCRIT 38.6 % (36.0-47.0); LYMPHOCYTES % (AUTO) 29.6 % (13-45); MEAN CORPUSCULAR HEMOGLOBIN 27.3 pg (27.0-33.4); MEAN CORPUSCULAR HGB CONC 33.8 g/dL (32.0-36.0); MEAN CORPUSCULAR VOLUME 81 fl (80-97); MONOCYTES % (AUTO) 6.6 % (3-13); PLATELET COUNT 315 10^3/uL (150-450); RED BLOOD COUNT 4.77 10^6/uL (3.72-5.28); RED CELL DISTRIBUTION WIDTH 15.7 % (11.5-14.0); SEGMENTED NEUTROPHILS % (AUTO) 61.5 % (42-78); TOTAL CELLS COUNTED % (AUTO) 100 %; WHITE BLOOD COUNT 9.8 10^3/uL (4.0-10.5)
[2020-01-26 00:13] LABS: ALBUMIN 3.7 g/dL (3.5-5.0); ALKALINE PHOSPHATASE 76 U/L (38-126); ANION GAP 5 (5-19); ASPARTATE AMINO TRANSFERASE 18 U/L (14-36); BILIRUBIN,TOTAL 0.3 mg/dL (0.2-1.3); BLOOD UREA NITROGEN 17 mg/dL (7-20); CALCIUM 9.1 mg/dL (8.4-10.2); CARBON DIOXIDE 29 mmol/L (22-30); CHLORIDE 101 mmol/L (98-107); GLUCOSE 112 mg/dL (75-110); POTASSIUM 4.4 mmol/L (3.6-5.0); TOTAL PROTEIN 6.9 g/dL (6.3-8.2)
[2020-01-26 01:52] VITALS: BP 100/64
--- NOTE | 2020-01-26 07:41 | EKG REPORT ---
SEVERITY:- NORMAL ECG - SINUS RHYTHM 81 : Confirmed by: Jayden Michel MD 26-Jan-2020 07:41:12
== END 2020-01-26 01:52 | disposition home or self-care (01) ==
LOC: ER 20:00
DX: R42 Dizziness and giddiness (principal); M79.672 Pain in left foot; R06.02 Shortness of breath; E66.9 Obesity, unspecified; M79.89 Other specified soft tissue disorders; F41.9 Anxiety disorder, unspecified; I10 Essential (primary) hypertension; E11.9 Type 2 diabetes mellitus without complications
CPT/HCPCS: 93005; 99284; 96360; 36415; 82962; 84443; 84703; 85025; 80053; 84484; 85379; 71046; 73630; 93010; J7030

== ENCOUNTER 2020-05-16 19:01 | Emergency (ER) | payer BC, MEDICAID ==
--- NOTE | 2020-05-16 22:58 | ER Document Report ---
Doctor's Note Notes: 05/16/20 22:57 Patient has still not been placed in a room, has been listed as "in room" status for 1 hour and 30 minutes despite this, and changing patient's status over to triage complete.
[2020-05-17] MEDS ORDERED: DIPHENHYDRAMINE HCL 25 MG CAPSULE PO ONE (00:51)
--- NOTE | 2020-05-17 00:53 | ER Document Report ---
HPI - HPI Time Seen by Provider: 05/17/20 00:32 Pain Level: 3 Context: Patient is a 29-year-old female with developmental delay who presents emergency department with left eye. Patient states that the itchiness is now on her eyeball, but is on her eyelid. She has not taken anything [id number] to help with her itchiness. Denies any purulent drainage from her eye. Denies any redness. Patient also has redness to her abdomen. States that it is pruritic in nature. Patient does have a history of allergies, but she is not currently on allergy medication. - ROS Systems Reviewed and Negative: Yes All other systems reviewed and negative - CONSTITUTIONAL Constitutional: DENIES: Fever, Chills - EENT EENT: REPORTS: Eye problems - Erythema to left eyelid - NEURO Neurology: DENIES: Headache, Weakness - GASTROINTESTINAL Gastrointestinal: DENIES: Abdominal Pain, Nausea, Patient vomiting - REPRODUCTIVE LMP: 05/16/2020 Reproductive: DENIES: : - MUSCULOSKELETAL Musculoskeletal: REPORTS: Extremity pain - DERM Skin Color: Normal Skin Problems: Rash - Abdomen consistent with dermatitis. Past Medical History - Social History Smoking Status: Never Smoker Chew tobacco use (# tins/day): No Frequency of alcohol use: Rare Drug Abuse: None Family History: Arthritis, CAD, DM, Hyperlipidemia, Hypertension, Thyroid Disfunction Patient has homicidal ideation: No - Past Medical History Cardiac Medical History: Reports: Hx Hypertension Denies: Hx Coronary Artery Disease, Hx Heart Attack Pulmonary Medical History: Reports: Hx Asthma - MILD Denies: Hx Bronchitis, Hx COPD, Hx Pneumonia Neurological Medical History: Reports: Hx Migraine, Hx Seizures - ? SZ, BEING TESTED CURRENTLY. Denies: Hx Cerebrovascular Accident Endocrine Medical History: Reports: Hx Diabetes Mellitus Type 2, Hx Hypoth yroidism Renal/ Medical History: Denies: Hx Peritoneal Dialysis GI Medical History: Reports: Hx Gastroesophageal Reflux Disease Musculoskeletal Medical History: Reports Hx Arthritis - AMIRA KNEES, RIGHT FOOT, Reports Hx Musculoskeletal Trauma Skin Medical History: Reports Hx Eczema Psychiatric Medical History: Reports: Hx Bipolar Disorder, Hx Depression, Hx Schizoaffective Disorder, Hx Schizophrenia Traumatic Medical History: Reports: Hx Fractures - left ankle,arm - Immunizations Immunizations up to date: No Hx Diphtheria, Pertussis, Tetanus Vaccination: Yes Vertical Provider Document - CONSTITUTIONAL Agree With Documented VS: Yes Exam Limitations: No Limitations General Appearance: No Apparent Distress, Obese - Morbidly - INFECTION CONTROL TRAVEL OUTSIDE OF THE [place] IN LAST 30 DAYS: No - HEENT HEENT: Atraumatic, Normocephalic, PERRLA Notes: Scaly skin noted to left eyelid - NECK Neck: Normal Inspection - RESPIRATORY Respiratory: Breath Sounds Normal, No Respiratory Distress - CARDIOVASCULAR Cardiovascular: Regular Rate, Regular Rhythm Pulses: Normal: Radial - GI/ABDOMEN Gastrointestinal: Abdomen Soft, Abdomen Non-Tender - MUSCULOSKELETAL/EXTREMETIES Musculoskeletal/Extremeties: FROM - NEURO Level of Consciousness: Awake, Alert, Appropriate Motor/Sensory: No Motor Deficit, No Sensory Deficit - DERM Integumentary: Warm, Dry, Rash - To abdomen, consistent with the patient scratching. Patient continued to scratch her abdomen during the exam. Course - Re-evaluation Re-evalutation: 05/17/20 Physical exam consistent with contact dermatitis. No evidence of cellulitis, scabies, or necrotizing fasciitis noted. I advised the patient to stop scratching her abdomen, as this is making things worse. Advised her to take Benadryl. She says she has this medication at home. I would like to start her also on cetirizine. She is to follow-up with her primary care provider. Follow-up precautions were given. Verbal discharge instructions were given to t he patient. They verbalized understanding. They are stable for discharge. - Vital Signs Vital signs: Temp Pulse Resp BP Pulse Ox 98.2 F 118 H 18 113/92 H 95 05/16/20 19:14 05/16/20 19:14 05/16/20 19:14 05/16/20 19:14 05/16/20 19:14 Discharge - Discharge Clinical Impression: Dermatitis, eyelid Qualifiers: Dermatitis of eyelid type: allergic Laterality: left Eyelid: upper Qualified Code(s): H01.114 - Allergic dermatitis of left upper eyelid Condition: Stable Disposition: HOME, SELF-CARE Additional Instructions: You were seen today in the emergency department for left eye itchiness. Please take Benadryl as needed for excessive itchiness. Start cetirizine, your allergy medicine daily to prevent itchiness. Prescriptions: Cetirizine HCl [All Day Allergy] 10 mg PO DAILY #30 tablet Referrals: MICHAEL SCHULZ MD [Primary Care Provider] - Follow up in 3-5 days
[2020-05-17 02:40] VITALS: BP 120/64
== END 2020-05-17 02:38 | disposition home or self-care (01) ==
LOC: ER 19:01
DX: H01.114 Allergic dermatitis of left upper eyelid (principal); R52 Pain, unspecified; R21 Rash and other nonspecific skin eruption; I10 Essential (primary) hypertension; J45.909 Unspecified asthma, uncomplicated; E11.9 Type 2 diabetes mellitus without complications; E66.01 Morbid (severe) obesity due to excess calories
CPT/HCPCS: 99283

== ENCOUNTER 2020-06-23 23:53 | Emergency (ER) | payer BC, MEDICAID ==
[2020-06-24] MEDS ORDERED: ONDANSETRON HCL INJ/PF 4 MG/2 ML SDV IV ONE (02:04)
[2020-06-24] MEDS ORDERED: MORPHINE SULFATE 10 MG/ML INJ IV ONE (02:04)
[2020-06-24] MEDS ORDERED: RINGERS SOLUTION,LACTATED 1,000 ML IV ONE (02:04)
--- NOTE | 2020-06-24 02:05 | ER Document Report ---
ED GI/ - General Chief Complaint: Nausea/Vomiting/Diarrhea Stated Complaint: ABDOMINAL PAIN, VOMITING Time Seen by Provider: 06/24/20 01:28 Primary Care Provider: MICHAEL SCHULZ MD [Primary Care Provider] - Follow up as needed Mode of Arrival: Ambulatory Information source: Patient Notes: 29-year-old female past medical history significant for diabetes, reilly izoaffective disorder, hypertension, hyperlipidemia, GERD presents to the emergency room complaining of some diffuse burning abdominal pain with nausea vomiting for the past 4 days. States she is been taking Tylenol without relief. Denies any trauma or injury. States she had not eaten in 3 days and tried to eat a pizza tonight which made her pain worse. Denies any fever. Denies any urinary symptoms. Denies any recent travel. Denies any COVID-19 exposure. No known ill contacts. No bad food she can think of. No antibiotics in the past week. TRAVEL OUTSIDE OF THE [place] IN LAST 30 DAYS: No - Related Data Allergies/Adverse Reactions: lemon Allergy (Verified 05/16/20 21:28) brompheniramine maleate [From Dimetapp] Adverse Reaction (Unknown, Verified 05/16/20 21:28) Hyperactivity dextromethorphan HBr [From Dimetapp] Adverse Reaction (Verified 05/16/20 21:28) Hyperactivity phenylpropanolamine HCl [From Dimetapp] Adverse Reaction (Verified 05/16/20 21:28) Hyperactivity pseudoephedrine HCl [From Dimetapp] Adverse Reaction (Verified 05/16/20 21:28) Hyperactivity Past Medical History - General Information source: Patient - Social History Smoking Status: Never Smoker Chew tobacco use (# tins/day): No Frequency of alcohol use: None Drug Abuse: None Family History: Arthritis, CAD, DM, Hyperlipidemia, Hypertension, Thyroid Disfunction - Past Medical History Cardiac Medical History: Reports: Hx Hypertension Denies: Hx Coronary Artery Disease, Hx Heart Attack Pulmonary Medical History: Reports: Hx Asthma - MILD Denies: Hx Bronchitis, Hx COPD, Hx Pneumonia Neurological Medical History: Reports: Hx Migraine, Hx Seizures - ? SZ, BEING TESTED CURRENTLY. Denies: Hx Cerebrovascular Accident Endocrine Medical History: Reports: Hx Diabetes Mellitus Type 2, Hx Hypothyroidism Renal/ Medical History: Denies: Hx Peritoneal Dialysis GI Medical History: Reports: Hx Gastroesophageal Reflux Disease Musculoskeletal Medical History: Reports Hx Arthritis - AMIRA KNEES, RIGHT FOOT, Reports Hx Musculoskeletal Trauma Skin Medical History: Reports Hx Eczema Psychiatric Medical History: Reports: Hx Bipolar Disorder, Hx Depression, Hx Schizoaffective Disorder, Hx Schizophrenia Traumatic Medical History: Reports: Hx Fractures - left ankle,arm - Immunizations Immunizations up to date: No Hx Diphtheria, Pertussis, Tetanus Vaccination: Yes Review of Systems - Review of Systems Constitutional: No symptoms reported Cardiovascular: No symptoms reported Respiratory: No symptoms reported Gastrointestinal: Abdominal pain, Nausea, Vomiting. denies: Diarrhea, Constipation Musculoskeletal: No symptoms reported Skin: No symptoms reported Neurological/Psychological: No symptoms reported -: Yes All other systems reviewed and negative Physical Exam - Vital signs Vitals: Temp Pulse Resp BP Pulse Ox 97.6 F 102 H 17 119/78 100 06/24/20 00:49 06/24/20 00:49 06/24/20 00:49 06/24/20 00:49 06/24/20 00:49 - General General appearance: Appears well, Alert In distress: Mild - Respiratory Respiratory status: No respiratory distress Chest status: Nontender Breath sounds: Normal Chest palpation: Normal - Cardiovascular Rhythm: Tachycardia Heart sounds: Normal auscultation Murmur: No - Abdominal Inspection: Normal Distension: No distension Bowel sounds: Normal Tenderness: Tender - Diffuse tenderness on palpation.. No: McBurney's point, Randhawa's sign, Guarding, Rebound Organomegaly: No organomegaly - Back Back: Normal, Nontender. No: CVA tenderness - Neurological Neuro grossly intact: Yes Cognition: Normal Orientation: AAOx4 [place] Coma Scale Eye Opening: Spontaneous [place] Coma Scale Verbal: Oriented Ariel Coma Scale Motor: Obeys Commands Ariel Coma Scale Total: 15 Speech: Normal Motor strength normal: LUE, RUE, LLE, RLE Sensory: Normal - Skin Skin Temperature: Warm Skin Moisture: Dry Skin Color: Normal Course - Re-evaluation Re-evalutation: 06/24/20 04:28 Patient is resting comfortably with decreased pain. Reviewed all test results with patient. Will give GI cocktail and reevaluate. Patient is pain-free on exam. 06/24/20 05:08 Patient is resting comfortably she is currently pain-free on exam. Decreased pain after GI cocktail was given. All test results were reviewed with patient. Counseled on a bland diet for the next 24 hours. Outpatient follow-up with her primary care physician if not improving in 2 to 3 days. Patient was given strict return to the emergency room guidelines. Return for any new or worsening symptoms. All questions were answered. Patient verbalized understanding and agrees with plan of care. - Vital Signs Vital signs: Temp Pulse Resp BP Pulse Ox 97.6 F 102 H 17 119/78 100 06/24/20 00:49 06/24/20 00:49 06/24/20 00:49 06/24/20 00:49 06/24/20 00:49 - Laboratory Result Diagrams: 06/24/20 02:14 06/24/20 02:14 Laboratory results interpreted by me: 06/24/20 06/24/20 01:55 02:14 RDW 14.2 H Urine Protein 100 H Urine Blood LARGE H Urine Urobilinogen 4.0 H Ur Leukocyte Esterase MODERATE H - Diagnostic Test Radiology reviewed: Reports reviewed Discharge - Discharge Clinical Impression: Abdominal pain of unknown etiology Condition: Stable Disposition: HOME, SELF-CARE Instructions: Abdominal Pain ([facility]), Low-Fat Diet ([facility]) Additional Instructions: Tylenol and/or Motrin as needed for pain. [place] diet. Recheck with primary care physician if not improving in 2 to 3 days. Return to the emergency room for any new or worsening symptoms. Referrals: MICHAEL SCHULZ MD [Primary Care Provider] - Follow up as needed
[2020-06-24 02:26] LABS: ABSOLUTE BASOPHILS # (AUTO) 0.1 10^3/uL (0.0-0.2); ABSOLUTE EOSINOPHILS # (AUTO) 0.1 10^3/uL (0.0-0.6); ABSOLUTE LYMPHOCYTES (AUTO) 2.5 10^3/uL (0.5-4.7); ABSOLUTE MONOCYTES (AUTO) 0.8 10^3/uL (0.1-1.4); ABSOLUTE NEUT (AUTO) 6.8 10^3/uL (1.7-8.2); BASOPHILS % (AUTO) 0.7 % (0-2); EOSINOPHILS % (AUTO) 0.7 % (0-6); HEMATOCRIT 41.9 % (36.0-47.0); HEMOGLOBIN 14.3 g/dL (12.0-15.5); LYMPHOCYTES % (AUTO) 24.1 % (13-45); MEAN CORPUSCULAR HEMOGLOBIN 28.3 pg (27.0-33.4); MEAN CORPUSCULAR HGB CONC 34.2 g/dL (32.0-36.0); MEAN CORPUSCULAR VOLUME 83 fl (80-97); MONOCYTES % (AUTO) 8.1 % (3-13); PLATELET COUNT 339 10^3/uL (150-450); RED BLOOD COUNT 5.06 10^6/uL (3.72-5.28); RED CELL DISTRIBUTION WIDTH 14.2 % (11.5-14.0); SEGMENTED NEUTROPHILS % (AUTO) 66.4 % (42-78); TOTAL CELLS COUNTED % (AUTO) 100 %; WHITE BLOOD COUNT 10.3 10^3/uL (4.0-10.5)
[2020-06-24 02:27] LABS: APPEARANCE,URINE CLOUDY; BILIRUBIN,URINE NEGATIVE (NEGATIVE); COLOR,URINE RED; GLUCOSE, URINE NEGATIVE (NEGATIVE); KETONES,URINE NEGATIVE (NEGATIVE); LEUKOCYTE ESTERASE,URINE MODERATE (NEGATIVE); NITRITE,URINE NEGATIVE (NEGATIVE); PROTEIN,URINE 100 mg/dL (NEGATIVE); URINE SPECIFIC GRAVITY 1.027
[2020-06-24 02:35] LABS: ALBUMIN 4.3 g/dL (3.5-5.0); ALKALINE PHOSPHATASE 94 U/L (38-126); ANION GAP 12 (5-19); ASPARTATE AMINO TRANSFERASE 24 U/L (14-36); BILIRUBIN,DIRECT 0.4 mg/dL (0.0-0.4); BILIRUBIN,TOTAL 0.6 mg/dL (0.2-1.3); BLOOD UREA NITROGEN 15 mg/dL (7-20); CALCIUM 9.8 mg/dL (8.4-10.2); CARBON DIOXIDE 25 mmol/L (22-30); CHLORIDE 101 mmol/L (98-107); GLUCOSE 105 mg/dL (75-110); POTASSIUM 3.9 mmol/L (3.6-5.0); TOTAL PROTEIN 7.5 g/dL (6.3-8.2)
--- NOTE | 2020-06-24 04:22 | RADIOLOGY REPORT (SQ) ---
EXAM DESCRIPTION: CT ABD/PELVIS WITH IV ONLY IMAGES COMPLETED DATE/TIME: 06/24/2020 3:25 am REASON FOR STUDY: abdominal pain COMPARISON: 08/05/2019 TECHNIQUE: CT scan of the abdomen and pelvis performed using helical scanning technique with dynamic intravenous contrast injection. No oral contrast. Images reviewed with lung, soft tissue, and bone windows. Reconstructed coronal and sagittal MPR images reviewed. Delayed images for evaluation of the urinary system also acquired. All images stored on PACS. All CT scanners at this facility use dose modulation, iterative reconstruction, and/or weight based d osing when appropriate to reduce radiation dose to as low as reasonably achievable (ALARA). [facility]: Dose Right [facility]: CareDose [facility]: Dose Right [facility]: Teradose 4D [facility]: [place] CONTRAST TYPE AND DOSE: contrast/concentration: Isovue 350.00 mmol/ml; Total Contrast Delivered: 100 .0 ml; Total Saline Delivered: 24.5 ml RENAL FUNCTION: BUN 15; creatinine 0.77 RADIATION DOSE: CT Rad equipment meets quality standard of care and radiation dose reduction techniq ues were employed. CTDIvol: 19.2 - 21.1 mGy. DLP: 2542 mGy-cm.. LIMITATIONS: None. FINDINGS: LOWER CHEST: No significant findings. No nodules or infiltrates. LIVER: Normal size. No mass. No intrahepatic biliary dilatation. Hepatic steatosis. SPLEEN: Normal size. No focal lesions. PANCREAS: Non masslike low-attenuation is seen within the head of the pancreas, similar to that seen on comparison imaging. No masses. No significant calcifications. No adjacent inflammation or [place] creatic fluid collections. Pancreatic duct not dilated. GALLBLADDER: No identified stones by CT criteria. No inflammatory changes to suggest cholecystitis. ADRENAL GLANDS: No significant masses or asymmetry. RIGHT KIDNEY AND URETER: No solid masses. No significant calcifications. No hydronephrosis or hyd roureter. LEFT KIDNEY AND URETER: No solid masses. No significant calcifications. No hydronephrosis or hydr oureter. AORTA AND VESSELS: No aneurysm. No dissection. Renal arteries, SMA, celiac without stenosis. RETROPERITONEUM: No retroperitoneal adenopathy, hemorrhage or masses. BOWEL AND PERITONEAL CAVITY: No masses or inflammatory changes. No free fluid or peritoneal masses. APPENDIX: Normal. PELVIS: No mass. No free fluid. Normal bladder. ABDOMINAL WALL: No masses. No hernias. BONES: No significant or acute findings. OTHER: No other significant finding. IMPRESSION: No evidence of acute intra-abdominal infectious/inflammatory process. Stable chronic an d incidental findings as detailed above. TECHNICAL DOCUMENTATION: JOB ID: [id number] Quality ID # [id number]: Final reports with documentation of one or more dose reduction techniques (e.g., Au tomated exposure control, adjustment of the mA and/or kV according to patient size, use of iterative reconstruction technique) 2010 [employer]- All Rights Reserved Reading location - IP/workstation name: [email or web address]
[2020-06-24] MEDS ORDERED: LIDOCAINE 2% VISCOUS SOLN 15 ML UDCUP PO ONE (04:26)
[2020-06-24] MEDS ORDERED: MAG HYDROX/AL HYDROX/SIMETH SUSP 30 ML UDCUP PO ONE (04:26)
[2020-06-24] MEDS ORDERED: METOCLOPRAMIDE HCL ORAL SOLN 10 MG/10 ML UDCUP PO ONE (04:26)
[2020-06-24 05:21] VITALS: BP 115/65
== END 2020-06-24 05:21 | disposition home or self-care (01) ==
LOC: ER 23:53
DX: R10.84 Generalized abdominal pain (principal); R11.2 Nausea with vomiting, unspecified; N93.9 Abnormal uterine and vaginal bleeding, unspecified; R51 Headache; M54.2 Cervicalgia; R11.0 Nausea; Z98.890 Other specified postprocedural states; Z91.048 Other nonmedicinal substance allergy status
CPT/HCPCS: 99285; 96361; 96374; 96375; 36415; 83690; 84703; 85025; 80053; 81001; 74177; J3490; J2270; J2405; J7120

== ENCOUNTER 2020-06-27 22:04 | Emergency (ER) | payer BC, MEDICAID ==
[2020-06-27 22:16] VITALS: BP 127/79
--- NOTE | 2020-06-27 23:11 | ER Document Report ---
ED Medical Screen (RME) - General Chief Complaint: Abdominal Pain Stated Complaint: ABDOMINAL PAIN Time Seen by Provider: 06/27/20 23:05 Primary Care Provider: MICHAEL SCHULZ MD [Primary Care Provider] - Follow up as needed Notes: Patient is a 29-year-old female presents emergency department with a chief complaint of abdominal pain. Patient was seen here 4 days ago with similar symptoms. Patient states that her abdominal pain is not any better. Her pain is in her periumbilical area. Denies any vomiting, but states that she has some nausea. Exam: Tender periumbilical area. I have greeted and performed a rapid initial assessment of this patient. A comprehensive ED assessment and evaluation of the patient, analysis of test results and completion of medical decision making process will be conducted by an additional ED providers. TRAVEL OUTSIDE OF THE [place] IN LAST 30 DAYS: No - Related Data Allergies/Adverse Reactions: lemon Allergy (Verified 05/16/20 21:28) brompheniramine maleate [From Dimetapp] Adverse Reaction (Unknown, Verified 05/16/20 21:28) Hyperactivity dextromethorphan HBr [From Dimetapp] Adverse Reaction (Verified 05/16/20 21:28) Hyperactivity phenylpropanolamine HCl [From Dimetapp] Adverse Reaction (Verified 05/16/20 21:28) Hyperactivity pseudoephedrine HCl [From Dimetapp] Adverse Reaction (Verified 05/16/20 21:28) Hyperactivity Past Medical History - Social History Family history: Reviewed & Not Pertinent - Past Medical History Cardiac Medical History: Reports: Hx Hypertension Denies: Hx Coronary Artery Disease, Hx Heart Attack Pulmonary Medical History: Reports: Hx Asthma - MILD Denies: Hx Bronchitis, Hx COPD, Hx Pneumonia Neurological Medical History: Reports: Hx Migraine, Hx Seizures - ? SZ, BEING TESTED CURRENTLY. Denies: Hx Cerebrovascular Accident Endocrine Medical History: Reports: Hx Diabetes Mellitus Type 2, Hx Hypothyroidism Renal/ Medical History: Denies: Hx Peritoneal Dialysis GI Medical History: Reports: Hx Gastroesophageal Reflux Disease Musculoskeltal Medical History: Reports Hx Arthritis - AMIRA KNEES, RIGHT FOOT, Reports Hx Musculoskeletal Trauma Skin Medical History: Reports Hx Eczema Psychiatric Medical History: Reports: Hx Bipolar Disorder, Hx Depression, Hx Schizoaffective Disorder, Hx Schizophrenia Traumatic Medical History: Reports: Hx Fractures - left ankle,arm - Immunizations Immunizations up to date: No Hx Diphtheria, Pertussis, Tetanus Vaccination: Yes Physical Exam - Vital signs Vitals: Temp Pulse Resp BP Pulse Ox 98.2 F 83 13 127/79 H 100 06/27/20 22:14 06/27/20 22:14 06/27/20 22:14 06/27/20 22:14 06/27/20 22:14 Course - Vital Signs Vital signs: Temp Pulse Resp BP Pulse Ox 98.2 F 83 13 127/79 H 100 06/27/20 22:14 06/27/20 22:14 06/27/20 22:14 06/27/20 22:14 06/27/20 22:14 Doctor's Discharge - Discharge Referrals: MICHAEL SCHULZ MD [Primary Care Provider] - Follow up as needed
[2020-06-27] MEDS ORDERED: DICYCLOMINE HCL 20 MG TABLET PO ONE (23:12)
[2020-06-28 00:37] LABS: APPEARANCE,URINE CLOUDY; BILIRUBIN,URINE NEGATIVE (NEGATIVE); COLOR,URINE AMBER; GLUCOSE, URINE NEGATIVE (NEGATIVE); KETONES,URINE 20 mg/dL (NEGATIVE); LEUKOCYTE ESTERASE,URINE MODERATE (NEGATIVE); NITRITE,URINE NEGATIVE (NEGATIVE); PROTEIN,URINE 100 mg/dL (NEGATIVE); URINE SPECIFIC GRAVITY 1.028
[2020-06-28 01:52] LABS: ABSOLUTE EOSINOPHILS # (AUTO) 0.1 10^3/uL (0.0-0.6); ABSOLUTE LYMPHOCYTES (AUTO) 2.4 10^3/uL (0.5-4.7); ABSOLUTE MONOCYTES (AUTO) 0.6 10^3/uL (0.1-1.4); ABSOLUTE NEUT (AUTO) 6.7 10^3/uL (1.7-8.2); BASOPHILS % (AUTO) 0.5 % (0-2); EOSINOPHILS % (AUTO) 1.2 % (0-6); HEMATOCRIT 43.1 % (36.0-47.0); HEMOGLOBIN 14.8 g/dL (12.0-15.5); MEAN CORPUSCULAR HEMOGLOBIN 28.6 pg (27.0-33.4); MEAN CORPUSCULAR HGB CONC 34.3 g/dL (32.0-36.0); MEAN CORPUSCULAR VOLUME 84 fl (80-97); MONOCYTES % (AUTO) 6.4 % (3-13); PLATELET COUNT 293 10^3/uL (150-450); RED BLOOD COUNT 5.16 10^6/uL (3.72-5.28); RED CELL DISTRIBUTION WIDTH 14.2 % (11.5-14.0); SEGMENTED NEUTROPHILS % (AUTO) 67.9 % (42-78); TOTAL CELLS COUNTED % (AUTO) 100 %; WHITE BLOOD COUNT 9.9 10^3/uL (4.0-10.5)
[2020-06-28 02:09] LABS: ALBUMIN 4.2 g/dL (3.5-5.0); ALKALINE PHOSPHATASE 88 U/L (38-126); ANION GAP 15 (5-19); ASPARTATE AMINO TRANSFERASE 29 U/L (14-36); BILIRUBIN,DIRECT 0.3 mg/dL (0.0-0.4); BILIRUBIN,TOTAL 0.6 mg/dL (0.2-1.3); BLOOD UREA NITROGEN 10 mg/dL (7-20); CALCIUM 9.7 mg/dL (8.4-10.2); CARBON DIOXIDE 25 mmol/L (22-30); CHLORIDE 100 mmol/L (98-107); GLUCOSE 104 mg/dL (75-110); POTASSIUM 3.7 mmol/L (3.6-5.0); TOTAL PROTEIN 7.2 g/dL (6.3-8.2)
[2020-06-28] MEDS ORDERED: CEPHALEXIN 500 MG CAPSULE PO ONE (03:04)
[2020-06-28] MEDS ORDERED: ONDANSETRON ODT 4 MG TAB (6 TAB/ER DISP) PO PRN (03:04)
--- NOTE | 2020-06-28 03:04 | ER Document Report ---
HPI - HPI Time Seen by Provider: 06/27/20 23:05 Pain Level: 3 Notes: 29-year-old female patient presents emergency department with chief complaint of generalized abdominal pain that is been going on for last 2 months. She denies any fevers, nausea, vomiting, chills, dysuria, urinary frequency or abnormal vaginal discharge. She states she has not sexually active. - ROS Systems Reviewed and Negative: Yes All other systems reviewed and negative - CONSTITUTIONAL Constitutional: DENIES: Fever, Chills - EENT EENT: DENIES: Sore Throat, Ear Pain, Eye problems - NEURO Neurology: DENIES: Headache, Weakness, Vision blurred, Dizzinesss / Vertigo - CARDIOVASCULAR Cardiovascular: DENIES: Chest pain - RESPIRATORY Respiratory: DENIES: Trouble Breathing, Coughing - GASTROINTESTINAL Gastrointestinal: REPORTS: Abdominal Pain. DENIES: Black / Bloody Stools - URINARY Urinary: DENIES: Dysuria, Urgency, Frequency - REPRODUCTIVE LMP: 1 wk Reproductive: DENIES: : - MUSCULOSKELETAL Musculoskeletal: DENIES: Extremity pain Past Medical History - General Information source: Patient - Social History Smoking Status: Never Smoker Family History: Arthritis, CAD, DM, Hyperlipidemia, Hypertension, Thyroid Disfunction - Past Medical History Cardiac Medical History: Reports: Hx Hypertension Denies: Hx Coronary Artery Disease, Hx Heart Attack Pulmonary Medical History: Reports: Hx Asthma - MILD Denies: Hx Bronchitis, Hx COPD, Hx Pneumonia Neurological Medical History: Reports: Hx Migraine, Hx Seizures - ? SZ, BEING TESTED CURRENTLY. Denies: Hx Cerebrovascular Accident Endocrine Medical History: Reports: Hx Diabetes Mellitus Type 2, Hx Hypothyroidism Renal/ Medical History: Denies: Hx Peritoneal Dialysis GI Medical History: Reports: Hx Gastroesophageal Reflux Disease Musculoskeletal Medical History: Reports Hx Arthritis - AMIRA KNEES, RIGHT FOOT, Reports Hx Musculoskeletal Trauma Skin Medical History: Reports Hx Eczema Psychiatric Medical History: Reports: Hx Bipolar Disorder, Hx Depression, Hx Schizoaffective Disorder, Hx Schizophrenia Traumatic Medical History: Reports: Hx Fractures - left ankle,arm - Immunizations Immunizations up to date: No Hx Diphtheria, Pertussis, Tetanus Vaccination: Yes Vertical Provider Document - CONSTITUTIONAL Notes: PHYSICAL EXAMINATION: GENERAL: Disheveled but in no acute distress. HEAD: Atraumatic, normocephalic. EYES: Pupils equal round and reactive to light, extraocular movements intact, conjunctiva are normal. ENT: Nares patent, oropharynx clear without exudates. Moist mucous membranes. NECK: Normal range of motion, supple without lymphadenopathy LUNGS: Breath sounds clear to auscultation bilaterally and equal. No wheezes rales or rhonchi. HEART: Regular rate and rhythm without murmurs ABDOMEN: Soft, mildly tender, nondistended abdomen. No guarding, no rebound. No masses appreciated. Female : deferred Musculoskeletal: Normal range of motion, no pitting or edema. No cyanosis. NEUROLOGICAL: Cranial nerves grossly intact. Normal speech, normal gait. Normal sensory, motor exams PSYCH: Normal mood, normal affect. SKIN: Warm, Dry, normal turgor, no rashes or lesions noted. - INFECTION CONTROL TRAVEL OUTSIDE OF THE [place] IN LAST 30 DAYS: No Course - Re-evaluation Re-evalutation: Patient appears well, nontoxic, vital signs reviewed, within normal limits. Patient has urinary tract infection. Labs otherwise unremarkable. No indication for further work-up today. Patient encouraged to follow-up with her primary care provider regarding her chronic abdominal pain that has been ongoing for the last 2 months. - Vital Signs Vital signs: Temp Pulse Resp BP Pulse Ox 98.2 F 83 13 127/79 H 100 06/27/20 22:14 06/27/20 22:14 06/27/20 22:14 06/27/20 22:14 06/27/20 22:14 - Laboratory Result Diagrams: 06/28/20 01:43 06/28/20 01:43 Laboratory results interpreted by me: 06/28/20 06/28/20 00:17 01:43 RDW 14.2 H Urine Protein 100 H Urine Ketones 20 H Urine Blood SMALL H Urine Urobilinogen 2.0 H Ur Leukocyte Esterase MODERATE H Discharge - Discharge Clinical Impression: UTI (urinary tract infection) Qualifiers: Urinary tract infection type: site unspecified Hematuria presence: without hematuria Qualified Code(s): N39.0 - Urinary tract infection, site not specified Abdominal pain Qualifiers: Abdominal location: unspecified location Qualified Code(s): R10.9 - Unspecified abdominal pain Condition: Stable Disposition: HOME, SELF-CARE Instructions: Urinary Tract Infection ([facility]) Additional Instructions: Follow up with your primary care physician in the next 2-3 days. Prescriptions: Cephalexin [Cephalexin 500 MG Tablet] 1 tab PO QID #24 tablet Referrals: MICHAEL SCHULZ MD [Primary Care Provider] - Follow up as needed
== END 2020-06-28 03:22 | disposition home or self-care (01) ==
LOC: ER 22:04
DX: N39.0 Urinary tract infection, site not specified (principal); R10.84 Generalized abdominal pain; G89.29 Other chronic pain; I10 Essential (primary) hypertension; J45.909 Unspecified asthma, uncomplicated; E11.9 Type 2 diabetes mellitus without complications
CPT/HCPCS: 36415; 80053; 81001; 81025; 83690; 85025; 99283

== ENCOUNTER 2020-08-22 15:01 | Emergency (ER) | payer BC, MEDICAID ==
[2020-08-22 15:10] VITALS: BP 105/88
--- NOTE | 2020-08-22 15:30 | ER Document Report ---
ED Medical Screen (RME) - General Chief Complaint: Anxiety Stated Complaint: DIFFICULTY BREATHING Time Seen by Provider: 08/22/20 15:03 Primary Care Provider: MICHAEL SCHULZ MD [Primary Care Provider] - Follow up as needed TRAVEL OUTSIDE OF THE [place] IN LAST 30 DAYS: No - HPI Notes: 08/22/20 15:20 I was asked to come evaluate and 29-year-old female with a hx of asthma and anxiety presents to the emergency room today by private vehicle having difficulty breathing. Patient reports that she is used her rescue inhaler twice without any relief. Patient unable to speak. States that her breathing issues to approximately 20 minutes earlier, she was in her room she started having difficulty breathing, her "provider" was right there, brought her over to the emergency room for further evaluation. Denies any new medications, foods, or travel. Denies any fevers or chills. I have greeted and performed a rapid initial assessment of this patient. A comprehensive ED assessment and evaluation of the patient, analysis of test results and completion of the medical decision making process will be conducted by additional ED providers. PHYSICAL EXAMINATION: GENERAL: Well-appearing, well-nourished and in mild distress HEAD: Atraumatic, normocephalic. EYES: Pupils equal round extraocular movements intact, conjunctiva are normal. NECK: Normal range of motion CV: s1, s2 regular LUNGS: No respiratory distress Distant breathing exercises patient, she drank some water and she did calm down a little bit. States she would like to be evaluated for anxiety. She does have a provider at [facility]. She is not sure what medications she is taking. - Related Data Allergies/Adverse Reactions: lemon Allergy (Verified 05/16/20 21:28) brompheniramine maleate [From Dimetapp] Adverse Reaction (Unknown, Verified 05/16/20 21:28) Hyperactivity dextromethorphan HBr [From Dimetapp] Adverse Reaction (Verified 05/16/20 21:28) Hyperactivity phenylpropanolamine HCl [From Dimetapp] Adverse Reaction (Verified 05/16/20 21:28) Hyperactivity pseudoephedrine HCl [From Dimetapp] Adverse Reaction (Verified 05/16/20 21:28) Hyperactivity Past Medical History - Social History Frequency of alcohol use: None Drug Abuse: None Family history: Reviewed & Not Pertinent - Past Medical History Cardiac Medical History: Reports: Hx Hypertension Denies: Hx Coronary Artery Disease, Hx Heart Attack Pulmonary Medical History: Reports: Hx Asthma - MILD Denies: Hx Bronchitis, Hx COPD, Hx Pneumonia Neurological Medical History: Reports: Hx Migraine, Hx Seizures - ? SZ, BEING TESTED CURRENTLY. Denies: Hx Cerebrovascular Accident Endocrine Medical History: Reports: Hx Diabetes Mellitus Type 2, Hx Hypothy roidism Renal/ Medical History: Denies: Hx Peritoneal Dialysis GI Medical History: Reports: Hx Gastroesophageal Reflux Disease Musculoskeltal Medical History: Reports Hx Arthritis - AMIRA KNEES, RIGHT FOOT, Reports Hx Musculoskeletal Trauma Skin Medical History: Reports Hx Eczema Psychiatric Medical History: Reports: Hx Bipolar Disorder, Hx Depression, Hx Schizoaffective Disorder, Hx Schizophrenia Traumatic Medical History: Reports: Hx Fractures - left ankle,arm - Immunizations Immunizations up to date: No Hx Diphtheria, Pertussis, Tetanus Vaccination: Yes Physical Exam - Vital signs Vitals: Pulse Resp BP Pulse Ox 99 55 H 105/88 H 100 08/22/20 15:09 08/22/20 15:09 08/22/20 15:09 08/22/20 15:09 Course - Vital Signs Vital signs: Temp Pulse Resp BP Pulse Ox 97.7 F 99 55 H 105/88 H 100 08/22/20 15:12 08/22/20 15:09 08/22/20 15:09 08/22/20 15:09 08/22/20 15:09 Doctor's Discharge - Discharge Referrals: MICHAEL SCHULZ MD [Primary Care Provider] - Follow up as needed
[2020-08-22 15:55] LABS: ABSOLUTE EOSINOPHILS # (AUTO) 0.1 10^3/uL (0.0-0.6); ABSOLUTE LYMPHOCYTES (AUTO) 2.1 10^3/uL (0.5-4.7); ABSOLUTE MONOCYTES (AUTO) 0.5 10^3/uL (0.1-1.4); ABSOLUTE NEUT (AUTO) 6.1 10^3/uL (1.7-8.2); BASOPHILS % (AUTO) 0.2 % (0-2); EOSINOPHILS % (AUTO) 1.3 % (0-6); HEMOGLOBIN 13.7 g/dL (12.0-15.5); LYMPHOCYTES % (AUTO) 23.7 % (13-45); MEAN CORPUSCULAR HEMOGLOBIN 28.7 pg (27.0-33.4); MEAN CORPUSCULAR HGB CONC 34.3 g/dL (32.0-36.0); MEAN CORPUSCULAR VOLUME 84 fl (80-97); MONOCYTES % (AUTO) 5.3 % (3-13); PLATELET COUNT 265 10^3/uL (150-450); RED BLOOD COUNT 4.79 10^6/uL (3.72-5.28); RED CELL DISTRIBUTION WIDTH 15.1 % (11.5-14.0); SEGMENTED NEUTROPHILS % (AUTO) 69.5 % (42-78); TOTAL CELLS COUNTED % (AUTO) 100 %; WHITE BLOOD COUNT 8.7 10^3/uL (4.0-10.5)
[2020-08-22 16:01] LABS: APPEARANCE,URINE SLIGHTLY-CLOUDY; BILIRUBIN,URINE NEGATIVE (NEGATIVE); COLOR,URINE YELLOW; GLUCOSE, URINE NEGATIVE (NEGATIVE); KETONES,URINE NEGATIVE (NEGATIVE); LEUKOCYTE ESTERASE,URINE TRACE (NEGATIVE); NITRITE,URINE NEGATIVE (NEGATIVE); PROTEIN,URINE NEGATIVE (NEGATIVE); URINE SPECIFIC GRAVITY 1.017; UROBILINOGEN,URINE NEGATIVE mg/dL (<2.0)
--- NOTE | 2020-08-22 16:02 | RADIOLOGY REPORT (SQ) ---
EXAM DESCRIPTION: CHEST SINGLE VIEW IMAGES COMPLETED DATE/TIME: 08/22/2020 2:46 pm REASON FOR STUDY: sob COMPARISON: 06/03/2018 EXAM PARAMETERS: NUMBER OF VIEWS: One view. TECHNIQUE: Single frontal radiographic view of the chest acquired. RADIATION DOSE: NA LIMITATIONS: None. FINDINGS: LUNGS AND PLEURA: No opacities, masses or pneumothorax. No pleural effusion. MEDIASTINUM AND HILAR STRUCTURES: No masses. Contour normal. HEART AND VASCULAR STRUCTURES: Heart normal in size. Normal vasculature. BONES: No acute findings. HARDWARE: None in the chest. OTHER: No other significant finding. IMPRESSION: NO ACUTE RADIOGRAPHIC FINDING IN THE CHEST. TECHNICAL DOCUMENTATION: JOB ID: [id number] 2010 [employer]- All Rights Reserved Reading location - IP/workstation name: [email or web address]
[2020-08-22 16:19] LABS: ALBUMIN 3.7 g/dL (3.5-5.0); ALKALINE PHOSPHATASE 63 U/L (38-126); ANION GAP 7 (5-19); ASPARTATE AMINO TRANSFERASE 20 U/L (14-36); BILIRUBIN,DIRECT 0.1 mg/dL (0.0-0.4); BILIRUBIN,TOTAL 0.4 mg/dL (0.2-1.3); BLOOD UREA NITROGEN 13 mg/dL (7-20); CALCIUM 9.3 mg/dL (8.4-10.2); CARBON DIOXIDE 24 mmol/L (22-30); CHLORIDE 107 mmol/L (98-107); GLUCOSE 102 mg/dL (75-110); POTASSIUM 4.2 mmol/L (3.6-5.0); TOTAL PROTEIN 6.5 g/dL (6.3-8.2)
--- NOTE | 2020-08-22 17:19 | EKG REPORT ---
SEVERITY:- OTHERWISE NORMAL ECG - SINUS TACHYCARDIA : Confirmed by: Modesta Rivera 22-Aug-2020 17:18:25
--- NOTE | 2020-08-22 17:57 | ER Document Report ---
Doctor's Note Notes: 08/22/20 17:55 was approached by staff that patient wants to leave without being cleared by a medical provider in the emergency room. After performing a Medical Screening Examination, I spoke with the patient at length in regards to leaving the hospital against medical advice. I discussed evaluation for their presenting complaint and recommended further evaluation. I do not believe the patient should leave but the patient is alert oriented x4, understands the risks and benefits of staying and leaving including disability and . Pt understands that they can return at any time for further care and is more than welcome to do so. Pt verbalizes this understanding.
--- OUTSIDE RECORDS SUMMARY | 2020-08-22 18:20 | XMS REPORT ---
:1990 Author Organization [facility] Address [facility] [address] [place] [address] Care Team Providers Name Role Phone Ko Primary Care Physician Unavailable Dianna BARR Attending Clinician Unavailable Johnathan Palmer MD Attending Clinician Unavailable Kwesi Attending Clinician Unavailable MD Johnathan Palmer Attending Clinician Unavailable Jacob TRUJILLO Attending Clinician Unavailable Ko Attending Clinician Unavailable Allergies, Adverse Reactions, Alerts Allergy Allergy Status Severity Reaction(s) Onset Inactive Treating C omments Name Type Date Date Clinician IVP DYE Drug Active SV 2018-01 allergy -04 00:00:0 0 Dimetapp Dimetapp Active ELIX ELIX Medications Ordered Filled Start Stop Current Ordering Indication Dosage Frequency Signature Comments Components Medication Medication Date Date Medication? Clinician (SIG) Name Name Clotrimazol 2019-10 Yes Herb Mann Clotrimaz o e-Betametha 0-02 Estela le-Betame t sone 1-0.05 00:00: hasone % External 00 1-0.05 % Cream External Cream APPLY AND RUB IN A THIN FILM TO AFFECTED AREAS TWICE DAILY as directed.( AM AND PM). Quantity: 1 Refills: 0 Herb Palmer MD Start : 14-Jul-2020 Active 15 GM Tube Nystatin 2020-0 Yes Carmen Q0.5D Nystatin [id number] 7-20 Gilbert DE [place] ROSA [id number] UNIT/GM 00:00: UNIT/GM External 00 External Powder Powder APPLY SPARINGLY TO AFFECTED AREA(S) TWICE DAILY Quantity: 1 Refills: 2 Carmen Felton Start : 0Active 60 GM Bottle Rosuvastati 2020-0 Yes Herb Mann 1 Rosuvasta t n Calcium 6-15 Estela in Calcium 10 MG Oral 00:00: 10 MG Oral Tablet 00 Tablet TAKE 1 TABLET DIRECTED Quantity: 90 Refills: 3 Herb Palmer MD Start : 0Active Ezetimibe 2019-0 Yes Herb Mann Ezetimibe 10 MG Oral 6-15 Shurtinicky 10 MG Oral Tablet 00:00: MD Tablet 00 Take 1 tablet at bedtime Quantity: 90 Refills: 3 Herb Palmer MD Start : 0Active Pioglitazon 2018- Yes Herb Mann Pioglitaz o e HCl - 15 1-04 Estela ne HCl - MG Oral 00:00: 15 MG Oral Tablet 00 Tablet TAKE ONE TABLET BY MOUTH DAILY *replaces metformin* Quantity: 90 Refills: 3 Herb Palmer MD Start : 16-Aug-2019 Active Polyethylen 2019- Yes Rona Polyethyle e Glycol 8-22 Claudia perez Glycol 3350 17 GM 00:00: 3350 17 GM Oral Packet 00 Oral Packet MIX 1 PACKET IN 8 OUNCES OF LIQUID AND DRINK ONCE DAILY as needed Quantity: 30 Refills: 3 Rona Nicholson Start : 9Active traZODone Yes traZODone HCl - 100 1-14 HCl - 100 MG Oral 00:00: MG Oral Tablet 00 Tablet TAKE ONE TABLET BY MOUTH AT BEDTIME NEEDED FOR 30 DAYS Quantity: 30 Refills: 0 Start : 9Active Paliperidon Yes Paliperido e ER 9 MG 1-10 ne ER 9 MG Oral Tablet 00:00: Oral Extended 00 Tablet Release 24 Extended Hour Release 24 Hour TAKE ONE TABLET BY MOUTH AT BEDTIME Quantity: 8 Refills: 0 Start : 9Active PARoxetine Yes PARoxetine HCl - 40 MG 8-22 HCl - 40 Oral Tablet 00:00: MG Oral 00 Tablet TAKE ONE TABLET BY MOUTH IN THE MORNING Quantity: 30 Refills: 0 Start : 8Active Methocarbam Yes Herb Mann 1 Q0.3333D Methoc arba ol 500 MG 7- Estela mol 500 MG Oral Tablet 00:00: Oral 00 Tablet TAKE 1 TABLET 3 TIMES DAILY PRN Quantity: 90 Refills: 2 Herb Palmer MD Start : 8Active hydroCHLORO Yes Herb Mann hydroCHLO R thiazide 25 1-15 Estela Othiazide MG Oral 00:00: 25 MG Oral Tablet 00 Tablet TAKE ONE TABLET BY MOUTH EVERY DAY IN THE MORNING Quantity: 90 Refills: 1 Herb Palmer MD Start : 8Active Montelukast Yes Herb Mann QD Monteluka s Sodium 10 1-15 Estela t Sodium MG Oral 00:00: 10 MG Oral Tablet 00 Tablet TAKE 1 TABLET DAILY. Quantity: 90 Refills: 3 Herb Palemr MD Start : 8Active Tylenol 2016-10 Yes Herb Mann Tylenol Extra 1-14 Estela Extra Strength 00:00: Strength 500 MG Oral 00 500 MG Tablet Oral Tablet TAKE 1-2 TABLET EVERY 6 HOURS NEEDED for ARCHULETA Quantity: 100 Refills: 3 Herb Palmer MD Start : 7Active Cetirizine Yes Herb Mann 1 QD Cetirizine HCl - 10 MG 3-20 Mikiey HCl - 10 Oral Tablet 00:00: MG Oral 00 Tablet TAKE 1 TABLET DAILY. Quantity: 30 Refills: 5 Herb Palmer MD Start : 2Active Levothyroxi Yes Herb Mann Levothyro x ne Sodium 2-27 Estela ine Sodium 100 MCG 00:00: 100 MCG Oral Tablet 00 Oral Tablet TAKE ONE TABLET BY MOUTH EVERY DAY Quantity: 90 Refills: 3 Herb Palmer MD Start : 9Active Omeprazole Yes Herb Mann 1 QD Omeprazole 40 MG Oral Shrutinicky 40 MG Oral Capsule MD Capsule Delayed Delayed Release Release TAKE 1 CAPSULE Daily take 30 before meal Quantity: 90 Refills: 3 Herb Palmer MD Active Benztropine Yes 1 Benztropin Mesylate 2 e Mesylate MG Oral 2 MG Oral Tablet Tablet TAKE 1 TABLET BEDTIME Refills: 0 Active CeleBREX Yes 1 QD CeleBREX 200 MG Oral 200 MG Capsule Oral Capsule TAKE 1 CAPSULE DAILY Refills: 0 Active Paliperidon Yes 1 QD Paliperido e ER 1.5 MG ne ER 1.5 Oral Tablet MG Oral Extended Tablet Release 24 Extended Hour Release 24 Hour TAKE 1 TABLET DAILY Refills: 0 Active Problems Condition Condition Condition Status Onset Resolution Last Treatin g Comments Name Details Category Date Date Treatment Clinician Date History of History of Problem Resolve Asthma Asthma d Normal Normal Problem Active physical physical exam, exam, routine routine Rash Rash Problem Active Flu vaccine Flu vaccine Problem Active need need Anxiety Anxiety Problem Active Seizure Seizure Problem Active Irritable Irritable Problem Active bowel bowel syndrome syndrome with both with both constipatio constipatio n and n and diarrhea diarrhea Essential Essential Problem Active familial familial hypercholes hypercholes terolemia terolemia Morbid Morbid Problem Active obesity obesity Essential Essential Problem Active hypertensio hypertensio n n Amenorrhea Amenorrhea Problem Active Bipolar Bipolar Problem Active disorder disorder Knee pain, Knee pain, Problem Active right right Hypothyroid Hypothyroid Problem Active ism ism Galactorrhe Galactorrhe Problem Active a a Elevated Elevated Problem Active prolactin prolactin level level Hyperglycem Hyperglycem Problem Active ia ia Skin Skin Problem Active candidiasis candidiasis Generalized Generalized Problem Active abdominal abdominal pain pain History of History of Problem Active seizure seizure Right upper Right upper Problem Active quadrant quadrant abdominal abdominal pain pain Arm skin Arm skin Problem Active lesion, lesion, left left Injury of Injury of Problem Active index index finger finger Procedures Procedure Date / Time Performed Performing Clinician Dmitri whatley CT - Brain without IV Contrast 2020-08-16 00:00:00 US-Abdominal 2020-05-01 00:00:00 Auto OV Level 2019-09-15 00:00:00 Established Patient 2019-09-15 00:00:00 Auto OV Level 2019-01-07 00:00:00 Established Patient 2019-01-07 00:00:00 Ofc Visit; Est Level 4 2016-05-02 00:00:00 Ofc Visit; Est Level 4 2015-09-22 00:00:00 History of Ear Pressure Equalization Tube, Insertion, Bilaterally Results Test Description Test Time Test Comments Text Results Atomic Results Result Comments Thyroid Stimulating Hormone 2020-03-31 14:22:00 Test Item Value Reference Range Comments Thyroid Stimulating Hormone (test code = Thyroid 1.05 {mIU/mL} 0.46-4.68 Stimulating Hormone) L - [id number] 14:22:00 Test Item Value Reference Range Comments Prolactin; Above High Threshold (test code = 32.3 ng/mL 4.8 -23.3 2842-3) [facility] performed at: [BN] [facility] [address], [place], [address], , [employer] Operator: REGAN Kerr4,[id number] 15:44:00 Test Item Value Reference Range Comments thyroxine, serum, free (test code = 3024-7) 1.26 ng/dl 0.89 -1.76 [id number] 15:44:00 Test Item Value Reference Range Comments thyroid stimulating hormone, serum (test code = 1.51 uIU/mL 0.55-4.78 3016-3) [id number] 15:44:00 Test Item Value Reference Range Comments prolactin, serum (test 38.71 ng/mL See lab r eport for associated code = 2842-3) comment(s) [id number] 13:55:00 Test Item Value Reference Range Comments thyroid stimulating hormone, serum (test code = 1.07 uIU/mL 0.55-4.78 3016-3) T4,[id number] 13:55:00 Test Item Value Reference Range Comments thyroxine, serum, free (test code = 3024-7) 1.15 ng/dl 0.89 -1.76 Comprehensive [id number] 13:55:00 Test Item Value Reference Range Comments chloride, serum (test code = 98.00 mmol/L 98.00-107.00 5-0) aspartate aminotransferase 23.00 U/L 13.00-40.00 (SGOT), serum (test code = 1920-8) blood glucose (test code = 64.00 mg/dL 60.00-99.00 6777-7) Estimated Glomerular 106.65 See label stamper ort for Filtration Rate (calc) (test mL/min/1.73m2 ass ociated comment(s) code = EGFR) creatinine, serum (test code 0.69 mg/dL 0.55-1.02 = 2160-0) carbon dioxide, venous blood 32.00 mmol/L 20.00-31.00 (test code = 2020-4) albumin, serum (test code = 4.00 g/dL 3.40-5.00 1751-7) calcium, serum (test code = 9.50 mg/dL 8.30-10.60 2000-05) potassium, serum (test code = 4.00 mmol/L 3.40-5.10 2823-3) sodium, serum (test code = 137.00 mmol/L 136.00-145.00 2951-2) bilirubin, serum, total (test 0.30 mg/dL 0.30-1.20 code = 1975-2) protein, total, serum (test 6.70 g/dL 5.70-8.20 code = 2885-2) alanine aminotransferase 17.00 U/L 10.00-49.00 (SGPT), serum (test code = 1742-6) urea nitrogen, blood (test 16.00 mg/dL 9.00-23.00 code = 3094-0) alkaline phosphatase, serum 93.00 U/L 46.00-116.00 (test code = 1783-0) Assessments Condition Name Status Diagnosis Date Treating Clinici an Benign neoplasm of pituitary gland Active 0 Essential hypertension Active Galactorrhea Active Prolactin-secreting pituitary adenoma Active Amenorrhea Active Hypothyroidism Active Pituitary adenoma Active Asthma Active Bipolar disorder Active Seizure Active Irritable bowel syndrome with both Active constipation and diarrhea Viral gastroenteritis Active Essential familial hypercholesterolemia Active Elevated prolactin level Active Morbid obesity Active Essential hypertension Active Galactorrhea Active Prolactin-secreting pituitary adenoma Active Amenorrhea Active Pituitary adenoma Active Bipolar disorder Active Hypothyroidism Active Elevated prolactin level Active Galactorrhea Active Skin candidiasis Active Injury of index finger Active History of seizure Active Arm skin lesion, left Active Right upper quadrant abdominal pain Active Anxiety Active Elevated prolactin level Active Flu vaccine need Active Amenorrhea Active History of seizure Active Hypothyroidism Active Bipolar disorder Active Seizure Active Amenorrhea Active Elevated prolactin level Active Essential familial hypercholesterolemia Active Normal physical exam, routine Active Galactorrhea not associated with childbirth Active Encounter for preventive health examination Active Morbid obesity Active Essential hypertension Active Galactorrhea Active Prolactin-secreting pituitary adenoma Active Anxiety Active Eczema Active Rash Active Bedbug bite with infection Active Hyperthyroidism Active Hypothyroidism Active Pituitary adenoma Active Asthma Active Generalized abdominal pain Active Bipolar disorder Active Amenorrhea Active Elevated prolactin level Active Essential familial hypercholesterolemia Active Normal physical exam, routine Active Galactorrhea not associated with childbirth Active Encounter for preventive health examination Active Morbid obesity Active Essential hypertension Active Generalized abdominal pain Active Galactorrhea Active Prolactin-secreting pituitary adenoma Active Anxiety Active Bipolar disorder Active Eczema Active Rash Active Bedbug bite with infection Active Hyperthyroidism Active Hypothyroidism Active Pituitary adenoma Active Asthma Active Pinworms Active Bedbug bite Active Constipation, unspecified constipation type Active Amenorrhea Active Elevated prolactin level Active Morbid obesity Active Abdominal pain, generalized Active Prolactin-secreting pituitary adenoma Active Anxiety Active Pituitary adenoma Active UTI (urinary tract infection) Active Bipolar disorder Active Galactorrhea Active Seizure Active Elevated prolactin level Active Morbid obesity Active Galactorrhea Active Acute bronchitis with asthma with acute Active exacerbation Anxiety Active Elevated prolactin level Active Essential familial hypercholesterolemia Active Morbid obesity Active Acute otitis media Active Elevated prolactin level Active Pain of finger of left hand Active Essential familial hypercholesterolemia Active Normal physical exam, routine Active Galactorrhea not associated with childbirth Active Encounter for preventive health examination Active Acute URI Active Fatigue Active Morbid obesity Active Heat intolerance Active Essential hypertension Active Galactorrhea Active Prolactin-secreting pituitary adenoma Active Amenorrhea Active Anxiety Active Cough Active Diarrhea Active Eczema Active Rash Active Bedbug bite with infection Active Hyperthyroidism Active Hypothyroidism Active Pituitary adenoma Active Otitis externa Active Exposure to influenza Active Right ear pain Active Head lice Active Knee pain, right Active Sore throat Active Asthma Active Ingrown toenail Active Unspecified hypothyroidism Active Unspecified hypothyroidism Active Unspecified hypothyroidism Active Other and unspecified anterior pituitary Active hyperfunction Other and unspecified anterior pituitary Active hyperfunction Other and unspecified anterior pituitary Active hyperfunction Other and unspecified anterior pituitary Active hyperfunction Other and unspecified anterior pituitary Active hyperfunction Other and unspecified anterior pituitary Active hyperfunction Encounters Start End Encounter Admission Attending Care Care Encounter Date/Time Date/Time Type Type Clinicians Facility Department ID 2020-08-07 2020-08-07 [id number]:30:00 15:30:00 ; Sai Bustamante MD 2020-07-14 2020-07-[address] [facility] [id number] 14:00:00 14:00:00 ; Herb Queen MD 2020-07-12 2020-07-12 Appointment [facility] [id number] 15:00:00 15:00:00 ; Efrain Ham MD 2020-07-02 2020-07-02 Outpatient DELROY Bird [id number] 11:30:00 11:30:00 Claudette 6 2020-06-30 2020-06-30 Outpatient DELROY Bird [id number] 09:26:00 09:26:00 Claudette 9 2020-05-26 2020-05-26 Appointment Dianna [facility] [id number] 15:00:00 15:00:00 ; Sai Bustamante MD 2020-05-01 2020-05-01 Appointment [facility] [id number] 13:30:00 13:30:00 ; Carmen Hunt PA 2020-03-31 2020-03-31 Appointment [facility] [id number] 13:50:00 13:50:00 ; Deborah Abraham MD 2020-03-27 2020-03-27 Appointment Estela [facility] 23 [id number] 15:45:00 15:45:00 ; Herb Queen MD 2019-12-14 2019-12-14 Appointment [facility] [id number] 15:30:00 15:30:00 ; Lashaun Ac PA-C 2019-11-25 2019-11-25 Appointment Estela [facility] 23 [id number] 15:45:00 15:45:00 ; Herb Queen MD 2019-10-28 2019-10-28 Outpatient DELROY Bird [facility] [id number] 08:58:00 08:58:00 Claudette 1 2019-10-21 2019-10-21 Appointment Estela [facility] 23 [id number] 15:45:00 15:45:00 ; Herb Queen MD 2019-09-30 2019-09-30 Herb Cook [facility] [id number] 10:53:27 23:59:59 Herb Palmer 2019-09-22 2019-09-22 Appointment Estela [facility] 22 [id number] 15:30:00 15:30:00 ; Herb Queen MD 2019-09-15 2019-09-15 Outpatient Jacob TRUJILLO, [facility] [id number] 00:00:00 00:00:00 Jenny Fisher - [id number] Endocrinology 2019-08-16 2019-08-16 [facility] 22 [id number] 13:45:00 13:45:00 ; Herb Queen MD 2019-06-03 2019-06-03 [facility] [id number] 08:30:00 08:30:00 ; Rona Taylor PA 2019-04-22 2019-04-22 [facility] [id number] 15:30:00 15:30:00 ; Rona Taylor PA 2019-01-25 2019-01-25 [facility] [id number] 15:45:00 15:45:00 ; Herb Queen MD 2019-01-07 2019-01-07 [facility] 20 [id number] 15:30:00 15:30:00 ; Herb Queen MD 2019-01-07 2019-01-07 Outpatient Jacob TRUJILLO, [facility] [id number] 00:00:00 00:00:00 Jenny Fisher - [id number] Endocrinology 2018-11-03 2018-11-03 Appointment [facility] [id number] 15:30:00 15:30:00 ; Rona Taylor PA 2018-09-09 2018-09-09 [facility] 20 [id number] 15:30:00 15:30:00 ; Herb Queen MD 2018-05-07 2018-05-07 [facility] 20 [id number] 10:45:00 10:45:00 ; Herb Queen MD 2016-08-18 2016-08-18 Outpatient DELROY Vega Tami [id number] 08:20:00 08:20:00 Vonda 9 2016-08-14 2016-08-14 Outpatient DELROY Vega [id number] 14:25:00 14:25:00 Vonda 0 2016-08-13 2016-08-13 Outpatient DELROY Vega [id number] 07:10:00 07:10:00 Vonda 2 2016-08-09 2016-08-09 Outpatient DELROY Vega [id number] 11:46:00 11:46:00 Vonda 0 2016-08-08 2016-08-08 Outpatient DELROY Vega [facility] [id number] 19:33:00 19:33:00 Vonda 5 2016-07-09 2016-07-09 Outpatient DELROY Vega [facility] [id number] 10:21:00 10:21:00 Vonda 6 2016-07-06 2016-07-06 Outpatient DELROY Connell [facility] [id number] 19:14:00 19:14:00 Vonda 4 2016-05-02 2016-05-02 Outpatient Jacob TRUJILLO, [facility] [id number] 00:00:00 00:00:00 Jenny Fisher - [id number] Endocrinology 2015-09-22 2015-09-22 Outpatient Jacob TRUJILLO [facility] [id number] 00:00:00 00:00:00 Jenny Fisher - [id number] Endocrinology Family History Family Member Diagnosis Comments Start Date Stop Date Mother Family history of Diabetes Immunizations Ordered Immunization Filled Immunization Date Status Commen ts Refusal Reason Name Name Flulaval Quadrivalent 2020-07-14 Completed 0.5 ML Intramuscular 14:29:00 Suspension Prefilled Syringe Fluzone Quadrivalent 2019-08-17 Completed 0.5 ML Intramuscular 15:20:00 Suspension Prefilled Syringe PPD, tuberculin skin 2017-10-27 Completed test; purified 13:35:00 protein derivative solution, intradermal Fluarix Quadrivalent 2017-08-26 Completed 0.5 ML Intramuscular 11:48:00 Suspension Prefilled Syringe Fluarix 0.5 ML MARIANNA 2016-07-30 Completed 00:00:00 PPD 2015-07-10 Completed 12:38:00 PPD 2014-06-20 Completed 14:05:00 Influenza 2013-08-19 Completed 11:19:00 PPD 2013-03-17 Completed 09:24:00 Influenza 2012-08-11 Completed 16:53:00 Influenza 2011-10-16 Completed 11:15:00 Hepatitis B 2006-05-01 Completed 00:00:00 Tdap (Boostrix) 2006-05-01 Completed 00:00:00 PPD 2006-05-01 Completed 00:00:00 OPV 1994-08-09 Completed 00:00:00 DTP 1993-12-20 Completed 00:00:00 MMR 1993-12-20 Completed 00:00:00 Payers Payer Name Policy Type Policy Number Effective Date Expiration D ate [employer] U Plan of Treatment Planned Activity Planned Date Details Comments Future Scheduled Test [code = ] Future Scheduled Test [code = ] Social History Smoking Status Start Date Stop Date Never smoked tobacco (finding) Vital Signs Vital Name Observation Time Observation Value Comments Systolic blood pressure 2020-08-07 15:11:00 140 mm[Hg] Diastolic blood pressure 2020-08-07 15:11:00 76 mm[Hg] Body height 2020-08-07 15:11:00 68 [in_us] Weight 2020-08-07 15:11:00 330.4 [lb_av] Body mass index (BMI) 2020-08-07 15:11:00 50.24 kg/m2 [Ratio] Body temperature 2020-08-07 15:11:00 98.1 [degF] Heart Rate 2020-08-07 15:11:00 84 /min Systolic blood pressure 2020-07-14 14:26:00 138 mm[Hg] Loca tion: LUE; Position: Sittin g Diastolic blood pressure 2020-07-14 14:26:00 72 mm[Hg] Loc ation: LUE; Position: Sittin g Weight 2020-07-14 14:26:00 329.375 [lb_av] Body mass index (BMI) 2020-07-14 14:26:00 50.08 kg/m2 [Ratio] Heart Rate 2020-07-14 14:26:00 87 /min Respiratory rate 2020-07-14 14:26:00 16 /min O2 SAT 2020-07-14 14:26:00 97 % Systolic blood pressure 2020-05-26 15:04:00 138 mm[Hg] Diastolic blood pressure 2020-05-26 15:04:00 76 mm[Hg] Body height 2020-05-26 15:04:00 68 [in_us] Weight 2020-05-26 15:04:00 337.4 [lb_av] Body mass index (BMI) 2020-05-26 15:04:00 51.3 kg/m2 [Ratio] Body temperature 2020-05-26 15:04:00 97.1 [degF] Heart Rate 2020-05-26 15:04:00 84 /min Systolic blood pressure 2020-05-01 13:36:00 128 mm[Hg] Loca tion: LUE; Position: Sittin g Diastolic blood pressure 2020-05-01 13:36:00 70 mm[Hg] Loc ation: LUE; Position: Sittin g Weight 2020-05-01 13:36:00 340.25 [lb_av] Body mass index (BMI) 2020-05-01 13:36:00 51.74 kg/m2 [Ratio] Body temperature 2020-05-01 13:36:00 98.1 [degF] Heart Rate 2020-05-01 13:36:00 96 /min Location: R Radial; O2 SAT 2020-05-01 13:36:00 96 % Source: [facility] Discharge Instructions NameDatesDetailsInstructions not documentedNameDatesDetailsInstructions not documentedNameDatesDetailsInstructions not documented NameDatesDetailsInstructions not documented
== END 2020-08-22 18:02 | disposition left against medical advice (07) ==
LOC: ER 15:01
DX: F41.9 Anxiety disorder, unspecified (principal); R06.00 Dyspnea, unspecified; I10 Essential (primary) hypertension; E11.9 Type 2 diabetes mellitus without complications
CPT/HCPCS: 36415; 71045; 80053; 81001; 81025; 84443; 84484; 85025; 93005; 93010; 99281; 99285

== ENCOUNTER 2020-11-09 16:23 | Emergency (ER) | payer BC, MEDICAID ==
[2020-11-09] MEDS ORDERED: DIPH/PERTUSS(ACELL)/TETANUS VAC/PF 0.5 ML SYR (>=10YO) IM ONE (16:53)
--- NOTE | 2020-11-09 16:55 | ER Document Report ---
ED Medical Screen (RME) - General Chief Complaint: Psych Problem Stated Complaint: PSYCH EVAL Time Seen by Provider: 11/09/20 16:53 Primary Care Provider: MICHAEL SCHULZ MD [Primary Care Provider] - Follow up as needed Notes: HPI: 30-year-old female brought in by crisis management for evaluation of suicidal gesture, voices telling her to hurt her self. Patient states that she was angry at her roommate yesterday and called the police on them, then cut herself on the right leg, abdomen, left arm and across the right neck with a slip box changer because voices in her head are telling her to harm her self. She states the medications she is on currently do not seem to be helping because this is happened before. She is not up-to-date on her tetanus vaccination PHYSICAL EXAMINATION: Superficial abrasions are noted on the right lower leg, left abdomen right neck anteriorly and left forearm. Patient admits to thoughts of continuing to want to harm her self because the voices are telling her to do so I have greeted and performed a rapid initial assessment of this patient. A comprehensive ED assessment and evaluation of the patient, analysis of test results and completion of medical decision making process will be conducted by an additional ED providers. Please note that clinical decision making for this patient was made during the 2019 pandemic of novel coronavirus which caused a significant strain on the healthcare system including at this particular facility. Criteria for admission discharge and level of care decisions as well as treatment decisions have necessarily changed TRAVEL OUTSIDE OF THE [place] IN LAST 30 DAYS: No - Related Data Allergies/Adverse Reactions: lemon Allergy (Verified 11/09/20 16:51) brompheniramine maleate [From Dimetapp] Adverse Reaction (Unknown, Verified 11/09/20 16:51) Hyperactivity dextromethorphan HBr [From Dimetapp] Adverse Reaction (Verified 11/09/20 16:51) Hyperactivity phenylpropanolamine HCl [From Dimetapp] Adverse Reaction (Verified 11/09/20 16:51) Hyperactivity pseudoephedrine HCl [From Dimetapp] Adverse Reaction (Verified 11/09/20 16:51) Hyperactivity Past Medical History - Social History Family history: Reviewed & Not Pertinent - Past Medical History Cardiac Medical History: Reports: Hx Hypertension Denies: Hx Coronary Artery Disease, Hx Heart Attack Pulmonary Medical History: Reports: Hx Asthma - MILD Denies: Hx Bronchitis, Hx COPD, Hx Pneumonia Neurological Medical History: Reports: Hx Migraine, Hx Seizures - ? SZ, BEING TESTED CURRENTLY. Denies: Hx Cerebrovascular Accident Endocrine Medical History: Reports: Hx Diabetes Mellitus Type 2, Hx Hypothyroidism Renal/ Medical History: Denies: Hx Peritoneal Dialysis GI Medical History: Reports: Hx Gastroesophageal Reflux Disease Musculoskeltal Medical History: Reports Hx Arthritis - AMIRA KNEES, RIGHT FOOT, Reports Hx Musculoskeletal Trauma Skin Medical History: Reports Hx Eczema Psychiatric Medical History: Reports: Hx Bipolar Disorder, Hx Depression, Hx Schizoaffective Disorder, Hx Schizophrenia Traumatic Medical History: Reports: Hx Fractures - left ankle,arm - Immunizations Immunizations up to date: No Hx Diphtheria, Pertussis, Tetanus Vaccination: Yes Physical Exam - Vital signs Vitals: Temp Pulse Resp BP Pulse Ox 98.6 F 107 H 16 122/87 H 96 11/09/20 16:26 11/09/20 16:26 11/09/20 16:26 11/09/20 16:26 11/09/20 16:26 Course - Vital Signs Vital signs: Temp Pulse Resp BP Pulse Ox 98.6 F 107 H 16 122/87 H 96 11/09/20 16:26 11/09/20 16:26 11/09/20 16:26 11/09/20 16:26 11/09/20 16:26 Doctor's Discharge - Discharge Referrals: MICHAEL SCHULZ MD [Primary Care Provider] - Follow up as needed
[2020-11-09 17:23] LABS: ABSOLUTE EOSINOPHILS # (AUTO) 0.2 10^3/uL (0.0-0.6); ABSOLUTE LYMPHOCYTES (AUTO) 2.4 10^3/uL (0.5-4.7); ABSOLUTE MONOCYTES (AUTO) 0.5 10^3/uL (0.1-1.4); ABSOLUTE NEUT (AUTO) 6.9 10^3/uL (1.7-8.2); BASOPHILS % (AUTO) 0.2 % (0-2); EOSINOPHILS % (AUTO) 1.8 % (0-6); HEMATOCRIT 39.8 % (36.0-47.0); HEMOGLOBIN 13.2 g/dL (12.0-15.5); LYMPHOCYTES % (AUTO) 24.3 % (13-45); MEAN CORPUSCULAR HEMOGLOBIN 27.9 pg (27.0-33.4); MEAN CORPUSCULAR HGB CONC 33.3 g/dL (32.0-36.0); MEAN CORPUSCULAR VOLUME 84 fl (80-97); MONOCYTES % (AUTO) 4.7 % (3-13); PLATELET COUNT 291 10^3/uL (150-450); RED BLOOD COUNT 4.74 10^6/uL (3.72-5.28); RED CELL DISTRIBUTION WIDTH 14.7 % (11.5-14.0); TOTAL CELLS COUNTED % (AUTO) 100 %
[2020-11-09 17:30] LABS: APPEARANCE,URINE SLIGHTLY-CLOUDY; BILIRUBIN,URINE NEGATIVE (NEGATIVE); COLOR,URINE YELLOW; GLUCOSE, URINE NEGATIVE (NEGATIVE); KETONES,URINE NEGATIVE (NEGATIVE); LEUKOCYTE ESTERASE,URINE SMALL (NEGATIVE); NITRITE,URINE NEGATIVE (NEGATIVE); PROTEIN,URINE NEGATIVE (NEGATIVE); URINE SPECIFIC GRAVITY 1.015; UROBILINOGEN,URINE NEGATIVE mg/dL (<2.0)
--- NOTE | 2020-11-09 17:34 | ER Document Report ---
ED General - General Chief Complaint: Suicidal Ideation Stated Complaint: PSYCH EVAL Time Seen by Provider: 11/09/20 16:53 Primary Care Provider: MICHAEL SCHULZ MD [Primary Care Provider] - Follow up as needed Notes: HPI: 30-year-old female with suicidal ideations and self-harm yesterday cutting herself with a sample box maker listening to voices that she hears in her head. Patient has a history of a psychiatric disorder. She states she has been taking her medications but they are "not working". She supposedly also called the police on her roommate yesterday. ROS: See HPI All other review of systems reviewed and otherwise negative Reviewed vital signs and nursing note as charted by RN. PHYSICAL EXAM: CONSTITUTIONAL: Alert and oriented and responds appropriately to questions. Well-appearing; well-nourished HEAD: Normocephalic; atraumatic EYES: PERRL; Conjunctivae clear, sclerae non-icteric ENT: Normal nose; no rhinorrhea; moist mucous membranes; pharynx without lesions noted NECK: Supple without meningismus; non-tender; no cervical lymphadenopathy, no masses CARD: Regular rate and rhythm; no murmurs; symmetric distal pulses RESP: Normal chest excursion without splinting or tachypnea; breath sounds clear and equal bilaterally; no wheezes, no rhonchi, no rales ABD/GI: Normal bowel sounds; non-distended; soft, non-tender; no palpable organomegaly or masses BACK: The back appears normal and is non-tender to palpation EXT: Normal ROM in all joints; non-tender to palpation; no edema SKIN: Patient has very superficial abrasions to the forearm and right neck NEURO: CN 2-12 intact; 5/5 bilateral upper and lower extremity strength with sensation intact to light touch PSYCH: The patient's mood and manner are appropriate. Grooming and personal hygiene are appropriate. TRAVEL OUTSIDE OF THE [place] IN LAST 30 DAYS: No - Related Data Allergies/Adverse Reactions: lemon Allergy (Verified 11/09/20 16:51) brompheniramine maleate [From Dimetapp] Adverse Reaction (Unknown, Verified 11/09/20 16:51) Hyperactivity dextromethorphan HBr [From Dimetapp] Adverse Reaction (Verified 11/09/20 16:51) Hyperactivity phenylpropanolamine HCl [From Dimetapp] Adverse Reaction (Verified 11/09/20 16:51) Hyperactivity pseudoephedrine HCl [From Dimetapp] Adverse Reaction (Verified 11/09/20 16:51) Hyperactivity Past Medical History - Social History Smoking Status: Never Smoker Chew tobacco use (# tins/day): No Frequency of alcohol use: None Drug Abuse: None Family History: Arthritis, CAD, DM, Hyperlipidemia, Hypertension, Thyroid Disfunction - Past Medical History Cardiac Medical History: Reports: Hx Hypertension Denies: Hx Coronary Artery Disease, Hx Heart Attack Pulmonary Medical History: Reports: Hx Asthma - MILD Denies: Hx Bronchitis, Hx COPD, Hx Pneumonia Neurological Medical History: Reports: Hx Migraine, Hx Seizures - ? SZ, BEING TESTED CURRENTLY. Denies: Hx Cerebrovascular Accident Endocrine Medical History: Reports: Hx Diabetes Mellitus Type 2, Hx Hypothyroidism Renal/ Medical History: Denies: Hx Peritoneal Dialysis GI Medical History: Reports: Hx Gastroesophageal Reflux Disease Musculoskeletal Medical History: Reports Hx Arthritis - AMIRA KNEES, RIGHT FOOT, Reports Hx Musculoskeletal Trauma Skin Medical History: Reports Hx Eczema Psychiatric Medical History: Reports: Hx Bipolar Disorder, Hx Depression, Hx Schizoaffective Disorder, Hx Schizophrenia Traumatic Medical History: Reports: Hx Fractures - left ankle,arm - Immunizations Immunizations up to date: No Hx Diphtheria, Pertussis, Tetanus Vaccination: Yes Physical Exam - Vital signs Vitals: Temp Pulse Resp BP Pulse Ox 98.6 F 107 H 16 122/87 H 96 11/09/20 16:26 11/09/20 16:26 11/09/20 16:26 11/09/20 16:26 11/09/20 16:26 Course - Re-evaluation Re-evalutation: 11/09/20 18:13 Labs as recorded. Behavioral health is seen and assessed the patient. They do not believe that the patient is suffering an acute psychotic break as the patient has placement at her current living situation for mentally disabled patients. They possibly may change medications. Tetanus has been provided. - Vital Signs Vital signs: Temp Pulse Resp BP Pulse Ox 98.6 F 107 H 16 122/87 H 96 11/09/20 16:26 11/09/20 16:26 11/09/20 16:26 11/09/20 16:26 11/09/20 16:26 - Laboratory Results Result Diagrams: 11/09/20 17:00 11/09/20 17:00 Laboratory Results Interpreted: 11/09/20 11/09/20 11/09/20 17:00 17:00 17:00 RDW 14.7 H Sodium 136.9 L Glucose 145 H Ur Leukocyte Esterase SMALL H Salicylates < 1.0 L Acetaminophen < 10 L Critical Laboratory Results Reviewed: No Critical Results - Radiology Results Critical Radiology Results Reviewed: No Critical Results Discharge - Discharge Clinical Impression: Suicidal ideations, Deliberate self-cutting, Auditory hallucination Condition: Fair Disposition: PSYCH HOSP/UNIT Referrals: MICHAEL SCHULZ MD [Primary Care Provider] - Follow up as needed
[2020-11-09 17:40] LABS: ALBUMIN 3.9 g/dL (3.5-5.0); ALCOHOL < 10 mg/dL (NONE DETECTED); ALKALINE PHOSPHATASE 88 U/L (38-126); ANION GAP 7 (5-19); ASPARTATE AMINO TRANSFERASE 22 U/L (14-36); BILIRUBIN,DIRECT 0.2 mg/dL (0.0-0.4); BILIRUBIN,TOTAL 0.4 mg/dL (0.2-1.3); BLOOD UREA NITROGEN 13 mg/dL (7-20); CALCIUM 9.8 mg/dL (8.4-10.2); CARBON DIOXIDE 28 mmol/L (22-30); CHLORIDE 102 mmol/L (98-107); GLUCOSE 145 mg/dL (75-110); POTASSIUM 4.2 mmol/L (3.6-5.0)
[2020-11-09 17:41] LABS: ACETAMINOPHEN < 10 ug/mL (10-30); SALICYLATE < 1.0 mg/dL (2.0-20.0)
[2020-11-09 18:06] LABS: URINE AMPHETAMINES SCREEN NEGATIVE; URINE BARBITURATES SCREEN NEGATIVE; URINE BENZODIAZEPINES SCREEN NEGATIVE; URINE COCAINE SCREEN NEGATIVE; URINE MARIJUANA (THC) SCREEN NEGATIVE; URINE METHADONE SCREEN NEGATIVE; URINE PHENCYCLIDINE SCREEN NEGATIVE
--- NOTE | 2020-11-09 18:26 | PSYCHOLOGICAL NOTE ---
Psych Note - Psych Note Date seen by psych provider: 11/09/20 Time seen by psych provider: 17:00 - 1730 Psych Note: Reason for Consult: Suicidal ideation with cutting Patient presented to [facility] ED via POV with concerns of suicidal ideation. Patient has been escalating with halfway staff and engaged in self harm cutting with a box press operator. Patient has multiple superficial cuts on her arms and legs and one cut on her throat and one on her stomach. Patient does have a history of engaging in maladaptive coping of cutting. Patient denies any current thoughts of wanting to engage in in self harm. Patient confirms she has been taking her medications as directing but reports she feels they are no longer working. She identifies increased obsessive negative thought patterns fueling her negative coping; "the was having lots of bad thoughts that made me cut." Patient reports "everything" happened last night. She disclosed that she called [facility] to report the staff was "trying to push me...I didn't say they did push me, I said they were going to." Patient confirmed she made the cuts to herself and reports she has a long history of engaging in cutting. She denied that she was trying to kill herself she was just upset. She reports the one on her neck hurts "I should have never done this one...It hurts...I have never cut there before." Clinician spoke with Viviane Jacques- A caring heart director of casework-clinical supervisor green end department of the patient's halfway. She reports the patient has been noted to have escalating behaviors over the last few days. Patient called [facility] last night and today she cut herself wit phillip box press operator, then made allegations that staff "held her down and made the cuts." They report concern her medication is not work and that the patient disclosed auditory hallucinations caused her to cut. Patient is alert and orientated to person, place time and circumstance. Mood is current euthymic with congruent affect ie smiling laughing and engaging with clinician. Patient reports making suicidal comments while upset and engaging in maladaptive coping skills. Patient denies suicidal ideation and homicidal ideation. Patient is not demonstrating any behaviors of responding to internal stimuli. Patient is known to suffer from obsessive negative thought patterns that she reports has auditory hallucinations but are more congruent with her internal thought processes. Delusions are absent and behaviors congruent with an intact reality based presentation i.e. organized and linear thought process. Eye contact is well maintained. Conversational speech is within normal rate, tone and prosody. Patient does have a developmental disorder. Attention and concentration are historically fair. Insight, judgment, impulse control are historically poor. Impression\\plan: Patient is recommended for 24-hour petition for evaluation; paperwork is signed and placed in patient's chart. Patient is presenting after engaging in maladaptive coping skill of cutting. While patient is currently denying suicidal and homicidal ideation, there is concern the patient has been isolating in her behavioral events which resulted in self-harm today. Both patient and patient's halfway identify they feel that her medications are no longer working. Dr. Pugh was consulted to care management of this patient; attending physicians in agreement with recommendations and disposition.
[2020-11-09] MEDS ORDERED: BACITRACIN ZINC OINTMENT 15 GM TP ONE (19:35)
--- NOTE | 2020-11-09 19:57 | EKG REPORT ---
SEVERITY:- NORMAL ECG - SINUS RHYTHM : Confirmed by: Erick Dexter MD 09-Nov-2020 19:57:02
[2020-11-10] MEDS ORDERED: ACETAMINOPHEN 325 MG TABLET PO ONE (11:55)
[2020-11-10] MEDS ORDERED: CETIRIZINE 10 MG TABLET PO SCH (12:00)
[2020-11-10] MEDS ORDERED: ACETAMINOPHEN 325 MG TABLET ONE (14:57)
--- NOTE | 2020-11-10 16:52 | ER Document Report ---
Doctor's Note Notes: 11/10/20 16:49 PHYSICAL EXAMINATION: GENERAL: Appears well, healthy, well-nourished, no acute distress. LUNGS: Equal breath sounds bilaterally and clear to auscultation. No wheezes rales or rhonchi. CARDIOVASCULAR: S1-S2, regular rate, regular rhythm. Radial pulses 2+, normal. ABDOMEN: Normoactive bowel sounds. Soft, nontender, no guarding, no rebound tenderness, and no masses palpated. PSYCH: Normal mood, normal affect. Patient denies any suicidal or homicidal ideation. Denies any auditory or visual hallucinations. Follow-up precautions were given. Verbal discharge instructions were given to the patient. They verbalized understanding. They are stable for discharge. Patient is going to go to her long term.
[2020-11-10 17:01] VITALS: BP 124/86
--- NOTE | 2020-11-10 17:07 | PSYCHOLOGICAL NOTE ---
Psych Note - Psych Note Date seen by psych provider: 11/10/20 Time seen by psych provider: 11:31 Psych Note: Re-eval [id number] Consent permissions: Viviane Jacques- A caring heart manager case-clinical brew house supervisor Patient was re-evaluated today in the ED. She denies current suicidal ideation, plan, and intent. She is inquiring when she gets to go home. She shows clinician superficial cut on her left arm and the right side of her neck. She states going to [facility] for medication management. Collateral: [id number] called Viviane Jacques ([phone]), manager case in assisted (family style living facility) Viviane states she will be picking up patient between [id number]. Clinical Presentation: passive suicidal ideation; superficial cutting IVC Criteria per [facility] 122C Dangerous to others Within the relevant past the individual No has inflicted or attempted to inflict or threatened to inflict serious bodily harm on another AND No that there is a reasonable probability that this conduct will be repeated. OR No has acted in such a way as to create a substantial risk of serious bodily harm to another AND No that there is a reasonable probability that this conduct will be repeated. OR No has engaged in extreme destruction of property AND NO that there is a reasonable probability that this conduct will be repeated. Previous episodes of dangerousness to others, when applicable, may be considered when determining reasonable probability of future dangerous conduct. Clear, cogent, and convincing evidence that an individual has committed a homicide in the relevant past is prima facie evidence of dangerousness to others. Dangerous to self Within the relevant past the individual has done any of the following: acted in such a way as to show ALL of the following: No The individual would be unable without care, supervision, and the continued assistance of others not otherwise available, to exercise self- control, judgment, and discretion in the conduct of the individual's daily responsibilities and social relations or to satisfy the individual's need for nourishment, personal or medical care, senior living, or self-protection and safety. AND No There is a reasonable probability of the individual suffering serious physical debilitation within the near future unless adequate treatment is given. A showing of behavior that is grossly irrational, of actions that the individual is unable to control, of behavior that is grossly inappropriate to the situation, or of other evidence of severely impaired insight and judgment shall create a prima facie inference that the individual is unable to care for himself or herself. OR Yes has attempted suicide or threatened suicide Passive SI and use of maladaptive coping skills (superficial cutting) AND No that there is a reasonable probability of suicide unless adequate treatment is given patient resides in a assisted, she has supervision; she denies current SI, plan, and intent; cuts were superficial and did not require medical attention. OR No has mutilated himself or herself or attempted to mutilate himself or herself AND No that there is a reasonable probability of serious self-mutilation unless adequate treatment is given. NOTE: Previous episodes of dangerousness to self, when applicable, may be considered when determining reasonable probability of physical debilitation, suicide, or self-mutilation. Impression\plan: Patient is cleared from psychiatric services. Patient is recommended to rescind IVC. She was admitted to the ED after engaging in maladaptive coping skill; superficially cutting herself. Patient denies current suicidal ideation, plan, and intent. She demonstrates future forward goal oriented thinking as she inquires about going home and wanting to be back in her own home and routine. Patient resides in a group/assisted living facility, [facility], which is a facility in which members have Intellectual and Developmental Disabilities. She is involved in outpatient medication management services with [facility] and states that she sees [facility]. Patient has mental health services established and will be going back to her assisted. Her assisted manager case, Viviane Jacques, will be picking patient up. Being that patient lives in a assisted, she will not be alone. Clinician discussed healthy coping skills with patient agrees to try and utilize safer options rather than superficially cutting. Viviane states she will be picking patient up from 1500- 1600 to bring her back to her home. Patient was given resources for outpatient services and mobile crisis. She was informed to give this resource to Viviane Jacques, manager case, who assists with resources and treatment options. Patient was recommended to utilize mobile crisis or return to the ED if necessary. Dr. Pugh was consulted to care management of this patient; attending physicians in agreement with recommendations and disposition.
== END 2020-11-10 16:55 | disposition home or self-care (01) ==
LOC: ER 16:23
DX: S10.91XA Abrasion of unspecified part of neck, initial encounter (principal); S50.812A Abrasion of left forearm, initial encounter; S80.811A Abrasion, right lower leg, initial encounter; S30.811A Abrasion of abdominal wall, initial encounter; X78.8XXA Intentional self-harm by other sharp object, initial encounter; R44.0 Auditory hallucinations; I10 Essential (primary) hypertension; J45.909 Unspecified asthma, uncomplicated; E11.9 Type 2 diabetes mellitus without complications; Z23 Encounter for immunization; Z79.899 Other long term (current) drug therapy; Z91.018 Allergy to other foods
CPT/HCPCS: 93005; 99285; 90471; 36415; 80307 ×4; 84443; 85025; 81025; 80053; 81001; 90715; 93010; J3490